=== PATIENT | female | born 1940 | race African-American/Black ===

== ENCOUNTER 2016-09-08 14:10 | Emergency (ER) | payer MEDICARE, BC ==
[~2016-09-08] VITALS: Ht 144.8 cm; Wt 79.5 kg
[~2016-09-08 14:10] MED LIST: ASPI81TA81 PO; BRIN1SUS2 EACH EYE; CALC667T PO; CINA30 PO; DAILTAB39 PO; ESTR42.5V VAGINAL; HYDR-3580 PO; HYDR-755 PO; LATA0.002 EACH EYE; NITR1SUB3 SL; PANT40TA3 PO; RENACAP2 PO; REST0.05 EACH EYE; SIMV10TA PO; VENTAER INH; ZOFR4TAB PO
[2016-09-08 14:12] VITALS: BP 182/75; PULSE 78; RESP 20; TEMP 98; O2SAT 93
--- NOTE | 2016-09-08 15:06 | PD ---
HPI Chief Complaint: Cold / Flu Symptoms Time Seen by Provider: 15:06 Travel History International Travel<30 days: No Contact w/Intl Traveler<30days: No Traveled to known affect area: No History of Present Illness HPI 76-year-old female with history of hypertension, CAD, pacemaker placement, on Coumadin, ESRD on dialysis Thursday, presents to the emergency department for evaluation of increasing chest congestion and shortness of breath. Patient states 3 days ago she began having a cough and some mild congestion. She's developed a cough with increasing shortness of breath. Cough is productive of a white sputum. She has felt chilled and febrile but is uncertain of an actual temperature. Denies nausea or vomiting. No significant pain. She has no other history to report at this time. PFSH Past Medical History Hx Anticoagulant Therapy: Yes (COUMADIN) Arthritis: Yes Anxiety: No Depression: Yes Heart Rhythm Problems: No Cancer: Yes (STOMACH) Cardiovascular Problems: Yes High Cholesterol: Yes Chemotherapy: Yes Chest Pain: Yes Congestive Heart Failure: No Cerebrovascular Accident: Yes Diabetes: No Dialysis: Yes (M/W/F ) Diminished Hearing: No Endocrine: Yes (? THYROID PROBLEM IN PAST) Gastrointestinal Disorders: Yes GERD: Yes Genitourinary: Yes Headaches: Yes Hiatal Hernia: No Hypertension: Yes Immune Disorder: No Implanted Vascular Access Dvce: Yes Kidney Stones: No Musculoskeletal: Yes Neurologic: Yes Psychiatric: Yes Reproductive: No Respiratory: Yes Migraines: No Radiation Therapy: No Renal Failure: Yes Seizures: No Sickle Cell Disease: No Sleep Apnea: Yes Thyroid Disease: No Ulcer: Yes Menopausal: Yes Past Surgical History Abdominal Surgery: Yes (MALIGANT STOMACH TUMOR REMOVAL 2012) AICD: No Arteriovenous Shunt: Yes (RIGHT) Body Medical Devices: VASCATH LEFT CHEST Cardiac Surgery: Yes (PACEMAKER 2014) Endocrine Surgery: No Gynecologic Surgery: Yes (PARTIAL HYSTERECTOMY) Hysterectomy: Yes (PARTIAL) Joint Replacement: Yes (RT TOTAL KNEE) Neurologic Surgery: No Oral Surgery: Yes (TEETH EXTRACTIONS) Pacemaker: Yes Other Surgery: Yes (RUE AV FISTULA ) Social History Alcohol Use: No Tobacco Use: No Substance Use: No Allergies-Medications (Allergen,Severity, Reaction): Coded Allergies: Compazine (Verified Allergy, Severe, TONGUE SWELLING, 09/08/16) Penicillin (Verified Allergy, Severe, Itching, 09/08/16) Reported Meds & Prescriptions Reported Meds & Active Scripts Active Reported Estrace Vaginal (Estradiol) 0.01% Cream 1 Appl VAGINAL EVERY OTHER NIGHT Pantoprazole (Pantoprazole Sodium) 40 Mg Tab 40 Mg PO DAILY Zofran (Ondansetron HCl) 4 Mg Tab 4 Mg PO Q6HR PRN Hydroxyzine HCl 10 Mg Tab 10 Mg PO BID Hydrocodone-Acetaminophen 7.5-325 mg Tab 1 Tab PO Q4H PRN Aspir-81 (Aspirin) 81 Mg Tabdr 81 Mg PO DAILY Ventolin Hfa 18 GM Inh (Albuterol Sulfate) 90 Mcg/Act Aer 2 Puff INH Q4H PRN Simvastatin 10 Mg Tab 10 Mg PO HS Simbrinza Opth Drops (Brinzolamide-Brimonidine Opth Drops) 1-0.2% Susp 1 Drop EACH EYE Q8HR Renal Vitamin (B-Complex W/ C & Folic Acid) 1 Cap 1 Cap PO DAILY If on dialysis, take after treatment. Nitroglycerin SL (Nitroglycerin) 0.4 Mg Subl 0.4 Mg SL DIRECTED PRN ONE TABLET UNDER THE TONGUE NEEDED FOR CHEST PAIN, MAY REPEAT EVERY FIVE MINUTES FOR A TOTAL OF 3 DOSES OR CALL 911 IF NO RELIEF Latanoprost Opth Drops (Latanoprost) 0.005% Drops 1 Drop EACH EYE HS Refrigerate until opened. Sensipar (Cinacalcet) 30 Mg Tab 30 Mg PO DAILY Calcium Acetate (Phosphate Binder) 667 Mg Tab 1,334 Mg PO TID Review of Systems Except as stated in HPI: all other systems reviewed are Neg Physical Exam Narrative GENERAL: Well-nourished female patient, sitting in her chair, in no acute distress SKIN: Warm and dry. HEAD: Atraumatic. Normocephalic. EYES: Pupils equal and round. No scleral icterus. No injection or drainage. ENT: No nasal bleeding or discharge. Mucous membranes pink and moist. NECK: Trachea midline. No JVD. CARDIOVASCULAR: Regular rate and rhythm. No murmur appreciated. RESPIRATORY: No accessory muscle use. Or so, diminished bases to auscultation. Breath sounds equal bilaterally. GASTROINTESTINAL: Abdomen soft, non-tender, nondistended. Hepatic and splenic margins not palpable. MUSCULOSKELETAL: No obvious deformities. No clubbing. No cyanosis. No edema. Right upper extremity AV fistula with positive thrill and bruit. NEUROLOGICAL: Awake and alert. No obvious cranial nerve deficits. Motor grossly within normal limits. Normal speech. PSYCHIATRIC: Appropriate mood and affect; insight and judgment normal. Data Data Last Documented VS Vital Signs Date Time Temp Pulse Resp B/P Pulse Ox O2 Delivery O2 Flow Rate FiO2 09/08/16 19:41 79 20 240/104 93 Room Air 09/08/16 14:12 98.0 Orders Complete Blood Count With Diff (09/08/16 15:04) Basic Metabolic Panel (Bmp) (09/08/16 15:04) B-Type Natriuretic Peptide (09/08/16 15:04) Act Partial Throm Time (Ptt) (09/08/16 15:04) Prothrombin Time / Inr (Pt) (09/08/16 15:04) Ckmb (Isoenzyme) Profile (09/08/16 15:04) Troponin I (09/08/16 15:04) Urinalysis - C+S If Indicated (09/08/16 15:04) Influenzae A/B Antigen (09/08/16 15:04) Electrocardiogram (09/08/16 15:04) Chest, Single Ap (09/08/16 15:04) Methylprednisolone So Succ Inj (Solumedr (09/08/16 19:00) Albuterol-Ipratropium Neb (Duoneb Neb) (09/08/16 19:00) Azithromycin (Zithromax) (09/08/16 19:00) CKMB (09/08/16 18:40) CKMB% (09/08/16 18:40) Labs Laboratory Tests Test 09/08/16 18:40 White Blood Count 7.1 TH/MM3 Red Blood Count 3.42 MIL/MM3 Hemoglobin 11.1 GM/DL Hematocrit 32.1 % Mean Corpuscular Volume 93.8 FL Mean Corpuscular Hemoglobin 32.5 PG Mean Corpuscular Hemoglobin 34.7 % Concent Red Cell Distribution Width 14.5 % Platelet Count 191 TH/MM3 Mean Platelet Volume 8.2 FL Neutrophils (%) (Auto) 61.4 % Lymphocytes (%) (Auto) 21.0 % Monocytes (%) (Auto) 10.0 % Eosinophils (%) (Auto) 6.7 % Basophils (%) (Auto) 0.9 % Neutrophils # (Auto) 4.4 TH/MM3 Lymphocytes # (Auto) 1.5 TH/MM3 Monocytes # (Auto) 0.7 TH/MM3 Eosinophils # (Auto) 0.5 TH/MM3 Basophils # (Auto) 0.1 TH/MM3 CBC Comment DIFF FINAL Differential Comment Prothrombin Time 12.0 SEC Prothromb Time International 1.1 RATIO Ratio Activated Partial 29.2 SEC Thromboplast Time Sodium Level 138 MEQ/L Potassium Level 5.0 MEQ/L Chloride Level 99 MEQ/L Carbon Dioxide Level 30.2 MEQ/L Anion Gap 9 MEQ/L Blood Urea Nitrogen 14 MG/DL Creatinine 4.96 MG/DL Estimat Glomerular Filtration 10 ML/MIN Rate Random Glucose 69 MG/DL Calcium Level 9.1 MG/DL Total Creatine Kinase 144 U/L Creatine Kinase MB 0.7 NG/ML Troponin I 0.02 NG/ML MDM Medical Decision Making Medical Screen Exam Complete: Yes Emergency Medical Condition: Yes Medical Record Reviewed: Yes Differential Diagnosis Pneumonia versus CHF versus influenza versus electrolyte abnormality Narrative Course 76 year-old female presents to the emergency department for evaluation of worsening chest tightness shortness of breath. Patient appears overall well but she does have coarse breath sounds throughout with an intermittent inspiratory and expiratory wheeze. Workup is initiated in triage. Once a medical bed becomes available, patient will be transferred 1610 nursing staff is unable to obtain labs due to access issues. Condition: Stable Bela Dong Sep 08, 2016 15:06
--- NOTE | 2016-09-08 15:20 | RADRPT ---
EXAM DATE/TIME: 09/08/2016 15:01 [facility] COMPARISON: CHEST PA & LAT, July 31, 2016, 11:46. INDICATIONS : Short of breath MEDICAL HISTORY : Hypertension. SURGICAL HISTORY : Pacemaker. ENCOUNTER: Initial ACUITY: 4 - 6 days PAIN SCORE: 0/10 LOCATION: Bilateral chest FINDINGS: A single view of the chest demonstrates the lungs to be symmetrically aerated without evidence of mas s, infiltrate or effusion. The cardiomediastinal contours are unremarkable. Osseous structures are intact. Bipolar pacemaker in place overlying the right hemithorax and vascular stents overlying the u pper right chest most likely subclavian vessels. Atherosclerotic calcifications in aortic knob. CONCLUSION: No acute disease. No significant change has occurred. Fabiano Daniels MD on September 08, 2016 at 15:17 Board Certified Radiologist. This report was verified electronically.
[2016-09-08 17:57] VITALS: BP_SYST 101; BP_SYST 214; BP_DIAS 105; BP_DIAS 58; PULSE 67; RESP 18; O2SAT 96
[2016-09-08 18:06] VITALS: BP 208/84; PULSE 68; RESP 18; O2SAT 96
[2016-09-08] MEDS ORDERED: AZITHROMYCIN 250 MG TAB PO ONE (19:00)
[2016-09-08] MEDS ORDERED: methylPREDNISolone SOD SUCC 125 MG/2 ML VIAL IVP ONE (19:00)
[2016-09-08 19:04] LABS: AUTOMATED NEUTROPHIL # 4.4 TH/MM3 (1.8-7.7); BASOPHIL # 0.1 TH/MM3 (0-0.2); BASOPHIL % 0.9 % (0.0-2.0); EOSINOPHIL # 0.5 TH/MM3 (0-0.4); EOSINOPHIL % 6.7 % (0.0-4.0); HEMATOCRIT 32.1 % (35.0-46.0); HEMO FLAGS DIFF FINAL; LYMPHOCYTE # 1.5 TH/MM3 (1.0-4.8); MEAN CELL VOLUME 93.8 FL (80.0-100.0); MEAN CORPUSCULAR HEMOGLOBIN 32.5 PG (27.0-34.0); MEAN CORPUSCULAR HGB CONC 34.7 % (32.0-36.0); NEUT % 61.4 % (16.0-70.0); PLATELET COUNT 191 TH/MM3 (150-450); RED BLOOD COUNT 3.42 MIL/MM3 (4.00-5.30); RED CELL DISTRIBUTION WIDTH 14.5 % (11.6-17.2); WHITE BLOOD COUNT 7.1 TH/MM3 (4.0-11.0)
--- NOTE | 2016-09-08 19:04 | PD ---
Physical Exam Narrative Patient was seen by my assistant golf coach and signed out to me. Data Data Last Documented VS Vital Signs Date Time Temp Pulse Resp B/P Pulse Ox O2 Delivery O2 Flow Rate FiO2 09/08/16 20:30 202/104 09/08/16 19:41 79 20 93 Room Air 09/08/16 14:12 98.0 Orders Complete Blood Count With Diff (09/08/16 15:04) Basic Metabolic Panel (Bmp) (09/08/16 15:04) B-Type Natriuretic Peptide (09/08/16 15:04) Act Partial Throm Time (Ptt) (09/08/16 15:04) Prothrombin Time / Inr (Pt) (09/08/16 15:04) Ckmb (Isoenzyme) Profile (09/08/16 15:04) Troponin I (09/08/16 15:04) Urinalysis - C+S If Indicated (09/08/16 15:04) Influenzae A/B Antigen (09/08/16 15:04) Electrocardiogram (09/08/16 15:04) Chest, Single Ap (09/08/16 15:04) Methylprednisolone So Succ Inj (Solumedr (09/08/16 19:00) Albuterol-Ipratropium Neb (Duoneb Neb) (09/08/16 19:00) Azithromycin (Zithromax) (09/08/16 19:00) CKMB (09/08/16 18:40) CKMB% (09/08/16 18:40) Labs Laboratory Tests Test 09/08/16 18:40 White Blood Count 7.1 TH/MM3 Red Blood Count 3.42 MIL/MM3 Hemoglobin 11.1 GM/DL Hematocrit 32.1 % Mean Corpuscular Volume 93.8 FL Mean Corpuscular Hemoglobin 32.5 PG Mean Corpuscular Hemoglobin 34.7 % Concent Red Cell Distribution Width 14.5 % Platelet Count 191 TH/MM3 Mean Platelet Volume 8.2 FL Neutrophils (%) (Auto) 61.4 % Lymphocytes (%) (Auto) 21.0 % Monocytes (%) (Auto) 10.0 % Eosinophils (%) (Auto) 6.7 % Basophils (%) (Auto) 0.9 % Neutrophils # (Auto) 4.4 TH/MM3 Lymphocytes # (Auto) 1.5 TH/MM3 Monocytes # (Auto) 0.7 TH/MM3 Eosinophils # (Auto) 0.5 TH/MM3 Basophils # (Auto) 0.1 TH/MM3 CBC Comment DIFF FINAL Differential Comment Prothrombin Time 12.0 SEC Prothromb Time International 1.1 RATIO Ratio Activated Partial 29.2 SEC Thromboplast Time Sodium Level 138 MEQ/L Potassium Level 5.0 MEQ/L Chloride Level 99 MEQ/L Carbon Dioxide Level 30.2 MEQ/L Anion Gap 9 MEQ/L Blood Urea Nitrogen 14 MG/DL Creatinine 4.96 MG/DL Estimat Glomerular Filtration 10 ML/MIN Rate Random Glucose 69 MG/DL Calcium Level 9.1 MG/DL Total Creatine Kinase 144 U/L Creatine Kinase MB 0.7 NG/ML Troponin I 0.02 NG/ML B-Type Natriuretic Peptide 275 PG/ML MDM Supervised Visit with BIANKA: Yes Interpretation(s) Last Impressions Chest X-Ray 09/08/16 1504 Signed Impressions: Service Date/Time: Thursday, September 08, 2016 15:01 - CONCLUSION: No acute disease. No significant change has occurred. Fabiano Daniels MD 22:16 PM. CBC within normal limit. BMP within normal limit. Creatinine 4.96. Glucose 69. BNP 275. Influenza AB antigen negative. Differential Diagnosis Differential diagnosis including URI, bronchitis, pneumonia, acute exacerbation COPD. Narrative Course 76 years old female with coughing congestion wheezing shortness of breath. History of COPD. History of end-stage renal disease on dialysis. Albuterol Atrovent unit dose treatment 3. Solu-Medrol 125 g IV. Zithromax 250 mg by mouth. Patient was given orange juice for low blood sugar. Diagnosis Primary Impression: COPD with acute exacerbation Additional Impression: Bronchitis Patient Instructions: General Instructions Additional Instruction: Take medications as directed. Follow-up with personal physician. Return if worse. Med/Other Pt SpecificInfo: Prescription(s) given Scripts Prednisone 20 Mg Tab20 Mg PO BID #10 TAB Ref 0 Take 60 MG daily x 4 days, then 40 MG x 4 days, then 20 MG daily x 4 days. Prov:Eliecer Christiansen MD 09/08/16 Azithromycin (Zithromax)250 Mg Orp451 Mg PO DAILY #5 TAB Ref 0 Prov:Eliecer Christiansen MD 09/08/16 Disposition: 01 DISCHARGE HOME Condition: Stable Eliecer Christiansen MD Sep 08, 2016 19:04
[2016-09-08] MEDS ORDERED: ESTR42.5V VAGINAL (19:15)
[2016-09-08 19:17] LABS: APTT (PATIENT) 29.2 SEC (24.3-30.1); INTERNATIONAL NORMALIZED RATIO 1.1 RATIO
[2016-09-08 19:32] LABS: ANION GAP 9 MEQ/L (5-15); BICARBONATE 30.2 MEQ/L (21.0-32.0); BLOOD UREA NITROGEN 14 MG/DL (7-18); CHLORIDE 99 MEQ/L (98-107); CREATINE KINASE 144 U/L (26-192); GLOMERULAR FILTRATION RATE 10 ML/MIN (>89); SODIUM (NA) 138 MEQ/L (136-145)
[2016-09-08 19:41] VITALS: BP 240/104; PULSE 79; RESP 20; O2SAT 93
[2016-09-08 19:45] LABS: CKMB 0.7 NG/ML (0.5-3.6)
[2016-09-08] MEDS: RESP: ALBUTEROL 2.5 MG/IPRATROPIUM 0.5 MG NEB (SCH) INH (20:23)
[2016-09-08 20:30] VITALS: BP 202/104
[2016-09-08] MEDS ORDERED: PRED20 PO (22:37)
[2016-09-08] MEDS ORDERED: ZITH250T PO (22:37)
--- NOTE | 2016-09-09 16:49 | EKG ---
Date Performed: 09/08/2016 Time Performed: 15:21:44 PTAGE: 76 years EKG: ELECTRONIC VENTRICULAR PACEMAKER When compared to previous tracing, the patient is now pace d. ABNORMAL RHYTHM ECG PREVIOUS TRACING : 07/31/2016 11.17 DOCTOR: Amanda Bowden Interpretating Date/Time 09/09/2016 16:46:48
[2016-10-03] MEDS ORDERED: HYDR-3580 PO (15:34)
[2016-10-03] MEDS ORDERED: CLIN1CAP5 PO (15:34)
[2016-10-03] MEDS ORDERED: ESTR42.5V VAGINAL (15:43)
[2016-11-10] MEDS ORDERED: SILE6TAB3 PO (11:27)
[2016-11-10] MEDS ORDERED: HYDR-3580 PO (11:33)
[2016-12-11] MEDS ORDERED: ESTR42.5V VAGINAL (14:09)
[2016-12-11] MEDS ORDERED: HYDR-3580 PO (14:09)
[2016-12-31] MEDS ORDERED: MOBI15TA PO (13:16)
[2017-01-07] MEDS ORDERED: HYDR-3580 PO (18:35)
== END 2016-09-08 23:18 | disposition home or self-care (01) ==
LOC: NEPA 14:10
DX: J44.1 Chronic obstructive pulmonary disease with (acute) exacerbation (principal); J40 Bronchitis, not specified as acute or chronic; N18.6 End stage renal disease; R94.31 Abnormal electrocardiogram [ECG] [EKG]; I10 Essential (primary) hypertension; E78.00 Pure hypercholesterolemia, unspecified; R05 Cough; Z99.2 Dependence on renal dialysis; Z79.01 Long term (current) use of anticoagulants
CPT/HCPCS: 71010; 80048; 82550; 82552; 83880; 84484; 85025; 85610; 85730; 87804; 93005; 94640; 94664; 96374; 99285; J2930

== ENCOUNTER 2016-09-30 02:10 | Emergency (ER) | payer MEDICARE, BC ==
[~2016-09-30] VITALS: Ht 162.6 cm; Wt 80.0 kg
[~2016-09-30 02:10] MED LIST changes: -DAILTAB39 PO; +PRED20 PO; -REST0.05 EACH EYE; +ZITH250T PO
[2016-09-30 02:15] VITALS: BP 164/71; PULSE 85; RESP 16; TEMP 97.4; O2SAT 94
--- NOTE | 2016-09-30 03:20 | RADRPT ---
EXAM DATE/TIME: 09/30/2016 03:07 [facility] COMPARISON: CT BRAIN W/O CONTRAST, July 23, 2015, 13:16. INDICATIONS : Cephalgia x 2 days RADIATION DOSE: 34.94 CTDIvol (mGy) MEDICAL HISTORY : Cerebrovascular disease. Cardiovascular disease Hypertension.Right arteriovenous shunt. Stomach canc er. SURGICAL HISTORY : Pacemaker. ENCOUNTER: Initial ACUITY: 2 days PAIN SCALE: 9/10 LOCATION: Bilateral cranial TECHNIQUE: Multiple contiguous axial images were obtained of the head. Using automated exposure control and adj ustment of the mA and/or kV according to patient size, radiation dose was kept as low as reasonably a chievable to obtain optimal diagnostic quality images. FINDINGS: Noncontrast axial head CT demonstrates the ventricles to be normal in size and configuration with a n ormal sulcal pattern. No acute intracranial hemorrhage, acute cortical infarction, mass or midline sh ift is seen. There is physiologic calcification of the basal ganglia there is old infarct involving t he left occipital lobe with ex vacuo dilatation of the left occipital horn. Old infarct is also prese nt in the left thalamus. Posterior fossa structures are unremarkable. Bone windows are unremarkable. There is benign mucosal disease involving the mastoid air cells bilate rally. CONCLUSION: 1. No evidence of acute intracranial pathology. No masses are identified. 2. Old left occipital lobe infarct Angel Villatoro MD on September 30, 2016 at 3:16 Board Certified Radiologist. This report was verified electronically.
[2016-09-30] MEDS ORDERED: MORPHINE SULFATE 8 MG/ML INJ IM ONE (03:30)
[2016-09-30] MEDS ORDERED: ONDANSETRON ODT 4 MG TAB PO ONE (03:30)
[2016-09-30 03:45] VITALS: RESP 20
--- NOTE | 2016-09-30 03:56 | PD ---
HPI Chief Complaint: Headache Time Seen by Provider: 03:52 Travel History International Travel<30 days: No Contact w/Intl Traveler<30days: No Traveled to known affect area: No History of Present Illness HPI 76-year-old black female presents to emergency Department with complaints of headache. She states the headache is been now present for the past 3 days. She has taken multiple medications without relief. She states that she has headaches in the past but this is appears worsen patient she had prior. She has frontal pain that would radiates into her years and down into her neck and upper chest. The patient reports at that her pain is a 8-9/10. Sharp in nature. She states that she's had some sinus congestion, runny nose and slight cough. She denies any fever or chills. No ear pain or sore throat. No shortness of breath or wheezing. No nausea vomiting. No abdominal pain or urinary symptoms. She did get dialysis earlier today. She did not mention this to her dialysis doctor. PFSH Past Medical History Hx Anticoagulant Therapy: Yes (COUMADIN) Arthritis: Yes Anxiety: No Depression: Yes Heart Rhythm Problems: No Cancer: Yes (STOMACH) Cardiovascular Problems: Yes High Cholesterol: Yes Chemotherapy: Yes Chest Pain: Yes Congestive Heart Failure: No Cerebrovascular Accident: Yes Diabetes: No Dialysis: Yes (M/W/F ) Diminished Hearing: No Endocrine: Yes (? THYROID PROBLEM IN PAST) Gastrointestinal Disorders: Yes GERD: Yes Genitourinary: Yes Headaches: Yes Hiatal Hernia: No Hypertension: Yes Immune Disorder: No Implanted Vascular Access Dvce: Yes Kidney Stones: No Medical other: Yes (HEMORRHOIDS) Musculoskeletal: Yes Neurologic: Yes Psychiatric: Yes Reproductive: No Respiratory: Yes Migraines: No Radiation Therapy: No Renal Failure: Yes Seizures: No Sickle Cell Disease: No Sleep Apnea: Yes Thyroid Disease: No Ulcer: Yes Tetanus Vaccination: < 5 Years Influenza Vaccination: Yes Menopausal: Yes Past Surgical History Abdominal Surgery: Yes (MALIGANT STOMACH TUMOR REMOVAL 2012) AICD: No Appendectomy: Yes Arteriovenous Shunt: Yes (RIGHT) Body Medical Devices: VASCATH LEFT CHEST Cardiac Surgery: Yes (PACEMAKER 2014) Endocrine Surgery: No Gynecologic Surgery: Yes (PARTIAL HYSTERECTOMY) Hysterectomy: Yes (PARTIAL) Joint Replacement: Yes (RT TOTAL KNEE) Neurologic Surgery: No Oral Surgery: Yes (TEETH EXTRACTIONS) Pacemaker: Yes Other Surgery: Yes (RUE AV FISTULA ) Social History Alcohol Use: No Tobacco Use: No Substance Use: No Allergies-Medications (Allergen,Severity, Reaction): Coded Allergies: Compazine (Verified Allergy, Severe, TONGUE SWELLING, 09/30/16) Penicillin (Verified Allergy, Severe, Itching, 09/30/16) Reported Meds & Prescriptions Reported Meds & Active Scripts Active Prednisone 20 Mg Tab 20 Mg PO BID Take 60 MG daily x 4 days, then 40 MG x 4 days, then 20 MG daily x 4 days. Zithromax (Azithromycin) 250 Mg Tab 250 Mg PO DAILY Reported Estrace Vaginal (Estradiol) 0.01% Cream 1 Appl VAGINAL EVERY OTHER NIGHT Pantoprazole (Pantoprazole Sodium) 40 Mg Tab 40 Mg PO DAILY Zofran (Ondansetron HCl) 4 Mg Tab 4 Mg PO Q6HR PRN Hydroxyzine HCl 10 Mg Tab 10 Mg PO BID Hydrocodone-Acetaminophen 7.5-325 mg Tab 1 Tab PO Q4H PRN Aspir-81 (Aspirin) 81 Mg Tabdr 81 Mg PO DAILY Ventolin Hfa 18 GM Inh (Albuterol Sulfate) 90 Mcg/Act Aer 2 Puff INH Q4H PRN Simvastatin 10 Mg Tab 10 Mg PO HS Simbrinza Opth Drops (Brinzolamide-Brimonidine Opth Drops) 1-0.2% Susp 1 Drop EACH EYE Q8HR Renal Vitamin (B-Complex W/ C & Folic Acid) 1 Cap 1 Cap PO DAILY If on dialysis, take after treatment. Nitroglycerin SL (Nitroglycerin) 0.4 Mg Subl 0.4 Mg SL DIRECTED PRN ONE TABLET UNDER THE TONGUE NEEDED FOR CHEST PAIN, MAY REPEAT EVERY FIVE MINUTES FOR A TOTAL OF 3 DOSES OR CALL 911 IF NO RELIEF Latanoprost Opth Drops (Latanoprost) 0.005% Drops 1 Drop EACH EYE HS Refrigerate until opened. Sensipar (Cinacalcet) 30 Mg Tab 30 Mg PO DAILY Calcium Acetate (Phosphate Binder) 667 Mg Tab 1,334 Mg PO TID Review of Systems Except as stated in HPI: all other systems reviewed are Neg General / Constitutional: No: Fever, Chills Eyes: No: Blurred Vision, Photophobia HENT: Positive: Headaches, No: Neck Pain Cardiovascular: Positive: Irregular Rhythm (history of arrhythmia), No: Chest Pain or Discomfort Respiratory: No: Cough, Shortness of Breath Gastrointestinal: No: Nausea, Vomiting Genitourinary: No: Pelvic Pain, Discharge Musculoskeletal: Positive: Arthralgias, Weakness (weakness in her lower legs), Pain Skin: No Rash, No Itching Physical Exam Narrative GENERAL: Well-developed, well-nourished in no apparent distress. Nontoxic appearing. HEAD: Normocephalic, atraumatic. EYES: Pupils equal round and reactive. Extraocular motions intact. No scleral icterus. No injection or drainage. ENT: Nose clear. Throat without erythema, tonsillar hypertrophy or exudate. Uvula midline. Airway patent. NECK: Trachea midline. Supple, nontender, moves head freely. No central bony tenderness or spasm. CARDIOVASCULAR: Irregular Regular rate and rhythm 3/6 left sternal border, positive gallops. RESPIRATORY: Clear to auscultation. Breath sounds equal bilaterally. No wheezes , rales, or rhonchi. GASTROINTESTINAL: Abdomen soft, non-tender, nondistended. No hepato-splenomegaly , or palpable masses. No guarding. EXTREMITIES: No clubbing, cyanosis, or edema. No joint tenderness. Warm without erythema. No calf tenderness. No edema. BACK: Nontender without deformity. No flank tenderness. NEUROLOGICAL: Awake, alert and oriented x 3 .Cranial nerves grossly intact. Motor and sensory grossly within normal limits. Normal speech. Data Data Last Documented VS Vital Signs Date Time Temp Pulse Resp B/P Pulse Ox O2 Delivery O2 Flow Rate FiO2 09/30/16 02:22 16 94 Room Air 09/30/16 02:15 97.4 85 164/[address] Brain W/O Iv Contrast(Rout) (09/30/16 02:54) Influenzae A/B Antigen (09/30/16 03:26) Morphine Inj (Morphine Inj) (09/30/16 03:30) Ondansetron Odt (Zofran Odt) (09/30/16 03:30) MDM Medical Decision Making Medical Screen Exam Complete: Yes Emergency Medical Condition: Yes Medical Record Reviewed: Yes Interpretation(s) Influenza: Negative Last [address] 09/30/16 0254 Signed Impressions: Service Date/Time: Friday, September 30, 2016 03:07 - CONCLUSION: 1. No evidence of acute intracranial pathology. No masses are identified. 2. Old left occipital lobe infarct Angel Villatoro MD Differential Diagnosis MDM: High Differential diagnoses: Subarachnoid hemorrhage, intracranial bleed, aneurysm, pseudotumor, migraine, cluster headache, atypical migraine, temporal arteritis, connective tissue disorder, hypertension, temporal arteritis, sinusitis, sinus headache, influenza Narrative Course CT scan of the brain shows no acute cranial findings. Sinuses show no acute sinus disease. Patient does not look toxic. She had dialysis earlier today. Patient given morphine 8 mg IM and 4 mg of Zofran sublingual. 12 08 the patient's reexamined. She is sleeping. She is awoken. She states that her headache is improving. She states that her headache is down to a level of 5. The patient is medically stable for discharge. This is cephalgia Diagnosis Primary Impression: Cephalgia Qualified Code: R51 - Acute nonintractable headache, unspecified headache type Patient Instructions: General Instructions, Narcotic given in the ED Additional Instructions: Rest. Notify your doctor in the morning that she came to the ER for headache treatment. Recheck with your doctor tomorrow or the next day. Return to the ER if symptoms return or worsen. Med/Other Pt SpecificInfo: No Change to Meds Disposition: 01 DISCHARGE HOME Condition: Stable Ephraim Chavarria Sep 30, 2016 03:56
[2016-10-03] MEDS ORDERED: CLIN1CAP5 PO (15:34)
[2016-10-03] MEDS ORDERED: HYDR-3580 PO (15:34)
[2016-10-03] MEDS ORDERED: ESTR42.5V VAGINAL (15:43)
[2016-11-10] MEDS ORDERED: SILE6TAB3 PO (11:27)
[2016-11-10] MEDS ORDERED: HYDR-3580 PO (11:33)
[2016-12-11] MEDS ORDERED: ESTR42.5V VAGINAL (14:09)
[2016-12-11] MEDS ORDERED: HYDR-3580 PO (14:09)
[2016-12-31] MEDS ORDERED: MOBI15TA PO (13:16)
[2017-01-07] MEDS ORDERED: HYDR-3580 PO (18:35)
== END 2016-09-30 05:14 | disposition home or self-care (01) ==
LOC: NEPA 02:10
DX: R51 Headache (principal)
CPT/HCPCS: 70450; 87804; 96372; 99284; J2270

== ENCOUNTER → 2017-03-19 | Outpatient (CLI) | payer MEDICARE, BC ==
[~2017-03-19] MED LIST changes: +DICL1GEL7 TOPICAL; -HYDR-755 PO; -PRED20 PO; +SILE6TAB3 PO; +WALKER WHEELS/F1 MIS; +WALKER/ADULT/FO1 MIS; -ZITH250T PO
[2017-03-19 11:06] LABS: HDL CHOLESTEROL 47.9 MG/DL (40.0-60.0)
== END ==
LOC: CLAB 10:06
PROVIDERS: ATTEND Family Medicine
DX: E78.5 Hyperlipidemia, unspecified (principal); N18.6 End stage renal disease
CPT/HCPCS: 36415; 80061

== ENCOUNTER → 2017-05-06 | Outpatient (CLI) | payer MEDICARE, BC ==
[~2017-05-06] MED LIST changes: +AMLO5TAB2 PO; -BRIN1SUS2 EACH EYE; +CANE/WOOD/LADIE1 MI1; +HYDR-3533 PO; -LATA0.002 EACH EYE; +METO25TA3 PO; -SILE6TAB3 PO; +WRIST SPLINT/CO1 MI1; +WRIST SPLINT/CO1 MIS
[2017-05-06 10:59] LABS: AUTOMATED NEUTROPHIL # 4.3 TH/MM3 (1.8-7.7); BASOPHIL # 0.1 TH/MM3 (0-0.2); BASOPHIL % 0.9 % (0.0-2.0); EOSINOPHIL # 0.6 TH/MM3 (0-0.4); EOSINOPHIL % 7.2 % (0.0-4.0); HEMATOCRIT 33.9 % (35.0-46.0); HEMO FLAGS DIFF FINAL; LYMPH % 24.4 % (9.0-44.0); LYMPHOCYTE # 1.9 TH/MM3 (1.0-4.8); MEAN CELL VOLUME 93.1 FL (80.0-100.0); MEAN CORPUSCULAR HEMOGLOBIN 32.2 PG (27.0-34.0); MEAN CORPUSCULAR HGB CONC 34.5 % (32.0-36.0); MONO % 12.1 % (0.0-8.0); NEUT % 55.4 % (16.0-70.0); PLATELET COUNT 165 TH/MM3 (150-450); RED BLOOD COUNT 3.64 MIL/MM3 (4.00-5.30); RED CELL DISTRIBUTION WIDTH 15.2 % (11.6-17.2); WHITE BLOOD COUNT 7.8 TH/MM3 (4.0-11.0)
[2017-05-06 11:22] LABS: ANION GAP 10 MEQ/L (5-15); AST (GOT) 13 U/L (15-37); BICARBONATE 26.4 MEQ/L (21.0-32.0); BLOOD UREA NITROGEN 16 MG/DL (7-18); CHLORIDE 103 MEQ/L (98-107); GLOMERULAR FILTRATION RATE 11 ML/MIN (>89); GLUCOSE,FASTING 97 MG/DL (74-99); SODIUM (NA) 139 MEQ/L (136-145)
[2017-05-06 11:23] LABS: ALT (GPT) 15 U/L (10-53)
[2017-05-06 11:25] LABS: ALKALINE PHOSPHATASE 149 U/L (45-117); HDL CHOLESTEROL 45.2 MG/DL (40.0-60.0); LDL CHOLESTEROL 123 MG/DL (0-99); TOTAL BILIRUBIN ADULT 0.4 MG/DL (0.2-1.0)
== END ==
LOC: CLAB 10:31
PROVIDERS: ATTEND Family Medicine
DX: E78.5 Hyperlipidemia, unspecified (principal); N18.6 End stage renal disease
CPT/HCPCS: 36415; 80053; 80061; 85025

== ENCOUNTER 2017-05-15 11:41 | Emergency (ER) | payer MEDICARE, BC ==
[~2017-05-15] VITALS: Ht 149.9 cm; Wt 79.0 kg
[~2017-05-15 11:41] MED LIST changes: -HYDR-3533 PO
[2017-05-15 11:44] VITALS: BP 134/63; PULSE 85; RESP 20; TEMP 98.2; O2SAT 98
--- NOTE | 2017-05-15 13:08 | PD ---
HPI Chief Complaint: Musculoskeletal Complaint Time Seen by Provider: 12:49 Travel History International Travel<30 days: No Contact w/Intl Traveler<30days: No Traveled to known affect area: No History of Present Illness HPI 77-year-old female, with history of renal failure and is on dialysis, presents to the emergency Department with complaint of right shoulder pain, abdominal pain, bilateral knee pain, neck pain after losing her balance while reaching for something and falling at approximately 12:30 last night. Did go to dialysis this morning. Ambulatory since after fall. Denies hitting head or loss or consciousness. Denies anticoagulant therapy. Fell onto her right shoulder. Denies falling onto her knees or abdomen. Reports paresthesias to bilateral hands, denies loss of sensation. Reports decreased range of motion to the right shoulder. Denies back pain. Denies encopresis, incontinence, saddle anesthesias. Denies chest pain, shortness of breath, vomiting, change in stool. Denies blood in stool. Reports anuria. Symptoms are moderate in severity. Has not taken any medications or tried any treatments to alleviate his symptoms. Allergies to penicillin and prochlorperazine. Dr. Bautista primary care provider. Dr. Steele is dialysis MG. History of kidney failure, dialysis, hypertension, stroke in 2012, and pacemaker. Has no medical complaints. No other modifying factors or associated signs and symptoms. PFSH Past Medical History Hx Anticoagulant Therapy: Yes (COUMADIN) Arthritis: Yes Anxiety: No Depression: Yes Heart Rhythm Problems: No Cancer: Yes (STOMACH) Cardiovascular Problems: Yes High Cholesterol: Yes Chemotherapy: Yes Chest Pain: Yes Congestive Heart Failure: No Cerebrovascular Accident: Yes Diabetes: No Dialysis: Yes (M/W/F ) Diminished Hearing: No Endocrine: Yes (? THYROID PROBLEM IN PAST) Gastrointestinal Disorders: Yes GERD: Yes Genitourinary: Yes Headaches: Yes Hiatal Hernia: No Hypertension: Yes Immune Disorder: No Implanted Vascular Access Dvce: Yes Kidney Stones: No Musculoskeletal: Yes Neurologic: Yes Psychiatric: Yes Reproductive: No Respiratory: Yes Migraines: No Radiation Therapy: No Renal Failure: Yes Seizures: No Sickle Cell Disease: No Sleep Apnea: Yes Thyroid Disease: No Ulcer: Yes Menopausal: Yes Past Surgical History Abdominal Surgery: Yes (MALIGANT STOMACH TUMOR REMOVAL 2012) AICD: No Appendectomy: Yes Arteriovenous Shunt: Yes (RIGHT) Body Medical Devices: VASCATH LEFT CHEST Cardiac Surgery: Yes (PACEMAKER 2014) Endocrine Surgery: No Gynecologic Surgery: Yes (PARTIAL HYSTERECTOMY) Hysterectomy: Yes Joint Replacement: Yes (RT TOTAL KNEE) Neurologic Surgery: No Oral Surgery: Yes (TEETH EXTRACTIONS) Pacemaker: Yes Other Surgery: Yes (RUE AV FISTULA ) Social History Alcohol Use: No Tobacco Use: No Substance Use: No Allergies-Medications (Allergen,Severity, Reaction): Coded Allergies: penicillin G (Unverified Allergy, Severe, Itching, 05/15/17) prochlorperazine (Unverified Allergy, Severe, TONGUE SWELLING, 05/15/17) Reported Meds & Prescriptions Reported Meds & Active Scripts Active Wrist Splint/Cock-Up/Right 1 Mis Mis Ea .ROUTE DIRECTED Wrist Splint/Cock-Up/Left 1 Mis Mis Ea .ROUTE DIRECTED Hydrocodone-Acetaminophen 7.5-325 mg Tab 1 Tab PO Q6H PRN Cane/Wood/Ladies Standard (Device) 1 Mis Mis Ea .ROUTE DIRECTED use for 99 years Cane/Wood/Ladies Standard (Device) 1 Mis Mis 1 Ea .ROUTE DIRECTED use for 99 years Walker/Adult/Folding (Device) 1 Mis Mis 1 Ea .ROUTE DIRECTED use as needed to assist for ambulation Walker with Front Wheels (Device) 1 Mis Mis 1 Ea .ROUTE DIRECTED Diclofenac Topical 1% Gel 1 Applic TOPICAL QID Estrace Vaginal (Estradiol) 0.01% Cream 1 Appl VAGINAL EVERY OTHER NIGHT Reported Metoprolol Tartrate 25 Mg Tab 25 Mg PO DAILY Amlodipine (Amlodipine Besylate) 5 Mg Tab 5 Mg PO DAILY Pantoprazole (Pantoprazole Sodium) 40 Mg Tab 40 Mg PO DAILY Zofran (Ondansetron HCl) 4 Mg Tab 4 Mg PO Q6HR PRN Aspir-81 (Aspirin) 81 Mg Tabdr 81 Mg PO DAILY Ventolin Hfa 18 GM Inh (Albuterol Sulfate) 90 Mcg/Act Aer 2 Puff INH Q4H PRN Simvastatin 10 Mg Tab 10 Mg PO HS Renal Vitamin (B-Complex W/ C & Folic Acid) 1 Cap 1 Cap PO DAILY If on dialysis, take after treatment. Nitroglycerin SL (Nitroglycerin) 0.4 Mg Subl 0.4 Mg SL DIRECTED PRN ONE TABLET UNDER THE TONGUE NEEDED FOR CHEST PAIN, MAY REPEAT EVERY FIVE MINUTES FOR A TOTAL OF 3 DOSES OR CALL 911 IF NO RELIEF Sensipar (Cinacalcet) 30 Mg Tab 30 Mg PO DAILY Calcium Acetate (Phosphate Binder) 667 Mg Tab 1,334 Mg PO TID Review of Systems Except as stated in HPI: all other systems reviewed are Neg Physical Exam Narrative GENERAL: Well-nourished, well-developed elderly, black female patient, in no acute distress SKIN: Warm and dry. HEAD: Atraumatic. Normocephalic. No facial or scalp abrasions or lacerations noted. No facial droop noted. Tongue midline. EYES: Pupils equal and round at 2 mm with brisk reaction. No scleral icterus. No injection or drainage. No raccoon eyes. ENT: Mucosa pink and moist. No erythema or exudates. No uvular edema. No uvular , palatal, or tonsillar deviation. Airway patent. Nares without nasal blood. No rhinorrhea. EARS: Bilateral pinnae and external canals appear within normal limits. Bilateral tympanic membranes without erythema, dullness, hemotympanum or perforation. No otorrhea. No joiner signs. NECK: Moving freely. Trachea midline. No lymphadenopathy. No midline point tenderness on palpation of the cervical spine. Active rotation of the neck greater than 45 left and right. Reproducible tenderness to bilateral musculature of the neck. No obvious deformities. CHEST: No retractions or use of accessory muscles. CARDIOVASCULAR: Regular rate and rhythm. No murmur appreciated. RESPIRATORY: No accessory muscle use. Clear to auscultation. Breath sounds equal bilaterally. GASTROINTESTINAL: Abdomen soft, generalized tenderness on palpation, nondistended. Hepatic and splenic margins not palpable. Bowel sounds are active 4 quadrants. MUSCULOSKELETAL: Right shoulder with less than 45 abduction; without erythema , edema, ecchymosis; shoulders equal; joint stable; decreased range of motion; no obvious deformity. No obvious deformities. No clubbing. No cyanosis. No edema. BACK: No midline Point tenderness on palpation of the lumbar or thoracic spine. No obvious deformities. Patient sitting up in bed at 90. NEUROLOGICAL: Awake and alert. Oriented 3. No obvious cranial nerve deficits. Motor grossly within normal limits. Normal speech. Moves all extremities. 5/5 strength to all extremities. Sensory intact. PSYCHIATRIC: Appropriate mood and affect; insight and judgment normal. Data Data Last Documented VS Vital Signs Date Time Temp Pulse Resp B/P (MAP) Pulse Ox O2 Delivery O2 Flow Rate FiO2 05/15/17 13:15 16 05/15/17 11:44 98.2 85 134/63 (86) 98 Room Air Orders Orders Complete Blood Count With Diff (05/15/17 13:05) Comprehensive Metabolic Panel (05/15/17 13:05) Lipase (05/15/17 13:05) Iv Access Insert/Monitor (05/15/17 13:05) Sodium Chloride 0.9% Flush (Ns Flush) (05/15/17 13:15) Shoulder, Complete (>2vws) (05/15/17 13:08) Ct Abd/Pel W/O Iv Contrast (05/15/17 14:09) Acetamin-Hydrocod 325-5 Mg (Klemme 5-325 (05/15/17 14:30) Labs Laboratory Tests Test 05/15/17 13:30 White Blood Count 7.5 TH/MM3 Red Blood Count 3.75 MIL/MM3 Hemoglobin 12.3 GM/DL Hematocrit 35.3 % Mean Corpuscular Volume 94.3 FL Mean Corpuscular Hemoglobin 32.9 PG Mean Corpuscular Hemoglobin Concent 34.9 % Red Cell Distribution Width 15.3 % Platelet Count 160 TH/MM3 Mean Platelet Volume 8.2 FL Neutrophils (%) (Auto) 58.8 % Lymphocytes (%) (Auto) 19.9 % Monocytes (%) (Auto) 15.4 % Eosinophils (%) (Auto) 5.4 % Basophils (%) (Auto) 0.5 % Neutrophils # (Auto) 4.4 TH/MM3 Lymphocytes # (Auto) 1.5 TH/MM3 Monocytes # (Auto) 1.2 TH/MM3 Eosinophils # (Auto) 0.4 TH/MM3 Basophils # (Auto) 0.0 TH/MM3 CBC Comment DIFF FINAL Differential Comment Blood Urea Nitrogen 16 MG/DL Creatinine 4.48 MG/DL Random Glucose 98 MG/DL Total Protein 7.9 GM/DL Albumin 3.6 GM/DL Calcium Level 8.0 MG/DL Alkaline Phosphatase 136 U/L Aspartate Amino Transf (AST/SGOT) 30 U/L Alanine Aminotransferase (ALT/SGPT) 16 U/L Total Bilirubin 0.6 MG/DL Sodium Level 136 MEQ/L Potassium Level 4.5 MEQ/L Chloride Level 100 MEQ/L Carbon Dioxide Level 27.5 MEQ/L Anion Gap 9 MEQ/L Estimat Glomerular Filtration Rate 12 ML/MIN Lipase 454 U/L [facility] Medical Decision Making Medical Screen Exam Complete: Yes Emergency Medical Condition: Yes Medical Record Reviewed: Yes Differential Diagnosis Fall, Shoulder contusion, shoulder sprain, shoulder fracture, abdominal pain, abdominal contusion Narrative Course 77-year-old female, with history of renal failure and is on dialysis, physical exam consistent with strain of cervical portion of both trapezius muscles, right shoulder injury, and abdominal pain after mechanical fall late last night. Denies hitting her head or loss of consciousness. Denies anticoagulant therapy. The patient admits to hitting their head, but denies loss of consciousness. Denies nausea, vomiting. On physical exam the patient is without raccoon eyes, joiner signs, rhinorrhea, or hemotympanum. I do not suspect open or depressed skull fracture, and the patient has no signs of basilar skull fracture. [place] CT Head Injury Rule suggests a head CT is not necessary for this patient and clears the patient for head injury without imaging. Reports neck pain. [place] C-Spine Rule suggests the C-Spine can be cleared clinically of fracture, and imaging is not required. There is no midline point tenderness on palpation of the cervical spine. The patient is able to actively rotate the neck 45 left and right. The patient is sitting up in bed at 90. The patient is ambulatory. Generalized abdominal tenderness on exam. CBC, CMP, lipase, CT abdomen/pelvis ordered. Right shoulder x-ray ordered. Lortab ordered. Patient is anuria so urinalysis was not ordered. 1434: Right shoulder x-ray with no acute fracture or dislocation. CBC unremarkable. BMP was elevated creatinine 4.48 and GFR 12; consistent with renal failure. Lipase 454. 1504: CT abdomen/pelvis concludes: Negative for acute traumatic injury; Marked degenerative changes in the lumbar spine. All lab findings and CT and radiology findings discussed with patient. Patient given fluid challenge. She' ll be discharged home if tolerated well. Lortab prescribed for home. Instructed patient to follow up with primary care provider. Patient verbalizes understanding and agreement with treatment plan. Patient is medically cleared and stable for discharge. Discussed reasons to return to the emergency department. Patient agrees with treatment plan. The patients vital signs are stable and the patient is stable for outpatient follow-up and treatment. Patient discharged home, stable and in no acute distress. Diagnosis Primary Impression: Fall Qualified Codes: W19.XXXA - Unspecified fall, initial encounter Additional Impressions: Strain of cervical portion of both trapezius muscles Abdominal pain Qualified Codes: R10.9 - Unspecified abdominal pain Right shoulder injury Qualified Codes: S49.91XA - Unspecified injury of right shoulder and upper arm , initial encounter Serum lipase elevation Referrals: Primary Care Physician Patient Instructions: Abdominal Pain (ED), Cervical Neck Strain Exercises (GEN) , Cervical Strain (ED), Fall Prevention (ED), General Instructions, Shoulder Sprain (ED) Additional Instructions: Tylenol or ibuprofen as needed and as directed to reduce pain and inflammation Rest, ice, and compress extremity to decrease pain and inflammation Heating pad and/ice to neck area as needed for pain Avoid aggravating activity; increase activity as tolerated Follow-up with primary care provider Return to the emergency department immediately with worsening symptoms Med/Other Pt SpecificInfo: Prescription(s) given Scripts Hydrocodone-Acetaminophen (Lortab) 5-325 Mg Tab 1 TAB PO Q6H Y for PAIN, #10 TAB 0 Refills Prov: Yolanda Will 05/15/17 Disposition: 01 DISCHARGE HOME Condition: Stable Yolanda Will May 15, 2017 13:08
[2017-05-15] MEDS ORDERED: SODIUM CHLORIDE 0.9% FLUSH 10 ML FLUSH IV FLUSH PRN (13:15)
[2017-05-15 13:43] LABS: AUTOMATED NEUTROPHIL # 4.4 TH/MM3 (1.8-7.7); BASOPHIL % 0.5 % (0.0-2.0); EOSINOPHIL # 0.4 TH/MM3 (0-0.4); EOSINOPHIL % 5.4 % (0.0-4.0); HEMATOCRIT 35.3 % (35.0-46.0); HEMO FLAGS DIFF FINAL; LYMPH % 19.9 % (9.0-44.0); LYMPHOCYTE # 1.5 TH/MM3 (1.0-4.8); MEAN CELL VOLUME 94.3 FL (80.0-100.0); MEAN CORPUSCULAR HEMOGLOBIN 32.9 PG (27.0-34.0); MEAN CORPUSCULAR HGB CONC 34.9 % (32.0-36.0); MONO % 15.4 % (0.0-8.0); NEUT % 58.8 % (16.0-70.0); PLATELET COUNT 160 TH/MM3 (150-450); RED BLOOD COUNT 3.75 MIL/MM3 (4.00-5.30); RED CELL DISTRIBUTION WIDTH 15.3 % (11.6-17.2); WHITE BLOOD COUNT 7.5 TH/MM3 (4.0-11.0)
[2017-05-15 14:00] LABS: ALT (GPT) 16 U/L (10-53)
[2017-05-15 14:02] LABS: ALKALINE PHOSPHATASE 136 U/L (45-117); ANION GAP 9 MEQ/L (5-15); AST (GOT) 30 U/L (15-37); BICARBONATE 27.5 MEQ/L (21.0-32.0); BLOOD UREA NITROGEN 16 MG/DL (7-18); CHLORIDE 100 MEQ/L (98-107); GLOMERULAR FILTRATION RATE 12 ML/MIN (>89); SODIUM (NA) 136 MEQ/L (136-145); TOTAL BILIRUBIN ADULT 0.6 MG/DL (0.2-1.0)
[2017-05-15 14:04] LABS: POTASSIUM 4.5 MEQ/L (3.5-5.1)
--- NOTE | 2017-05-15 14:19 | RADRPT ---
EXAM DATE/TIME: 05/15/2017 14:03 [facility] COMPARISON: No previous studies available for comparison. INDICATIONS : Right shoulder pain after patient fell. MEDICAL HISTORY : Cerebrovascular disease. Cardiovascular disease Hypertension.Right arteriovenous shunt. Stomach cance r. SURGICAL HISTORY : Pacemaker. ENCOUNTER: Initial ACUITY: 1 day PAIN SCORE: 8/10 LOCATION: Right Shoulder. FINDINGS: Osseous structures appear intact without evidence for acute bony fracture or focal bone destruction. Glenohumeral joint is anatomic. Acromioclavicular joint is maintained. There are right subclavian vei n and axillary vein stents in place. Partially imaged right sided pacemaker in place. Visualized port ions of the lungs are clear. Soft tissues are grossly unremarkable. CONCLUSION: 1. No acute fracture or dislocation. Roni Kirk MD on May 15, 2017 at 14:17 Board Certified Radiologist. This report was verified electronically.
[2017-05-15] MEDS ORDERED: ACETAMINOPHEN/HYDROcodone 325 MG/5 MG TAB PO ONE (14:30)
--- NOTE | 2017-05-15 15:02 | RADRPT ---
EXAM DATE/TIME: 05/15/2017 14:24 [facility] COMPARISON: No previous studies available for comparison. INDICATIONS : Trauma; fall. ORAL CONTRAST: No oral contrast ingested. RADIATION DOSE: 15.94 CTDIvol (mGy) MEDICAL HISTORY : Cardiovascular disease. Renal failure, chronic. Dialysis SURGICAL HISTORY : Appendectomy. Hysterectomy.AV shunt ENCOUNTER: Initial ACUITY: 1 day PAIN SCALE: 5/10 LOCATION: Bilateral abdomen. TECHNIQUE: Volumetric scanning of the abdomen and pelvis was performed. Using automated exposure control and ad justment of the mA and/or kV according to patient size, radiation dose was kept as low as reasonably achievable to obtain optimal diagnostic quality images. DICOM format image data is available electro nically for review and comparison. FINDINGS: Lung bases are clear. Mitral valve annulus calcifications are evident. Liver, spleen, pancreas and adrenals unremarkable. Bilateral renal cysts. There is a 1.2 cm in the right kidney, Bosniak 2. There is no retroperitoneal adenopathy. Degenerative changes present in the lumbar spine and both SI joints and right hip. Fracture is not appreciated. CONCLUSION: Negative for acute traumatic injury. Marked degenerative changes in the lumbar spine. Arnaud Salcido MD FACR on May 15, 2017 at 14:49 Board Certified Radiologist. This report was verified electronically.
[2017-05-15] MEDS ORDERED: HYDR-3533 PO (15:13)
== END 2017-05-15 15:38 | disposition home or self-care (01) ==
LOC: NEPD 11:41
DX: S16.1XXA Strain of muscle, fascia and tendon at neck level, initial encounter (principal); R10.9 Unspecified abdominal pain; S49.91XA Unspecified injury of right shoulder and upper arm, initial encounter; M25.561 Pain in right knee; M25.562 Pain in left knee; I12.9 Hypertensive chronic kidney disease with stage 1 through stage 4 chronic kidney disease, or unspecified chronic kidney disease; N18.9 Chronic kidney disease, unspecified; W19.XXXA Unspecified fall, initial encounter; Z86.73 Personal history of transient ischemic attack (TIA), and cerebral infarction without residual deficits
CPT/HCPCS: 73030; 74176; 80053; 83690; 85025

== ENCOUNTER 2017-05-25 11:01 | Emergency (ER) | payer MEDICARE, BC ==
[~2017-05-25] VITALS: Ht 149.9 cm; Wt 75.0 kg
[~2017-05-25 11:01] MED LIST changes: +HYDR-3533 PO
[2017-05-25 11:13] VITALS: BP 137/80; PULSE 84; RESP 15; TEMP 97.8; O2SAT 95
[2017-05-25] MEDS ORDERED: SODIUM CHLORIDE 0.9% FLUSH 10 ML FLUSH IVF PRN (12:30)
--- NOTE | 2017-05-25 12:59 | PD ---
HPI Chief Complaint: Fall Time Seen by Provider: 11:59 Travel History International Travel<30 days: No Contact w/Intl Traveler<30days: No Traveled to known affect area: No History of Present Illness HPI Patient is a 77-year-old female with history of CVA in 2011, hypertension, hyperlipidemia, end-stage renal disease on hemodialysis with right sided AV fistula presents to ER with complaints of left hip pain. Patient reports that 2 weeks ago, she suffered a mechanical fall, reports that she lost her balance and landed on her left hip. Reports that she has had pain to her left hip since then. Patient reports that she was seen in the emergency room after her first fall and had a negative x-ray of her hip. Patient reports that a week later, she fell again landing on her left hip. Patient feels that her left hip feels "jammed." Reports at baseline, she does walk with a walker and a cane and uses a wheelchair for dialysis. Reports that her left leg feels weak and numb. Patient denies any back pain at this time. She denies any saddle anesthesia, denies any incontinence of urine or bowel. Patient does not make urine at baseline as she has end-stage renal disease on hemodialysis. Reports no chest pain or shortness of breath. No fever/chills. No abdominal pain. Patient with no other complaints at this time. PFSH Past Medical History Hx Anticoagulant Therapy: Yes (COUMADIN) Arthritis: Yes Anxiety: No Depression: Yes Heart Rhythm Problems: No Cancer: Yes (STOMACH) Cardiovascular Problems: Yes High Cholesterol: Yes Chemotherapy: Yes Chest Pain: Yes Congestive Heart Failure: No Cerebrovascular Accident: Yes Diabetes: No Dialysis: Yes (M/W/F ) Diminished Hearing: No Endocrine: Yes (? THYROID PROBLEM IN PAST) Gastrointestinal Disorders: Yes GERD: Yes Genitourinary: Yes Headaches: Yes Hiatal Hernia: No Hypertension: Yes Immune Disorder: No Implanted Vascular Access Dvce: Yes Kidney Stones: No Medical other: Yes (HEMORRHOIDS) Musculoskeletal: Yes Neurologic: Yes Psychiatric: Yes Reproductive: No Respiratory: Yes Migraines: No Radiation Therapy: No Renal Failure: Yes Seizures: No Sickle Cell Disease: No Sleep Apnea: Yes Thyroid Disease: No Ulcer: Yes Menopausal: Yes Past Surgical History Abdominal Surgery: Yes (MALIGANT STOMACH TUMOR REMOVAL 2012) AICD: No Appendectomy: Yes Arteriovenous Shunt: Yes (RIGHT) Body Medical Devices: VASCATH LEFT CHEST Cardiac Surgery: Yes (PACEMAKER 2014) Endocrine Surgery: No Gynecologic Surgery: Yes (PARTIAL HYSTERECTOMY) Hysterectomy: Yes Joint Replacement: Yes (RT TOTAL KNEE) Neurologic Surgery: No Oral Surgery: Yes (TEETH EXTRACTIONS) Pacemaker: Yes Other Surgery: Yes (RUE AV FISTULA ) Social History Alcohol Use: No Tobacco Use: No Substance Use: No Allergies-Medications (Allergen,Severity, Reaction): Coded Allergies: penicillin G (Unverified Allergy, Severe, Itching, 05/15/17) prochlorperazine (Unverified Allergy, Severe, TONGUE SWELLING, 05/15/17) Reported Meds & Prescriptions Reported Meds & Active Scripts Active Lortab (Hydrocodone-Acetaminophen) 5-325 Mg Tab 1 Tab PO Q6H PRN Wrist Splint/Cock-Up/Right 1 Mis Mis Ea .ROUTE DIRECTED Wrist Splint/Cock-Up/Left 1 Mis Mis Ea .ROUTE DIRECTED Hydrocodone-Acetaminophen 7.5-325 mg Tab 1 Tab PO Q6H PRN Cane/Wood/Ladies Standard (Device) 1 Mis Mis Ea .ROUTE DIRECTED use for 99 years Cane/Wood/Ladies Standard (Device) 1 Mis Mis 1 Ea .ROUTE DIRECTED use for 99 years Walker/Adult/Folding (Device) 1 Mis Mis 1 Ea .ROUTE DIRECTED use as needed to assist for ambulation Walker with Front Wheels (Device) 1 Mis Mis 1 Ea .ROUTE DIRECTED Diclofenac Topical 1% Gel 1 Applic TOPICAL QID Estrace Vaginal (Estradiol) 0.01% Cream 1 Appl VAGINAL EVERY OTHER NIGHT Reported Metoprolol Tartrate 25 Mg Tab 25 Mg PO DAILY Amlodipine (Amlodipine Besylate) 5 Mg Tab 5 Mg PO DAILY Pantoprazole (Pantoprazole Sodium) 40 Mg Tab 40 Mg PO DAILY Zofran (Ondansetron HCl) 4 Mg Tab 4 Mg PO Q6HR PRN Aspir-81 (Aspirin) 81 Mg Tabdr 81 Mg PO DAILY Ventolin Hfa 18 GM Inh (Albuterol Sulfate) 90 Mcg/Act Aer 2 Puff INH Q4H PRN Simvastatin 10 Mg Tab 10 Mg PO HS Renal Vitamin (B-Complex W/ C & Folic Acid) 1 Cap 1 Cap PO DAILY If on dialysis, take after treatment. Nitroglycerin SL (Nitroglycerin) 0.4 Mg Subl 0.4 Mg SL DIRECTED PRN ONE TABLET UNDER THE TONGUE NEEDED FOR CHEST PAIN, MAY REPEAT EVERY FIVE MINUTES FOR A TOTAL OF 3 DOSES OR CALL 911 IF NO RELIEF Sensipar (Cinacalcet) 30 Mg Tab 30 Mg PO DAILY Calcium Acetate (Phosphate Binder) 667 Mg Tab 1,334 Mg PO TID Review of Systems General / Constitutional: No: Fever Eyes: No: Visual changes HENT: No: Headaches Cardiovascular: No: Chest Pain or Discomfort Respiratory: No: Shortness of Breath Gastrointestinal: No: Abdominal Pain Genitourinary: No: Dysuria Musculoskeletal: Positive: Limited ROM (left hip), Pain (left hip) Skin: No Rash Neurologic: Positive: Weakness Psychiatric: No: Depression Endocrine: No: Polydipsia Hematologic/Lymphatic: No: Easy Bruising Physical Exam Narrative GENERAL: NAD, nontoxic SKIN: Focused skin assessment warm/dry. HEAD: Atraumatic. Normocephalic. EYES: Pupils equal and round. No scleral icterus. No injection or drainage. ENT: No nasal bleeding or discharge. Mucous membranes pink and moist. NECK: Trachea midline. No JVD. CARDIOVASCULAR: Regular rate and rhythm. No murmur appreciated. RESPIRATORY: No accessory muscle use. Clear to auscultation. Breath sounds equal bilaterally. GASTROINTESTINAL: Abdomen soft, non-tender, nondistended. Hepatic and splenic margins not palpable. MUSCULOSKELETAL: No clubbing. No cyanosis. No edema. Patient with pain with ROM to left hip, no obvious fx, patient with right sided AV fistula with good thrill NEUROLOGICAL: Awake and alert. No obvious cranial nerve deficits. Motor grossly within normal limits. Normal speech. No obvious deficits PSYCHIATRIC: Appropriate mood and affect; insight and judgment normal. Data Data Last Documented VS Vital Signs Date Time Temp Pulse Resp B/P (MAP) Pulse Ox O2 Delivery O2 Flow Rate FiO2 05/25/17 11:13 97.8 84 15 137/80 (99) 95 Orders Orders Electrocardiogram (05/25/17 12:21) Prothrombin Time / Inr (Pt) (05/25/17 12:21) Act Partial Throm Time (Ptt) (05/25/17 12:21) Complete Blood Count With Diff (05/25/17 12:21) Comprehensive Metabolic Panel (05/25/17 12:21) Creatine Kinase (Cpk) (05/25/17 12:21) Troponin I (05/25/17 12:21) Ct Brain W/O Iv Contrast(Rout) (05/25/17 12:21) Iv Access Insert/Monitor (05/25/17 12:21) Sodium Chloride 0.9% Flush (Ns Flush) (05/25/17 12:30) Hip, Uni(Ap&Lat) W Ap Pelvis (05/25/17 ) Vascular Access Team Consult/P PRN (05/25/17 12:47) Vascular Poc Ultrasound (05/25/17 ) Chest, Single Ap (05/25/17 ) Ct Hip W/O Contrast (05/25/17 ) CKMB (05/25/17 13:30) CKMB% (05/25/17 13:30) Labs Laboratory Tests Test 05/25/17 13:30 White Blood Count 7.0 TH/MM3 Red Blood Count 3.49 MIL/MM3 Hemoglobin 11.3 GM/DL Hematocrit 32.7 % Mean Corpuscular Volume 93.6 FL Mean Corpuscular Hemoglobin 32.4 PG Mean Corpuscular Hemoglobin Concent 34.6 % Red Cell Distribution Width 14.4 % Platelet Count 206 TH/MM3 Mean Platelet Volume 8.7 FL Neutrophils (%) (Auto) 65.5 % Lymphocytes (%) (Auto) 16.7 % Monocytes (%) (Auto) 11.4 % Eosinophils (%) (Auto) 6.2 % Basophils (%) (Auto) 0.2 % Neutrophils # (Auto) 4.6 TH/MM3 Lymphocytes # (Auto) 1.2 TH/MM3 Monocytes # (Auto) 0.8 TH/MM3 Eosinophils # (Auto) 0.4 TH/MM3 Basophils # (Auto) 0.0 TH/MM3 CBC Comment DIFF FINAL Differential Comment Prothrombin Time 10.9 SEC Prothromb Time International Ratio 1.0 RATIO Activated Partial Thromboplast Time 28.1 SEC Blood Urea Nitrogen 29 MG/DL Creatinine 6.41 MG/DL Random Glucose 88 MG/DL Total Protein 7.9 GM/DL Albumin 3.5 GM/DL Calcium Level 7.8 MG/DL Alkaline Phosphatase 144 U/L Aspartate Amino Transf (AST/SGOT) 20 U/L Alanine Aminotransferase (ALT/SGPT) 20 U/L Total Bilirubin 0.5 MG/DL Sodium Level 138 MEQ/L Potassium Level 4.7 MEQ/L Chloride Level 101 MEQ/L Carbon Dioxide Level 30.3 MEQ/L Anion Gap 7 MEQ/L Estimat Glomerular Filtration Rate 8 ML/MIN Total Creatine Kinase 256 U/L Creatine Kinase MB 1.6 NG/ML Creatine Kinase MB % 0.6 % Troponin I 0.02 NG/ML MDM Medical Decision Making Medical Screen Exam Complete: Yes Emergency Medical Condition: Yes Medical Record Reviewed: Yes Interpretation(s) EKG at 1254: Paced at 79bpm Vital Signs Date Time Temp Pulse Resp B/P (MAP) Pulse Ox O2 Delivery O2 Flow Rate FiO2 05/25/17 11:13 97.8 84 15 137/80 (99) 95 Differential Diagnosis Differential includes hip fracture vs strain, electrolyte abnormality, cva/tia though unlikely Narrative Course 77-year-old female with history of end-stage renal disease on hemodialysis, presents to emergency room complaints of left hip pain. She reports that she has had 2 mechanical falls over the past 2 weeks, reports that she hurt her left hip. Reports pain with ROM to right hip. Xray of hip ordered. Labs ordered as patient reports generalized weakness. Patient does have end-stage renal disease on hemodialysis, she did receive dialysis today Vital Signs Date Time Temp Pulse Resp B/P (MAP) Pulse Ox O2 Delivery O2 Flow Rate FiO2 05/25/17 11:13 97.8 84 15 137/80 (99) 95 Laboratory Tests Test 05/25/17 13:30 White Blood Count 7.0 TH/MM3 (4.0-11.0) Red Blood Count 3.49 MIL/MM3 (4.00-5.30) Hemoglobin 11.3 GM/DL (11.6-15.3) Hematocrit 32.7 % (35.0-46.0) Mean Corpuscular Volume 93.6 FL (80.0-100.0) Mean Corpuscular Hemoglobin 32.4 PG (27.0-34.0) Mean Corpuscular Hemoglobin Concent 34.6 % (32.0-36.0) Red Cell Distribution Width 14.4 % (11.6-17.2) Platelet Count 206 TH/MM3 (150-450) Mean Platelet Volume 8.7 FL (7.0-11.0) Neutrophils (%) (Auto) 65.5 % (16.0-70.0) Lymphocytes (%) (Auto) 16.7 % (9.0-44.0) Monocytes (%) (Auto) 11.4 % (0.0-8.0) Eosinophils (%) (Auto) 6.2 % (0.0-4.0) Basophils (%) (Auto) 0.2 % (0.0-2.0) Neutrophils # (Auto) 4.6 TH/MM3 (1.8-7.7) Lymphocytes # (Auto) 1.2 TH/MM3 (1.0-4.8) Monocytes # (Auto) 0.8 TH/MM3 (0-0.9) Eosinophils # (Auto) 0.4 TH/MM3 (0-0.4) Basophils # (Auto) 0.0 TH/MM3 (0-0.2) CBC Comment DIFF FINAL Differential Comment Prothrombin Time 10.9 SEC (9.8-11.6) Prothromb Time International Ratio 1.0 RATIO Activated Partial Thromboplast Time 28.1 SEC (24.3-30.1) Blood Urea Nitrogen 29 MG/DL (7-18) Creatinine 6.41 MG/DL (0.50-1.00) Random Glucose 88 MG/DL (74-106) Total Protein 7.9 GM/DL (6.4-8.2) Albumin 3.5 GM/DL (3.4-5.0) Calcium Level 7.8 MG/DL (8.5-10.1) Alkaline Phosphatase 144 U/L (45-117) Aspartate Amino Transf (AST/SGOT) 20 U/L (15-37) Alanine Aminotransferase (ALT/SGPT) 20 U/L (10-53) Total Bilirubin 0.5 MG/DL (0.2-1.0) Sodium Level 138 MEQ/L (136-145) Potassium Level 4.7 MEQ/L (3.5-5.1) Chloride Level 101 MEQ/L (98-107) Carbon Dioxide Level 30.3 MEQ/L (21.0-32.0) Anion Gap 7 MEQ/L (5-15) Estimat Glomerular Filtration Rate 8 ML/MIN (>89) Total Creatine Kinase 256 U/L (26-192) Creatine Kinase MB 1.6 NG/ML (0.5-3.6) Creatine Kinase MB % 0.6 % (0.0-4.0) Troponin I 0.02 NG/ML (0.02-0.05) Last Impressions Head CT 05/25/17 1221 Signed Impressions: Service Date/Time: Thursday, May 25, 2017 13:10 - CONCLUSION: 1. Remote left occipital infarct. 2. No acute intracranial abnormalities and no change from previous study. Andrea Guerra MD Lower Extremity CT 05/25/17 0000 Signed Impressions: Service Date/Time: Thursday, May 25, 2017 15:05 - CONCLUSION: 1. No acute fracture or dislocation. 2. Degenerative changes of the right hip. Roni Kirk MD Hip and Pelvis X-Ray 05/25/17 0000 Signed Impressions: Service Date/Time: Thursday, May 25, 2017 12:49 - CONCLUSION: Negative for fracture or dislocation. Follow up in 7-10 days is suggested if symptoms persist. Arnaud Salcido MD FACR Chest X-Ray 05/25/17 0000 Signed Impressions: Service Date/Time: Thursday, May 25, 2017 12:55 - CONCLUSION: 1. No acute abnormality or significant interval change. Roni Kirk MD Reviewed all labs and studies with patient in detail, patient with no acute fractures, patient feeling much better at this time, patient requests be discharged home with her family members. Diagnosis Primary Impression: Hip pain, left Patient Instructions: General Instructions Additional Instructions: Please follow up with your primary care doctor Return to ER if symptoms worsen or progress Return to ER as needed Disposition: 01 DISCHARGE HOME Condition: Stable Heydi Rankin DO May 25, 2017 12:59
--- NOTE | 2017-05-25 13:10 | RADRPT ---
EXAM DATE/TIME: 05/25/2017 12:55 [facility] COMPARISON: CHEST SINGLE AP, September 08, 2016, 15:01. INDICATIONS : Shortness of breath. MEDICAL HISTORY : Cardiovascular disease. Renal failure, chronic. SURGICAL HISTORY : Appendectomy. Hysterectomy. Pacemaker. AV shunt ENCOUNTER: Initial ACUITY: 1 day PAIN SCORE: 0/10 LOCATION: Bilateral chest FINDINGS: Lungs are slightly hypoexpanded without new focal pleural or parenchymal opacities. Dual-lead right-s ided pacemaker in place with subclavian and likely axillary vein stents. Cardiomediastinal contours a re stable. Remainder of exam is unchanged. CONCLUSION: 1. No acute abnormality or significant interval change. Roni Kirk MD on May 25, 2017 at 13:07 Board Certified Radiologist. This report was verified electronically.
--- NOTE | 2017-05-25 13:21 | RADRPT ---
EXAM DATE/TIME: 05/25/2017 12:49 [facility] COMPARISON: No previous studies available for comparison. INDICATIONS : Let hip pain, fall. MEDICAL HISTORY : Cardiovascular disease. Renal failure, chronic. SURGICAL HISTORY : Appendectomy. Hysterectomy. AV shunt ENCOUNTER: Initial ACUITY: 2 weeks PAIN SCORE: 8/10 LOCATION: Left proximal hip FINDINGS: Examination of the left hip was performed with AP Pelvis. The primary and secondary trabecular patte rn of the femoral neck is intact. The hip joint is of normal width without significant sclerosis or bony hypertrophy. The acetabulum is grossly intact. CONCLUSION: Negative for fracture or dislocation. Follow up in 7-10 days is suggested if symptoms persist. Arnaud Salcido MD FACR on May 25, 2017 at 13:19 Board Certified Radiologist. This report was verified electronically.
--- NOTE | 2017-05-25 13:39 | RADRPT ---
EXAM DATE/TIME: 05/25/2017 13:10 [facility] COMPARISON: CT BRAIN W/O CONTRAST, September 30, 2016, 3:07. INDICATIONS : Left sided weakness and frequent falls. RADIATION DOSE: 30.34 CTDIvol (mGy) MEDICAL HISTORY : Cardiovascular disease. Hypertension. Stomach cancer. SURGICAL HISTORY : Hysterectomy. Appendectomy. ENCOUNTER: Initial ACUITY: 1 day PAIN SCALE: 0/10 LOCATION: cranial TECHNIQUE: Multiple contiguous axial images were obtained of the head. Using automated exposure control and adj ustment of the mA and/or kV according to patient size, radiation dose was kept as low as reasonably a chievable to obtain optimal diagnostic quality images. DICOM format image data is available electro nically for review and comparison. FINDINGS: CEREBRUM: The ventricles are normal for age. Remote left occipital infarct. No evidence of midline shift, mass lesion, hemorrhage or acute infarction. No extra-axial fluid collections are seen. POSTERIOR FOSSA: The cerebellum and brainstem are intact. The 4th ventricle is midline. The cerebellopontine angle i s unremarkable. EXTRACRANIAL: The visualized portion of the orbits is intact. SKULL: The calvaria is intact. No evidence of skull fracture. CONCLUSION: 1. Remote left occipital infarct. 2. No acute intracranial abnormalities and no change from previous study. Andrea Guerra MD on May 25, 2017 at 13:32 Board Certified Radiologist. This report was verified electronically.
[2017-05-25 14:22] LABS: AUTOMATED NEUTROPHIL # 4.6 TH/MM3 (1.8-7.7); BASOPHIL % 0.2 % (0.0-2.0); EOSINOPHIL # 0.4 TH/MM3 (0-0.4); EOSINOPHIL % 6.2 % (0.0-4.0); HEMATOCRIT 32.7 % (35.0-46.0); HEMO FLAGS DIFF FINAL; LYMPH % 16.7 % (9.0-44.0); LYMPHOCYTE # 1.2 TH/MM3 (1.0-4.8); MEAN CELL VOLUME 93.6 FL (80.0-100.0); MEAN CORPUSCULAR HEMOGLOBIN 32.4 PG (27.0-34.0); MEAN CORPUSCULAR HGB CONC 34.6 % (32.0-36.0); MONO % 11.4 % (0.0-8.0); NEUT % 65.5 % (16.0-70.0); PLATELET COUNT 206 TH/MM3 (150-450); RED BLOOD COUNT 3.49 MIL/MM3 (4.00-5.30); RED CELL DISTRIBUTION WIDTH 14.4 % (11.6-17.2)
[2017-05-25 14:31] LABS: APTT (PATIENT) 28.1 SEC (24.3-30.1); PROTHROMBIN TIME - PATIENT 10.9 SEC (9.8-11.6)
[2017-05-25 14:54] LABS: ALKALINE PHOSPHATASE 144 U/L (45-117); ALT (GPT) 20 U/L (10-53); ANION GAP 7 MEQ/L (5-15); AST (GOT) 20 U/L (15-37); BICARBONATE 30.3 MEQ/L (21.0-32.0); BLOOD UREA NITROGEN 29 MG/DL (7-18); CHLORIDE 101 MEQ/L (98-107); CREATINE KINASE 256 U/L (26-192); GLOMERULAR FILTRATION RATE 8 ML/MIN (>89); POTASSIUM 4.7 MEQ/L (3.5-5.1); SODIUM (NA) 138 MEQ/L (136-145); TOTAL BILIRUBIN ADULT 0.5 MG/DL (0.2-1.0)
[2017-05-25 15:07] LABS: CKMB 1.6 NG/ML (0.5-3.6)
--- NOTE | 2017-05-25 15:38 | RADRPT ---
EXAM DATE/TIME: 05/25/2017 15:05 [facility] COMPARISON: HIP LEFT (AP&LAT 2/3VWS) W AP PELVIS, May 25, 2017, 12:49. CT ABDOMEN & PELVIS W/O CONTRAST, Apr, 14:24. INDICATIONS : Left hip pain. Frequent falls. RADIATION DOSE: 22.75 CTDIvol (mGy) MEDICAL HISTORY : Cardiovascular disease. Hypertension. Stomach cancer SURGICAL HISTORY : Appendectomy. Hysterectomy. Pacemaker. ENCOUNTER: Initial ACUITY: 1 week PAIN SCALE: 6/10 LOCATION: Left pelvis TECHNIQUE: Volumetric scanning of the hip was performed. Using automated exposure control and adjustment of the mA and/or kV according to patient size, radiation dose was kept as low as reasonably achievable to o btain optimal diagnostic quality images. DICOM format image data is available electronically for rev iew and comparison. FINDINGS: BONES: No evidence of fracture. Prominent geodes in the right femoral head. Alignment is within normal limit s. JOINTS: Mild bilateral joint space narrowing. SOFT TISSUES: Muscles, tendons and neurovascular structures are grossly unremarkable. No evidence of mass, organize d fluid collection, or foreign body. Visualized portions of bowel are grossly unremarkable. CONCLUSION: 1. No acute fracture or dislocation. 2. Degenerative changes of the right hip. Roni Kirk MD on May 25, 2017 at 15:26 Board Certified Radiologist. This report was verified electronically.
--- NOTE | 2017-05-25 16:12 | EKG ---
Date Performed: 05/25/2017 Time Performed: 12:54:34 PTAGE: 77 years EKG: ELECTRONIC ATRIAL PACEMAKER ELECTRONIC VENTRICULAR PACEMAKER Compared to prior tracing no s ignificant change PREVIOUS TRACING : 09/08/2016 15.21 DOCTOR: Angel Cleveland Interpretating Date/Time 05/25/2017 16:11:25
== END 2017-05-25 17:17 | disposition home or self-care (01) ==
LOC: NEPC 11:01
DX: M25.552 Pain in left hip (principal); R53.1 Weakness; R06.02 Shortness of breath; I12.0 Hypertensive chronic kidney disease with stage 5 chronic kidney disease or end stage renal disease; N18.6 End stage renal disease; Z99.2 Dependence on renal dialysis
CPT/HCPCS: 70450; 71010; 73502; 73700; 80053; 82550; 82552; 84484; 85025; 85610; 85730; 93005

== ENCOUNTER 2017-05-27 07:06 | Inpatient (IN) | payer MEDICARE, BC ==
[~2017-05-27] VITALS: Ht 144.8 cm; Wt 81.2 kg
[2017-05-27] VITALS (8 sets, daily range): BP systolic 147–197; BP diastolic 67–106; PULSE 68–81; RESP 16–20; TEMP 97.5–98.7; O2SAT 94–100
--- NOTE | 2017-05-27 07:26 | PD ---
HPI Chief Complaint: General Weakness Time Seen by Provider: 07:16 Travel History International Travel<30 days: No Contact w/Intl Traveler<30days: No Traveled to known affect area: No History of Present Illness HPI 77-year-old female with history of end-stage renal disease currently on dialysis , hypertension, presents to the ER today because of general weakness for one week. She states that she feels she is having trouble taking care of herself at home, has trouble getting on and off of her toilet, this morning was so weak in the knees that she went down on her own and hit her head. She had no loss of consciousness or injuries. She also feels some chest discomfort which she currently measures at a 5 out of 10. She does not know any exacerbating or alleviating factors. She denies any current fevers, shortness of breath, vomiting, abdominal pains, or other issues. She is supposed to go get her dialysis this morning but decided to come here because of her worsening weakness. Modifying Factors: None Associated Signs & Symptoms: General weakness, chest discomfort, fall Risk Factors: Elderly PFSH Past Medical History Hx Anticoagulant Therapy: Yes (COUMADIN) Arthritis: Yes Anxiety: No Depression: Yes Heart Rhythm Problems: No Cancer: Yes (STOMACH) Cardiovascular Problems: Yes High Cholesterol: Yes Chemotherapy: Yes Chest Pain: Yes Congestive Heart Failure: No Cerebrovascular Accident: Yes Diabetes: No Dialysis: Yes (M/W/F ) Diminished Hearing: No Endocrine: Yes (? THYROID PROBLEM IN PAST) Gastrointestinal Disorders: Yes GERD: Yes Genitourinary: Yes Headaches: Yes Hiatal Hernia: No Hypertension: Yes Immune Disorder: No Implanted Vascular Access Dvce: Yes Kidney Stones: No Musculoskeletal: Yes Neurologic: Yes Psychiatric: Yes Reproductive: No Respiratory: Yes Migraines: No Radiation Therapy: No Renal Failure: Yes Seizures: No Sickle Cell Disease: No Sleep Apnea: Yes Thyroid Disease: No Ulcer: Yes Menopausal: Yes Past Surgical History Abdominal Surgery: Yes (MALIGANT STOMACH TUMOR REMOVAL 2012) AICD: No Appendectomy: Yes Arteriovenous Shunt: Yes (RIGHT) Body Medical Devices: VASCATH LEFT CHEST Cardiac Surgery: Yes (PACEMAKER 2014) Endocrine Surgery: No Gynecologic Surgery: Yes (PARTIAL HYSTERECTOMY) Hysterectomy: Yes Joint Replacement: Yes (RT TOTAL KNEE) Neurologic Surgery: No Oral Surgery: Yes (TEETH EXTRACTIONS) Pacemaker: Yes Other Surgery: Yes (RUE AV FISTULA ) Social History Alcohol Use: No Tobacco Use: No Substance Use: No Allergies-Medications (Allergen,Severity, Reaction): Coded Allergies: penicillin G (Unverified Allergy, Severe, Itching, 05/27/17) prochlorperazine (Unverified Allergy, Severe, TONGUE SWELLING, 05/27/17) Reported Meds & Prescriptions Reported Meds & Active Scripts Active Lortab (Hydrocodone-Acetaminophen) 5-325 Mg Tab 1 Tab PO Q6H PRN Wrist Splint/Cock-Up/Right 1 Mis Mis Ea .ROUTE DIRECTED Wrist Splint/Cock-Up/Left 1 Mis Mis Ea .ROUTE DIRECTED Hydrocodone-Acetaminophen 7.5-325 mg Tab 1 Tab PO Q6H PRN Cane/Wood/Ladies Standard (Device) 1 Mis Mis Ea .ROUTE DIRECTED use for 99 years Cane/Wood/Ladies Standard (Device) 1 Mis Mis 1 Ea .ROUTE DIRECTED use for 99 years Walker/Adult/Folding (Device) 1 Mis Mis 1 Ea .ROUTE DIRECTED use as needed to assist for ambulation Walker with Front Wheels (Device) 1 Mis Mis 1 Ea .ROUTE DIRECTED Diclofenac Topical 1% Gel 1 Applic TOPICAL QID Estrace Vaginal (Estradiol) 0.01% Cream 1 Appl VAGINAL EVERY OTHER NIGHT Reported Metoprolol Tartrate 25 Mg Tab 25 Mg PO DAILY Amlodipine (Amlodipine Besylate) 5 Mg Tab 5 Mg PO DAILY Pantoprazole (Pantoprazole Sodium) 40 Mg Tab 40 Mg PO DAILY Zofran (Ondansetron HCl) 4 Mg Tab 4 Mg PO Q6HR PRN Aspir-81 (Aspirin) 81 Mg Tabdr 81 Mg PO DAILY Ventolin Hfa 18 GM Inh (Albuterol Sulfate) 90 Mcg/Act Aer 2 Puff INH Q4H PRN Simvastatin 10 Mg Tab 10 Mg PO HS Renal Vitamin (B-Complex W/ C & Folic Acid) 1 Cap 1 Cap PO DAILY If on dialysis, take after treatment. Nitroglycerin SL (Nitroglycerin) 0.4 Mg Subl 0.4 Mg SL DIRECTED PRN ONE TABLET UNDER THE TONGUE NEEDED FOR CHEST PAIN, MAY REPEAT EVERY FIVE MINUTES FOR A TOTAL OF 3 DOSES OR CALL 911 IF NO RELIEF Sensipar (Cinacalcet) 30 Mg Tab 30 Mg PO DAILY Calcium Acetate (Phosphate Binder) 667 Mg Tab 1,334 Mg PO TID Review of Systems Except as stated in HPI: all other systems reviewed are Neg Physical Exam Narrative GENERAL: Well-developed elderly -Dutch female patient currently in mild distress. Awake and oriented 3. SKIN: Focused skin assessment warm/dry. HEAD: Atraumatic. Normocephalic. EYES: Pupils equal and round. No scleral icterus. No injection or drainage. ENT: No nasal bleeding or discharge. Mucous membranes pink and moist. NECK: Trachea midline. No JVD. CARDIOVASCULAR: Regular rate and rhythm. No murmur appreciated. RESPIRATORY: No accessory muscle use. Clear to auscultation. Breath sounds equal bilaterally. GASTROINTESTINAL: Abdomen soft, non-tender, nondistended. Hepatic and splenic margins not palpable. MUSCULOSKELETAL: No obvious deformities. No clubbing. No cyanosis. No edema. NEUROLOGICAL: Awake and alert. No obvious cranial nerve deficits. Motor grossly within normal limits. Normal speech. PSYCHIATRIC: Appropriate mood and affect; insight and judgment normal. Data Data Last Documented VS Vital Signs Date Time Temp Pulse Resp B/P (MAP) Pulse Ox O2 Delivery O2 Flow Rate FiO2 05/27/17 07:33 Room Air 05/27/17 07:15 97.8 73 20 150/83 (105) 99 Orders Orders Electrocardiogram (05/27/17 07:16) Complete Blood Count With Diff (05/27/17 07:16) Comprehensive Metabolic Panel (05/27/17 07:16) Magnesium (Mg) (05/27/17 07:16) B-Type Natriuretic Peptide (05/27/17 07:16) Ckmb (Isoenzyme) Profile (05/27/17 07:16) Troponin I (05/27/17 07:16) Act Partial Throm Time (Ptt) (05/27/17 07:16) Prothrombin Time / Inr (Pt) (05/27/17 07:16) Urinalysis - C+S If Indicated (05/27/17 07:16) Chest, Single Ap (05/27/17 07:16) Ct Brain W/O Iv Contrast(Rout) (05/27/17 07:16) Ecg Monitoring (05/27/17 07:16) Iv Access Insert/Monitor (05/27/17 07:16) Oximetry (05/27/17 07:16) Sodium Chloride 0.9% Flush (Ns Flush) (05/27/17 07:30) CKMB (05/27/17 08:00) CKMB% (05/27/17 08:00) Admit Order (Ed Use Only) (05/27/17 09:50) Labs Laboratory Tests Test 05/27/17 08:00 05/27/17 08:30 White Blood Count 8.6 TH/MM3 Red Blood Count 3.56 MIL/MM3 Hemoglobin 11.5 GM/DL Hematocrit 33.3 % Mean Corpuscular Volume 93.5 FL Mean Corpuscular Hemoglobin 32.3 PG Mean Corpuscular Hemoglobin Concent 34.6 % Red Cell Distribution Width 14.7 % Platelet Count 196 TH/MM3 Mean Platelet Volume 8.7 FL Neutrophils (%) (Auto) 67.6 % Lymphocytes (%) (Auto) 15.8 % Monocytes (%) (Auto) 11.3 % Eosinophils (%) (Auto) 4.8 % Basophils (%) (Auto) 0.5 % Neutrophils # (Auto) 5.8 TH/MM3 Lymphocytes # (Auto) 1.4 TH/MM3 Monocytes # (Auto) 1.0 TH/MM3 Eosinophils # (Auto) 0.4 TH/MM3 Basophils # (Auto) 0.0 TH/MM3 CBC Comment DIFF FINAL Differential Comment Blood Urea Nitrogen 47 MG/DL Creatinine 9.01 MG/DL Random Glucose 78 MG/DL Total Protein 7.7 GM/DL Albumin 3.5 GM/DL Calcium Level 7.7 MG/DL Magnesium Level 1.9 MG/DL Alkaline Phosphatase 147 U/L Aspartate Amino Transf (AST/SGOT) 12 U/L Alanine Aminotransferase (ALT/SGPT) 15 U/L Total Bilirubin 0.6 MG/DL Sodium Level 136 MEQ/L Potassium Level 4.8 MEQ/L Chloride Level 102 MEQ/L Carbon Dioxide Level 23.2 MEQ/L Anion Gap 11 MEQ/L Estimat Glomerular Filtration Rate 5 ML/MIN Total Creatine Kinase 267 U/L Creatine Kinase MB 1.7 NG/ML Creatine Kinase MB % 0.6 % Troponin I 0.03 NG/ML B-Type Natriuretic Peptide 246 PG/ML MDM Medical Decision Making Medical Screen Exam Complete: Yes Emergency Medical Condition: Yes Medical Record Reviewed: Yes Interpretation(s) EKG shows NSR, no ST elevation or depression, and no arrhythmias. No significant T-wave inversions. Prolonged QT intervals. Laboratory Tests Test 05/27/17 08:00 05/27/17 08:30 Red Blood Count 3.56 MIL/MM3 (4.00-5.30) Hemoglobin 11.5 GM/DL (11.6-15.3) Hematocrit 33.3 % (35.0-46.0) Monocytes (%) (Auto) 11.3 % (0.0-8.0) Eosinophils (%) (Auto) 4.8 % (0.0-4.0) Monocytes # (Auto) 1.0 TH/MM3 (0-0.9) Blood Urea Nitrogen 47 MG/DL (7-18) Creatinine 9.01 MG/DL (0.50-1.00) Calcium Level 7.7 MG/DL (8.5-10.1) Alkaline Phosphatase 147 U/L (45-117) Aspartate Amino Transf (AST/SGOT) 12 U/L (15-37) Estimat Glomerular Filtration Rate 5 ML/MIN (>89) Total Creatine Kinase 267 U/L (26-192) B-Type Natriuretic Peptide 246 PG/ML (0-100) Last [address] 05/27/17715 Signed Impressions: Service Date/Time: Saturday, May 27, 2017 07:38 - CONCLUSION: 1. 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 2. No acute intracranial abnormality or significant interval change. Roni Kirk MD Chest X-Ray 05/27/17715 Signed Impressions: Service Date/Time: Saturday, May 27, 2017 08:17 - CONCLUSION: 1. No acute abnormality or significant interval change. Roni Kirk MD Differential Diagnosis General weakness, chest discomfort: Dehydration versus metabolic issues versus sepsis versus pneumonia versus ACS versus CHF Narrative Course EKG shows prolonged QT intervals but otherwise is unremarkable. No significant dysrhythmias. Lab work shows significantly elevated BUN/creatinine creatinine, likely to be chronic secondary to end-stage renal disease, patient's post to get dialysis today. She is having enough trouble that she does not feel that she can take care of herself at home, is not able to transfer from bed or from the toilet, and she has a equally elderly at home who is not able to help her out. At this point, my plan would be to admit her for further evaluation. CAT scan did not show any signs of acute processes although does show sign of old stroke. Case is discussed with family practice residents for admission. Diagnosis Primary Impression: Generalized weakness Additional Impression: End stage renal failure on dialysis Admitting Information Admitting Physician Requests: Admit Ricarda Linton MD May 27, 2017 07:26
[2017-05-27] MEDS ORDERED: SODIUM CHLORIDE 0.9% FLUSH 10 ML FLUSH IVF PRN (07:30)
--- NOTE | 2017-05-27 07:54 | RADRPT ---
EXAM DATE/TIME: 05/27/2017 07:38 [facility] COMPARISON: CT BRAIN W/O CONTRAST, May 25, 2017, 13:10. INDICATIONS : Weakness with falls for several weeks RADIATION DOSE: 48.24 CTDIvol (mGy) MEDICAL HISTORY : Hypertension. Cardiovascular disease Renal disease, end stage. SURGICAL HISTORY : Appendectomy. Pacemaker.Hysterectomy. ENCOUNTER: Initial ACUITY: 1 day PAIN SCALE: 0/10 LOCATION: cranial TECHNIQUE: Multiple contiguous axial images were obtained of the head. Using automated exposure control and adj ustment of the mA and/or kV according to patient size, radiation dose was kept as low as reasonably a chievable to obtain optimal diagnostic quality images. DICOM format image data is available electro nically for review and comparison. FINDINGS: CEREBRUM: Redemonstration of encephalomalacic defects in the medial left occipital mid convexities. There small hypodensity in the left thalamus likely reflecting a small lacunar infarct. The ventricles are stacie l for degree of atrophy. No evidence of midline shift, mass lesion, hemorrhage or acute infarction. No extra-axial fluid collections are seen. POSTERIOR FOSSA: The cerebellum and brainstem are intact. The 4th ventricle is midline. The cerebellopontine angle i s unremarkable. EXTRACRANIAL: The visualized portion of the orbits is intact. SKULL: The calvaria is intact. No evidence of skull fracture. CONCLUSION: 1. 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 2. No acute intracranial abnormality or significant interval change. Roni Kirk MD on May 27, 2017 at 7:49 Board Certified Radiologist. This report was verified electronically.
--- NOTE | 2017-05-27 08:23 | RADRPT ---
EXAM DATE/TIME: 05/27/2017 08:17 [facility] COMPARISON: CHEST SINGLE AP, May 25, 2017, 12:55. INDICATIONS : Chest pain and palpitations. MEDICAL HISTORY : Hypertension. Cardiovascular disease Renal disease, end stage. SURGICAL HISTORY : Appendectomy. Pacemaker.Hysterectomy. ENCOUNTER: Initial ACUITY: 1 day PAIN SCORE: 3/10 LOCATION: Bilateral chest FINDINGS: Stable right-sided pacemaker with stable right subclavian and axillary stents and left basilic stents in place. Continued mild elevation the right hemidiaphragm without significant focal new pleural or parenchymal abnormalities. Cardiomediastinal contours are within normal limits. Remainder of exam is unchanged. CONCLUSION: 1. No acute abnormality or significant interval change. Roni Kirk MD on May 27, 2017 at 8:20 Board Certified Radiologist. This report was verified electronically.
[2017-05-27 08:30] LABS: AUTOMATED NEUTROPHIL # 5.8 TH/MM3 (1.8-7.7); BASOPHIL % 0.5 % (0.0-2.0); EOSINOPHIL # 0.4 TH/MM3 (0-0.4); EOSINOPHIL % 4.8 % (0.0-4.0); HEMATOCRIT 33.3 % (35.0-46.0); HEMO FLAGS DIFF FINAL; LYMPH % 15.8 % (9.0-44.0); LYMPHOCYTE # 1.4 TH/MM3 (1.0-4.8); MEAN CELL VOLUME 93.5 FL (80.0-100.0); MEAN CORPUSCULAR HEMOGLOBIN 32.3 PG (27.0-34.0); MEAN CORPUSCULAR HGB CONC 34.6 % (32.0-36.0); MONO % 11.3 % (0.0-8.0); NEUT % 67.6 % (16.0-70.0); PLATELET COUNT 196 TH/MM3 (150-450); RED BLOOD COUNT 3.56 MIL/MM3 (4.00-5.30); RED CELL DISTRIBUTION WIDTH 14.7 % (11.6-17.2); WHITE BLOOD COUNT 8.6 TH/MM3 (4.0-11.0)
[2017-05-27 08:45] LABS: ANION GAP 11 MEQ/L (5-15); AST (GOT) 12 U/L (15-37); BICARBONATE 23.2 MEQ/L (21.0-32.0); BLOOD UREA NITROGEN 47 MG/DL (7-18); CHLORIDE 102 MEQ/L (98-107); GLOMERULAR FILTRATION RATE 5 ML/MIN (>89); MAGNESIUM 1.9 MG/DL (1.5-2.5); POTASSIUM 4.8 MEQ/L (3.5-5.1); SODIUM (NA) 136 MEQ/L (136-145)
[2017-05-27 08:49] LABS: ALKALINE PHOSPHATASE 147 U/L (45-117); ALT (GPT) 15 U/L (10-53); CREATINE KINASE 267 U/L (26-192); TOTAL BILIRUBIN ADULT 0.6 MG/DL (0.2-1.0)
[2017-05-27 09:06] LABS: CKMB 1.7 NG/ML (0.5-3.6)
[2017-05-27] MEDS ORDERED: SODIUM CHLORIDE 0.9% FLUSH 10 ML FLUSH IV FLUSH PRN ×3 (10:00→11:30)
[2017-05-27] MEDS ORDERED: NALOXONE HCL 0.4 MG/ML AMP IV PUSH PRN (10:30)
[2017-05-27] MEDS ORDERED: BISACODYL 10 MG SUPP RECTAL PRN (10:30)
[2017-05-27] MEDS ORDERED: ONDANSETRON HCL 4 MG/2 ML VIAL IVP PRN (10:30)
[2017-05-27] MEDS ORDERED: TEMAZEPAM 15 MG CAP PO PRN (10:30)
[2017-05-27] MEDS ORDERED: ACETAMINOPHEN 325 MG TAB PO PRN ×2 (10:30→11:30)
[2017-05-27] MEDS ORDERED: NITROGLYCERIN 0.4 MG SL 25 TABS/BTL SL PRN ×2 (10:45→11:30)
[2017-05-27] MEDS ORDERED: ALBUTEROL SULFATE 90 MCG/ACT HFA 8 GM INHALER INH PRN (10:45)
--- NOTE | 2017-05-27 11:15 | HHI.HP ---
[facility] Service Family Medicine Primary Care Physician Unknown Admission Diagnosis general weakness/chest pain Diagnoses: International Travel<30 Days: No Contact w/Intl Traveler<30days: No Known Affected Area: No History of Present Illness This is a 77-year-old -[place] female with an extensive past medical history significant for end-stage renal disease, hypertension, pacemaker placement, coronary artery disease, chronic back pain, and stomach cancer in remission. She is presenting to the hospital due to generalized weakness. This is started for the last 2 weeks. The weakness originally started in both of her hands and felt like a electric tingling. She is now getting weakness in her legs and the left is worse than the right. She says that her left leg is no longer holding her weight. This has resulted in multiple falls because of this weakness. She admits to having a fall earlier today. She hit the back of her head during the fall. She denies losing any consciousness. She has a pacemaker in place and MRI cannot be done. She admits to feeling some chills occasionally but denies any fever. She denies any vomiting but does feel nauseated at times. She denies any loss of bowel or bladder function. She does state that she does not have any urination due to her end-stage renal disease. The numbness and tingling in her legs starts at about the knee level of the left leg and goes down to the feet. She denies any saddle anesthesia. (Sal Soria MD, R3) Review of Systems Constitutional: COMPLAINS OF: Fatigue, Chills, DENIES: Fever, Weight gain, Weight loss, Change in appetite Eyes: DENIES: Blurred vision, Double Vision Ears, nose, mouth, throat: COMPLAINS OF: Hearing loss, DENIES: Hoarseness, Running Nose, Sinus Pain Respiratory: COMPLAINS OF: Shortness of breath, DENIES: Cough, Wheezing, Sputum production Cardiovascular: DENIES: Chest pain, Syncope, Claudication Gastrointestinal: COMPLAINS OF: Nausea, DENIES: Abdominal pain, Constipation, Diarrhea, Vomiting Genitourinary: DENIES: Urinary frequency, Urinary incontinence Musculoskeletal: COMPLAINS OF: Joint pain, Muscle aches, Back pain, Neck pain, DENIES: Stiffness Hematologic/lymphatic: DENIES: Bruising Immunologic/allergic: DENIES: Eczema Neurologic: COMPLAINS OF: Abnormal gait, Localized weakness, Poor Balance, DENIES: Headache, Paresthesias, Seizures, Speech Problems Psychiatric: DENIES: Anxiety, Depression (Sal Sorai MD, R3) Past Family Social History Past Medical History sleep apnea; no longer on cpap at home per pt GIST tumor, stomach cancer (in remission) chronic back pain, cervical spinal ESRD secondary to hypertension on dialysis since ~2004 (dialysis M, W, Fri) HTN arthritis Constipation Depression ? sickle cell Past Surgical History R Knee replacement Partial hysterectomy (she doesn't know what is still left) one hemorrhoid removed x 15 years ago. R Hand cyst removed GIST tumor resection dialysis fistula placed Pacemaker placed Echo at the end of January 2010 with EF of 56%. Spirometry 07/22/11 * FVC 2.2 Predicted 2.1 * FEV 1.9 predicted 1.7 * FEV1/FVC 89% (predicted 82%) Hospitalized February 2012 for: 1) GIB, Hematochezia: INR 8.1 on admission S/P 4 units of PRBC, 3 units of FFP, Vit. K. PPI. 2) Severe anemia- H/H 6.5/17.8 3) Right upper extremity swelling: Repeat RUE ultrasound without pseudoaneurysm or hematoma. Fistulogram showed no inflow stenosis within the graft. 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 IR recommend Plavix to prevent in-stent stenosis 4) SubQ nodule on left medial leg: stable at this time. EGD/colonoscopy (03/24/12): jeanne santillan tear GE, gastritis, duodenitis, poor prep with melena, cecal AVMs s/p cauterization, hemorrhoids. Reported Medications Reported Meds & Active Scripts Active Lortab (Hydrocodone-Acetaminophen) 5-325 Mg Tab 1 Tab PO Q6H PRN Wrist Splint/Cock-Up/Right 1 Mis Mis Ea .ROUTE DIRECTED Wrist Splint/Cock-Up/Left 1 Mis Mis Ea .ROUTE DIRECTED Hydrocodone-Acetaminophen 7.5-325 mg Tab 1 Tab PO Q6H PRN Cane/Wood/Ladies Standard (Device) 1 Mis Mis Ea .ROUTE DIRECTED use for 99 years Cane/Wood/Ladies Standard (Device) 1 Mis Mis 1 Ea .ROUTE DIRECTED use for 99 years Walker/Adult/Folding (Device) 1 Mis Mis 1 Ea .ROUTE DIRECTED use as needed to assist for ambulation Walker with Front Wheels (Device) 1 Mis Mis 1 Ea .ROUTE DIRECTED Diclofenac Topical 1% Gel 1 Applic TOPICAL QID Estrace Vaginal (Estradiol) 0.01% Cream 1 Appl VAGINAL EVERY OTHER NIGHT Reported Metoprolol Tartrate 25 Mg Tab 25 Mg PO DAILY Amlodipine (Amlodipine Besylate) 5 Mg Tab 5 Mg PO DAILY Pantoprazole (Pantoprazole Sodium) 40 Mg Tab 40 Mg PO DAILY Zofran (Ondansetron HCl) 4 Mg Tab 4 Mg PO Q6HR PRN Aspir-81 (Aspirin) 81 Mg Tabdr 81 Mg PO DAILY Ventolin Hfa 18 GM Inh (Albuterol Sulfate) 90 Mcg/Act Aer 2 Puff INH Q4H PRN Simvastatin 10 Mg Tab 10 Mg PO HS Renal Vitamin (B-Complex W/ C & Folic Acid) 1 Cap 1 Cap PO DAILY If on dialysis, take after treatment. Nitroglycerin SL (Nitroglycerin) 0.4 Mg Subl 0.4 Mg SL DIRECTED PRN ONE TABLET UNDER THE TONGUE NEEDED FOR CHEST PAIN, MAY REPEAT EVERY FIVE MINUTES FOR A TOTAL OF 3 DOSES OR CALL 911 IF NO RELIEF Sensipar (Cinacalcet) 30 Mg Tab 30 Mg PO DAILY Calcium Acetate (Phosphate Binder) 667 Mg Tab 1,334 Mg PO TID (Sal Soria MD, R3) Allergies: Coded Allergies: penicillin G (Unverified Allergy, Severe, Itching, 05/27/17) prochlorperazine (Unverified Allergy, Severe, TONGUE SWELLING, 05/27/17) Family History DM - brother Heart problems - father Daughter , sickle cell Alcoholism - brother Kidney disease- brother, niece (both were on dialysis) Cancer - brother (unsure of the type) and sister had breast cancer (late 60's) Social History 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 She smoked 1ppd for " many years." Quit smoking as of October 2013. No etoh. Daughter in her 30s from sickle cell disease Raised 4 grand children (Sla Soria MD, R3) Physical Exam Vital Signs Vital Signs Date Time Temp Pulse Resp B/P (MAP) Pulse Ox O2 Delivery O2 Flow Rate FiO2 05/27/17 07:33 Room Air 05/27/17 07:15 97.8 73 20 150/83 (105) 99 Physical Exam GENERAL: Well-developed elderly -Liber[place] female patient currently in mild distress. Awake and oriented 3. SKIN: No rashes, ecchymoses or lesions. Cool and dry. AV port in place in right arm HEAD: Atraumatic. Normocephalic. No temporal or scalp tenderness. EYES: Pupils equal round and reactive. Extraocular motions intact. No scleral icterus. No injection or drainage. ENT: Nose without bleeding, purulent drainage or septal hematoma. Throat without erythema, tonsillar hypertrophy or exudate. Uvula midline. Airway patent. NECK: Trachea midline. No JVD or lymphadenopathy. Supple, nontender, no meningeal signs. CARDIOVASCULAR: Regular rate and rhythm with 3/6 systolic murmur RESPIRATORY: Clear to auscultation. Breath sounds equal bilaterally. No wheezes , rales, or rhonchi. GASTROINTESTINAL: Abdomen soft, non-tender, nondistended. No hepato-splenomegaly , or palpable masses. No guarding. MUSCULOSKELETAL: Extremities without clubbing, cyanosis, or edema. No joint tenderness, effusion, or edema noted. No calf tenderness. Negative Homans sign bilaterally. NEUROLOGICAL: Awake and alert. Cranial nerves II through XII grossly intact. Face with normal motor and sensory, arms bilaterally equal with sensation, decreased sensation in left hand and fingers compared to right. Decreased and complete loss of sensation on left leg from knee down. Normal reflexes in both knees bilaterally. 2/5 muscle strength in left lower extremity, 4 out of 5 strength in right lower extremity. Normal speech. No facial droop. Laboratory Laboratory Tests Test 05/27/17 08:00 05/27/17 08:30 White Blood Count 8.6 Red Blood Count 3.56 Hemoglobin 11.5 Hematocrit 33.3 Mean Corpuscular Volume 93.5 Mean Corpuscular Hemoglobin 32.3 Mean Corpuscular Hemoglobin Concent 34.6 Red Cell Distribution Width 14.7 Platelet Count 196 Mean Platelet Volume 8.7 Neutrophils (%) (Auto) 67.6 Lymphocytes (%) (Auto) 15.8 Monocytes (%) (Auto) 11.3 Eosinophils (%) (Auto) 4.8 Basophils (%) (Auto) 0.5 Neutrophils # (Auto) 5.8 Lymphocytes # (Auto) 1.4 Monocytes # (Auto) 1.0 Eosinophils # (Auto) 0.4 Basophils # (Auto) 0.0 CBC Comment DIFF FINAL Differential Comment Blood Urea Nitrogen 47 Creatinine 9.01 Random Glucose 78 Total Protein 7.7 Albumin 3.5 Calcium Level 7.7 Magnesium Level 1.9 Alkaline Phosphatase 147 Aspartate Amino Transf (AST/SGOT) 12 Alanine Aminotransferase (ALT/SGPT) 15 Total Bilirubin 0.6 Sodium Level 136 Potassium Level 4.8 Chloride Level 102 Carbon Dioxide Level 23.2 Anion Gap 11 Estimat Glomerular Filtration Rate 5 Total Creatine Kinase 267 Creatine Kinase MB 1.7 Creatine Kinase MB % 0.6 Troponin I 0.03 B-Type Natriuretic Peptide 246 Prothrombin Time 11.0 Prothromb Time International Ratio 1.0 Activated Partial Thromboplast Time 25.0 (Sal Soria MD, R3) Result Diagram: 05/27/17 0800 05/27/17 0800 Imaging Last Impressions Head CT 05/27/1716 Signed Impressions: Service Date/Time: Saturday, May 27, 2017 07:38 - CONCLUSION: 1. 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 2. No acute intracranial abnormality or significant interval change. Roni Kirk MD Chest X-Ray 05/27/17 0716 Signed Impressions: Service Date/Time: Saturday, May 27, 2017 08:17 - CONCLUSION: 1. No acute abnormality or significant interval change. Roni Kirk MD Knee X-Ray 05/27/17 0000 Signed Impressions: Service Date/Time: Saturday, May 27, 2017 11:03 - CONCLUSION: 1. Advanced tricompartmental osteoarthritis but most pronounced within the medial compartment. 2. Small joint effusion. Tyler Cantor Jr., MD Ankle X-Ray 05/27/17 0000 Signed Impressions: Service Date/Time: Saturday, May 27, 2017 11:09 - CONCLUSION: Generalized soft tissue swelling, negative for fracture. Arnaud Salcido MD FACR (Sal Soria MD, R3) Septic Shock Reassessment Heart: Regular rate and rhythm Lungs: Clear Skin: Warm, Dry Peripheral Pulses: Bounding Right Radial Bounding Left Radial Bounding Right Popliteal Bounding Left Popliteal Bounding Right Dorsalis Pedis Bounding Left Dorsalis Pedis Bounding Right Posterior Tibial Bounding Left Posterior Tibial Capillary Refill: Brisk, <2 seconds (Sal Soria MD, R3) Caprini VTE Risk Assessment Caprini VTE Risk Assessment: Mod/High Risk (score >= 2) Caprini Risk Assessment Model Point Value = 1 Point Value = 2 Point Value = 3 Point Value = 5 Age 41-60 Minor surgery BMI > 25 kg/m2 Swollen legs Varicose veins or History of unexplained or recurrent spontaneous Oral contraceptives or hormone replacement Sepsis (< 1 month) Serious lung disease, including pneumonia (< 1 month) Abnormal pulmonary function Acute myocardial infarction Congestive heart failure (< 1 month) History of inflammatory bowel disease Medical patient at bed rest Age 61-74 Arthroscopic surgery Major open surgery (> 45 min) Laparoscopic surgery (> 45 min) Malignancy Confined to bed (> 72 hours) Immobilizing plaster cast Central venous access Age >= 75 History of VTE Family history of VTE Factor V Leiden Prothrombin [id number] Lupus anticoagulant Anticardiolipin antibodies Elevated serum homocysteine Heparin-induced thrombocytopenia Other congenital or acquired thrombophilia Stroke (< 1 month) Elective arthroplasty Hip, pelvis, or leg fracture Acute spinal cord injury (< 1 month) Prophylaxis Regimen Total Risk Factor Score Risk Level Prophylaxis Regimen 0-1 Low Early ambulation 2 Moderate Order ONE of the following: *Sequential Compression Device (SCD) *Heparin 5000 units SQ BID 3-4 Higher Order ONE of the following medications: *Heparin 5000 units SQ TID *Enoxaparin/Lovenox 40 mg SQ daily (WT < 150 kg, CrCl > 30 mL/min) *Enoxaparin/Lovenox 30 mg SQ daily (WT < 150 kg, CrCl > 10-29 mL/min) *Enoxaparin/Lovenox 30 mg SQ BID (WT < 150 kg, CrCl > 30 mL/min) AND/OR *Sequential Compression Device (SCD) 5 or more Highest Order ONE of the following medications: *Heparin 5000 units SQ TID (Preferred with Epidurals) *Enoxaparin/Lovenox 40 mg SQ daily (WT < 150 kg, CrCl > 30 mL/min) *Enoxaparin/Lovenox 30 mg SQ daily (WT < 150 kg, CrCl > 10-29 mL/min) *Enoxaparin/Lovenox 30 mg SQ BID (WT < 150 kg, CrCl > 30 mL/min) AND *Sequential Compression Device (SCD) (Sal Soria MD, R3) Assessment and Plan Assessment and Plan This is a 77-year-old -[place] female with an extensive past medical history significant for end-stage renal disease, hypertension, pacemaker placement, coronary artery disease, chronic back pain, and stomach cancer in remission. Being admitted for generalized weakness and paresthesias and loss of sensation in hands and left leg Code Status Full code Discussed Condition With wdw: Dr. Stevens (Sal Soria MD, R3) Attending Attestation Patient seen and examined. Case reviewed and discussed with the resident team. Agree with plan of care as discussed with me and documented in the resident note. concerning that she has not just generalized weakness but also numbness. She has a history of back and neck problems so will look at her sine to be sure she has no new problems. Consider Neurologic problems like Guillain barre but she has hand problems more than feet. can continue to assess for other Neuro problems as well. (Theresa Stevens MD) Problem List: (1) Generalized weakness ICD Codes: R53.1 - Weakness Status: Acute Plan: Patient is being admitted for generalized weakness. She's had several falls because of this. She is complaining of paresthesia in her hands bilaterally and loss of sensation in left lower leg below the knee. She is having left leg weakness. We'll monitor patient for any worsening of the symptoms, if any worsening occurs will consider Guillain-De Jesus * Admit to observation * X-ray of knee and ankle left: pending * CT scan of the cervical, thoracic, lumbar spine: Pending (unable to obtain MRI due to pacemaker) * Tylenol 650 mg by mouth every 4 hours when necessary temperature * Nardin 7.5/325 every 6 hours when necessary pain * CBC, CMP, vitamin B12 ordered: Results pending * UA ordered: Results pending * Placed on telemetry (2) Left leg weakness ICD Codes: R29.898 - Other symptoms and signs involving the musculoskeletal system Status: Acute Plan: See plan above (3) End stage renal failure on dialysis ICD Codes: N18.6 - End stage renal failure on dialysis; Z99.2 - Dependence on renal dialysis Status: Chronic Plan: Patient is an end-stage renal disease with dialysis due to hypertension. She receives dialysis Thursday * Consulted nephrology for dialysis (4) HLD (hyperlipidemia) ICD Codes: E78.5 - HLD (hyperlipidemia) Status: Chronic Plan: Long-standing history of hyperlipidemia * Continue home medication of simvastatin (5) HTN (hypertension) ICD Codes: I10 - HTN (hypertension) Status: Chronic Plan: Long-standing history of hypertension * Continue home medication of metoprolol 25 mg by mouth daily * Continue home medication of amlodipine 5 mg by mouth daily * Clonidine 0.1 mg by mouth when necessary per protocol (6) Nutrition, metabolism, and development symptoms ICD Codes: R63.8 - Other symptoms and signs concerning food and fluid intake Plan: Fluids: By mouth intake Diet: Renal diet Out of bed with assistance Cardiac telemetry GI prophylaxis: Pantoprazole DD prophylaxis: SCDs/heparin Disposition: Pending improvement of medical condition CODE STATUS: Full code (Sal Soria MD, R3) Problem Qualifiers (1) HLD (hyperlipidemia): Qualified Codes: E78.2 - Mixed hyperlipidemia (2) HTN (hypertension): Qualified Codes: I10 - Essential (primary) hypertension Sal Soria MD, R3 May 27, 2017 11:15 Theresa Stevens MD May 28, 2017 11:00
[2017-05-27] MEDS ORDERED: SODIUM CHLOR 0.9% 1000 ML INJ 1,000 ML OTHER PRN ×2 (11:19)
[2017-05-27] MEDS ORDERED: SODIUM CHLOR 0.9% 1000 ML INJ 1,000 ML IV PRN (11:19)
--- NOTE | 2017-05-27 11:25 | RADRPT ---
EXAM DATE/TIME: 05/27/2017 11:03 [facility] COMPARISON: No previous studies available for comparison. INDICATIONS : Fell 2 weeks ago and yesterday. MEDICAL HISTORY : pt states paralized SURGICAL HISTORY : None. ENCOUNTER: Initial ACUITY: 2 weeks PAIN SCORE: 9/10 LOCATION: Left knee FINDINGS: 4 views of the left knee reveal advanced tricompartmental osteoarthritis. There are osteochondral def ect seen involving the medial tibial plateau and femoral condyle. Large osteophytes are seen extendin g from the medial compartment. Small joint effusion. No acute fracture or dislocation. Atheroscleroti c calcifications. CONCLUSION: 1. Advanced tricompartmental osteoarthritis but most pronounced within the medial compartment. 2. Small joint effusion. Tyler Catnor Jr., MD on May 27, 2017 at 11:22 Board Certified Radiologist. This report was verified electronically.
--- NOTE | 2017-05-27 11:26 | RADRPT ---
EXAM DATE/TIME: 05/27/2017 11:09 [facility] COMPARISON: No previous studies available for comparison. INDICATIONS : Fell 2 weeks ago and yesterday. MEDICAL HISTORY : pt states paralized SURGICAL HISTORY : None. ENCOUNTER: Initial ACUITY: 2 weeks PAIN SCORE: 9/10 LOCATION: Left ankle FINDINGS: [id number] degenerative changes, negative for fracture. Generalized edema. CONCLUSION: Generalized soft tissue swelling, negative for fracture. Arnaud Salcido MD FACR on May 27, 2017 at 11:24 Board Certified Radiologist. This report was verified electronically.
[2017-05-27] MEDS ORDERED: HEPARIN SODIUM - IV 10,000 UNITS/10 ML VIAL PRN (11:30)
[2017-05-27] MEDS ORDERED: GENTAMICIN SULFATE (DIALYSIS USE ONLY) 20 MG/2 ML VIAL OTHER PRN (11:30)
[2017-05-27] MEDS ORDERED: HEPARIN SODIUM - IV 10,000 UNITS/10 ML VIAL IV FLUSH PRN (11:30)
[2017-05-27] MEDS ORDERED: cloNIDine HCL 0.1 MG TAB PO PRN (11:30)
[2017-05-27] MEDS ORDERED: ONDANSETRON HCL 4 MG/2 ML VIAL IV PUSH PRN (11:30)
[2017-05-27] MEDS ORDERED: diphenhydrAMINE HCL 25 MG CAP PO PRN (11:30)
[2017-05-27] MEDS ORDERED: MANNITOL 12.5 GM/50 ML VIAL IV PRN (11:30)
--- NOTE | 2017-05-27 11:33 | PD.CONS ---
[facility] Service Nephrology Consult Requested By Reason for Consult ESRD on HD Primary Care Physician Unknown History of Present Illness This is out 77 y/o AAF dialysis patient. She came in for evaluation of left leg weakness that has progressed and has led to two falls this week. She has a known cervical injury with cord compression. Normally has right arm weakness. She denies hx of visual changes, headache, speech difficulty. 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 She has some motor function in her right leg but it is not equal to her right. Typical HD is MWF, she did not have dialysis today, thus we were consulted. PMH of HTN, anemia, metabolic bone disorder, and secondary hyperparathyroidism. She has AV access in her right arm. She has PPM implanted therefore is not a candidate for MRI. (Theresa Gustafson) Review of Systems Constitutional: DENIES: Fatigue, Fever, Weight gain, Weight loss Neurologic: COMPLAINS OF: Abnormal gait, Localized weakness, Paresthesias, Poor Balance, DENIES: Speech Problems, Tremor Psychiatric: DENIES: Anxiety, Mood changes (Theresa Gutsafson) Past Family Social History Allergies: Coded Allergies: penicillin G (Unverified Allergy, Severe, Itching, 05/27/17) prochlorperazine (Unverified Allergy, Severe, TONGUE SWELLING, 05/27/17) Past Medical History ESRD on HD MWF HTN GERD Anemia Metabolic Bone Disorder Secondary hyperparathyroidism Hx PPM placement Obesity CAD/hyperlipidemia Past Surgical History Right arm AV access PPM placement Reported Medications Lortab (Hydrocodone-Acetaminophen) 5-325 Mg Tab 1 Tab PO Q6H PRN Wrist Splint/Cock-Up/Right 1 Mis Mis Ea .ROUTE DIRECTED Wrist Splint/Cock-Up/Left 1 Mis Mis Ea .ROUTE DIRECTED Hydrocodone-Acetaminophen 7.5-325 mg Tab 1 Tab PO Q6H PRN Cane/Wood/Ladies Standard (Device) 1 Mis Mis Ea .ROUTE DIRECTED use for 99 years Cane/Wood/Ladies Standard (Device) 1 Mis Mis 1 Ea .ROUTE DIRECTED use for 99 years Walker/Adult/Folding (Device) 1 Mis Mis 1 Ea .ROUTE DIRECTED use as needed to assist for ambulation Walker with Front Wheels (Device) 1 Mis Mis 1 Ea .ROUTE DIRECTED Diclofenac Topical 1% Gel 1 Applic TOPICAL QID Estrace Vaginal (Estradiol) 0.01% Cream 1 Appl VAGINAL EVERY OTHER NIGHT Reported Metoprolol Tartrate 25 Mg Tab 25 Mg PO DAILY Amlodipine (Amlodipine Besylate) 5 Mg Tab 5 Mg PO DAILY Pantoprazole (Pantoprazole Sodium) 40 Mg Tab 40 Mg PO DAILY Zofran (Ondansetron HCl) 4 Mg Tab 4 Mg PO Q6HR PRN Aspir-81 (Aspirin) 81 Mg Tabdr 81 Mg PO DAILY Ventolin Hfa 18 GM Inh (Albuterol Sulfate) 90 Mcg/Act Aer 2 Puff INH Q4H PRN Simvastatin 10 Mg Tab 10 Mg PO HS Renal Vitamin (B-Complex W/ C & Folic Acid) 1 Cap 1 Cap PO DAILY If on dialysis, take after treatment. Nitroglycerin SL (Nitroglycerin) 0.4 Mg Subl 0.4 Mg SL DIRECTED PRN ONE TABLET UNDER THE TONGUE NEEDED FOR CHEST PAIN, MAY REPEAT EVERY FIVE MINUTES FOR A TOTAL OF 3 DOSES OR CALL 911 IF NO RELIEF Sensipar (Cinacalcet) 30 Mg Tab 30 Mg PO DAILY Calcium Acetate (Phosphate Binder) 667 Mg Tab 1,334 Mg PO TID Active Ordered Medications Current Medications Medications (Trade) Dose Ordered Sig/Melisa Route Start Time Stop Time Status Last Admin (NS Flush) 2 ml UNSCH PRN IVF 05/27/17 07:30 (NS Flush) 2 ml UNSCH PRN IV FLUSH 05/27/17 10:00 UNV (NS Flush) 2 ml BID IV FLUSH 05/27/17 21:00 UNV (NS Flush) 2 ml UNSCH PRN IV FLUSH 05/27/17 10:30 UNV (NS Flush) 2 ml BID IV FLUSH 05/27/17 21:00 UNV (Tylenol) 650 mg Q4H PRN PO 05/27/17 10:30 UNV (Zofran Inj) 4 mg Q6H PRN IVP 05/27/17 10:30 UNV (Restoril) 15 mg HS PRN PO 05/27/17 10:30 UNV (Heparin Inj) 5,000 units Q8H SQ 05/27/17 10:30 UNV (Narcan Inj) 0.4 mg UNSCH PRN IV PUSH 05/27/17 10:30 UNV (Cary-Colace) 1 tab BID PO 05/27/17 21:00 UNV (Senokot) 17.2 mg Q12H PRN PO 05/27/17 10:30 UNV (Dulcolax Supp) 10 mg DAILY PRN RECTAL 05/27/17 10:30 UNV (Lactulose Liq) 30 ml DAILY PRN PO 05/27/17 10:30 UNV (Proair Hfa Inh) 2 puff Q4H PRN INH 05/27/17 10:45 UNV (Norvasc) 5 mg DAILY PO 05/28/17 09:00 UNV (Ecotrin Ec) 81 mg DAILY PO 05/28/17 09:00 UNV (Nephrocaps) 1 cap DAILY PO 05/28/17 09:00 UNV (Phoslo) 1,334 mg TID PO 05/27/17 13:00 UNV (Sensipar) 30 mg DAILY PO 05/28/17 09:00 UNV ([place] 7.5-325 Mg) 1 tab Q6H PRN PO 05/27/17 10:45 UNV (Lopressor) 25 mg DAILY PO 05/28/17 09:00 UNV (Nitrostat Sl) 0.4 mg Q4HR PRN SL 05/27/17 10:45 UNV (Protonix) 40 mg DAILY PO 05/28/17 09:00 UNV Non-Formulary Medication 10 mg HS PO 05/27/17 21:00 UNV Family History No hx of renal disorders Social History , lives with . 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; 2/5 strength LLE, RLE 4/5 Lungs clear S1/S2, RRR no murmurs: PPM right upper chest Abd obese, soft, normal BS Ext: no edema, pulses strong; AV access right arm+ thrill/bruit Laboratory Laboratory Tests Test 05/27/17 08:00 05/27/17 08:30 White Blood Count 8.6 Red Blood Count 3.56 Hemoglobin 11.5 Hematocrit 33.3 Mean Corpuscular Volume 93.5 Mean Corpuscular Hemoglobin 32.3 Mean Corpuscular Hemoglobin Concent 34.6 Red Cell Distribution Width 14.7 Platelet Count 196 Mean Platelet Volume 8.7 Neutrophils (%) (Auto) 67.6 Lymphocytes (%) (Auto) 15.8 Monocytes (%) (Auto) 11.3 Eosinophils (%) (Auto) 4.8 Basophils (%) (Auto) 0.5 Neutrophils # (Auto) 5.8 Lymphocytes # (Auto) 1.4 Monocytes # (Auto) 1.0 Eosinophils # (Auto) 0.4 Basophils # (Auto) 0.0 CBC Comment DIFF FINAL Differential Comment Blood Urea Nitrogen 47 Creatinine 9.01 Random Glucose 78 Total Protein 7.7 Albumin 3.5 Calcium Level 7.7 Magnesium Level 1.9 Alkaline Phosphatase 147 Aspartate Amino Transf (AST/SGOT) 12 Alanine Aminotransferase (ALT/SGPT) 15 Total Bilirubin 0.6 Sodium Level 136 Potassium Level 4.8 Chloride Level 102 Carbon Dioxide Level 23.2 Anion Gap 11 Estimat Glomerular Filtration Rate 5 Total Creatine Kinase 267 Creatine Kinase MB 1.7 Creatine Kinase MB % 0.6 Troponin I 0.03 B-Type Natriuretic Peptide 246 Prothrombin Time 11.0 Prothromb Time International Ratio 1.0 Activated Partial Thromboplast Time 25.0 (Theresa Gustafson) Result Diagram: 05/27/17 0800 05/27/17 0800 Imaging Last Impressions Head CT 05/27/17715 Signed Impressions: Service Date/Time: Saturday, May 27, 2017 07:38 - CONCLUSION: 1. 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 2. No acute intracranial abnormality or significant interval change. Roni Kirk MD Chest X-Ray 05/27/1716 Signed Impressions: Service Date/Time: Saturday, May 27, 2017 08:17 - CONCLUSION: 1. No acute abnormality or significant interval change. Roni Kirk MD (Theresa Gustafson) Assessment and Plan Problem List: (1) ESRD (end stage renal disease) on dialysis ICD Codes: N18.6 - End stage renal disease; Z99.2 - Dependence on renal dialysis Status: Acute Plan: Resume MWF HD, orders entered, she is due today She has access in right arm that functions well Avoid IVF, gadolinium is contraindicated Obtain intermittent renal panel while admitted High protein diet (2) Left leg weakness ICD Codes: R29.898 - Other symptoms and signs involving the musculoskeletal system Plan: Progressive, Rule out cord compression per history Imaging shows old CVA Unable to have MRI (3) HTN (hypertension) ICD Codes: I10 - HTN (hypertension) Status: Chronic Plan: Home medications were resumed. (4) Metabolic bone disease ICD Codes: E88.9 - Metabolic disorder, unspecified; M90.80 - Osteopathy in diseases classified elsewhere, unspecified site Plan: On Calcium Acetate and Sensipar Intermittently evaluate phosphorus level (5) Anemia ICD Codes: D64.9 - Anemia, unspecified Status: Acute Plan: Hb stable, epogen not required (Theresa Gustafson) Problem List: (1) ESRD (end stage renal disease) on dialysis ICD Codes: N18.6 - End stage renal disease; Z99.2 - Dependence on renal dialysis Status: Acute Plan: Resume MWF HD, orders entered, she is due today She has access in right arm that functions well Avoid IVF, gadolinium is contraindicated Obtain intermittent renal panel while admitted High protein diet (2) Left leg weakness ICD Codes: R29.898 - Other symptoms and signs involving the musculoskeletal system Plan: Progressive, Rule out cord compression per history Imaging shows old CVA Unable to have MRI (3) HTN (hypertension) ICD Codes: I10 - HTN (hypertension) Status: Chronic Plan: Home medications were resumed. (4) Metabolic bone disease ICD Codes: E88.9 - Metabolic disorder, unspecified; M90.80 - Osteopathy in diseases classified elsewhere, unspecified site Plan: On Calcium Acetate and Sensipar Intermittently evaluate phosphorus level (5) Anemia ICD Codes: D64.9 - Anemia, unspecified Status: Acute Plan: Hb stable, epogen not required Assessment and Plan patient was seen and examined. Dialysis today. Agree with above assessment and plan. Consider neurosurgical evaluation, previously medical management was recommended, her weakness appears to have worsened. (Deshawn Baez MD) Problem Qualifiers (1) HTN (hypertension): Qualified Codes: I10 - Essential (primary) hypertension Theresa Gustafson May 27, 2017 11:33 Deshawn Baez MD May 27, 2017 17:49
--- NOTE | 2017-05-27 11:56 | RADRPT ---
EXAM DATE/TIME: 05/27/2017 11:17 [facility] COMPARISON: No previous studies available for comparison. INDICATIONS : Generalized weakness. RADIATION DOSE: 30.53 CTDIvol (mGy) MEDICAL HISTORY : Carcinoma, gastric. Cerebrovascular disease. Hypertension. SURGICAL HISTORY : Appendectomy. Hysterectomy. ENCOUNTER: Initial ACUITY: 1 day PAIN SCALE: 0/10 LOCATION: neck TECHNIQUE: Volumetric scanning of the cervical spine was performed. Multiplanar reconstructions in the sagittal, coronal and oblique axial planes were performed. Using automated exposure control and adjustment o f the mA and/or kV according to patient size, radiation dose was kept as low as reasonably achievable to obtain optimal diagnostic quality images. DICOM format image data is available electronically f or review and comparison. FINDINGS: VERTEBRAE: Normal vertebral body height. ALIGNMENT: No evidence of subluxation. C2-C3: The bony spinal canal is normal in size. No evidence of disc bulge or herniation. The neural forami na are bilaterally patent. C3-C4: There is a broad-based disc osteophyte complex that causes significant central canal stenosis. The an terior to posterior dimension of the central canal is 5 mm in the midline. Narrowing of the lateral r ecesses bilaterally. Bony uncovertebral hypertrophy generates mild right and moderate left neural for aminal narrowing. C4-C5: A broad-based disc osteophyte complex flattens the ventral portion of the cord and causes central can al stenosis. Central canal measures 7 mm in the midline. Narrowing of the lateral recesses bilaterall y. Bony uncovertebral hypertrophy generates moderate bilateral neural foraminal narrowing. C5-C6: A broad-based disc osteophyte complex flattens the ventral portion of the cord. Central canal measure s 10 mm in the midline. Narrowing of the lateral recesses bilaterally. Bony uncovertebral hypertrophy generates mild right neural foraminal narrowing. The left is patent. C6-C7: The bony spinal canal is normal in size. No evidence of disc bulge or herniation. The neural forami na are bilaterally patent. C7-T1: The bony spinal canal is normal in size. No evidence of disc bulge or herniation. The neural forami na are bilaterally patent. CONCLUSION: 1. Multilevel degenerative changes including areas of significant central canal stenosis particularly at C3-C4 and C4-C5. 2. No fracture or dislocation. Tyler Cantor Jr., MD on May 27, 2017 at 11:51 Board Certified Radiologist. This report was verified electronically.
--- NOTE | 2017-05-27 12:21 | RADRPT ---
EXAM DATE/TIME: 05/27/2017 11:19 [facility] COMPARISON: No previous studies available for comparison. INDICATIONS : Generalized weakness. RADIATION DOSE: 28.62 CTDIvol (mGy) ; Combined studies - Thoracic Spine/Lumbar Spine MEDICAL HISTORY : Carcinoma, gastric. Hypertension. Cerebrovascular disease. SURGICAL HISTORY : Appendectomy. Hysterectomy. ENCOUNTER: Initial ACUITY: 1 day PAIN SCALE: 0/10 LOCATION: back TECHNIQUE: Volumetric scanning of the lumbar spine was performed. Multiplanar reconstructions in the sagittal, coronal and oblique axial planes were performed. Using automated exposure control and adjustment of the mA and/or kV according to patient size, radiation dose was kept as low as reasonably achievable t o obtain optimal diagnostic quality images. DICOM format image data is available electronically for review and comparison. FINDINGS: Bones are homogeneous without obvious bony destruction. T11-T12: Moderate vacuum changes are evident without spinal stenosis. T12-L1: Vacuum changes are evident mild degenerative changes L1-2: Vacuum disc present without spinal stenosis. L2-3: Generalized bulge is present minimal spinal stenosis and minimal right-sided neural foraminal encroac hment. L3-4: There is generalized bulging L3-L4 moderate spinal stenosis and ligamentous hypertrophy. Mild degene rative changes are present facets. L4-5: Generalized bulging is present at L4-5 causing flattening of the intrathecal space where bilateral ne ural foramina encroachment. Moderate degenerative changes are present facets. L5-S1: Bilateral pars defect is present with moderate degenerative changes. There is mild spinal stenosis. Degenerative changes with erosion about both SI joints. CONCLUSION: Osteopenia with degenerative changes throughout the spine. There is no evidence for acute compressio n. I see nothing to suggest metastatic disease. Arnaud Salcido MD FACR on May 27, 2017 at 12:17 Board Certified Radiologist. This report was verified electronically.
--- NOTE | 2017-05-27 12:35 | RADRPT ---
EXAM DATE/TIME: 05/27/2017 11:19 [facility] COMPARISON: No previous studies available for comparison. INDICATIONS : Generalized weakness. RADIATION DOSE: 28.62 CTDIvol (mGy) ; Combined studies - Thoracic Spine/Lumbar Spine MEDICAL HISTORY : Carcinoma, gastric. Cerebrovascular disease. Hypertension. SURGICAL HISTORY : Appendectomy. Hysterectomy. ENCOUNTER: Initial ACUITY: 1 day PAIN SCALE: 0/10 LOCATION: back TECHNIQUE: Volumetric scanning of the thoracic spine was performed. Multiplanar reconstructions in the sagittal , coronal and oblique axial planes were performed. Using automated exposure control and adjustment o f the mA and/or kV according to patient size, radiation dose was kept as low as reasonably achievable to obtain optimal diagnostic quality images. DICOM format image data is available electronically f or review and comparison. FINDINGS: The soft tissues are normal. Bony structures are intact and normally aligned without fracture, compre ssion, subluxation, or destructive change. There are classic hemangiomas in the T4 and T10 vertebral bodies. Multilevel anterior marginal spurring is appreciated at mid and lower thoracic spine as well as multilevel degenerative disc disease here vacuum size anterior marginal spurring posterior uncover tebral hypertrophy without significant neural foraminal encroachment. CONCLUSION: Degenerative changes as described above. Hemangioma in T4 and T10 vertebral bodies. No acute bony abn ormality or destructive change. Fabiano Daniels MD on May 27, 2017 at 12:29 Board Certified Radiologist. This report was verified electronically.
[2017-05-27] MEDS: CALCIUM ACETATE 667 MG CAP PO SCH ×2 (13:00→18:27)
[2017-05-27] MEDS: HEPARIN SODIUM - SQ 10,000 UNITS/ML VIAL SQ SCH ×2 (14:00→21:21)
--- NOTE | 2017-05-27 14:50 | EKG ---
Date Performed: 05/27/2017 Time Performed: 08:02:44 PTAGE: 77 years EKG: ELECTRONIC ATRIAL PACEMAKER POSSIBLE RIGHT VENTRICULAR CONDUCTION DELAY LEFT ANTERIOR FASCI CULAR BLOCK PROLONGED QT INTERVAL ABNORMAL ECG PREVIOUS TRACING : 05/25/2017 12.54 Compared to the previous tracing, previously AV paced DOCTOR: Adrian Ruelas Interpretating Date/Time 05/27/2017 14:50:20
[2017-05-27] MEDS: ACETAMINOPHEN/HYDROcodone 325 MG/7.5 MG TAB PO PRN (19:18)
[2017-05-27] MEDS ORDERED: SODIUM CHLORIDE 0.9% FLUSH 10 ML FLUSH IV FLUSH SCH (21:00)
[2017-05-27] MEDS ORDERED: PRAVASTATIN SOD 20 MG TAB PO SCH (21:00)
[2017-05-27] MEDS: SODIUM CHLORIDE 0.9% FLUSH 10 ML FLUSH IV FLUSH SCH (21:21)
[2017-05-27] MEDS: DOCUSATE SODIUM 50 MG/SENNA 8.6 MG TAB PO SCH (21:21)
[2017-05-28] VITALS (12 sets, daily range): BP systolic 118–170; BP diastolic 58–72; PULSE 61–76; RESP 18–20; TEMP 97–98.2; O2SAT 96–100
[2017-05-28] MEDS: ACETAMINOPHEN/HYDROcodone 325 MG/7.5 MG TAB PO PRN ×3 (05:09→22:14)
[2017-05-28] MEDS: HEPARIN SODIUM - SQ 10,000 UNITS/ML VIAL SQ SCH ×3 (05:10→22:12)
[2017-05-28] MEDS: PANTOPRAZOLE SOD 40 MG DELAYED RELEASE TAB PO SCH (08:38)
[2017-05-28] MEDS: VITAMIN B CMPLX/VITC/FOLIC AC CAP PO SCH (08:38)
[2017-05-28] MEDS: SODIUM CHLORIDE 0.9% FLUSH 10 ML FLUSH IV FLUSH SCH ×2 (08:38→22:12)
[2017-05-28] MEDS: CINACALCET HYDROCHLORIDE 30 MG TAB PO SCH (08:39)
[2017-05-28] MEDS: amLODIPine BESYLATE 5 MG TAB PO SCH (08:39)
[2017-05-28] MEDS: DOCUSATE SODIUM 50 MG/SENNA 8.6 MG TAB PO SCH ×2 (08:39→22:12)
[2017-05-28] MEDS: METOPROLOL TARTRATE 25 MG TAB PO SCH (08:40)
[2017-05-28] MEDS: CALCIUM ACETATE 667 MG CAP PO SCH ×3 (08:40→18:59)
[2017-05-28] MEDS ORDERED: ASPIRIN EC 81 MG TABEC PO SCH (09:00)
--- NOTE | 2017-05-28 10:56 | HHI.HP ---
[facility] Service Family Medicine Primary Care Physician Unknown Admission Diagnosis general weakness/chest pain Diagnoses: (1) Generalized weakness Diagnosis: Principal (2) Left leg weakness Diagnosis: Principal (3) End stage renal failure on dialysis Diagnosis: Principal (4) HLD (hyperlipidemia) Diagnosis: Principal (5) HTN (hypertension) Diagnosis: Principal (6) Nutrition, metabolism, and development symptoms Diagnosis: Principal International Travel<30 Days: No Contact w/Intl Traveler<30days: No Known Affected Area: No History of Present Illness Ms Suarez is a 77-year-old -[place] female with an extensive past medical history significant for end-stage renal disease, hypertension, pacemaker placement, coronary artery disease, chronic back pain, and stomach cancer in remission. She is presenting to the hospital due to generalized weakness. This is started for the last 2 weeks. The weakness originally started in both of her hands and felt like a electric tingling. She is now getting weakness in her legs and the left is worse than the right. She says that her left leg is no longer holding her weight. This has resulted in multiple falls because of this weakness. She admits to having a fall earlier the day of admission. She hit the back of her head during the fall. She denies losing any consciousness. She has a pacemaker in place and MRI cannot be done. She admits to feeling some chills occasionally but denies any fever. She denies any vomiting but does feel nauseated at times. She denies any loss of bowel or bladder function. She does state that she does not have any urination due to her end-stage renal disease. The numbness and tingling in her legs starts at about the knee level of the left leg and goes down to the feet. She denies any saddle anesthesia. She reports 4 falls total since January. Her weakness and numbness have become severe over the past 2 weeks where she cannot hold objects in her hands very well and cannot even turn herself over in bed. She originally fell infrequently but her legs have become so weak and numb she is falling very often now. Her CT of her neck shows compression of her spinal cord. She has had neck and back problems for a long time but since her fall they have been so much worse. She has a history of pacemaker and was unable to get an MRI. Will ask Neurosurgery to see her. Can ask cardiology to assist with potential MRI if needed by surgery as there is a concern about not having the pacemaker functioning and resetting it after the MRI. If she needs spinal surgery, she may need cardiac eval with her multiple problems she is at some surgical risk. Review of Systems Cardiovascular: DENIES: Chest pain Gastrointestinal: DENIES: Abdominal pain Musculoskeletal: COMPLAINS OF: Back pain, Neck pain Neurologic: COMPLAINS OF: Localized weakness, Paresthesias Other Constitutional: COMPLAINS OF: Fatigue, Chills, DENIES: Fever, Weight gain, Weight loss, Change in appetite Eyes: DENIES: Blurred vision, Double Vision Ears, nose, mouth, throat: COMPLAINS OF: Hearing loss, DENIES: Hoarseness, Running Nose, Sinus Pain Respiratory: COMPLAINS OF: Shortness of breath, DENIES: Cough, Wheezing, Sputum production Cardiovascular: DENIES: Chest pain, Syncope, Claudication Gastrointestinal: COMPLAINS OF: Nausea, DENIES: Abdominal pain, Constipation, Diarrhea, Vomiting Genitourinary: DENIES: Urinary frequency, Urinary incontinence Musculoskeletal: COMPLAINS OF: Joint pain, Muscle aches, Back pain, Neck pain, DENIES: Stiffness Hematologic/lymphatic: DENIES: Bruising Immunologic/allergic: DENIES: Eczema Neurologic: COMPLAINS OF: Abnormal gait, Localized weakness, Poor Balance, DENIES: Headache, Paresthesias, Seizures, Speech Problems Psychiatric: DENIES: Anxiety, Depression Past Family Social History Past Medical History sleep apnea; no longer on cpap at home per pt GIST tumor, stomach cancer (in remission) chronic back pain, cervical spinal ESRD secondary to hypertension on dialysis since ~2004 (dialysis M, W, Thu) HTN arthritis Constipation Depression ? sickle cell Past Surgical History R Knee replacement Partial hysterectomy (she doesn't know what is still left) one hemorrhoid removed x 15 years ago. R Hand cyst removed GIST tumor resection dialysis fistula placed Pacemaker placed Echo at the end of January 2010 with EF of 56%. Spirometry 07/22/11 * FVC 2.2 Predicted 2.1 * FEV 1.9 predicted 1.7 * FEV1/FVC 89% (predicted 82%) Hospitalized February 2012 for: 1) GIB, Hematochezia: INR 8.1 on admission S/P 4 units of PRBC, 3 units of FFP, Vit. K. PPI. 2) Severe anemia- H/H 6.5/17.8 3) Right upper extremity swelling: Repeat RUE ultrasound without pseudoaneurysm or hematoma. Fistulogram showed no inflow stenosis within the graft. 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 IR recommend Plavix to prevent in-stent stenosis 4) SubQ nodule on left medial leg: stable at this time. EGD/colonoscopy (03/24/12): jeanne santillan tear GE, gastritis, duodenitis, poor prep with melena, cecal AVMs s/p cauterization, hemorrhoids. Allergies: Coded Allergies: penicillin G (Unverified Allergy, Severe, Itching, 05/27/17) prochlorperazine (Unverified Allergy, Severe, TONGUE SWELLING, 05/27/17) Active Ordered Medications Active Lortab (Hydrocodone-Acetaminophen) 5-325 Mg Tab 1 Tab PO Q6H PRN Wrist Splint/Cock-Up/Right 1 Mis Mis Ea .ROUTE DIRECTED Wrist Splint/Cock-Up/Left 1 Mis Mis Ea .ROUTE DIRECTED Hydrocodone-Acetaminophen 7.5-325 mg Tab 1 Tab PO Q6H PRN Cane/Wood/Ladies Standard (Device) 1 Mis Mis Ea .ROUTE DIRECTED use for 99 years Cane/Wood/Ladies Standard (Device) 1 Mis Mis 1 Ea .ROUTE DIRECTED use for 99 years Walker/Adult/Folding (Device) 1 Mis Mis 1 Ea .ROUTE DIRECTED use as needed to assist for ambulation Walker with Front Wheels (Device) 1 Mis Mis 1 Ea .ROUTE DIRECTED Diclofenac Topical 1% Gel 1 Applic TOPICAL QID Estrace Vaginal (Estradiol) 0.01% Cream 1 Appl VAGINAL EVERY OTHER NIGHT Reported Metoprolol Tartrate 25 Mg Tab 25 Mg PO DAILY Amlodipine (Amlodipine Besylate) 5 Mg Tab 5 Mg PO DAILY Pantoprazole (Pantoprazole Sodium) 40 Mg Tab 40 Mg PO DAILY Zofran (Ondansetron HCl) 4 Mg Tab 4 Mg PO Q6HR PRN Aspir-81 (Aspirin) 81 Mg Tabdr 81 Mg PO DAILY Ventolin Hfa 18 GM Inh (Albuterol Sulfate) 90 Mcg/Act Aer 2 Puff INH Q4H PRN Simvastatin 10 Mg Tab 10 Mg PO HS Renal Vitamin (B-Complex W/ C & Folic Acid) 1 Cap 1 Cap PO DAILY If on dialysis, take after treatment. 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 She smoked 1ppd for " many years." Quit smoking as of October 2013. No etoh. Daughter in her 30s from sickle cell disease Raised 4 grand children Physical Exam Vital Signs Vital Signs Date Time Temp Pulse Resp B/P (MAP) Pulse Ox O2 Delivery O2 Flow Rate FiO2 05/28/17 07:48 Nasal Cannula 2.00 05/28/17 07:47 97.5 68 20 170/72 (104) 96 05/28/17 06:09 12 05/28/17 04:34 96 Nasal Cannula 2.00 05/28/17 04:00 65 05/28/17 03:32 98.2 74 18 143/65 (91) 97 05/28/17 00:00 70 05/27/17 23:31 98.2 78 18 162/72 (102) 99 05/27/17 20:00 79 05/27/17 19:29 98.7 81 18 151/67 (95) 100 05/27/17 13:30 68 05/27/17 12:37 97.5 72 18 169/74 (105) 100 05/27/17 12:07 05/27/17 11:27 80 16 148/95 (112) 100 Nasal Cannula 2.00 Physical Exam GENERAL: Well-developed elderly -[place] female patient currently in mild distress. Awake and oriented 3. SKIN: No rashes, ecchymoses or lesions. Cool and dry. AV port in place in right arm. pacemaker under skin of chest on right HEAD: Atraumatic. Normocephalic. EYES: Pupils equal round and reactive. Extraocular motions intact. No scleral icterus. No injection or drainage. ENT: Nose without bleeding, purulent drainage or septal hematoma. Airway patent. NECK: Trachea midline. No JVD or lymphadenopathy. Supple, nontender, no meningeal signs. CARDIOVASCULAR: Regular rate and rhythm with 3/6 systolic murmur RESPIRATORY: Clear to auscultation. Breath sounds equal bilaterally. No wheezes , rales, or rhonchi. GASTROINTESTINAL: Abdomen soft, non-tender, nondistended. No hepato-splenomegaly , or palpable masses. No guarding. MUSCULOSKELETAL: Extremities without clubbing, cyanosis, or edema. No joint tenderness, effusion, or edema noted. No calf tenderness. Negative Homans sign bilaterally. NEUROLOGICAL: Awake and alert. Cranial nerves II through XII grossly intact. Face with normal motor and sensory, arms bilaterally equal with sensation upper arm, decreased sensation in left hand and fingers compared to right. Decreased and complete loss of sensation on left leg from knee down. Normal reflexes in both knees bilaterally. 2/5 muscle strength in left lower extremity, 4 out of 5 strength in right lower extremity. Normal speech. No facial droop. Result Diagram: 05/27/17 0800 05/27/17 0800 Imaging Last Impressions Head CT 05/27/17715 Signed Impressions: Service Date/Time: Saturday, May 27, 2017 07:38 - CONCLUSION: 1. 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 2. No acute intracranial abnormality or significant interval change. Roni Kirk MD Chest X-Ray 05/27/1716 Signed Impressions: Service Date/Time: Saturday, May 27, 2017 08:17 - CONCLUSION: 1. No acute abnormality or significant interval change. Roni Kirk MD Knee X-Ray 05/27/17 0000 Signed Impressions: Service Date/Time: Saturday, May 27, 2017 11:03 - CONCLUSION: 1. Advanced tricompartmental osteoarthritis but most pronounced within the medial compartment. 2. Small joint effusion. Tyler Cantor Jr., MD Ankle X-Ray 05/27/17 0000 Signed Impressions: Service Date/Time: Saturday, May 27, 2017 11:09 - CONCLUSION: Generalized soft tissue swelling, negative for fracture. Arnaud Salcido MD FACR Caprini VTE Risk Assessment Caprini VTE Risk Assessment: Mod/High Risk (score >= 2) Caprini Risk Assessment Model Point Value = 1 Point Value = 2 Point Value = 3 Point Value = 5 Age 41-60 Minor surgery BMI > 25 kg/m2 Swollen legs Varicose veins or History of unexplained or recurrent spontaneous Oral contraceptives or hormone replacement Sepsis (< 1 month) Serious lung disease, including pneumonia (< 1 month) Abnormal pulmonary function Acute myocardial infarction Congestive heart failure (< 1 month) History of inflammatory bowel disease Medical patient at bed rest Age 61-74 Arthroscopic surgery Major open surgery (> 45 min) Laparoscopic surgery (> 45 min) Malignancy Confined to bed (> 72 hours) Immobilizing plaster cast Central venous access Age >= 75 History of VTE Family history of VTE Factor V Leiden Prothrombin [id number] Lupus anticoagulant Anticardiolipin antibodies Elevated serum homocysteine Heparin-induced thrombocytopenia Other congenital or acquired thrombophilia Stroke (< 1 month) Elective arthroplasty Hip, pelvis, or leg fracture Acute spinal cord injury (< 1 month) Prophylaxis Regimen Total Risk Factor Score Risk Level Prophylaxis Regimen 0-1 Low Early ambulation 2 Moderate Order ONE of the following: *Sequential Compression Device (SCD) *Heparin 5000 units SQ BID 3-4 Higher Order ONE of the following medications: *Heparin 5000 units SQ TID *Enoxaparin/Lovenox 40 mg SQ daily (WT < 150 kg, CrCl > 30 mL/min) *Enoxaparin/Lovenox 30 mg SQ daily (WT < 150 kg, CrCl > 10-29 mL/min) *Enoxaparin/Lovenox 30 mg SQ BID (WT < 150 kg, CrCl > 30 mL/min) AND/OR *Sequential Compression Device (SCD) 5 or more Highest Order ONE of the following medications: *Heparin 5000 units SQ TID (Preferred with Epidurals) *Enoxaparin/Lovenox 40 mg SQ daily (WT < 150 kg, CrCl > 30 mL/min) *Enoxaparin/Lovenox 30 mg SQ daily (WT < 150 kg, CrCl > 10-29 mL/min) *Enoxaparin/Lovenox 30 mg SQ BID (WT < 150 kg, CrCl > 30 mL/min) AND *Sequential Compression Device (SCD) Assessment and Plan Assessment and Plan This is a 77-year-old -[place] female with an extensive past medical history significant for end-stage renal disease, hypertension, pacemaker placement, coronary artery disease, chronic back pain, and stomach cancer in remission. Being admitted for generalized weakness and paresthesias and relatively sudden loss of sensation in hands and left leg Problem List: (1) Generalized weakness ICD Codes: R53.1 - Weakness Status: Acute Plan: Patient is being admitted for generalized weakness. She's had several falls because of this and perhaps worsening this. She is complaining of paresthesia in her hands bilaterally and loss of sensation in left lower leg below the knee. She is having left leg weakness. Her CT of her neck is concerning for chronic and now acute compression of her spinal cord. Will ask Neurosurgery to see her as she is in bad shape with significant weakness in her hands and leg. Discussed with pt, and daughter that she may need surgery. Will ask Cardiology to see her as she may need MRI with her pacemaker plus she is not the best surgical risk * Admit to inpatient * X-ray of knee and ankle left: done * CT scan of the cervical, thoracic, lumbar spine: done(unable to obtain MRI due to pacemaker) * Tylenol 650 mg by mouth every 4 hours when necessary temperature * [place] 7.5/325 every 6 hours when necessary pain * CBC, CMP, vitamin B12 ordered: Results pending * UA ordered: Results pending * Placed on telemetry * gabapentin low dose as she is in renal failure and Pharmacy will help dose (2) Left leg weakness ICD Codes: R29.898 - Other symptoms and signs involving the musculoskeletal system Status: Acute Plan: See plan above (3) End stage renal failure on dialysis ICD Codes: N18.6 - End stage renal failure on dialysis; Z99.2 - Dependence on renal dialysis Status: Chronic Plan: Patient is an end-stage renal disease with dialysis due to hypertension. She receives dialysis Thursday * Consulted nephrology for dialysis * will do blood draws during dialysis as she is a very hard "stick" (4) HLD (hyperlipidemia) ICD Codes: E78.5 - HLD (hyperlipidemia) Status: Chronic Plan: Long-standing history of hyperlipidemia * Continue home medication of simvastatin (5) HTN (hypertension) ICD Codes: I10 - HTN (hypertension) Status: Chronic Plan: Long-standing history of hypertension * Continue home medication of metoprolol 25 mg by mouth daily * Continue home medication of amlodipine 5 mg by mouth daily * Clonidine 0.1 mg by mouth when necessary per protocol (6) Nutrition, metabolism, and development symptoms ICD Codes: R63.8 - Other symptoms and signs concerning food and fluid intake Plan: Fluids: By mouth intake Diet: Renal diet Out of bed with assistance Cardiac telemetry GI prophylaxis: Pantoprazole DD prophylaxis: SCDs/heparin Disposition: Pending evaluation by Neurosurgery and Cardiology CODE STATUS: Full code Problem Qualifiers (1) HLD (hyperlipidemia): Qualified Codes: E78.2 - Mixed hyperlipidemia (2) HTN (hypertension): Qualified Codes: I10 - Essential (primary) hypertension Theresa Stevens MD May 28, 2017 10:56
--- NOTE | 2017-05-28 11:23 | HHI.NPPN ---
Subjective General Problems: Anemia Renal Failure: Chronic, End Stage Renal Disease Interval History No changes in her condition. Dialyzed yesterday without incident. (Theresa Gustafson) Objective Data Data Vital Signs Date Time Temp Pulse Resp B/P (MAP) Pulse Ox O2 Delivery O2 Flow Rate FiO2 05/28/17 07:48 Nasal Cannula 2.00 05/28/17 07:47 97.5 68 20 170/72 (104) 96 05/28/17 06:09 12 05/28/17 04:34 96 Nasal Cannula 2.00 05/28/17 04:00 65 05/28/17 03:32 98.2 74 18 143/65 (91) 97 05/28/17 00:00 70 05/27/17 23:31 98.2 78 18 162/72 (102) 99 05/27/17 20:00 79 05/27/17 19:29 98.7 81 18 151/67 (95) 100 05/27/17 13:30 68 05/27/17 12:37 97.5 72 18 169/74 (105) 100 05/27/17 12:07 05/27/17 11:27 80 16 148/95 (112) 100 Nasal Cannula 2.00 (Theresa Gustafson) -: 05/27/17 0800 05/27/17 0800 Imaging Last [address] 05/27/17715 Signed Impressions: Service Date/Time: Saturday, May 27, 2017 07:38 - CONCLUSION: 1. 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 2. No acute intracranial abnormality or significant interval change. Roni Kirk MD Chest X-Ray 05/27/17715 Signed Impressions: Service Date/Time: Saturday, May 27, 2017 08:17 - CONCLUSION: 1. No acute abnormality or significant interval change. Roni Kirk MD Thoracic Spine CT 05/27/17 0000 Signed Impressions: Service Date/Time: Saturday, May 27, 2017 11:19 - CONCLUSION: Degenerative changes as described above. Hemangioma in T4 and T10 vertebral bodies. No acute bony abnormality or destructive change. Fabiano Daniels MD Lumbar Spine CT 05/27/17 0000 Signed Impressions: Service Date/Time: Saturday, May 27, 2017 11:19 - CONCLUSION: Osteopenia with degenerative changes throughout the spine. There is no evidence for acute compression. I see nothing to suggest metastatic disease. Arnaud Salcido MD FACR Knee X-Ray 05/27/17 0000 Signed Impressions: Service Date/Time: Saturday, May 27, 2017 11:03 - CONCLUSION: 1. Advanced tricompartmental osteoarthritis but most pronounced within the medial compartment. 2. Small joint effusion. Tyler Cantor Jr., MD Cervical Spine CT 05/27/17 0000 Signed Impressions: Service Date/Time: Saturday, May 27, 2017 11:17 - CONCLUSION: 1. Multilevel degenerative changes including areas of significant central canal stenosis particularly at C3-C4 and C4-C5. 2. No fracture or dislocation. Tyler Cantor Jr., MD Ankle X-Ray 05/27/17 0000 Signed Impressions: Service Date/Time: Saturday, May 27, 2017 11:09 - CONCLUSION: Generalized soft tissue swelling, negative for fracture. Arnaud Salcido MD FACR (Theresa Gustafson) Physical Exam General Appearance: Well Developed, Well Nourished, Comfortable (Theresa Gustafson B. EXPORT CLERK) Eyes Eye Exam: Pupils Equal (Theresa Gustafson BIsabel KEATINGP) Throat Throat Exam: Oral Mucosa [place] & Moist (Theresa Gustafson B. EXPORT CLERK) Pulmonary Resp Exam: Clear Bilaterally, Breath Sounds Equal, No Distress (Theresa Gustafson B. EXPORT CLERK) Cardiology CV Exam: Regular, Normal Sinus Rhythm, Good Perfusion (Theresa Gustafson BIsabel KEATINGP) Gastrointestinal/Abdomen GI Exam: Soft, Non-Tender, Bowel Sounds Present (Theresa Gustafson B. EXPORT CLERK) Musculoskeletal MS Exam: Joints Intact, Normal Gait, Normal Tone (Theresa Gustafson B. EXPORT CLERK) Integumentary Skin Exam: Clear, Warm, Dry, Intact (Theresa Gustafson B. EXPORT CLERK) Extremeties Extremities Exam: No Edema, Pedal Pulses Palpable Extremeties Remarks left leg and right arm weakness (Theresa Gustafson B. EXPORT CLERK) Neurologic Neuro Exam: Alert, Awake, Oriented, Speech Clear, Moving All Extremities (Theresa Gustafson B. EXPORT CLERK) Psychiatric Psych Exam: Appropriate Responses (Theresa Gustafson) Assessment/Plan Discussed Condition With: Patient, Spouse Assessment Summary: Anemia of CKD, Hypertension, End Stage Renal Disease Problem List: (1) ESRD (end stage renal disease) on dialysis ICD Codes: N18.6 - End stage renal disease; Z99.2 - Dependence on renal dialysis Status: Acute Plan: Conintue HD support on MWF Yesterday had 2500 ml UF She has access in right arm that functions well Avoid IVF, gadolinium is contraindicated Obtain intermittent renal panel while admitted High protein diet encouraged (2) Left leg weakness ICD Codes: R29.898 - Other symptoms and signs involving the musculoskeletal system Status: Acute Plan: Progressive, Rule out cord compression per history Imaging 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 (4) Metabolic bone disease ICD Codes: E88.9 - Metabolic disorder, unspecified; M90.80 - Osteopathy in diseases classified elsewhere, unspecified site Plan: On Calcium Acetate and Sensipar Intermittently evaluate phosphorus level (5) Anemia ICD Codes: D64.9 - Anemia, unspecified Status: Acute Plan: Hb stable, epogen not required (Theresa Gustafson) Plan patient was seen and examined. Agree with above assessment and plan. (Deshawn Baez MD) Problem Qualifiers (1) HTN (hypertension): Qualified Codes: I10 - Essential (primary) hypertension Theresa Gustafson May 28, 2017 11:23 Deshwan Baez MD May 28, 2017 16:41
[2017-05-28] MEDS ORDERED: GABAPENTIN 100 MG CAP PO SCH (13:00)
--- NOTE | 2017-05-28 14:39 | PD.CONS ---
(Kolby Green) [facility] Service Neurosurgery Consult Requested By Sal Soria MD Reason for Consult Cervical spine stenosis, bilateral hand weakness & numbness, left lower extremity weakness & numbness Primary Care Physician Unknown History of Present Illness This is a 77-year-old -Lao female who has an extensive medical history. She presented to the emergency department at [facility] on 05/27 following a fall due to worsening numbness and weakness to the left lower extremity as well as both hands and the right toes. When she fell she did strike her head but denies any loss of consciousness. She states that the weakness became evident approximately two weeks ago when she was not able to get up and stand or turn herself in bed. She also is not able to hold things with her hands. She does endorse that she had the weakness prior to that but it only affected her ability to do things at that time. She is uncertain of how long she has had the numbness and weakness. She does not report any precipitating event two weeks ago when the numbness and weakness changed. She does report a history of falls that started in January of this year and she is falling more frequently. Prior to that the patient states she was able to ambulate without any difficulty. The numbness is to the digits of the right hand , from the left wrist to the fingertips, from just above the left knee down and to the toes of the right foot. She denies any saddle anaesthesia. She does endorse a history of chronic neck pain and chronic low back pain. (Kolby Green) Review of Systems Constitutional: COMPLAINS OF: Fatigue, Chills, DENIES: Fever, Weight gain, Weight loss, Change in appetite Eyes: COMPLAINS OF: Blurred vision, Double Vision (intermittent to both, seeing "eye doctor") Ears, nose, mouth, throat: COMPLAINS OF: Hearing loss (denies but states can't understand people at times), DENIES: Hoarseness, Running Nose, Sinus Pain Respiratory: COMPLAINS OF: Shortness of breath, DENIES: Cough, Wheezing, Sputum production Cardiovascular: COMPLAINS OF: Chest pain, DENIES: Palpitation, Irregular heartbeat, Syncope, Claudication Gastrointestinal: COMPLAINS OF: Abdominal pain, Nausea, Vomiting, Constipation , DENIES: Diarrhea, Genitourinary: Aneuric Musculoskeletal: COMPLAINS OF: Joint pain, Muscle aches, Back pain, Neck pain, DENIES: Stiffness Hematologic/lymphatic: DENIES: Bruising, Easy bleeding, swollen glands Immunologic/allergic: COMPLAINS OF: Itching, DENIES: Eczema Endocrine: COMPLAINS OF: Increased thirst, Increased hunger (both at times) Neurologic: COMPLAINS OF: Abnormal gait, Localized weakness, Poor Balance, DENIES: Headache, Paresthesias, Seizures, Speech Problems Psychiatric: COMPLAINS OF: Depression, DENIES: Anxiety (K[place]by Green) Past Family Social History Allergies: Coded Allergies: penicillin G (Unverified Allergy, Severe, Itching, 05/27/17) prochlorperazine (Unverified Allergy, Severe, TONGUE SWELLING, 05/27/17) Past Medical History Sleep apnea GIST tumor, stomach cancer (in remission) Chronic back pain Chronic cervical spinal pain ESRD secondary to hypertension on dialysis since ~2004 (dialysis MWF) Hypertension Arthritis Constipation Depression Sickle cell (Uncertain, never tested but daughter from complications due to it.) Past Surgical History Right knee replacement Partial hysterectomy Hemorrhoidectomy Right hand cyst excision GIST tumor resection Dialysis fistula placement Pacemaker placement Reported Medications Metoprolol Tartrate 25 Mg Tab 25 Mg PO DAILY Amlodipine (Amlodipine Besylate) 5 Mg Tab 5 Mg PO DAILY Pantoprazole (Pantoprazole Sodium) 40 Mg Tab 40 Mg PO DAILY Zofran (Ondansetron HCl) 4 Mg Tab 4 Mg PO Q6HR PRN Aspir-81 (Aspirin) 81 Mg Tabdr 81 Mg PO DAILY Ventolin Hfa 18 GM Inh (Albuterol Sulfate) 90 Mcg/Act Aer 2 Puff INH Q4H PRN Simvastatin 10 Mg Tab 10 Mg PO HS Renal Vitamin (B-Complex W/ C & Folic Acid) 1 Cap 1 Cap PO DAILY If on dialysis, take after treatment. Nitroglycerin SL (Nitroglycerin) 0.4 Mg Subl 0.4 Mg SL DIRECTED PRN ONE TABLET UNDER THE TONGUE NEEDED FOR CHEST PAIN, MAY REPEAT EVERY FIVE MINUTES FOR A TOTAL OF 3 DOSES OR CALL 911 IF NO RELIEF Sensipar (Cinacalcet) 30 Mg Tab 30 Mg PO DAILY Calcium Acetate (Phosphate Binder) 667 Mg Tab 1,334 Mg PO TID Active Ordered Medications Current Medications Medications (Trade) Dose Ordered Sig/Melisa Route Start Time Stop Time Status Last Admin (NS Flush) 2 ml UNSCH PRN IV FLUSH 05/27/17 10:30 (NS Flush) 2 ml BID IV FLUSH 05/27/17 21:00 05/28/17 08:38 (Tylenol) 650 mg Q4H PRN PO 05/27/17 10:30 (Zofran Inj) 4 mg Q6H PRN IVP 05/27/17 10:30 (Restoril) 15 mg HS PRN PO 05/27/17 10:30 (Heparin Inj) 5,000 units Q8H SQ 05/27/17 14:00 05/28/17 05:10 (Narcan Inj) 0.4 mg UNSCH PRN IV PUSH 05/27/17 10:30 (Cary-Colace) 1 tab BID PO 05/27/17 21:00 05/28/17 08:39 (Senokot) 17.2 mg Q12H PRN PO 05/27/17 10:30 (Dulcolax Supp) 10 mg DAILY PRN RECTAL 05/27/17 10:30 (Lactulose Liq) 30 ml DAILY PRN PO 05/27/17 10:30 (Proair Hfa Inh) 2 puff Q4H PRN INH 05/27/17 10:45 (Norvasc) 5 mg DAILY PO 05/28/17 09:00 05/28/17 08:39 (Ecotrin Ec) 81 mg DAILY PO 05/28/17 09:00 05/28/17 08:38 (Nephrocaps) 1 cap DAILY PO 05/28/17 09:00 05/28/17 08:38 (Phoslo) 1,334 mg TID PO 05/27/17 13:00 05/28/17 13:39 (Sensipar) 30 mg DAILY PO 05/28/17 09:00 05/28/17 08:39 ([place] 7.5-325 Mg) 1 tab Q6H PRN PO 05/27/17 10:45 05/28/17 11:35 (Lopressor) 25 mg DAILY PO 05/28/17 09:00 05/28/17 08:40 (Nitrostat Sl) 0.4 mg Q5M PRN SL 05/27/17 10:45 (Protonix) 40 mg DAILY PO 05/28/17 09:00 05/28/17 08:38 (Pravachol) 20 mg HS PO 05/27/17 21:00 05/27/17 21:21 Sodium Chloride 1,000 ml @ 0 mls/hr Q0M PRN OTHER 05/27/17 11:19 (Heparin Inj) 8,000 units UNSCH PRN IV FLUSH 05/27/17 11:30 Sodium Chloride 1,000 ml @ 200 mls/hr Q5H PRN IV 05/27/17 11:19 Sodium Chloride 1,000 ml @ 0 mls/hr Q0M PRN OTHER 05/27/17 11:19 (Mannitol Inj) 12.5 gm UNSCH PRN IV 05/27/17 11:30 Albumin Human 100 ml @ 60 mls/hr UNSCH PRN IV 05/27/17 11:30 (NS Flush) 5 ml UNSCH PRN IV FLUSH 05/27/17 11:30 (Heparin Inj) UNSCH PRN .XX 05/27/17 11:30 (Gentamicin (Dialysis) Inj) 20 mg UNSCH PRN OTHER 05/27/17 11:30 (Zofran Inj) 4 mg UNSCH PRN IV PUSH 05/27/17 11:30 (Tylenol) 650 mg UNSCH PRN PO 05/27/17 11:30 (Benadryl) 25 mg UNSCH PRN PO 05/27/17 11:30 (Nitrostat Sl) 0.4 mg UNSCH PRN SL 05/27/17 11:30 (Catapres) 0.1 mg UNSCH PRN PO 05/27/17 11:30 (Gelfoam 12 Mm/7 Mm Top) 1 foam UNSCH PRN TOP 05/27/17 11:30 (Neurontin) 100 mg TID PRN PO 05/28/17 12:00 Family History Diabetes - Brother Heart problems - Father Sickle cell - Daughter () Alcoholism - Brother Kidney disease- Brother, niece (both were on dialysis) Cancer - Brother (unsure of the type), sister (breast) Stroke - Both brothers Social History 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 One daughter, . Raised daughter's 4 children. Former smoker, 1 PPD, quit 2 to 3 years ago. Denies any alcohol. Denies any illicit drugs. (Kolby Green) Physical Exam Vital Signs Vital Signs Date Time Temp Pulse Resp B/P (MAP) Pulse Ox O2 Delivery O2 Flow Rate FiO2 05/28/17 11:41 97.6 76 20 126/60 (82) 98 05/28/17 07:48 Nasal Cannula 2.00 05/28/17 07:47 97.5 68 20 170/72 (104) 96 05/28/17 07:00 69 05/28/17 06:09 12 05/28/17 04:34 96 Nasal Cannula 2.00 05/28/17 04:00 65 05/28/17 03:32 98.2 74 18 143/65 (91) 97 05/28/17 00:00 70 05/27/17 23:31 98.2 78 18 162/72 (102) 99 05/27/17 20:00 79 05/27/17 19:29 98.7 81 18 151/67 (95) 100 Physical Exam GENERAL: This is a well-developed, well-nourished female who appears slightly younger than her stated age. She is not in any apparent distress. PSYCHIATRIC: Her affect is normal. SKIN: Warm, dry & intact, AV fistula to right forearm, no evident rashes, ulcerations or other lesions except for scars to right chest wall due to pacemaker placement and left forearm due to old fistula. HEENT: Normocephalic, atraumatic. PERRLA 2 mm brisk, EOMI. TMs obscured by cerumen, no otorrhea or lesions noted to ear canal or external ear. Nares pink & moist, no rhinorrhea. MMM & pink, no evident lesions, tongue midline to protrusion. NECK: The proximal cervical spine is mildly TTP and increases distally. Trachea midline. No JVD or lymphadenopathy. Supple, nontender, no meningeal signs. CARDIOVASCULAR: S1S2 w/RRR w/grade III/ systolic murmur, radial & pedal pulses 2+ bilaterally, cap refill < 2 sec. Telemetry appears to be sinus rhythm w/o any ectopy. RESPIRATORY: CTAB w/o W/R/R, equal excursion, nonlaboured, on NC. GASTROINTESTINAL: Abdomen obese, soft, nontender, no palpable masses or organomegaly, positive bowel sounds to all quadrants. GENITOURINARY: Normal female genitalia. MUSCULOSKELETAL: LOPEZ to varying degrees, no evident deformity or clubbing. The extremities are NTTP. The thoracolumbar spine is NTTP although the right lumbar paraspinals are mildly TTP. NEUROLOGICAL: AAOx3. Speech clear & appropriate. Follows simple commands w/o difficulty. CN II-XII appear grossly intact except right CN VIII w/slight deficit (hears whispered voice but not hair being rubbed) Sensation decreased to light touch to the right hand digits, from the left wrist to the fingertips, right toes and from just above the left knee down to the toes, o/w intact to light touch. Motor strength: RUE: Deltoid 3+/5 (limited by pain), biceps 4+/5, triceps 4/5, wrist flexion & extension 4/5, hand intrinsics & extrinsics 1+/5. LUE: Deltoid 3/5 (limited by pain), biceps 4/5, triceps 3+/5, wrist flexion & extension 3 to 3+/5, hand intrinsics & extrinsics 1/5. RLE: Iliopsoas 4+/5, quadriceps 4/5, hamstrings 3+ to 4/5, tibialis anterior 3 to 3+/5, gastrocnemius 3+/5, extensor hallucis longus 3+ to 4/5. LLE: Iliopsoas 4/5, quadriceps 4/5, hamstrings 3+ to 4/5, tibialis anterior 3 /5, gastrocnemius 3+/5, extensor hallucis longus 3+ to 4/5. No Rock's response. No ankle clonus. Plantar response neutral on right and upward on left. (Kolby Green) Result Diagram: 05/27/17 0800 05/27/17 0800 Imaging Recent Impressions Head CT 05/27/17 1491 Signed Impressions: Service Date/Time: Saturday, May 27, 2017 07:38 - CONCLUSION: 1. 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 2. No acute intracranial abnormality or significant interval change. Roni Kirk MD Chest X-Ray 05/27/17 0716 Signed Impressions: Service Date/Time: Saturday, May 27, 2017 08:17 - CONCLUSION: 1. No acute abnormality or significant interval change. Roni Kirk MD Thoracic Spine CT 05/27/17 0000 Signed Impressions: Service Date/Time: Saturday, May 27, 2017 11:19 - CONCLUSION: Degenerative changes as described above. Hemangioma in T4 and T10 vertebral bodies. No acute bony abnormality or destructive change. Fabiano Daniels MD Lumbar Spine CT 05/27/17 0000 Signed Impressions: Service Date/Time: Saturday, May 27, 2017 11:19 - CONCLUSION: Osteopenia with degenerative changes throughout the spine. There is no evidence for acute compression. I see nothing to suggest metastatic disease. Arnaud Salcido MD FACR Knee X-Ray 05/27/17 0000 Signed Impressions: Service Date/Time: Saturday, May 27, 2017 11:03 - CONCLUSION: 1. Advanced tricompartmental osteoarthritis but most pronounced within the medial compartment. 2. Small joint effusion. Tyler Cantor Jr., MD Cervical Spine CT 05/27/17 0000 Signed Impressions: Service Date/Time: Saturday, May 27, 2017 11:17 - CONCLUSION: 1. Multilevel degenerative changes including areas of significant central canal stenosis particularly at C3-C4 and C4-C5. 2. No fracture or dislocation. Tyler Cantor Jr., MD Ankle X-Ray 05/27/17 0000 Signed Impressions: Service Date/Time: Saturday, May 27, 2017 11:09 - CONCLUSION: Generalized soft tissue swelling, negative for fracture. Arnaud Salcido MD FACR (K[place]by Green) Assessment and Plan Assessment and Plan Impression: Significant cervical canal stenosis C3-4 & C4-5 Numbness & weakness/loss of coordination to both hands Numbness & weakness to left lower extremity History of chronic neck pain History of chronic back pain Plan: Primary management per Family Medicine. Neuro checks. (Kolby Green) Attending Statement The exam, history, and the medical decision-making described in the above note were completed with the assistance of the mid-level provider. I reviewed and agree with the findings presented. I attest that I had a [id number] encounter with the patient on the same day, and personally performed and documented my assessment and findings in the medical record. The patient gives a approximate two-week history of initially upper extremity numbness followed by upper extremity and left lower extremity numbness and weakness and progressive gait difficulty and loss of upper extremity coordination. She states that she has fallen 4 times in the past 2 weeks. She started using a walker a couple weeks ago but for the past 2 or 3 days has not been able to ambulate well even with walker. No complaint of definite bladder incontinence. On examination she is alert oriented and conversant. Sensation is grossly intact to light touch in all extremities with complaint of mild paresthesias in the hands and feet. Strength is mostly 3-4/5 left and 2-3/5 right upper and lower extremity major flexion and extension groups except for 2/5 bilateral hand intrinsics. Franklin's response absent bilateral No ankle clonus Plantar response neutral on the left, slightly extensor on the right The patient's CT scan of the cervical spine reveals a large C3 4 and moderate C4 5 posterior osteophytic disc complex was significant canal compromise and cord impingement. The patient is unable to have an MRI due to the pacemaker. I discussed treatment options at length with her as well as prognosis. It is felt that she is at risk for progressive myelopathy with conservative treatment. I have recommended that she proceed with surgical intervention for C3 4 and C4 5 ACDF. The procedure, risks, possible complications of an fully discussed. She presents understand all of the above. She exhibits significant apprehension regarding proceeding with surgery. She states that she wants to speak with her family before making a decision regarding surgical intervention. She states that her strength seems a little better since she has been at bed rest today. I advised her that I would be pleased to speak with her family when they come to the hospital regarding the findings and treatment options. Continue physical therapy, mobilized out of bed as tolerated. Aspirin and statin medications held in anticipation of possible surgical intervention. (Doug Quinteros MD) Kolby Green May 28, 2017 14:39 Doug Quinteros MD May 28, 2017 21:10
[2017-05-28] MEDS: LACTULOSE SYRUP 20 GM/30 ML CUP PO PRN (22:11)
[2017-05-29 04:05] VITALS: BP 133/57; PULSE 65; RESP 20; TEMP 96.1; O2SAT 95
[2017-05-29] MEDS: ACETAMINOPHEN/HYDROcodone 325 MG/7.5 MG TAB PO PRN ×3 (05:37→21:36)
[2017-05-29] MEDS: HEPARIN SODIUM - SQ 10,000 UNITS/ML VIAL SQ SCH ×3 (05:37→21:36)
[2017-05-29 07:49] VITALS: BP 142/60; PULSE 68; RESP 20; TEMP 96.3; O2SAT 97
[2017-05-29] MEDS: METOPROLOL TARTRATE 25 MG TAB PO SCH (08:57)
[2017-05-29] MEDS: amLODIPine BESYLATE 5 MG TAB PO SCH (08:57)
[2017-05-29] MEDS: SODIUM CHLORIDE 0.9% FLUSH 10 ML FLUSH IV FLUSH SCH ×2 (08:57→21:36)
[2017-05-29] MEDS: VITAMIN B CMPLX/VITC/FOLIC AC CAP PO SCH (08:57)
[2017-05-29] MEDS: DOCUSATE SODIUM 50 MG/SENNA 8.6 MG TAB PO SCH ×2 (08:57→21:36)
[2017-05-29] MEDS: CINACALCET HYDROCHLORIDE 30 MG TAB PO SCH (09:00)
[2017-05-29] MEDS: PANTOPRAZOLE SOD 40 MG DELAYED RELEASE TAB PO SCH (09:00)
[2017-05-29] MEDS: CALCIUM ACETATE 667 MG CAP PO SCH ×3 (09:09→17:35)
--- NOTE | 2017-05-29 09:47 | HHI.NSPN ---
(Kolby Green) History Chief Complaint: Decreased sensation to hands and feet (Kolby Green) Interval History 05/28: This is a 77-year-old -Slovenian female who has an extensive medical history. She presented to the emergency department at [facility] on following a fall due to worsening numbness and weakness to the left lower extremity as well as both hands and the right toes. When she fell she did strike her head but denies any loss of consciousness. She states that the weakness became evident approximately two weeks ago when she was not able to get up and stand or turn herself in bed. She also is not able to hold things with her hands. She does endorse that she had the weakness prior to that but it only affected her ability to do things at that time. She is uncertain of how long she has had the numbness and weakness. She does not report any precipitating event two weeks ago when the numbness and weakness changed. She does report a history of falls that started in January of this year and she is falling more frequently. Prior to that the patient states she was able to ambulate without any difficulty. The numbness is to the digits of the right hand , from the left wrist to the fingertips, from just above the left knee down and to the toes of the right foot. She denies any saddle anaesthesia. She does endorse a history of chronic neck pain and chronic low back pain. 05/29: This morning the patient is seen in rounds with Dr. Quinteros. She is awake when seen and says she is doing fine. She states that the sensation is slightly better to the hands and feet. The undersigned acts as a scribe for the remainder of this note. (Kolby Green) Exam Results 05/27/17 05/27/17 05/28/17 05/28/17 05/29/17 05/29/17 06:00 18:00 06:00 18:00 06:00 18:00 Intake Total 240 ml 240 ml Output Total 2500 ml Balance -2500 ml 240 ml 240 ml Intake Oral 240 ml 240 ml Output Hemodialysis 2500 ml # Voids 0 0 # Bowel Movements 0 3 Vital Signs Date Time Temp Pulse Resp B/P (MAP) Pulse Ox O2 Delivery O2 Flow Rate FiO2 05/29/17 07:49 96.3 68 20 142/60 (87) 97 05/29/17 06:14 17 05/29/17 04:05 96.1 65 20 133/57 (82) 95 05/29/17 02:00 Room Air 05/28/17 23:00 97.0 68 20 139/65 (89) 100 05/28/17 20:48 99 Nasal Cannula 2.00 05/28/17 20:00 65 05/28/17 19:07 97.5 61 20 138/72 (94) 97 05/28/17 15:04 97.5 61 18 118/58 (78) 99 05/28/17 11:41 97.6 76 20 126/60 (82) 98 05/28/17 07:48 Nasal Cannula 2.00 05/28/17 07:47 97.5 68 20 170/72 (104) 96 05/28/17 07:00 69 05/28/17 04:34 96 Nasal Cannula 2.00 05/28/17 04:00 65 05/28/17 03:32 98.2 74 18 143/65 (91) 97 05/28/17 00:00 70 05/27/17 23:31 98.2 78 18 162/72 (102) 99 05/27/17 20:00 79 05/27/17 19:29 98.7 81 18 151/67 (95) 100 05/27/17 13:30 68 05/27/17 12:37 97.5 72 18 169/74 (105) 100 05/27/17 12:07 05/27/17 11:27 80 16 148/95 (112) 100 Nasal Cannula 2.00 05/27/17 08:00 76 20 147/67 (93) 94 Room Air 05/27/17 07:33 Room Air 05/27/17 07:15 97.8 73 20 150/83 (105) 99 (Kolby Green) Physical Examination The patient is awake, alert and oriented this morning. Her speech is clear and appropriate. She follows simple commands without difficulty. Sensation is decreased to the toes. Motor strength: RUE: Deltoid 3/5, biceps 3/5, triceps 3/5, hand intrinsics 2/5. LUE: Deltoid 3/5, biceps 3/5, triceps 4/5, hand intrinsics 2 to 3/5. RLE: Iliopsoas 3/5, quadriceps 3/5, hamstrings 3/5, tibialis anterior 2/5, gastrocnemius 2/5. LLE: Iliopsoas 4/5, quadriceps 3/5, hamstrings 3/5, tibialis anterior 4/5, gastrocnemius 4/5. (Kolby Green) Lab, Micro, Other Results Recent Impressions Head CT 05/27/17715 Signed Impressions: Service Date/Time: Saturday, May 27, 2017 07:38 - CONCLUSION: 1. 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 2. No acute intracranial abnormality or significant interval change. Roni Kirk MD Chest X-Ray 05/27/1716 Signed Impressions: Service Date/Time: Saturday, May 27, 2017 08:17 - CONCLUSION: 1. No acute abnormality or significant interval change. Roni Kirk MD Thoracic Spine CT 05/27/17 0000 Signed Impressions: Service Date/Time: Saturday, May 27, 2017 11:19 - CONCLUSION: Degenerative changes as described above. Hemangioma in T4 and T10 vertebral bodies. No acute bony abnormality or destructive change. Fabiano Daniels MD Lumbar Spine CT 05/27/17 0000 Signed Impressions: Service Date/Time: Saturday, May 27, 2017 11:19 - CONCLUSION: Osteopenia with degenerative changes throughout the spine. There is no evidence for acute compression. I see nothing to suggest metastatic disease. Arnaud Salcido MD FACR Knee X-Ray 05/27/17 0000 Signed Impressions: Service Date/Time: Saturday, May 27, 2017 11:03 - CONCLUSION: 1. Advanced tricompartmental osteoarthritis but most pronounced within the medial compartment. 2. Small joint effusion. Tyler Cantor Jr., MD Cervical Spine CT 05/27/17 0000 Signed Impressions: Service Date/Time: Saturday, May 27, 2017 11:17 - CONCLUSION: 1. Multilevel degenerative changes including areas of significant central canal stenosis particularly at C3-C4 and C4-C5. 2. No fracture or dislocation. Tyler Cantor Jr., MD Ankle X-Ray 05/27/17 0000 Signed Impressions: Service Date/Time: Saturday, May 27, 2017 11:09 - CONCLUSION: Generalized soft tissue swelling, negative for fracture. Arnaud Salcido MD FACR Laboratory Tests Test 05/27/17 08:00 05/27/17 08:30 White Blood Count 8.6 TH/MM3 Red Blood Count 3.56 MIL/MM3 Hemoglobin 11.5 GM/DL Hematocrit 33.3 % Mean Corpuscular Volume 93.5 FL Mean Corpuscular Hemoglobin 32.3 PG Mean Corpuscular Hemoglobin Concent 34.6 % Red Cell Distribution Width 14.7 % Platelet Count 196 TH/MM3 Mean Platelet Volume 8.7 FL Neutrophils (%) (Auto) 67.6 % Lymphocytes (%) (Auto) 15.8 % Monocytes (%) (Auto) 11.3 % Eosinophils (%) (Auto) 4.8 % Basophils (%) (Auto) 0.5 % Neutrophils # (Auto) 5.8 TH/MM3 Lymphocytes # (Auto) 1.4 TH/MM3 Monocytes # (Auto) 1.0 TH/MM3 Eosinophils # (Auto) 0.4 TH/MM3 Basophils # (Auto) 0.0 TH/MM3 CBC Comment DIFF FINAL Differential Comment Blood Urea Nitrogen 47 MG/DL Creatinine 9.01 MG/DL Random Glucose 78 MG/DL Total Protein 7.7 GM/DL Albumin 3.5 GM/DL Calcium Level 7.7 MG/DL Magnesium Level 1.9 MG/DL Alkaline Phosphatase 147 U/L Aspartate Amino Transf (AST/SGOT) 12 U/L Alanine Aminotransferase (ALT/SGPT) 15 U/L Total Bilirubin 0.6 MG/DL Sodium Level 136 MEQ/L Potassium Level 4.8 MEQ/L Chloride Level 102 MEQ/L Carbon Dioxide Level 23.2 MEQ/L Anion Gap 11 MEQ/L Estimat Glomerular Filtration Rate 5 ML/MIN Total Creatine Kinase 267 U/L Creatine Kinase MB 1.7 NG/ML Creatine Kinase MB % 0.6 % Troponin I 0.03 NG/ML B-Type Natriuretic Peptide 246 PG/ML Vitamin B12 Level 663 PG/ML Prothrombin Time 11.0 SEC Prothromb Time International Ratio 1.0 RATIO Activated Partial Thromboplast Time 25.0 SEC (Kolby Green) Medical Decision Making Impression and Plan Impression: Significant cervical canal stenosis C3-4 & C4-5 Numbness & weakness/loss of coordination to both hands Numbness & weakness to left lower extremity History of chronic neck pain History of chronic back pain (Kolby Green) Attending Statement I have personally seen and examined the patient on the date of this note. Pertinent documentation and study results have been reviewed by the undersigned. I have personally developed the treatment plan and performed medical decision making. Agree with findings, exam, and treatment plan as noted above. Examination performed by the undersigned as noted above. Discussed treatment options at length again with the patient. She indicates desire to proceed with surgical intervention for C3 4, C4 5 ACDF. Tentatively scheduled for surgery on 06/01/17. She asked that we discussed the surgery with her family when they came to the hospital today. I called to the floor several times to see if the family had arrived, with no indication that they came in today. (Doug Quinteros MD) Kolby Green May 29, 2017 09:47 Doug Quinteros MD May 29, 2017 18:28
[2017-05-29 10:25] LABS: BASOPHIL % 0.5 % (0.0-2.0); EOSINOPHIL # 0.5 TH/MM3 (0-0.4); EOSINOPHIL % 5.9 % (0.0-4.0); HEMO FLAGS DIFF FINAL; LYMPH % 19.6 % (9.0-44.0); LYMPHOCYTE # 1.5 TH/MM3 (1.0-4.8); MEAN CELL VOLUME 92.3 FL (80.0-100.0); MEAN CORPUSCULAR HEMOGLOBIN 31.8 PG (27.0-34.0); MEAN CORPUSCULAR HGB CONC 34.4 % (32.0-36.0); MONO % 10.2 % (0.0-8.0); NEUT % 63.8 % (16.0-70.0); PLATELET COUNT 178 TH/MM3 (150-450); RED BLOOD COUNT 3.25 MIL/MM3 (4.00-5.30); RED CELL DISTRIBUTION WIDTH 14.6 % (11.6-17.2); WHITE BLOOD COUNT 7.9 TH/MM3 (4.0-11.0)
--- NOTE | 2017-05-29 10:25 | HHI.FPPN ---
Subjective Remarks Patient seen and examined this morning. Temperature 96.3, pulse 68, respiratory 20, blood pressure 142/60, pulse ox 97 on room air. She is spoken with neurosurgery who is recommending that she do cervical spinal surgery. She understands she is at high risk for this surgery due to her cardiac history. She is planning to discuss the risk and benefits with her family before making a decision. She understands that this may not completely restore her numbness and weakness, but it could help prevent things from progressing. She understands that she continues to fall she could affect her spinal cord and become a paraplegic. Endorses: Numbness and weakness in hands bilaterally, left lower extremity numbness and weakness, right shoulder pain Denies: Fever, chills, nausea, vomiting, shortness of breath, chest pain, headache, abdominal pain, calf pain All other review of symptoms were negative (Sal Soria MD, R3) Objective Vitals Vital Signs Date Time Temp Pulse Resp B/P (MAP) Pulse Ox O2 Delivery O2 Flow Rate FiO2 05/29/17 07:49 96.3 68 20 142/60 (87) 97 05/29/17 06:14 17 05/29/17 04:05 96.1 65 20 133/57 (82) 95 05/29/17 02:00 Room Air 05/28/17 23:00 97.0 68 20 139/65 (89) 100 05/28/17 20:48 99 Nasal Cannula 2.00 05/28/17 20:00 65 05/28/17 19:07 97.5 61 20 138/72 (94) 97 05/28/17 15:04 97.5 61 18 118/58 (78) 99 05/28/17 11:41 97.6 76 20 126/60 (82) 98 I/O 05/28/17 05/28/17 05/28/17 05/29/17 05/29/17 05/29/17 07:00 15:00 23:00 07:00 15:00 23:00 Intake Total 240 ml 240 ml Balance 240 ml 240 ml Intake Oral 240 ml 240 ml # Voids 0 0 # Bowel Movements 0 3 (Sal Soria MD, R3) Result Diagram: 05/27/17 0800 05/27/17 0800 Imaging Last Impressions Head CT 10/11/17 0716 Signed Impressions: Service Date/Time: Saturday, May 27, 2017 07:38 - CONCLUSION: 1. 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 2. No acute intracranial abnormality or significant interval change. Roni Kirk MD Chest X-Ray 05/27/17715 Signed Impressions: Service Date/Time: Saturday, May 27, 2017 08:17 - CONCLUSION: 1. No acute abnormality or significant interval change. Roni Kirk MD Thoracic Spine CT 05/27/17 Signed Impressions: Service Date/Time: Saturday, May 27, 2017 11:19 - CONCLUSION: Degenerative changes as described above. Hemangioma in T4 and T10 vertebral bodies. No acute bony abnormality or destructive change. Fabiano Daniels MD Lumbar Spine CT 05/27/17 Signed Impressions: Service Date/Time: Saturday, May 27, 2017 11:19 - CONCLUSION: Osteopenia with degenerative changes throughout the spine. There is no evidence for acute compression. I see nothing to suggest metastatic disease. Arnaud Salcido MD FACR Knee X-Ray 05/27/17 Signed Impressions: Service Date/Time: Saturday, May 27, 2017 11:03 - CONCLUSION: 1. Advanced tricompartmental osteoarthritis but most pronounced within the medial compartment. 2. Small joint effusion. Tyler Cantor Jr., MD Cervical Spine CT 05/27/17 Signed Impressions: Service Date/Time: Saturday, May 27, 2017 11:17 - CONCLUSION: 1. Multilevel degenerative changes including areas of significant central canal stenosis particularly at C3-C4 and C4-C5. 2. No fracture or dislocation. Tyler Cantor Jr., MD Ankle X-Ray 05/27/17 Signed Impressions: Service Date/Time: Saturday, May 27, 2017 11:09 - CONCLUSION: Generalized soft tissue swelling, negative for fracture. Arnaud Salcido MD FACR Objective Remarks GENERAL: Well-nourished well-developed mildly obese female, lying in bed in no apparent distress SKIN: Warm and dry. HEAD: Normocephalic. EYES: No scleral icterus. No injection or drainage. NECK: Supple, trachea midline. No JVD or lymphadenopathy. CARDIOVASCULAR: Regular rate and rhythm with 306 systolic murmur RESPIRATORY: Breath sounds equal bilaterally. No accessory muscle use. GASTROINTESTINAL: Abdomen soft, non-tender, nondistended. MUSCULOSKELETAL: Extremities without clubbing, cyanosis, or edema. No joint tenderness, effusion, or edema noted. No calf tenderness. Negative Homans sign bilaterally. BACK: Nontender without obvious deformity. Medications and IVs Current Medications Medications (Trade) Dose Ordered Sig/Melisa Route Start Time Stop Time Status Last Admin (NS Flush) 2 ml UNSCH PRN IV FLUSH 05/27/17 10:30 (NS Flush) 2 ml BID IV FLUSH 05/27/17 21:00 05/29/17 08:57 (Tylenol) 650 mg Q4H PRN PO 05/27/17 10:30 (Zofran Inj) 4 mg Q6H PRN IVP 05/27/17 10:30 (Restoril) 15 mg HS PRN PO 05/27/17 10:30 (Heparin Inj) 5,000 units Q8H SQ 05/27/17 14:00 05/29/17 05:37 (Narcan Inj) 0.4 mg UNSCH PRN IV PUSH 05/27/17 10:30 (Cary-Colace) 1 tab BID PO 05/27/17 21:00 05/29/17 08:57 (Senokot) 17.2 mg Q12H PRN PO 05/27/17 10:30 (Dulcolax Supp) 10 mg DAILY PRN RECTAL 05/27/17 10:30 (Lactulose Liq) 30 ml DAILY PRN PO 05/27/17 10:30 05/28/17 22:11 (Proair Hfa Inh) 2 puff Q4H PRN INH 05/27/17 10:45 (Norvasc) 5 mg DAILY PO 05/28/17 09:00 05/29/17 08:57 (Nephrocaps) 1 cap DAILY PO 05/28/17 09:00 05/29/17 08:57 (Phoslo) 1,334 mg TID PO 05/27/17 13:00 05/29/17 09:09 (Sensipar) 30 mg DAILY PO 05/28/17 09:00 05/29/17 09:00 ([place] 7.5-325 Mg) 1 tab Q6H PRN PO 05/27/17 10:45 05/29/17 05:37 (Lopressor) 25 mg DAILY PO 05/28/17 09:00 05/29/17 08:57 (Nitrostat Sl) 0.4 mg Q5M PRN SL 05/27/17 10:45 (Protonix) 40 mg DAILY PO 05/28/17 09:00 05/29/17 09:00 Sodium Chloride 1,000 ml @ 0 mls/hr Q0M PRN OTHER 05/27/17 11:19 (Heparin Inj) 8,000 units UNSCH PRN IV FLUSH 05/27/17 11:30 Sodium Chloride 1,000 ml @ 200 mls/hr Q5H PRN IV 05/27/17 11:19 Sodium Chloride 1,000 ml @ 0 mls/hr Q0M PRN OTHER 05/27/17 11:19 (Mannitol Inj) 12.5 gm UNSCH PRN IV 05/27/17 11:30 Albumin Human 100 ml @ 60 mls/hr UNSCH PRN IV 05/27/17 11:30 (NS Flush) 5 ml UNSCH PRN IV FLUSH 05/27/17 11:30 (Heparin Inj) UNSCH PRN .XX 05/27/17 11:30 (Gentamicin (Dialysis) Inj) 20 mg UNSCH PRN OTHER 05/27/17 11:30 (Zofran Inj) 4 mg UNSCH PRN IV PUSH 05/27/17 11:30 (Tylenol) 650 mg UNSCH PRN PO 05/27/17 11:30 (Benadryl) 25 mg UNSCH PRN PO 05/27/17 11:30 (Nitrostat Sl) 0.4 mg UNSCH PRN SL 05/27/17 11:30 (Catapres) 0.1 mg UNSCH PRN PO 05/27/17 11:30 (Gelfoam 12 Mm/7 Mm Top) 1 foam UNSCH PRN TOP 05/27/17 11:30 (Neurontin) 100 mg TID PRN PO 05/28/17 12:00 (Sal Soria MD, R3) A/P Assessment and Plan This is a 77-year-old -[place] female with an extensive past medical history significant for end-stage renal disease, hypertension, pacemaker placement, coronary artery disease, chronic back pain, and stomach cancer in remission. Being admitted for generalized weakness and paresthesias and relatively sudden loss of sensation in hands and left leg, found to have severe cervical stenosis. Patient is awaiting decision and possible further workup by neurosurgery Discharge Planning Discharge to be determined pending further workup for current medical condition (Sal Soria MD, R3) Attending Attestation Patient seen and examined. Case reviewed and discussed with the resident team. Agree with plan of care as discussed with me and documented in the resident note. she is leaning towards having surgery as she does not want to be paraplegic. (Theresa Stevens MD) Problem List: (1) Generalized weakness ICD Codes: R53.1 - Weakness Status: Acute Plan: Patient with severe cervical stenosis. * Admit to inpatient * CT scan of the cervical, thoracic, lumbar spine: Showing severe cervical stenosis (unable to obtain MRI due to pacemaker) * Neurosurgery consulted, currently recommending surgery. Patient understands the risks and benefits and is still determining what she wishes to do * Tylenol 650 mg by mouth every 4 hours when necessary temperature * [place] 7.5/325 every 6 hours when necessary pain * CBC, BMP in a.m. * Placed on telemetry * gabapentin low dose as she is in renal failure and Pharmacy will help dose (2) Left leg weakness ICD Codes: R29.898 - Other symptoms and signs involving the musculoskeletal system Status: Acute Plan: See plan above (3) End stage renal failure on dialysis ICD Codes: N18.6 - End stage renal failure on dialysis; Z99.2 - Dependence on renal dialysis Status: Chronic Plan: Patient is an end-stage renal disease with dialysis due to hypertension. She receives dialysis Thursday * Consulted nephrology for dialysis * will do blood draws during dialysis as she is a very hard "stick (4) HLD (hyperlipidemia) ICD Codes: E78.5 - HLD (hyperlipidemia) Status: Chronic Plan: Long-standing history of hyperlipidemia * Continue home medication of simvastatin (5) HTN (hypertension) ICD Codes: I10 - HTN (hypertension) Status: Chronic Plan: Long-standing history of hypertension * Continue home medication of metoprolol 25 mg by mouth daily * Continue home medication of amlodipine 5 mg by mouth daily * Clonidine 0.1 mg by mouth when necessary per protocol (6) Nutrition, metabolism, and development symptoms ICD Codes: R63.8 - Other symptoms and signs concerning food and fluid intake Plan: Fluids: By mouth intake Diet: Renal diet Out of bed with assistance Cardiac telemetry GI prophylaxis: Pantoprazole DD prophylaxis: SCDs/heparin Disposition: Pending evaluation by Neurosurgery and Cardiology CODE STATUS: Full code (Sal Soria MD, R3) Problem Qualifiers (1) HLD (hyperlipidemia): Qualified Codes: E78.2 - Mixed hyperlipidemia (2) HTN (hypertension): Qualified Codes: I10 - Essential (primary) hypertension Sal Soria MD, R3 May 29, 2017 10:25 Theresa Stevens MD May 29, 2017 11:23
[2017-05-29 10:58] LABS: ALKALINE PHOSPHATASE 128 U/L (45-117); ALT (GPT) 14 U/L (10-53); ANION GAP 8 MEQ/L (5-15); AST (GOT) 14 U/L (15-37); BICARBONATE 29.8 MEQ/L (21.0-32.0); BLOOD UREA NITROGEN 34 MG/DL (7-18); CHLORIDE 98 MEQ/L (98-107); GLOMERULAR FILTRATION RATE 8 ML/MIN (>89); POTASSIUM 3.5 MEQ/L (3.5-5.1); SODIUM (NA) 136 MEQ/L (136-145); TOTAL BILIRUBIN ADULT 0.4 MG/DL (0.2-1.0)
[2017-05-29] MEDS: GELATIN 12 MM/7 MM FOAM TOP PRN (12:19)
--- NOTE | 2017-05-29 12:45 | HHI.NPPN ---
Subjective General Problems: Anemia Renal Failure: Chronic, End Stage Renal Disease Interval History Seen during dialysis. Neurosurgery recommends surgical intervention, she would like to think about it. Requesting pain medications. (Theresa Gustafson) Review of Systems Musculoskeletal MS: Pain/Stiffness MS Remarks neck pain (Theresa Gustafson) Objective Data Data 05/29/17 05/30/17 19:00 07:00 Intake Total 240 ml Output Total 2100 ml Balance -1860 ml Intake Oral 240 ml Output Hemodialysis 2100 ml # Voids 0 # Bowel Movements 3 Vital Signs Date Time Temp Pulse Resp B/P (MAP) Pulse Ox O2 Delivery O2 Flow Rate FiO2 05/29/17 07:49 96.3 68 20 142/60 (87) 97 05/29/17 06:14 17 05/29/17 04:05 96.1 65 20 133/57 (82) 95 05/29/17 02:00 Room Air 05/28/17 23:00 97.0 68 20 139/65 (89) 100 05/28/17 20:48 99 Nasal Cannula 2.00 05/28/17 20:00 65 05/28/17 19:07 97.5 61 20 138/72 (94) 97 05/28/17 15:04 97.5 61 18 118/58 (78) 99 (Theresa Gustafson) -: 05/29/17 0945 05/29/17 0945 Imaging Last [address] 05/27/17 0716 Signed Impressions: Service Date/Time: Saturday, May 27, 2017 07:38 - CONCLUSION: 1. 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 2. No acute intracranial abnormality or significant interval change. Roni Kirk MD Chest X-Ray 05/27/17 0716 Signed Impressions: Service Date/Time: Saturday, May 27, 2017 08:17 - CONCLUSION: 1. No acute abnormality or significant interval change. Roni Kirk MD Thoracic Spine CT 05/27/17 0000 Signed Impressions: Service Date/Time: Saturday, May 27, 2017 11:19 - CONCLUSION: Degenerative changes as described above. Hemangioma in T4 and T10 vertebral bodies. No acute bony abnormality or destructive change. Fabiano Daniels MD Lumbar Spine CT 05/27/17 0000 Signed Impressions: Service Date/Time: Saturday, May 27, 2017 11:19 - CONCLUSION: Osteopenia with degenerative changes throughout the spine. There is no evidence for acute compression. I see nothing to suggest metastatic disease. Arnaud Salcido MD FACR Knee X-Ray 05/27/17 0000 Signed Impressions: Service Date/Time: Saturday, May 27, 2017 11:03 - CONCLUSION: 1. Advanced tricompartmental osteoarthritis but most pronounced within the medial compartment. 2. Small joint effusion. Tyler Cantor Jr., MD Cervical Spine CT 05/27/17 0000 Signed Impressions: Service Date/Time: Saturday, May 27, 2017 11:17 - CONCLUSION: 1. Multilevel degenerative changes including areas of significant central canal stenosis particularly at C3-C4 and C4-C5. 2. No fracture or dislocation. Tyler Cantor Jr., MD Ankle X-Ray 05/27/17 0000 Signed Impressions: Service Date/Time: Saturday, May 27, 2017 11:09 - CONCLUSION: Generalized soft tissue swelling, negative for fracture. Arnaud Salcido MD FACR (Theresa Gustafson BIsabel CALHOUN) Physical Exam General Appearance: Well Developed, Well Nourished, No Acute Distress, Comfortable (Theresa Gustafson B. MANAGER NC) Eyes Eye Exam: Pupils Equal (Theresa Gustafson BIsabel MANAGER [place]) Throat Throat Exam: Oral Mucosa [place] & Moist (Theresa Gustafson B. MANAGER NC) Pulmonary Resp Exam: Clear Bilaterally, Breath Sounds Equal, No Distress (Theresa Gustafson B. MANAGER NC) Cardiology CV Exam: Regular, Normal Sinus Rhythm, Good Perfusion (Theresa Gustafson B. MANAGER [place]) Gastrointestinal/Abdomen GI Exam: Soft, Non-Tender, Bowel Sounds Present (Theresa Gustafson B. MANAGER [place]) Musculoskeletal MS Exam: Joints Intact, Normal Gait, Normal Tone (Theresa Gustafson B. MANAGER [place]) Integumentary Skin Exam: Clear, Warm, Dry, Intact Skin Remarks right arm AV access, patent (Theresa Gustafson B. MANAGER [place]) Extremeties Extremities Exam: No Edema, Pedal Pulses Palpable Extremeties Remarks left leg and right arm weakness (Theresa Gustafson BIsabel MANAGER [place]) Neurologic Neuro Exam: Alert, Awake, Oriented, Speech Clear, Moving All Extremities (Theresa Gustafson) Psychiatric Psych Exam: Appropriate Responses (Theresa Gustafson) Assessment/Plan Discussed Condition With: Patient, Spouse Assessment Summary: Anemia of CKD, Hypertension, End Stage Renal Disease Problem List: (1) ESRD (end stage renal disease) on dialysis ICD Codes: N18.6 - End stage renal disease; Z99.2 - Dependence on renal dialysis Status: Acute Plan: Seen during dialysis today on a 3K, 310 BFR, goal 2L Continue HD support on MWF She has access in right arm that functions well Avoid IVF, gadolinium is contraindicated Obtain intermittent renal panel while admitted High protein diet encouraged (2) Left leg weakness ICD Codes: R29.898 - Other symptoms and signs involving the musculoskeletal system Status: Acute Plan: Progressive, neurosurgery has evaluated recommends surgical intervention, however she is high risk. 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 Agree with above assessment and plan. Dialysis will be continued MWF. Neurosurgery on the case. (Deshawn Baez MD) Problem Qualifiers (1) HTN (hypertension): Qualified Codes: I10 - Essential (primary) hypertension Theresa Gustafson May 29, 2017 12:45 Deshawn Baez MD May 29, 2017 16:48
[2017-05-29 14:35] VITALS: BP 132/58; PULSE 60; RESP 20; TEMP 96.7; O2SAT 97
[2017-05-29 18:45] VITALS: PULSE 66
[2017-05-29 20:15] VITALS: PULSE 65
[2017-05-29 20:30] VITALS: BP 119/62; PULSE 68; RESP 18; TEMP 96.7; O2SAT 96
[2017-05-29] MEDS: CARVEDILOL 3.125 MG TAB PO SCH (21:36)
[2017-05-30 00:25] VITALS: BP 92/51; PULSE 66; RESP 18; TEMP 96.7; O2SAT 95
[2017-05-30 04:31] VITALS: BP 121/57; PULSE 70; RESP 18; TEMP 96.6; O2SAT 99
[2017-05-30] MEDS: HEPARIN SODIUM - SQ 10,000 UNITS/ML VIAL SQ SCH ×3 (04:46→20:20)
[2017-05-30] MEDS: ACETAMINOPHEN/HYDROcodone 325 MG/7.5 MG TAB PO PRN ×3 (04:47→18:14)
[2017-05-30 07:23] LABS: HEMATOCRIT 31.1 % (35.0-46.0); MEAN CELL VOLUME 92.8 FL (80.0-100.0); MEAN CORPUSCULAR HEMOGLOBIN 31.6 PG (27.0-34.0); MEAN CORPUSCULAR HGB CONC 34.1 % (32.0-36.0); PLATELET COUNT 177 TH/MM3 (150-450); RED BLOOD COUNT 3.35 MIL/MM3 (4.00-5.30); RED CELL DISTRIBUTION WIDTH 14.6 % (11.6-17.2); REVIEW FLAG FINAL; WHITE BLOOD COUNT 7.4 TH/MM3 (4.0-11.0)
[2017-05-30 07:47] LABS: BICARBONATE 31.4 MEQ/L (21.0-32.0); POTASSIUM 4.4 MEQ/L (3.5-5.1)
[2017-05-30 08:00] VITALS: BP 102/56; PULSE 63; RESP 18; TEMP 96.1; O2SAT 96
--- NOTE | 2017-05-30 08:00 | HHI.NSPN ---
History Chief Complaint: Neck pain radiating into the RUE with numbness in the hands. Interval History 05/28: This is a 77-year-old -[place] female who has an extensive medical history. She presented to the emergency department at [facility] on following a fall due to worsening numbness and weakness to the left lower extremity as well as both hands and the right toes. When she fell she did strike her head but denies any loss of consciousness. She states that the weakness became evident approximately two weeks ago when she was not able to get up and stand or turn herself in bed. She also is not able to hold things with her hands. She does endorse that she had the weakness prior to that but it only affected her ability to do things at that time. She is uncertain of how long she has had the numbness and weakness. She does not report any precipitating event two weeks ago when the numbness and weakness changed. She does report a history of falls that started in January of this year and she is falling more frequently. Prior to that the patient states she was able to ambulate without any difficulty. The numbness is to the digits of the right hand , from the left wrist to the fingertips, from just above the left knee down and to the toes of the right foot. She denies any saddle anaesthesia. She does endorse a history of chronic neck pain and chronic low back pain. 05/29: This morning the patient is seen in rounds with Dr. Quinteros. She is awake when seen and says she is doing fine. She states that the sensation is slightly better to the hands and feet. 05/30: Pt complains of neck pain. Pain radiates into the right anterior arm, forearm and then numbness in bilateral hands with incoordination. Denies pain radiating into the LUE but has numbness in the left hand and weakness bilateral UEs.. Review of Systems General: Negative for: fever, chills, insomnia Respiratory: Negative for: shortness of breath, cough, sputum Cardiovascular: Negative for: chest pain Gastrointestinal: Negative for: nausea, vomitting, diarrhea, constipation Exam Results Vital Signs Date Time Temp Pulse Resp B/P (MAP) Pulse Ox O2 Delivery O2 Flow Rate FiO2 05/30/17 05:26 17 05/30/17 04:31 96.6 70 121/57 (78) 99 05/30/17 03:26 Room Air 05/29/17 14:06 2.00 Intake and Output 05/30/17 05/30/17 05/31/17 08:00 16:00 00:00 Intake Total 240 ml Balance 240 ml Physical Examination Resp: CTA bilaterally Heart: NSR no murmurs Abd: Soft positive bs Skin: No cyanosis or erythema Neuro: Pt awake and alert. Follows commands well. Complains of numbness and incoordination her hands Motor strength: RUE: Deltoid 3/5, biceps 3/5, triceps 3/5, hand intrinsics 2/5. LUE: Deltoid 3/5, biceps 3/5, triceps 4/5, hand intrinsics 2 to 3/5. RLE: Iliopsoas 3/5, quadriceps 3/5, hamstrings 3/5, tibialis anterior 2/5, gastrocnemius 2/5. LLE: Iliopsoas 4/5, quadriceps 3/5, hamstrings 3/5, tibialis anterior 4/5, gastrocnemius 4/5. Lab, Micro, Other Results Last Impressions Head CT 05/27/17715 Signed Impressions: Service Date/Time: Saturday, May 27, 2017 07:38 - CONCLUSION: 1. 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 2. No acute intracranial abnormality or significant interval change. Roni Kirk MD Chest X-Ray 05/27/17715 Signed Impressions: Service Date/Time: Saturday, May 27, 2017 08:17 - CONCLUSION: 1. No acute abnormality or significant interval change. Roni Kirk MD Thoracic Spine CT 05/27/17 Signed Impressions: Service Date/Time: Saturday, May 27, 2017 11:19 - CONCLUSION: Degenerative changes as described above. Hemangioma in T4 and T10 vertebral bodies. No acute bony abnormality or destructive change. Fabiano Daniels MD Lumbar Spine CT 05/27/17 0000 Signed Impressions: Service Date/Time: Saturday, May 27, 2017 11:19 - CONCLUSION: Osteopenia with degenerative changes throughout the spine. There is no evidence for acute compression. I see nothing to suggest metastatic disease. Arnaud Salcido MD FACR Knee X-Ray 05/27/17 0000 Signed Impressions: Service Date/Time: Saturday, May 27, 2017 11:03 - CONCLUSION: 1. Advanced tricompartmental osteoarthritis but most pronounced within the medial compartment. 2. Small joint effusion. Tyler Cantor Jr., MD Cervical Spine CT 05/27/17 0000 Signed Impressions: Service Date/Time: Saturday, May 27, 2017 11:17 - CONCLUSION: 1. Multilevel degenerative changes including areas of significant central canal stenosis particularly at C3-C4 and C4-C5. 2. No fracture or dislocation. Tyler Cantor Jr., MD Ankle X-Ray 05/27/17 0000 Signed Impressions: Service Date/Time: Saturday, May 27, 2017 11:09 - CONCLUSION: Generalized soft tissue swelling, negative for fracture. Arnaud Salcido MD FACR Laboratory Tests Test 05/29/17 09:45 05/30/17 07:00 White Blood Count 7.9 TH/MM3 7.4 TH/MM3 Red Blood Count 3.25 MIL/MM3 3.35 MIL/MM3 Hemoglobin 10.3 GM/DL 10.6 GM/DL Hematocrit 30.0 % 31.1 % Mean Corpuscular Volume 92.3 FL 92.8 FL Mean Corpuscular Hemoglobin 31.8 PG 31.6 PG Mean Corpuscular Hemoglobin Concent 34.4 % 34.1 % Red Cell Distribution Width 14.6 % 14.6 % Platelet Count 178 TH/MM3 177 TH/MM3 Mean Platelet Volume 8.3 FL 8.4 FL Neutrophils (%) (Auto) 63.8 % Lymphocytes (%) (Auto) 19.6 % Monocytes (%) (Auto) 10.2 % Eosinophils (%) (Auto) 5.9 % Basophils (%) (Auto) 0.5 % Neutrophils # (Auto) 5.0 TH/MM3 Lymphocytes # (Auto) 1.5 TH/MM3 Monocytes # (Auto) 0.8 TH/MM3 Eosinophils # (Auto) 0.5 TH/MM3 Basophils # (Auto) 0.0 TH/MM3 CBC Comment DIFF FINAL Differential Comment Blood Urea Nitrogen 34 MG/DL 36 MG/DL Creatinine 6.47 MG/DL 6.69 MG/DL Random Glucose 98 MG/DL 85 MG/DL Total Protein 6.8 GM/DL Albumin 3.1 GM/DL Calcium Level 8.3 MG/DL 8.2 MG/DL Alkaline Phosphatase 128 U/L Aspartate Amino Transf (AST/SGOT) 14 U/L Alanine Aminotransferase (ALT/SGPT) 14 U/L Total Bilirubin 0.4 MG/DL Sodium Level 136 MEQ/L 134 MEQ/L Potassium Level 3.5 MEQ/L 4.4 MEQ/L Chloride Level 98 MEQ/L 97 MEQ/L Carbon Dioxide Level 29.8 MEQ/L 31.4 MEQ/L Anion Gap 8 MEQ/L 6 MEQ/L Estimat Glomerular Filtration Rate 8 ML/MIN 7 ML/MIN Medical Decision Making Impression and Plan A: 77 y/o FM Significant cervical canal stenosis C3-4 & C4-5 Numbness & weakness/loss of coordination to both hands Numbness & weakness to left lower extremity History of chronic neck pain History of chronic back pain P: Continue with current care Continue with rehab efforts. Dr. Quinteros tentatively planning on C3/C4 and C4/C5 ACF on Thursday. Andrea Bernabe May 30, 2017 8:00 am
[2017-05-30] MEDS: amLODIPine BESYLATE 5 MG TAB PO SCH (09:00)
[2017-05-30] MEDS: CARVEDILOL 3.125 MG TAB PO SCH ×2 (09:00→20:26)
--- NOTE | 2017-05-30 09:17 | HHI.FPPN ---
Subjective Remarks Patient seen and examined this morning. Afebrile vital signs stable. Patient is tentatively scheduled for fusion of part of her cervical spine Thursday. She is nervous but is in good spirits and hoping for the best outcome. She understands that this is necessary to help prevent her from becoming paralyzed if she were to fall again. She also understands that afterwards she will need physical therapy with the hope of regaining some of her function. Endorses: Bilateral numbness and weakness in the hands, left lower extremity weakness and numbness, right shoulder pain Denies: Fever, chills, nausea, vomiting, shortness of breath, chest pain, headache, abdominal pain, calf pain All other review of symptoms were negative (Sal Soria MD, R3) Objective Vitals Vital Signs Date Time Temp Pulse Resp B/P (MAP) Pulse Ox O2 Delivery O2 Flow Rate FiO2 05/30/17 05:26 17 05/30/17 04:31 96.6 70 18 121/57 (78) 99 05/30/17 03:26 Room Air 05/30/17 00:25 96.7 66 18 92/51 (65) 95 05/29/17 20:30 96.7 68 18 119/62 (81) 96 05/29/17 20:15 65 05/29/17 18:45 66 05/29/17 14:35 96.7 60 20 132/58 (82) 97 05/29/17 14:06 Nasal Cannula 2.00 I/O 05/29/17 05/29/17 05/29/17 05/30/17 05/30/17 05/30/17 06:59 14:59 22:59 06:59 14:59 22:59 Intake Total 440 ml 240 ml 240 ml Output Total 2100 ml Balance -1660 ml 240 ml 240 ml Intake Oral 440 ml 240 ml 240 ml Output Hemodialysis 2100 ml # Voids 0 1 0 # Bowel Movements 3 0 0 (Sal Soria MD, R3) Result Diagram: 05/30/17 0700 05/30/17 0700 Imaging Last Impressions Head CT 05/27/17 0716 Signed Impressions: Service Date/Time: Saturday, May 27, 2017 07:38 - CONCLUSION: 1. 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 2. No acute intracranial abnormality or significant interval change. Roni Kirk MD Chest X-Ray 05/27/17 0716 Signed Impressions: Service Date/Time: Saturday, May 27, 2017 08:17 - CONCLUSION: 1. No acute abnormality or significant interval change. Roni Kirk MD Thoracic Spine CT 05/27/17 0000 Signed Impressions: Service Date/Time: Saturday, May 27, 2017 11:19 - CONCLUSION: Degenerative changes as described above. Hemangioma in T4 and T10 vertebral bodies. No acute bony abnormality or destructive change. Fabiano Daniels MD Lumbar Spine CT 05/27/17 0000 Signed Impressions: Service Date/Time: Saturday, May 27, 2017 11:19 - CONCLUSION: Osteopenia with degenerative changes throughout the spine. There is no evidence for acute compression. I see nothing to suggest metastatic disease. Arnaud Salcido MD FACR Knee X-Ray 05/27/17 0000 Signed Impressions: Service Date/Time: Saturday, May 27, 2017 11:03 - CONCLUSION: 1. Advanced tricompartmental osteoarthritis but most pronounced within the medial compartment. 2. Small joint effusion. Tyler Cantor Jr., MD Cervical Spine CT 05/27/17 0000 Signed Impressions: Service Date/Time: Saturday, May 27, 2017 11:17 - CONCLUSION: 1. Multilevel degenerative changes including areas of significant central canal stenosis particularly at C3-C4 and C4-C5. 2. No fracture or dislocation. Tyler Cantor Jr., MD Ankle X-Ray 05/27/17 0000 Signed Impressions: Service Date/Time: Saturday, May 27, 2017 11:09 - CONCLUSION: Generalized soft tissue swelling, negative for fracture. Arnaud Salcido MD FACR Objective Remarks GENERAL: Well-nourished well-developed mildly obese female, lying in bed in no apparent distress SKIN: Warm and dry. HEAD: Normocephalic. EYES: No scleral icterus. No injection or drainage. NECK: Supple, trachea midline. No JVD or lymphadenopathy. CARDIOVASCULAR: Regular rate and rhythm with 306 systolic murmur RESPIRATORY: Breath sounds equal bilaterally. No accessory muscle use. GASTROINTESTINAL: Abdomen soft, non-tender, nondistended. MUSCULOSKELETAL: Extremities without clubbing, cyanosis, or edema. No joint tenderness, effusion, or edema noted. No calf tenderness. Negative Homans sign bilaterally. BACK: Nontender without obvious deformity. Medications and IVs Current Medications Medications (Trade) Dose Ordered Sig/Melisa Route Start Time Stop Time Status Last Admin (NS Flush) 2 ml UNSCH PRN IV FLUSH 05/27/17 10:30 (NS Flush) 2 ml BID IV FLUSH 05/27/17 21:00 05/29/17 21:36 (Tylenol) 650 mg Q4H PRN PO 05/27/17 10:30 (Zofran Inj) 4 mg Q6H PRN IVP 05/27/17 10:30 (Restoril) 15 mg HS PRN PO 05/27/17 10:30 (Heparin Inj) 5,000 units Q8H SQ 05/27/17 14:00 05/30/17 04:46 (Narcan Inj) 0.4 mg UNSCH PRN IV PUSH 05/27/17 10:30 (Cary-Colace) 1 tab BID PO 05/27/17 21:00 05/29/17 21:36 (Senokot) 17.2 mg Q12H PRN PO 05/27/17 10:30 (Dulcolax Supp) 10 mg DAILY PRN RECTAL 05/27/17 10:30 (Lactulose Liq) 30 ml DAILY PRN PO 05/27/17 10:30 05/28/17 22:11 (Proair Hfa Inh) 2 puff Q4H PRN INH 05/27/17 10:45 (Norvasc) 5 mg DAILY PO 05/28/17 09:00 05/29/17 08:57 (Nephrocaps) 1 cap DAILY PO 05/28/17 09:00 05/29/17 08:57 (Phoslo) 1,334 mg TID PO 05/27/17 13:00 05/29/17 17:35 (Sensipar) 30 mg DAILY PO 05/28/17 09:00 05/29/17 09:00 ([place] 7.5-325 Mg) 1 tab Q6H PRN PO 05/27/17 10:45 05/30/17 04:47 (Nitrostat Sl) 0.4 mg Q5M PRN SL 05/27/17 10:45 (Protonix) 40 mg DAILY PO 05/28/17 09:00 05/29/17 09:00 Sodium Chloride 1,000 ml @ 0 mls/hr Q0M PRN OTHER 05/27/17 11:19 (Heparin Inj) 8,000 units UNSCH PRN IV FLUSH 05/27/17 11:30 Sodium Chloride 1,000 ml @ 200 mls/hr Q5H PRN IV 05/27/17 11:19 Sodium Chloride 1,000 ml @ 0 mls/hr Q0M PRN OTHER 05/27/17 11:19 (Mannitol Inj) 12.5 gm UNSCH PRN IV 05/27/17 11:30 Albumin Human 100 ml @ 60 mls/hr UNSCH PRN IV 05/27/17 11:30 (NS Flush) 5 ml UNSCH PRN IV FLUSH 05/27/17 11:30 (Heparin Inj) UNSCH PRN .XX 05/27/17 11:30 (Gentamicin (Dialysis) Inj) 20 mg UNSCH PRN OTHER 05/27/17 11:30 (Zofran Inj) 4 mg UNSCH PRN IV PUSH 05/27/17 11:30 (Tylenol) 650 mg UNSCH PRN PO 05/27/17 11:30 (Benadryl) 25 mg UNSCH PRN PO 05/27/17 11:30 (Nitrostat Sl) 0.4 mg UNSCH PRN SL 05/27/17 11:30 (Catapres) 0.1 mg UNSCH PRN PO 05/27/17 11:30 (Gelfoam 12 Mm/7 Mm Top) 1 foam UNSCH PRN TOP 05/27/17 11:30 05/29/17 12:19 (Neurontin) 100 mg TID PRN PO 05/28/17 12:00 (Coreg) 3.125 mg Q12HR PO 05/29/17 21:00 05/29/17 21:36 (Sal Soria MD, R3) A/P Assessment and Plan This is a 77-year-old -[place] female with an extensive past medical history significant for end-stage renal disease, hypertension, pacemaker placement, coronary artery disease, chronic back pain, and stomach cancer in remission. Being admitted for generalized weakness and paresthesias and relatively sudden loss of sensation in hands and left leg, found to have severe cervical stenosis. Patient is awaiting decision and possible further workup by neurosurgery Discharge Planning Discharge to be determined pending further workup for current medical condition. Surgery for spinal cord fusion pending anticipate discharge to a nursing home facility (Sal Soria MD, R3) Attending Attestation Patient seen and examined. Case reviewed and discussed with the resident team. Agree with plan of care as discussed with me and documented in the resident note. She has decided to do surgery and will have this soon. (Theresa Stevens MD) Problem List: (1) Generalized weakness ICD Codes: R53.1 - Weakness Status: Acute Plan: Patient with severe cervical stenosis. * Admit to inpatient * CT scan of the cervical, thoracic, lumbar spine: Showing severe cervical stenosis (unable to obtain MRI due to pacemaker) * Neurosurgery consulted, currently recommending surgery. Patient understands the risks and benefits, tentatively scheduled for surgery Thursday06/01/70 * Tylenol 650 mg by mouth every 4 hours when necessary temperature * [place] 7.5/325 every 6 hours when necessary pain * CBC, BMP in a.m. * Placed on telemetry * gabapentin low dose as she is in renal failure and Pharmacy will help dose (2) Left leg weakness ICD Codes: R29.898 - Other symptoms and signs involving the musculoskeletal system Status: Acute Plan: See plan above (3) End stage renal failure on dialysis ICD Codes: N18.6 - End stage renal failure on dialysis; Z99.2 - Dependence on renal dialysis Status: Chronic Plan: Patient is an end-stage renal disease with dialysis due to hypertension. She receives dialysis Thursday * Consulted nephrology for dialysis * will do blood draws during dialysis as she is a very hard "stick (4) HLD (hyperlipidemia) ICD Codes: E78.5 - HLD (hyperlipidemia) Status: Chronic Plan: Long-standing history of hyperlipidemia * Continue home medication of simvastatin (5) HTN (hypertension) ICD Codes: I10 - HTN (hypertension) Status: Chronic Plan: Long-standing history of hypertension * Continue home medication of metoprolol 25 mg by mouth daily * Continue home medication of amlodipine 5 mg by mouth daily * Clonidine 0.1 mg by mouth when necessary per protocol (6) Nutrition, metabolism, and development symptoms ICD Codes: R63.8 - Other symptoms and signs concerning food and fluid intake Plan: Fluids: By mouth intake Diet: Renal diet Out of bed with assistance Cardiac telemetry GI prophylaxis: Pantoprazole DD prophylaxis: SCDs/heparin Disposition: Pending evaluation by Neurosurgery and Cardiology CODE STATUS: Full code (Sal Soria MD, R3) Problem Qualifiers (1) HLD (hyperlipidemia): Qualified Codes: E78.2 - Mixed hyperlipidemia (2) HTN (hypertension): Qualified Codes: I10 - Essential (primary) hypertension Sal Soria MD, R3 May 30, 2017 09:17 Theresa Stevens MD May 31, 2017 13:03
[2017-05-30] MEDS: CINACALCET HYDROCHLORIDE 30 MG TAB PO SCH (10:57)
[2017-05-30] MEDS: CALCIUM ACETATE 667 MG CAP PO SCH ×3 (10:57→18:13)
[2017-05-30] MEDS: PANTOPRAZOLE SOD 40 MG DELAYED RELEASE TAB PO SCH (10:58)
[2017-05-30] MEDS: VITAMIN B CMPLX/VITC/FOLIC AC CAP PO SCH (10:59)
[2017-05-30] MEDS: DOCUSATE SODIUM 50 MG/SENNA 8.6 MG TAB PO SCH ×2 (10:59→20:20)
[2017-05-30] MEDS: SODIUM CHLORIDE 0.9% FLUSH 10 ML FLUSH IV FLUSH SCH ×2 (11:02→20:21)
[2017-05-30 12:00] VITALS: BP 97/56; PULSE 71; RESP 16; TEMP 95.8; O2SAT 93
--- NOTE | 2017-05-30 14:00 | HHI.NPPN ---
Subjective General Problems: Anemia Renal Failure: Chronic, End Stage Renal Disease Additional Remarks No acute complaints Review of Systems Musculoskeletal MS: Pain/Stiffness MS Remarks neck pain Objective Data Data Vital Signs Date Time Temp Pulse Resp B/P (MAP) Pulse Ox O2 Delivery O2 Flow Rate FiO2 05/30/17 12:02 16 05/30/17 12:00 95.8 71 16 97/56 (70) 93 05/30/17 08:00 96.1 63 18 102/56 (71) 96 05/30/17 04:31 96.6 70 18 121/57 (78) 99 05/30/17 03:26 Room Air 05/30/17 00:25 96.7 66 18 92/51 (65) 95 05/29/17 20:30 96.7 68 18 119/62 (81) 96 05/29/17 20:15 65 05/29/17 18:45 66 05/29/17 14:35 96.7 60 20 132/58 (82) 97 05/29/17 14:06 Nasal Cannula 2.00 -: 05/30/17 0700 05/30/17 0700 Physical Exam General Appearance: Well Developed, Well Nourished, No Acute Distress, Comfortable Eyes Eye Exam: Pupils Equal Throat Throat Exam: Oral Mucosa [place] & Moist Pulmonary Resp Exam: Clear Bilaterally, Breath Sounds Equal, No Distress Cardiology CV Exam: Regular, Normal Sinus Rhythm, Good Perfusion Gastrointestinal/Abdomen GI Exam: Soft, Non-Tender, Bowel Sounds Present Musculoskeletal MS Exam: Joints Intact, Normal Gait, Normal Tone Integumentary Skin Exam: Clear, Warm, Dry, Intact Extremeties Extremities Exam: No Edema, Pedal Pulses Palpable Neurologic Neuro Exam: Alert, Awake, Oriented, Speech Clear, Moving All Extremities Psychiatric Psych Exam: Appropriate Responses Assessment/Plan Discussed Condition With: Patient, Spouse Assessment Summary: Anemia of CKD, Hypertension, End Stage Renal Disease Problem List: (1) ESRD (end stage renal disease) on dialysis ICD Codes: N18.6 - End stage renal disease; Z99.2 - Dependence on renal dialysis Status: Acute Plan: HD done Thursday, planned next HD Thursday. Continue HD support on MWF She has access in right arm that functions well Avoid IVF, gadolinium is contraindicated Obtain intermittent renal panel while admitted, can draw labs at dialysis. 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 Planned C-Spine fusion Thursday (3) HTN (hypertension) ICD Codes: I10 - HTN (hypertension) Status: Chronic Plan: BP stable has PRN clonidine available (4) Metabolic bone disease ICD Codes: E88.9 - Metabolic disorder, unspecified; M90.80 - Osteopathy in diseases classified elsewhere, unspecified site Plan: On Calcium Acetate and Sensipar Intermittently evaluate phosphorus level (5) Anemia ICD Codes: D64.9 - Anemia, unspecified Status: Acute Plan: Hb stable, epogen not required Problem Qualifiers (1) HTN (hypertension): Qualified Codes: I10 - Essential (primary) hypertension Stephane Steele MD May 30, 2017 14:00
[2017-05-30 16:00] VITALS: BP 100/49; PULSE 71; RESP 16; TEMP 95.5; O2SAT 100
[2017-05-30 20:50] VITALS: BP 90/51; PULSE 69; RESP 17; TEMP 96.4; O2SAT 100
[2017-05-31] VITALS (7 sets, daily range): BP systolic 129–160; BP diastolic 58–98; PULSE 64–82; RESP 12–18; TEMP 95.1–97.5; O2SAT 97–100
[2017-05-31] MEDS: ACETAMINOPHEN/HYDROcodone 325 MG/7.5 MG TAB PO PRN ×3 (03:36→18:26)
[2017-05-31] MEDS: HEPARIN SODIUM - SQ 10,000 UNITS/ML VIAL SQ SCH ×3 (06:03→23:19)
--- NOTE | 2017-05-31 08:32 | HHI.NSPN ---
History Chief Complaint: Neck pain radiating into the RUE with numbness in the hands. Interval History 05/28: This is a 77-year-old -[place] female who has an extensive medical history. She presented to the emergency department at [facility] on following a fall due to worsening numbness and weakness to the left lower extremity as well as both hands and the right toes. When she fell she did strike her head but denies any loss of consciousness. She states that the weakness became evident approximately two weeks ago when she was not able to get up and stand or turn herself in bed. She also is not able to hold things with her hands. She does endorse that she had the weakness prior to that but it only affected her ability to do things at that time. She is uncertain of how long she has had the numbness and weakness. She does not report any precipitating event two weeks ago when the numbness and weakness changed. She does report a history of falls that started in January of this year and she is falling more frequently. Prior to that the patient states she was able to ambulate without any difficulty. The numbness is to the digits of the right hand , from the left wrist to the fingertips, from just above the left knee down and to the toes of the right foot. She denies any saddle anaesthesia. She does endorse a history of chronic neck pain and chronic low back pain. 05/29: This morning the patient is seen in rounds with Dr. Quinteros. She is awake when seen and says she is doing fine. She states that the sensation is slightly better to the hands and feet. 05/30: Pt complains of neck pain. Pain radiates into the right anterior arm, forearm and then numbness in bilateral hands with incoordination. Denies pain radiating into the LUE but has numbness in the left hand and weakness bilateral UEs. 05/31: Pt states symptoms unchanged of neck pain radiating into the RUE with numbness in the hands bilaterally. She has weakness in the UEs and incoordination in her hands. Review of Systems General: Negative for: fever, chills, insomnia Respiratory: Negative for: cough, sputum Cardiovascular: Negative for: chest pain Gastrointestinal: Negative for: nausea, vomitting, diarrhea, constipation Exam Results Vital Signs Date Time Temp Pulse Resp B/P (MAP) Pulse Ox O2 Delivery O2 Flow Rate FiO2 05/31/17 04:13 96.4 69 17 152/66 (94) 98 05/30/17 19:32 Room Air 05/30/17 18:30 2.00 Intake and Output 05/31/17 05/31/17 06/01/17 08:00 16:00 00:00 Intake Total 480 ml Balance 480 ml Physical Examination Resp: CTA bilaterally Heart: NSR no murmurs Abd: Soft positive bs Skin: No cyanosis or erythema Neuro: Pt awake and alert. Follows commands well. Complains of numbness and incoordination her hands Motor strength: RUE: Deltoid 3/5, biceps 3/5, triceps 3/5, hand intrinsics 2/5. LUE: Deltoid 3/5, biceps 3/5, triceps 4/5, hand intrinsics 2 to 3/5. RLE: Iliopsoas 3/5, quadriceps 3/5, hamstrings 3/5, tibialis anterior 2/5, gastrocnemius 2/5. LLE: Iliopsoas 4/5, quadriceps 3/5, hamstrings 3/5, tibialis anterior 4/5, gastrocnemius 4/5. Lab, Micro, Other Results Last Impressions Head CT 05/27/17 0716 Signed Impressions: Service Date/Time: Saturday, May 27, 2017 07:38 - CONCLUSION: 1. 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 2. No acute intracranial abnormality or significant interval change. Roni Kirk MD Chest X-Ray 05/27/17 0716 Signed Impressions: Service Date/Time: Saturday, May 27, 2017 08:17 - CONCLUSION: 1. No acute abnormality or significant interval change. Roni Kirk MD Thoracic Spine CT 05/27/17 0000 Signed Impressions: Service Date/Time: Saturday, May 27, 2017 11:19 - CONCLUSION: Degenerative changes as described above. Hemangioma in T4 and T10 vertebral bodies. No acute bony abnormality or destructive change. Fabiano Daniels MD Lumbar Spine CT 05/27/17 0000 Signed Impressions: Service Date/Time: Saturday, May 27, 2017 11:19 - CONCLUSION: Osteopenia with degenerative changes throughout the spine. There is no evidence for acute compression. I see nothing to suggest metastatic disease. Arnaud Salcido MD FACR Knee X-Ray 05/27/17 0000 Signed Impressions: Service Date/Time: Saturday, May 27, 2017 11:03 - CONCLUSION: 1. Advanced tricompartmental osteoarthritis but most pronounced within the medial compartment. 2. Small joint effusion. Tyler Cantor Jr., MD Cervical Spine CT 05/27/17 0000 Signed Impressions: Service Date/Time: Saturday, May 27, 2017 11:17 - CONCLUSION: 1. Multilevel degenerative changes including areas of significant central canal stenosis particularly at C3-C4 and C4-C5. 2. No fracture or dislocation. Tyler Cantor Jr., MD Ankle X-Ray 05/27/17 0000 Signed Impressions: Service Date/Time: Saturday, May 27, 2017 11:09 - CONCLUSION: Generalized soft tissue swelling, negative for fracture. Arnaud Salcido MD FACR Medical Decision Making Impression and Plan A: 77 y/o FM Significant cervical canal stenosis C3-4 & C4-5 Numbness & weakness/loss of coordination to both hands Numbness & weakness to left lower extremity History of chronic neck pain History of chronic back pain P: Continue with current care Continue with rehab efforts. Dr. Quinteros tentatively planning on C3/C4 and C4/C5 ACF on tomorrow. Andrea Bernabe May 31, 2017 8:32 am
[2017-05-31] MEDS: amLODIPine BESYLATE 5 MG TAB PO SCH (08:52)
[2017-05-31] MEDS: CALCIUM ACETATE 667 MG CAP PO SCH ×3 (08:52→18:25)
[2017-05-31] MEDS: VITAMIN B CMPLX/VITC/FOLIC AC CAP PO SCH (08:52)
[2017-05-31] MEDS: DOCUSATE SODIUM 50 MG/SENNA 8.6 MG TAB PO SCH ×2 (08:52→23:21)
[2017-05-31] MEDS: PANTOPRAZOLE SOD 40 MG DELAYED RELEASE TAB PO SCH (08:52)
[2017-05-31] MEDS: CINACALCET HYDROCHLORIDE 30 MG TAB PO SCH (08:52)
[2017-05-31] MEDS: CARVEDILOL 3.125 MG TAB PO SCH ×2 (08:53→23:21)
[2017-05-31] MEDS: SODIUM CHLORIDE 0.9% FLUSH 10 ML FLUSH IV FLUSH SCH ×2 (08:53→23:19)
--- NOTE | 2017-05-31 09:51 | HHI.FPPN ---
Subjective Remarks Patient seen and examined this morning. Afebrile vital signs stable. She is excited for her surgery tomorrow 06/01/17 and is looking forward to having it done. She has no complaints this time other than the continued numbness weakness in her hands and legs, as well as right shoulder pain. She is concerned about her dialysis tomorrow and speak with her cat breeder she will do this. (Sal Soria MD, R3) Objective Vitals Vital Signs Date Time Temp Pulse Resp B/P (MAP) Pulse Ox O2 Delivery O2 Flow Rate FiO2 05/31/17 08:50 97.5 64 18 129/58 (81) 97 05/31/17 04:13 96.4 69 17 152/66 (94) 98 05/31/17 00:18 96.8 67 17 139/62 (87) 100 05/30/17 20:50 96.4 69 17 90/51 (64) 100 05/30/17 19:32 Room Air 05/30/17 18:30 Nasal Cannula 2.00 05/30/17 16:00 95.5 71 16 100/49 (66) 100 05/30/17 12:02 16 05/30/17 12:00 95.8 71 16 97/56 (70) 93 I/O 05/30/17 05/30/17 05/30/17 05/31/17 05/31/17 05/31/17 07:00 15:00 23:00 07:00 15:00 23:00 Intake Total 240 ml 480 ml 240 ml 480 ml Balance 240 ml 480 ml 240 ml 480 ml Intake Oral 240 ml 480 ml 240 ml 480 ml # Voids 0 1 0 0 # Bowel Movements 0 0 0 0 (Sal Soria MD, R3) Result Diagram: 05/30/17 0700 05/30/17 07 Imaging Last Impressions Head CT 05/27/17715 Signed Impressions: Service Date/Time: Saturday, May 27, 2017 07:38 - CONCLUSION: 1. 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 2. No acute intracranial abnormality or significant interval change. Roni Kirk MD Chest X-Ray 05/27/17715 Signed Impressions: Service Date/Time: Saturday, May 27, 2017 08:17 - CONCLUSION: 1. No acute abnormality or significant interval change. Roni Kirk MD Thoracic Spine CT 05/27/17 0000 Signed Impressions: Service Date/Time: Saturday, May 27, 2017 11:19 - CONCLUSION: Degenerative changes as described above. Hemangioma in T4 and T10 vertebral bodies. No acute bony abnormality or destructive change. Fabiano Daniels MD Lumbar Spine CT 05/27/17 0000 Signed Impressions: Service Date/Time: Saturday, May 27, 2017 11:19 - CONCLUSION: Osteopenia with degenerative changes throughout the spine. There is no evidence for acute compression. I see nothing to suggest metastatic disease. Arnaud Salcido MD FACR Knee X-Ray 05/27/17 0000 Signed Impressions: Service Date/Time: Saturday, May 27, 2017 11:03 - CONCLUSION: 1. Advanced tricompartmental osteoarthritis but most pronounced within the medial compartment. 2. Small joint effusion. Tyler Cantor Jr., MD Cervical Spine CT 05/27/17 0000 Signed Impressions: Service Date/Time: Saturday, May 27, 2017 11:17 - CONCLUSION: 1. Multilevel degenerative changes including areas of significant central canal stenosis particularly at C3-C4 and C4-C5. 2. No fracture or dislocation. Tyler Cantor Jr., MD Ankle X-Ray 05/27/17 0000 Signed Impressions: Service Date/Time: Saturday, May 27, 2017 11:09 - CONCLUSION: Generalized soft tissue swelling, negative for fracture. Arnaud Salcido MD FACR Objective Remarks GENERAL: Well-nourished well-developed mildly obese female, lying in bed in no apparent distress SKIN: Warm and dry. HEAD: Normocephalic. EYES: No scleral icterus. No injection or drainage. NECK: Supple, trachea midline. No JVD or lymphadenopathy. CARDIOVASCULAR: Regular rate and rhythm with 306 systolic murmur RESPIRATORY: Breath sounds equal bilaterally. No accessory muscle use. GASTROINTESTINAL: Abdomen soft, non-tender, nondistended. MUSCULOSKELETAL: Extremities without clubbing, cyanosis, or edema. No joint tenderness, effusion, or edema noted. No calf tenderness. Negative Homans sign bilaterally. BACK: Nontender without obvious deformity. Medications and IVs Current Medications Medications (Trade) Dose Ordered Sig/Melisa Route Start Time Stop Time Status Last Admin (NS Flush) 2 ml UNSCH PRN IV FLUSH 05/27/17 10:30 (NS Flush) 2 ml BID IV FLUSH 05/27/17 21:00 05/31/17 08:53 (Tylenol) 650 mg Q4H PRN PO 05/27/17 10:30 (Zofran Inj) 4 mg Q6H PRN IVP 05/27/17 10:30 (Restoril) 15 mg HS PRN PO 05/27/17 10:30 (Heparin Inj) 5,000 units Q8H SQ 05/27/17 14:00 05/31/17 06:03 (Narcan Inj) 0.4 mg UNSCH PRN IV PUSH 05/27/17 10:30 (Cary-Colace) 1 tab BID PO 05/27/17 21:00 05/31/17 08:52 (Senokot) 17.2 mg Q12H PRN PO 05/27/17 10:30 (Dulcolax Supp) 10 mg DAILY PRN RECTAL 05/27/17 10:30 (Lactulose Liq) 30 ml DAILY PRN PO 05/27/17 10:30 05/28/17 22:11 (Proair Hfa Inh) 2 puff Q4H PRN INH 05/27/17 10:45 (Norvasc) 5 mg DAILY PO 05/28/17 09:00 05/31/17 08:52 (Nephrocaps) 1 cap DAILY PO 05/28/17 09:00 05/31/17 08:52 (Phoslo) 1,334 mg TID PO 05/27/17 13:00 05/31/17 08:52 (Sensipar) 30 mg DAILY PO 05/28/17 09:00 05/31/17 08:52 ([place] 7.5-325 Mg) 1 tab Q6H PRN PO 05/27/17 10:45 05/31/17 03:36 (Nitrostat Sl) 0.4 mg Q5M PRN SL 05/27/17 10:45 (Protonix) 40 mg DAILY PO 05/28/17 09:00 05/31/17 08:52 Sodium Chloride 1,000 ml @ 0 mls/hr Q0M PRN OTHER 05/27/17 11:19 (Heparin Inj) 8,000 units UNSCH PRN IV FLUSH 05/27/17 11:30 Sodium Chloride 1,000 ml @ 200 mls/hr Q5H PRN IV 05/27/17 11:19 Sodium Chloride 1,000 ml @ 0 mls/hr Q0M PRN OTHER 05/27/17 11:19 (Mannitol Inj) 12.5 gm UNSCH PRN IV 05/27/17 11:30 Albumin Human 100 ml @ 60 mls/hr UNSCH PRN IV 05/27/17 11:30 (NS Flush) 5 ml UNSCH PRN IV FLUSH 05/27/17 11:30 (Heparin Inj) UNSCH PRN .XX 05/27/17 11:30 (Gentamicin (Dialysis) Inj) 20 mg UNSCH PRN OTHER 05/27/17 11:30 (Zofran Inj) 4 mg UNSCH PRN IV PUSH 05/27/17 11:30 (Tylenol) 650 mg UNSCH PRN PO 05/27/17 11:30 (Benadryl) 25 mg UNSCH PRN PO 05/27/17 11:30 (Nitrostat Sl) 0.4 mg UNSCH PRN SL 05/27/17 11:30 (Catapres) 0.1 mg UNSCH PRN PO 05/27/17 11:30 (Gelfoam 12 Mm/7 Mm Top) 1 foam UNSCH PRN TOP 05/27/17 11:30 05/29/17 12:19 (Neurontin) 100 mg TID PRN PO 05/28/17 12:00 (Coreg) 3.125 mg Q12HR PO 05/29/17 21:00 05/29/17 21:36 (Sal Soria MD, R3) A/P Assessment and Plan This is a 77-year-old -[place] female with an extensive past medical history significant for end-stage renal disease, hypertension, pacemaker placement, coronary artery disease, chronic back pain, and stomach cancer in remission. Being admitted for generalized weakness and paresthesias and relatively sudden loss of sensation in hands and left leg, found to have severe cervical stenosis. Patient is awaiting decision and possible further workup by neurosurgery Discharge Planning Discharge to be determined pending further workup for current medical condition. Surgery for spinal cord fusion pending, anticipate discharge to a custodial facility (Sal Soria MD, R3) Attending Attestation Patient seen and examined. Case reviewed and discussed with the resident team. Agree with plan of care as discussed with me and documented in the resident note. will see what cardiology says about surgery. she is on dialysis and a high risk for some potential problems with surgery (Theresa Stevens MD) Problem List: (1) Generalized weakness ICD Codes: R53.1 - Weakness Status: Acute Plan: Patient with severe cervical stenosis. * Admit to inpatient * CT scan of the cervical, thoracic, lumbar spine: Showing severe cervical stenosis (unable to obtain MRI due to pacemaker) * Neurosurgery consulted, currently recommending surgery. Patient understands the risks and benefits, tentatively scheduled for surgery Thursday06/01/70 * Tylenol 650 mg by mouth every 4 hours when necessary temperature * [place] 7.5/325 every 6 hours when necessary pain * CBC, BMP in a.m. * Placed on telemetry * gabapentin low dose as she is in renal failure and Pharmacy will help dose (2) Left leg weakness ICD Codes: R29.898 - Other symptoms and signs involving the musculoskeletal system Status: Acute Plan: See plan above (3) End stage renal failure on dialysis ICD Codes: N18.6 - End stage renal failure on dialysis; Z99.2 - Dependence on renal dialysis Status: Chronic Plan: Patient is an end-stage renal disease with dialysis due to hypertension. She receives dialysis Thursday * Consulted nephrology for dialysis * will do blood draws during dialysis as she is a very hard "stick (4) HLD (hyperlipidemia) ICD Codes: E78.5 - HLD (hyperlipidemia) Status: Chronic Plan: Long-standing history of hyperlipidemia * Continue home medication of simvastatin (5) HTN (hypertension) ICD Codes: I10 - HTN (hypertension) Status: Chronic Plan: Long-standing history of hypertension * Continue home medication of metoprolol 25 mg by mouth daily * Continue home medication of amlodipine 5 mg by mouth daily * Clonidine 0.1 mg by mouth when necessary per protocol (6) Nutrition, metabolism, and development symptoms ICD Codes: R63.8 - Other symptoms and signs concerning food and fluid intake Plan: Fluids: By mouth intake Diet: Renal diet Out of bed with assistance Cardiac telemetry GI prophylaxis: Pantoprazole DD prophylaxis: SCDs/heparin Disposition: Pending evaluation by Neurosurgery and Cardiology CODE STATUS: Full code (Sal Soria MD, R3) Problem Qualifiers (1) HLD (hyperlipidemia): Qualified Codes: E78.2 - Mixed hyperlipidemia (2) HTN (hypertension): Qualified Codes: I10 - Essential (primary) hypertension Sal Soria MD, R3 May 31, 2017 09:51 Theresa Stevens MD May 31, 2017 13:08
--- NOTE | 2017-05-31 11:21 | HHI.NPPN ---
Subjective General Problems: Anemia Renal Failure: Chronic, End Stage Renal Disease Additional Remarks No acute complaints Review of Systems Musculoskeletal MS: Pain/Stiffness MS Remarks neck pain Objective Data Data Vital Signs Date Time Temp Pulse Resp B/P (MAP) Pulse Ox O2 Delivery O2 Flow Rate FiO2 05/31/17 08:50 97.5 64 18 129/58 (81) 97 05/31/17 08:00 65 05/31/17 04:13 96.4 69 17 152/66 (94) 98 05/31/17 00:18 96.8 67 17 139/62 (87) 100 05/30/17 20:50 96.4 69 17 90/51 (64) 100 05/30/17 19:32 Room Air 05/30/17 18:30 Nasal Cannula 2.00 05/30/17 16:00 95.5 71 16 100/49 (66) 100 05/30/17 12:02 16 05/30/17 12:00 95.8 71 16 97/56 (70) 93 -: 05/30/17 0700 05/30/17 0700 Physical Exam General Appearance: Well Developed, Well Nourished, No Acute Distress, Comfortable Eyes Eye Exam: Pupils Equal Throat Throat Exam: Oral Mucosa [place] & Moist Pulmonary Resp Exam: Clear Bilaterally, Breath Sounds Equal, No Distress Cardiology CV Exam: Regular, Normal Sinus Rhythm, Good Perfusion Gastrointestinal/Abdomen GI Exam: Soft, Non-Tender, Bowel Sounds Present Musculoskeletal MS Exam: Joints Intact, Normal Gait, Normal Tone Integumentary Skin Exam: Clear, Warm, Dry, Intact Extremeties Extremities Exam: No Edema, Pedal Pulses Palpable Neurologic Neuro Exam: Alert, Awake, Oriented, Speech Clear, Moving All Extremities Psychiatric Psych Exam: Appropriate Responses Assessment/Plan Discussed Condition With: Patient, Spouse Assessment Summary: Anemia of CKD, Hypertension, End Stage Renal Disease Problem List: (1) ESRD (end stage renal disease) on dialysis ICD Codes: N18.6 - End stage renal disease; Z99.2 - Dependence on renal dialysis Status: Acute Plan: HD done Thursday, planned next HD tomorrow - will work around planned C- Spine surgery. Continue HD support on MWF She has access in right arm that functions well Avoid IVF, gadolinium is contraindicated Obtain intermittent renal panel while admitted, can draw labs at dialysis. 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 Planned C-Spine fusion Thursday (3) HTN (hypertension) ICD Codes: I10 - HTN (hypertension) Status: Chronic Plan: BP stable has PRN clonidine available (4) Metabolic bone disease ICD Codes: E88.9 - Metabolic disorder, unspecified; M90.80 - Osteopathy in diseases classified elsewhere, unspecified site Plan: On Calcium Acetate and Sensipar Intermittently evaluate phosphorus level (5) Anemia ICD Codes: D64.9 - Anemia, unspecified Status: Acute Plan: Hb stable, epogen not required Problem Qualifiers (1) HTN (hypertension): Qualified Codes: I10 - Essential (primary) hypertension Stephane Steele MD May 31, 2017 11:21
--- NOTE | 2017-05-31 12:32 | MB ---
cc: EPIFANIO CHUN M.D., [place] DATE OF CONSULTATION: 05/31/2017 REASON FOR CONSULTATION: Clearance for cervical disk surgery. HISTORY OF PRESENT ILLNESS: The patient is a 77-year-old black woman I am asked to see for preoperative clearing for clearance of cervical disk surgery with Dr. Quinteros. She has severe canal stenosis and is having progressive weakness with falls. The patient does have a history of end-stage renal disease. She has been less active. She has no true cardiac symptomatology. She does have a Biotronik pacemaker placed in 2014 for type 2 second-degree AV block. She also has a history of significant mitral stenosis with echocardiogram 07/31 showed normal LV function, severe calcification of the mitral annulus and leaflets with moderately severe mitral stenosis, mild MR / TR and severe pulmonary hypertension at that time. PAST MEDICAL HISTORY 1. Hypertension, hyperlipidemia, possible DVT in the past after a stroke. 2. Stroke without residual. 3. GIST tumor of the stomach in remission. 4. Sleep apnea. 5. End-stage renal disease. 6. DJD. 7. Constipation. 8. Possible sickle cell. 9. Hysterectomy. 10. Right hand cyst. 11. Right knee replacement. 12. Prior anemia. ALLERGIES Penicillin Prochlorperazine SOCIAL HISTORY: The patient is and her is present. She stopped smoking 2 years ago and does not drink. FAMILY HISTORY Noncontributory. REVIEW OF SYSTEMS: Remarkable for some visual trouble, balance, weakness and numbness. She has joint pain and constipation. IMAGING STUDIES: EKG showed atrial pacemaker with right ventricular conduction delay and left anterior fascicular block. Chest x-ray: Shows no active disease with a pacemaker. LABORATORY WORK: She is anemic with hematocrit 31.1. PT/PTT normal. Potassium 4.4, creatinine most recently 6.69. MEDICATIONS List reviewed. PHYSICAL EXAMINATION: On exam she is an overweight woman in no apparent distress. Afebrile. Vital signs stable. There are no xanthelasma and oral pharyngeal mucosa normal. Chest: Clear. JVD normal. PMI not well appreciated. S1-S2. There is a 2/6 blowing systolic ejection murmur at the apex with a 2/6 diastolic rumble. Abdomen: Benign. Extremities: Show no cyanosis, clubbing or edema. Pulses carotids without bruits. Radials at most, trace. Femorals deep and 1+ without bruits. Pedal is trace. She is not ambulated. PROBLEMS: 1. Severe cervical disk disease with progressive neurologic defect. 2. Probable severe mitral stenosis. 3. Pacemaker. 4. Hypertension and possible hyperlipidemia. RECOMMENDATIONS: 1. I would hold neurosurgery at this point in time. Certainly we at least need echocardiogram to see her valvular function at this point in time. I suspect we will clear her at a moderately high-risk because of the neurologic deficits, but certainly she is not very active at this point despite having no symptoms. 2. Low cholesterol/salt diet. 3. DVT prophylaxis with risk factor modifications per primary service. 4. Pacemaker follow up through our office. Dr. Miller will return tomorrow. MD AURORA Roque/CARLOS /10:58 AM /12:13 PM
[2017-06-01] VITALS (7 sets, daily range): BP systolic 118–144; BP diastolic 53–75; PULSE 67–79; RESP 18–20; TEMP 96–98.2; O2SAT 95–100
[2017-06-01] MEDS: ACETAMINOPHEN/HYDROcodone 325 MG/7.5 MG TAB PO PRN ×3 (05:36→21:08)
[2017-06-01] MEDS: HEPARIN SODIUM - SQ 10,000 UNITS/ML VIAL SQ SCH ×4 (05:39→21:15)
[2017-06-01 06:30] LABS: HEMATOCRIT 29.8 % (35.0-46.0); MEAN CELL VOLUME 91.9 FL (80.0-100.0); MEAN CORPUSCULAR HEMOGLOBIN 32.1 PG (27.0-34.0); PLATELET COUNT 154 TH/MM3 (150-450); RED BLOOD COUNT 3.25 MIL/MM3 (4.00-5.30); RED CELL DISTRIBUTION WIDTH 14.6 % (11.6-17.2); REVIEW FLAG FINAL; WHITE BLOOD COUNT 7.1 TH/MM3 (4.0-11.0)
[2017-06-01 07:10] LABS: POTASSIUM 4.8 MEQ/L (3.5-5.1)
--- NOTE | 2017-06-01 08:29 | PD.CARD.PN ---
Subjective Subjective Remarks Denies CP, dyspnea, PND, dizziness. Objective Medications Item Value Date Time Carvedilol 3.125 mg 05/29/17 2100 (Coreg) Q12HR/PO 05/31/17 2321 Amlodipine 5 mg 05/28/17 0900 Besylate DAILY/PO 05/31/17 0852 (Norvasc) Current Medications Medications (Trade) Dose Ordered Sig/Melisa Route Start Time Stop Time Status Last Admin (NS Flush) 2 ml UNSCH PRN IV FLUSH 05/27/17 10:30 (NS Flush) 2 ml BID IV FLUSH 05/27/17 21:00 05/31/17 23:19 (Tylenol) 650 mg Q4H PRN PO 05/27/17 10:30 (Zofran Inj) 4 mg Q6H PRN IVP 05/27/17 10:30 (Restoril) 15 mg HS PRN PO 05/27/17 10:30 (Heparin Inj) 5,000 units Q8H SQ 05/27/17 14:00 05/31/17 23:19 (Narcan Inj) 0.4 mg UNSCH PRN IV PUSH 05/27/17 10:30 (Cary-Colace) 1 tab BID PO 05/27/17 21:00 05/31/17 23:21 (Senokot) 17.2 mg Q12H PRN PO 05/27/17 10:30 (Dulcolax Supp) 10 mg DAILY PRN RECTAL 05/27/17 10:30 (Lactulose Liq) 30 ml DAILY PRN PO 05/27/17 10:30 05/28/17 22:11 (Proair Hfa Inh) 2 puff Q4H PRN INH 05/27/17 10:45 (Norvasc) 5 mg DAILY PO 05/28/17 09:00 05/31/17 08:52 (Nephrocaps) 1 cap DAILY PO 05/28/17 09:00 05/31/17 08:52 (Phoslo) 1,334 mg TID PO 05/27/17 13:00 05/31/17 18:25 (Sensipar) 30 mg DAILY PO 05/28/17 09:00 05/31/17 08:52 ([place] 7.5-325 Mg) 1 tab Q6H PRN PO 05/27/17 10:45 06/01/17 05:36 (Nitrostat Sl) 0.4 mg Q5M PRN SL 05/27/17 10:45 (Protonix) 40 mg DAILY PO 05/28/17 09:00 05/31/17 08:52 Sodium Chloride 1,000 ml @ 0 mls/hr Q0M PRN OTHER 05/27/17 11:19 (Heparin Inj) 8,000 units UNSCH PRN IV FLUSH 05/27/17 11:30 Sodium Chloride 1,000 ml @ 200 mls/hr Q5H PRN IV 05/27/17 11:19 Sodium Chloride 1,000 ml @ 0 mls/hr Q0M PRN OTHER 05/27/17 11:19 (Mannitol Inj) 12.5 gm UNSCH PRN IV 05/27/17 11:30 Albumin Human 100 ml @ 60 mls/hr UNSCH PRN IV 05/27/17 11:30 (NS Flush) 5 ml UNSCH PRN IV FLUSH 05/27/17 11:30 (Heparin Inj) UNSCH PRN .XX 05/27/17 11:30 (Gentamicin (Dialysis) Inj) 20 mg UNSCH PRN OTHER 05/27/17 11:30 (Zofran Inj) 4 mg UNSCH PRN IV PUSH 05/27/17 11:30 (Tylenol) 650 mg UNSCH PRN PO 05/27/17 11:30 (Benadryl) 25 mg UNSCH PRN PO 05/27/17 11:30 (Nitrostat Sl) 0.4 mg UNSCH PRN SL 05/27/17 11:30 (Catapres) 0.1 mg UNSCH PRN PO 05/27/17 11:30 (Gelfoam 12 Mm/7 Mm Top) 1 foam UNSCH PRN TOP 05/27/17 11:30 05/29/17 12:19 (Neurontin) 100 mg TID PRN PO 05/28/17 12:00 (Coreg) 3.125 mg Q12HR PO 05/29/17 21:00 05/31/17 23:21 Vital Signs / I&O Vital Signs Date Time Temp Pulse Resp B/P (MAP) Pulse Ox O2 Delivery O2 Flow Rate FiO2 06/01/17 04:19 96.4 76 18 133/53 (79) 99 06/01/17 00:16 98.2 72 18 142/65 (90) 98 05/31/17 20:16 97.5 76 18 133/98 (110) 100 05/31/17 19:00 Room Air 05/31/17 17:00 96.8 65 12 144/74 (97) 99 05/31/17 13:50 95.1 82 16 160/75 (103) 97 05/31/17 08:50 97.5 64 18 129/58 (81) 97 I/O 05/31/17 05/31/17 05/31/17 06/01/17 06/01/17 06/01/17 07:00 15:00 23:00 07:00 15:00 23:00 Intake Total 480 ml 240 ml 0 ml Balance 480 ml 240 ml 0 ml Intake Oral 480 ml 240 ml 0 ml # Voids 0 0 0 # Bowel Movements 0 1 0 Physical Exam GENERAL: Well developed, well nourished. No acute distress. HEENT: Jugular venous pressure is normal. CHEST: Lungs clear to auscultation bilaterally. Unlabored respiratory effort. CARDIAC: Regular rate and rhythm without S3, S4. II/ HSM lower left sternal border and apex ABDOMEN: Soft, nontender, no hepatosplenomegaly. Bowel sounds present. EXTREMITIES: No clubbing, cyanosis, or edema. Laboratory Laboratory Tests Test 06/01/17 05:43 White Blood Count 7.1 TH/MM3 Red Blood Count 3.25 MIL/MM3 Hemoglobin 10.4 GM/DL Hematocrit 29.8 % Mean Corpuscular Volume 91.9 FL Mean Corpuscular Hemoglobin 32.1 PG Mean Corpuscular Hemoglobin Concent 35.0 % Red Cell Distribution Width 14.6 % Platelet Count 154 TH/MM3 Mean Platelet Volume 8.8 FL Blood Urea Nitrogen 63 MG/DL Creatinine 9.58 MG/DL Random Glucose 76 MG/DL Calcium Level 8.0 MG/DL Sodium Level 130 MEQ/L Potassium Level 4.8 MEQ/L Chloride Level 94 MEQ/L Carbon Dioxide Level 27.0 MEQ/L Anion Gap 9 MEQ/L Estimat Glomerular Filtration Rate 5 ML/MIN Assessment and Plan Problem List: (1) Preoperative cardiovascular examination ICD Codes: Z01.810 - Encounter for preprocedural cardiovascular examination Status: Acute Plan: Cardiac status stable. Dr. Kennedy's consult noted, agree with his recommendations. Await echo. (2) Hypertension ICD Codes: I10 - Hypertension Status: Acute Plan: Fluctuating BP's. Continue to monitor. (3) History of cardiac pacemaker ICD Codes: Z95.0 - Presence of cardiac pacemaker Status: Chronic Code Status full code Discussed Condition With patient Problem Qualifiers (1) Hypertension: Qualified Codes: I10 - Essential (primary) hypertension Dann Miller MD Jun 01, 2017 08:29
[2017-06-01] MEDS: amLODIPine BESYLATE 5 MG TAB PO SCH (09:00)
[2017-06-01] MEDS: CARVEDILOL 3.125 MG TAB PO SCH ×2 (09:00→21:08)
[2017-06-01] MEDS: VITAMIN B CMPLX/VITC/FOLIC AC CAP PO SCH (09:59)
[2017-06-01] MEDS: PANTOPRAZOLE SOD 40 MG DELAYED RELEASE TAB PO SCH (10:00)
[2017-06-01] MEDS: CALCIUM ACETATE 667 MG CAP PO SCH ×3 (10:00→21:09)
[2017-06-01] MEDS: DOCUSATE SODIUM 50 MG/SENNA 8.6 MG TAB PO SCH ×2 (10:00→21:08)
[2017-06-01] MEDS: CINACALCET HYDROCHLORIDE 30 MG TAB PO SCH (10:00)
[2017-06-01] MEDS: SODIUM CHLORIDE 0.9% FLUSH 10 ML FLUSH IV FLUSH SCH ×2 (10:01→21:09)
--- NOTE | 2017-06-01 10:48 | HHI.FPPN ---
Subjective Remarks No acute events. Resting in bed. No improved function of her extremities compared to admission. Continuing to have paresthesias in her hands. No chest pain or shortness of breath. No abdominal pain. No calf tenderness. She has a good appetite. Scheduled for dialysis today. (Casey Bermudez MD R3) Objective Vitals Vital Signs Date Time Temp Pulse Resp B/P (MAP) Pulse Ox O2 Delivery O2 Flow Rate FiO2 06/01/17 04:19 96.4 76 18 133/53 (79) 99 06/01/17 00:16 98.2 72 18 142/65 (90) 98 05/31/17 20:16 97.5 76 18 133/98 (110) 100 05/31/17 19:00 Room Air 05/31/17 17:00 96.8 65 12 144/74 (97) 99 05/31/17 13:50 95.1 82 16 160/75 (103) 97 I/O 05/31/17 05/31/17 05/31/17 06/01/17 06/01/17 06/01/17 07:00 15:00 23:00 07:00 15:00 23:00 Intake Total 480 ml 240 ml 0 ml Balance 480 ml 240 ml 0 ml Intake Oral 480 ml 240 ml 0 ml # Voids 0 0 0 # Bowel Movements 0 1 0 (Casey Bermudez MD R3) Result Diagram: 06/01/17 0543 06/01/17 0543 Objective Remarks GENERAL: Sitting up in bed, no distress SKIN: No rashes or lesions HEAD: Normocephalic. EYES: No scleral icterus. No injection or drainage. NECK: Supple, trachea midline. No JVD or lymphadenopathy. CARDIOVASCULAR: Regular rate and rhythm with 3/6 murmur heard best over mitral valve RESPIRATORY: Breath sounds equal bilaterally. No accessory muscle use. GASTROINTESTINAL: Abdomen soft, non-tender, nondistended. MUSCULOSKELETAL: Extremities without edema. No calf tenderness. (Casey Bermudez MD R3) A/P Assessment and Plan 77-year-old -[place] female with end-stage renal disease on dialysis, hypertension, pacemaker dependent, coronary artery disease, chronic back pain, and stomach cancer in remission. Admitted for generalized weakness and paresthesias and relatively sudden loss of sensation in hands and left leg, found to have severe cervical stenosis. Discharge Planning Possible surgery for spinal cord fusion pending, anticipate [facility] facility. (Casey Bermudez MD R3) Attending Attestation Patient seen and examined. Case reviewed and discussed with the resident team. Agree with plan of care as discussed with me and documented in the resident note. she has heart problems at baseline and they are not "fixable" without surgery with her valves, etc. she will almost certainly be paralyzed if she does not have surgery on her neck so she will go ahead with surgery tomorrow (Theresa Stevens MD) Problem List: (1) Cervical spinal stenosis ICD Codes: M48.02 - Spinal stenosis, cervical region Status: Acute Plan: Multi-level degenerative changes including areas of significant canal stenosis at C3-C5. She has significant upper and lower extremity weakness and numbness/paresthesias. * Neurosurgery consulted, currently recommending surgery. Patient understands the risks and benefits, tentatively scheduled for 06/02/17. * Pending cardiology clearance for surgery. patient with pacemaker. Last ECHO was 2014, showed mld LVH, normal EF, mild aortic valve stenosis, severe mitral stenosis, severely elevated pulmonary artery pressure. Will repeat ECHO now. * [place] 7.5/325 every 6 hours when necessary pain * NSAIDs contraindicated given renal disease * Gabapentin for paresthesias, low dose as she is in renal failure * Physical therapy after surgical procedure, will require rehab. (2) End stage renal failure on dialysis ICD Codes: N18.6 - End stage renal failure on dialysis; Z99.2 - Dependence on renal dialysis Status: Chronic Plan: Patient has end-stage renal disease secondary to hypertension, on dialysis MWF. 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 (3) HLD (hyperlipidemia) ICD Codes: E78.5 - HLD (hyperlipidemia) Status: Chronic Plan: Long-standing history of hyperlipidemia * Continue home simvastatin (4) HTN (hypertension) ICD Codes: I10 - HTN (hypertension) Status: Chronic Plan: Long-standing history of hypertension * Continue home medication of metoprolol 25 mg by mouth daily * Continue home medication of amlodipine 5 mg by mouth daily * Clonidine 0.1 mg by mouth when necessary per protocol (5) Nutrition, metabolism, and development symptoms ICD Codes: R63.8 - Other symptoms and signs concerning food and fluid intake Plan: Fluids: By mouth intake Diet: Renal diet, NPO after midnight in case of surgery Out of bed with assistance DD prophylaxis: Heparin 5000 units tid CODE STATUS: Full code (Casey Bermudez MD R3) Problem Qualifiers (1) HLD (hyperlipidemia): Qualified Codes: E78.2 - Mixed hyperlipidemia (2) HTN (hypertension): Qualified Codes: I10 - Essential (primary) hypertension Casey Bermudez MD R3 Jun 01, 2017 10:48 Theresa Stevens MD Jun 01, 2017 11:41
--- NOTE | 2017-06-01 11:42 | HHI.NPPN ---
Subjective General Problems: Anemia Renal Failure: Chronic, End Stage Renal Disease Interval History Sitting up in bed eating breakfast. Due today for dialysis. (Theresa Gustafson) Review of Systems Musculoskeletal MS: Pain/Stiffness MS Remarks neck pain (Theresa Gustafson) Objective Data Data Vital Signs Date Time Temp Pulse Resp B/P (MAP) Pulse Ox O2 Delivery O2 Flow Rate FiO2 06/01/17 08:00 97.4 67 18 144/69 (94) 100 06/01/17 04:19 96.4 76 18 133/53 (79) 99 06/01/17 00:16 98.2 72 18 142/65 (90) 98 05/31/17 20:16 97.5 76 18 133/98 (110) 100 05/31/17 19:00 Room Air 05/31/17 17:00 96.8 65 12 144/74 (97) 99 05/31/17 13:50 95.1 82 16 160/75 (103) 97 (Theresa Gustafson) -: 06/01/17 0543 06/01/17 0543 Physical Exam General Appearance: Well Developed, Well Nourished, No Acute Distress, Comfortable (Theresa Gustafson) Eyes Eye Exam: Pupils Equal (Theresa Gustafson) Throat Throat Exam: Oral Mucosa [place] & Moist (Theresa Gustafson) Pulmonary Resp Exam: Clear Bilaterally, Breath Sounds Equal, No Distress (Theresa Gustafson) Cardiology CV Exam: Regular, Normal Sinus Rhythm, Good Perfusion (Theresa Gustafson) Gastrointestinal/Abdomen GI Exam: Soft, Non-Tender, Bowel Sounds Present (Theresa Gustafson) Musculoskeletal MS Exam: Joints Intact, Normal Gait, Normal Tone (Theresa Gustafson) Integumentary Skin Exam: Clear, Warm, Dry, Intact Skin Remarks right arm AV access, patent (Theresa Gustafson) Extremeties Extremities Exam: No Edema, Pedal Pulses Palpable Extremeties Remarks left leg and right arm weakness (Theresa Gustafson) Neurologic Neuro Exam: Alert, Awake, Oriented, Speech Clear, Moving All Extremities (Theresa Gustafson) Psychiatric Psych Exam: Appropriate Responses (Theresa Gustafson) Assessment/Plan Discussed Condition With: Patient, Spouse Assessment Summary: Anemia of CKD, Hypertension, End Stage Renal Disease Problem List: (1) ESRD (end stage renal disease) on dialysis ICD Codes: N18.6 - End stage renal disease; Z99.2 - Dependence on renal dialysis Status: Acute Plan: Continue HD support on MWF . She is due today She has access in right arm that functions well Avoid IVF, gadolinium is contraindicated Obtain intermittent renal panel while admitted 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 Planned C-Spine fusion possibly tomorrow (3) HTN (hypertension) ICD Codes: I10 - HTN (hypertension) Status: Chronic Plan: BP stable has PRN clonidine available (4) Metabolic bone disease ICD Codes: E88.9 - Metabolic disorder, unspecified; M90.80 - Osteopathy in diseases classified elsewhere, unspecified site Plan: On Calcium Acetate and Sensipar Phosphorus level is acceptable. (5) Anemia ICD Codes: D64.9 - Anemia, unspecified Status: Acute Plan: Hb stable, epogen not required (Theresa Gustafson) Plan patient was seen and examined. Agree with above assessment and plan. We will continue dialysis MWF. (Deshawn Baez MD) Problem Qualifiers (1) HTN (hypertension): Qualified Codes: I10 - Essential (primary) hypertension Theresa Gustafson Jun 01, 2017 11:42 Deshawn Baez MD Jun 01, 2017 19:30
--- NOTE | 2017-06-01 13:16 | HHI.NSPN ---
History Chief Complaint: Neck pain radiating into the RUE with numbness in the hands. Exam Results Vital Signs Date Time Temp Pulse Resp B/P (MAP) Pulse Ox O2 Delivery O2 Flow Rate FiO2 06/01/17 08:00 97.4 67 18 144/69 (94) 100 05/31/17 19:00 Room Air 05/30/17 18:30 2.00 Intake and Output 06/01/17 06/01/17 06/02/17 08:00 16:00 00:00 Intake Total 0 ml Balance 0 ml Physical Examination Resp: CTA bilaterally Heart: NSR Abd: Soft positive bs Skin: No cyanosis or erythema Neuro: Pt awake and alert. Follows commands well. Complains of numbness and incoordination her hands Motor strength: RUE: Deltoid 3/5, biceps 3/5, triceps 3+/5, hand intrinsics 2-3/5. LUE: Deltoid 3/5, biceps 4/5, triceps 4/5, hand intrinsics 2 to 3/5. RLE: Iliopsoas 3/5, quadriceps 3/5, hamstrings 3/5, tibialis anterior 2/5, gastrocnemius 3/5. LLE: Iliopsoas 4/5, quadriceps 3/5, hamstrings 3/5, tibialis anterior 4/5, gastrocnemius 4/5. Lab, Micro, Other Results Laboratory Tests Test 06/01/17 05:43 White Blood Count 7.1 TH/MM3 Red Blood Count 3.25 MIL/MM3 Hemoglobin 10.4 GM/DL Hematocrit 29.8 % Mean Corpuscular Volume 91.9 FL Mean Corpuscular Hemoglobin 32.1 PG Mean Corpuscular Hemoglobin Concent 35.0 % Red Cell Distribution Width 14.6 % Platelet Count 154 TH/MM3 Mean Platelet Volume 8.8 FL Blood Urea Nitrogen 63 MG/DL Creatinine 9.58 MG/DL Random Glucose 76 MG/DL Calcium Level 8.0 MG/DL Sodium Level 130 MEQ/L Potassium Level 4.8 MEQ/L Chloride Level 94 MEQ/L Carbon Dioxide Level 27.0 MEQ/L Anion Gap 9 MEQ/L Estimat Glomerular Filtration Rate 5 ML/MIN Phosphorus Level 4.2 MG/DL Medical Decision Making Impression and Plan Impression: 1. Severe cervical stenosis, C3 4, C4 5 levels. 2. Cervical myelopathy. Her examination is a little better today than it was when I last examined her on 05/29/17. Plan: Patient was tentatively scheduled for surgery today. However surgery canceled for cardiology evaluation. 05/31/17 cardiology notes reviewed. Await echocardiogram. Patient has been placed back on schedule for surgery 06/02/17. Doug Quinteros MD Jun 01, 2017 13:16
--- NOTE | 2017-06-01 14:00 | ECHRPT ---
Indication: CHRONIC PULMONARY HEART DISEASE CONCLUSIONS Normal left ventricular size. Mild concentric left ventricular hypertrophy. The left ventricular systolic function is hyperdynamic with an estimated ejection fraction in the [facility] of 65- 70%. The left atrial size is [id number] dilated. There is a pacemaker wire present in the right atrial cavity. Mitral valve mean gradient is 12 mmHg. Severe mitral annular calcification. Moderate to Severe mitral valve stenosis. Aortic valve sclerosis is present. Mild aortic valve regurgitation. Mild aortic valve stenosis. There is mild to moderate tricuspid valve regurgitation. There is estimated moderate pulmonary hypertension present (range 50-60 mmHg). BP: / HR: Rhythm: Sinus MEASUREMENTS (Male / Female) Normal Values Technical Quality:Fair 2D ECHO LV Diastolic Diameter PLAX 3.8 cm 4.2 - 5.9 / 3.9 - 5.3 cm LV Systolic Diameter PLAX 2.5 cm IVS Diastolic Thickness 1.2 cm 0.6 - 1.0 / 0.6 - 0.9 cm LVPW Diastolic Thickness 1.2 cm 0.6 - 1.0 / 0.6 - 0.9 cm LV Relative Wall Thickness 0.6 LVOT Diameter 1.6 cm Aortic Root Diameter 2.8 cm LA Systolic Diameter LX 4.1 cm 3.0 - 4.0 / 2.7 - 3.8 cm MV Area Planimetry 1.1 cm M-MODE AV Cusp Separation MM 2.0 cm DOPPLER AV Peak Velocity 249.0 cm/s AV Peak Gradient 24.8 mmHg AV Mean Gradient 14.0 mmHg AV Velocity Time Integral 56.1 cm LVOT Peak Velocity 122.0 cm/s LVOT Peak Gradient 6.0 mmHg LVOT Velocity Time Integral 28.2 cm AV Area Cont Eq vti 1.0 cm AV Area Cont Eq pk 1.0 cm MV Peak Velocity 254.3 cm/s MV Peak Gradient 25.9 mmHg MV Mean Velocity 168.0 cm/s MV Mean Gradient 12.0 mmHg MV Area PHT 1.7 cm Mitral E Point Velocity 217.0 cm/s Mitral A Point Velocity 230.0 cm/s Mitral E to A Ratio 0.9 LV E' Lateral Velocity 4.0 cm/s Mitral E to LV E' Lateral Ratio 54.9 LV E' Septal Velocity 3.1 cm/s Mitral E to LV E' Septal Ratio 69.6 TR Peak Velocity 329.0 cm/s TR Peak Gradient 43.3 mmHg Right Atrial Pressure 10.0 mmHg Pulmonary Artery Systolic Pressu 53.3 mmHg Right Ventricular Systolic Press 53.3 mmHg PV Peak Velocity 84.2 cm/s PV Peak Gradient 2.8 mmHg FINDINGS LEFT VENTRICLE Normal left ventricular size. Mild concentric left ventricular hypertrophy. The left ventricular systolic function is hyperdynamic with an estimated ejection fraction in the ra nge of 65- 70%. LEFT ATRIUM The left atrial size is [id number] dilated. RIGHT ATRIUM There is a pacemaker wire present in the right atrial cavity. MITRAL VALVE Mitral valve mean gradient is 12 mmHg. Severe mitral annular calcification. Moderate mitral valve stenosis. AORTIC VALVE Aortic valve sclerosis is present. Mild aortic valve regurgitation. No aortic valve stenosis. Aortic valve area is 1 cm. TRICUSPID VALVE There is mild to moderate tricuspid valve regurgitation. There is estimated moderate pulmonary hypertension present (range 50-60 mmHg). Pacemaker wire is present within the right ventricular cavity. Siddhartha Rendon MD (Electronically Signed) Final Date:01 June 2017 13:59
--- NOTE | 2017-06-01 15:56 | OTSOAPIP ---
TIME SESSION COMPLETED: 1550 RECEIVED OCCUPATIONAL THERAPY ORDERS. ATTEMPTED TO SEE PATIENT, HOWEVER PATIENT OFF FLOOR FOR DIALYSIS. WILL REATTEMPT TOMORROW. INTERDISCIPLINARY COMMUNICATION: REVIEWED ELECTRONIC MEDICAL RECORD Therapist: Ynes Andrew OTR/Joey Signature on file
[2017-06-01] MEDS: SENNOSIDES 8.6 MG TAB PO PRN (21:08)
[2017-06-01] MEDS ORDERED: CHLORHEXIDINE GLUCONATE 2 % 1 PACK (2 CLOTHS) TOPICAL PRN (23:45)
[2017-06-01] MEDS ORDERED: SODIUM CHLORID 0.9% 500 ML IV PRN (23:45)
[2017-06-01] MEDS ORDERED: POVIDONE IODINE 5% (ANTISEPSIS KIT) 4 APPLICATIONS EACH NARE PRN (23:45)
[2017-06-01] MEDS ORDERED: LACTATED RINGER'S 1000 ML IV PRN (23:45)
[2017-06-01] MEDS ORDERED: INSULIN HUMAN REGULAR 1,000 UNITS/10 ML VIAL SQ PRN (23:45)
[2017-06-02] VITALS (10 sets, daily range): BP systolic 109–142; BP diastolic 50–80; PULSE 60–72; RESP 10–18; TEMP 94.5–97.2; O2SAT 95–100
[2017-06-02] MEDS: CARVEDILOL 3.125 MG TAB PO SCH ×2 (08:20→21:00)
[2017-06-02] MEDS: ACETAMINOPHEN/HYDROcodone 325 MG/7.5 MG TAB PO PRN (08:21)
[2017-06-02] MEDS: SODIUM CHLORIDE 0.9% FLUSH 10 ML FLUSH IV FLUSH SCH ×2 (08:25→21:00)
[2017-06-02] MEDS ORDERED: GELFOAM SIZE 100 ONE (08:28)
[2017-06-02] MEDS ORDERED: GENTAMICIN SULFATE 80 MG/2 ML VIAL ONE (08:28)
[2017-06-02] MEDS ORDERED: THROMBIN (TOPICAL) 5,000 UNIT VIAL ONE (08:28)
[2017-06-02] MEDS ORDERED: LIDOCAINE 2%/EPINEPHrine PF 1:200,000 20ML SDV ONE (08:28)
[2017-06-02] MEDS ORDERED: ACETAMINOPHEN 1000 MG/100 ML 100 ML IV ONE (08:56)
[2017-06-02] MEDS: DOCUSATE SODIUM 50 MG/SENNA 8.6 MG TAB PO SCH ×2 (09:00→21:00)
[2017-06-02] MEDS: PANTOPRAZOLE SOD 40 MG DELAYED RELEASE TAB PO SCH (09:00)
[2017-06-02] MEDS: CALCIUM ACETATE 667 MG CAP PO SCH ×3 (09:00→18:00)
[2017-06-02] MEDS: CINACALCET HYDROCHLORIDE 30 MG TAB PO SCH (09:00)
[2017-06-02] MEDS: amLODIPine BESYLATE 5 MG TAB PO SCH (09:00)
[2017-06-02] MEDS: VITAMIN B CMPLX/VITC/FOLIC AC CAP PO SCH (09:00)
[2017-06-02] MEDS ORDERED: PROPOFOL 500 MG/50 ML INJ 100 ML ONE (09:03)
[2017-06-02] MEDS ORDERED: KETAMINE HCL 500 MG/5 ML VIAL ONE (09:31)
[2017-06-02] MEDS ORDERED: oxyCODONE/ACETAMINOPHEN 5 MG/325 MG TAB PO PRN (10:15)
[2017-06-02] MEDS ORDERED: NALOXONE HCL 0.4 MG/ML AMP IV PUSH PRN (10:15)
--- NOTE | 2017-06-02 10:42 | HHI.FPPN ---
Subjective Remarks Resting in bed, no acute complaints. No events overnight. She is eager to get her surgery done this morning. Has pain in her left lower leg that happened after her fall. Also with right shoulder pain anteriorly. No chest pain or shortness of breath. No abdominal pain, nausea, vomiting. (Casey Bermudez MD R3) Objective Vitals Vital Signs Date Time Temp Pulse Resp B/P (MAP) Pulse Ox O2 Delivery O2 Flow Rate FiO2 06/02/17 08:00 96.7 70 18 142/80 (100) 97 06/02/17 03:55 96.9 71 18 136/63 (87) 95 06/01/17 23:45 97.0 75 20 118/56 (76) 95 06/01/17 21:05 79 06/01/17 20:15 96.8 74 20 129/75 (93) 97 06/01/17 13:15 18 06/01/17 12:00 96.0 67 18 144/71 (95) 99 I/O 06/01/17 06/01/17 06/01/17 06/02/17 06/02/17 06/02/17 07:00 15:00 23:00 07:00 15:00 23:00 Intake Total 0 ml 460 ml 240 ml Output Total 3000 ml Balance 0 ml -2540 ml 240 ml Intake Oral 0 ml 460 ml 240 ml Output Hemodialysis 3000 ml # Voids 0 0 0 # Bowel Movements 0 0 0 (Casey Bermudez MD R3) Result Diagram: 06/01/17 0543 06/01/17 0543 Objective Remarks GENERAL: Sitting up in bed, no distress, eager for surgery SKIN: No rashes or lesions HEAD: Normocephalic. EYES: No scleral icterus. No injection or drainage. NECK: Supple, trachea midline. No JVD or lymphadenopathy. CARDIOVASCULAR: Regular rate and rhythm with 3/6 murmur heard best over mitral valve RESPIRATORY: Breath sounds equal bilaterally. No accessory muscle use. GASTROINTESTINAL: Abdomen soft, non-tender, nondistended. MUSCULOSKELETAL: Extremities without edema. No calf tenderness. NEURO: Able to move upper extremities against gravity but is not able to meet resistance. Lower extremities can move against gravity but not against resistance. Continues to have numbness in both hands. (Casey Bermudez MD R3) A/P Assessment and Plan 77-year-old -[place] female with end-stage renal disease on dialysis, hypertension, pacemaker dependent, coronary artery disease, chronic back pain, and stomach cancer in remission. Admitted for generalized weakness and paresthesias and relatively sudden loss of sensation in hands and left leg, found to have severe cervical stenosis. Discharge Planning Will receive surgery for spinal cord fusion on 06/02/17, anticipate discharge to a [facility] facility or inpatient rehab. (Casey Bermudez MD R3) Attending Attestation Patient not seen and examined as she was in surgery this am. Case reviewed and discussed with the resident team. Agree with plan of care as discussed with me and documented in the resident note. (Theresa Stevens MD) Problem List: (1) Cervical spinal stenosis ICD Codes: M48.02 - Spinal stenosis, cervical region Status: Acute Plan: Multi-level degenerative changes including areas of significant canal stenosis at C3-C5. She has significant upper and lower extremity weakness and numbness/paresthesias. * Neurosurgery consulted, currently recommending surgery. Patient understands the risks and benefits, scheduled for 06/02/17. * [place] 7.5/325 every 6 hours when necessary pain * NSAIDs contraindicated given renal disease * Gabapentin for paresthesias, low dose as she is in renal failure * Physical therapy after surgical procedure, will require rehab. (2) End stage renal failure on dialysis ICD Codes: N18.6 - End stage renal failure on dialysis; Z99.2 - Dependence on renal dialysis Status: Chronic Plan: Patient has end-stage renal disease secondary to hypertension, on dialysis MWF. 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 (3) HLD (hyperlipidemia) ICD Codes: E78.5 - HLD (hyperlipidemia) Status: Chronic Plan: Long-standing history of hyperlipidemia * Continue home simvastatin (4) HTN (hypertension) ICD Codes: I10 - HTN (hypertension) Status: Chronic Plan: Long-standing history of hypertension * Continue home medication of metoprolol 25 mg by mouth daily * Continue home medication of amlodipine 5 mg by mouth daily * Clonidine 0.1 mg by mouth when necessary per protocol (5) Nutrition, metabolism, and development symptoms ICD Codes: R63.8 - Other symptoms and signs concerning food and fluid intake Plan: Fluids: By mouth intake after surgery Diet: Renal diet, NPO until after surgery Out of bed with assistance DD prophylaxis: Heparin 5000 units tid, resume after surgery CODE STATUS: Full code (Casey Bermudez MD R3) Problem Qualifiers (1) HLD (hyperlipidemia): Qualified Codes: E78.2 - Mixed hyperlipidemia (2) HTN (hypertension): Qualified Codes: I10 - Essential (primary) hypertension Casey Bermudez MD R3 Jun 02, 2017 10:42 Thersea Stevens MD Jun 02, 2017 11:15
[2017-06-02] MEDS ORDERED: CLINDAMYCIN PHOS 600 MG/4 ML VIAL ONE (11:21)
[2017-06-02] MEDS ORDERED: SODIUM CHLORIDE 0.9% INJ 100 ML ONE ×2 (11:22)
[2017-06-02] MEDS ORDERED: SODIUM CHLORIDE 0.9% 20 ML VIAL IV ONE (12:00)
[2017-06-02] MEDS ORDERED: ESMOLOL HCL 100 MG/10 ML VIAL IV ONE (12:00)
[2017-06-02] MEDS ORDERED: LIDOCAINE HCL 1% PF 5 ML AMPULE OTHER ONE (12:00)
[2017-06-02] MEDS ORDERED: PROPOFOL 200 MG/20 ML AMP IV ONE (12:00)
[2017-06-02] MEDS ORDERED: NEOSTIGMINE 3 MG/3 ML SYR IV ONE (12:00)
[2017-06-02] MEDS ORDERED: PHENYLEPHRINE HCL 10 MG/ML VIAL IV ONE (12:00)
[2017-06-02] MEDS ORDERED: PHENYLEPH/NS 1000 MCG/10 ML SYR IV ONE (12:00)
[2017-06-02] MEDS ORDERED: NORMOSOL R INJ 1,000 ML IV ONE (12:00)
[2017-06-02] MEDS ORDERED: GLYCOPYRROLATE 1 MG/5 ML SYRINGE IV PUSH ONE (12:00)
[2017-06-02] MEDS ORDERED: ROCURONIUM INJ 50 MG/5 ML SYRINGE IV PUSH ONE (12:00)
[2017-06-02] MEDS ORDERED: ePHEDrine/NS 25 MG/5 ML SYR IV ONE (12:00)
[2017-06-02] MEDS ORDERED: MIDAZOLAM HCL 2 MG/2 ML VIAL IV ONE ×2 (12:00→16:00)
[2017-06-02] MEDS ORDERED: PROPOFOL 200 MG/20 ML AMP ONE (13:19)
--- NOTE | 2017-06-02 13:37 | OTSOAPIP ---
TIME SESSION COMPLETED: 1335 PATIENT IS OFF FLOOR FOR SURGERY. WILL FOLLOW UP WITH PATIENT TOMORROW. INTERDISCIPLINARY COMMUNICATION: REVIEWED ELECTRONIC MEDICAL RECORD Therapist: Ynes Andrew OTR/L Signature on file
[2017-06-02] MEDS ORDERED: PHENYLEPHRINE HCL 10 MG/ML VIAL ONE ×2 (13:42→15:01)
[2017-06-02] MEDS: HEPARIN SODIUM - SQ 10,000 UNITS/ML VIAL SQ SCH ×2 (14:00→21:36)
[2017-06-02] MEDS: GELATIN 12 MM/7 MM FOAM TOP PRN (14:11)
[2017-06-02] MEDS ORDERED: DO NOT ADM ANY ANTICOAGULANT DRUGS PRN (14:34)
[2017-06-02] MEDS ORDERED: MIDAZOLAM HCL 2 MG/2 ML VIAL ONE (15:38)
[2017-06-02 15:49] LABS: BLOOD GAS BASE EXCESS 2.4 mmol/L (-2-2); BLOOD GAS CARBOXYHEMOGLOBIN 1.2 % (0-4); BLOOD GAS HCO3 25 mmol/L (22-26); BLOOD GAS METHEMOGLOBIN 1.1 % (0-2); BLOOD GAS O2 HGB SATURATION 98 % (90-100); BLOOD GAS OXYGEN CONTENT 14.9 Vol % (12.0-20.0); BLOOD GAS PCO2 27 mmHg (38-42); BLOOD GAS PO2 227 mmHg (61-120); BLOOD GAS TOTAL HGB 10.5 G/DL (12.0-16.0); TEMP CORR TO 98.6
[2017-06-02 15:50] LABS: CRITICAL VALUE YES; OXYGEN DEVICE VENTILATOR
[2017-06-02 15:51] LABS: VENT SETTINGS IMV/SIMV
[2017-06-02 15:58] LABS: DRAW SITE ART LINE; FIO2 40 %
[2017-06-02 15:59] LABS: STAT YES
[2017-06-02 16:28] LABS: BICARBONATE 26.2 MEQ/L (21.0-32.0); POTASSIUM 4.5 MEQ/L (3.5-5.1)
[2017-06-02] MEDS: MORPHINE SULFATE 4 MG/ML INJ IV PUSH PRN (16:28)
--- NOTE | 2017-06-02 16:37 | RADRPT ---
EXAM DATE/TIME: 06/02/2017 10:56 [place] COMPARISON: No previous studies available for comparison. INDICATIONS : Fusion C3,C4 and C4,C5 with screw and plate placement. MEDICAL HISTORY : Carcinoma, gastric. Cerebrovascular disease. Hypertension. SURGICAL HISTORY : Appendectomy. Hysterectomy. ENCOUNTER: Subsequent ACUITY: 3 days PAIN SCORE: Non-responsive. LOCATION: Cervical spine. FINDINGS: 2 magnified C-arm spot views are lateral projections of the cervical spine. There is an anterior fusi on plate with intervening bone graft device. Anchoring screws are C3 and C5. CONCLUSION: Limited images as detailed above. Tyler Cantor Jr., MD on June 02, 2017 at 16:34 Board Certified Radiologist. This report was verified electronically.
--- NOTE | 2017-06-02 16:59 | PD.CONS ---
HPI Service Critical Care Medicine Consult Requested By Dr. Quinteros - Neurosurgery Reason for Consult Respiratory insufficiency s/p cervical spine surgery Primary Care Physician Unknown History of Present Illness 77 y/o woman with disabling symptoms from C3-4, C 4-5 level cord compression discovered after a recent fall. Underwent open cervical repair and reconstruction today. Discussed in detail with Dr. Roca. We will leave intubated overnight for airway protection and assess for extubation in a.m. following CXR and vent parameters, cuff leak, strength. Care complicated by ESRD. Review of Systems ROS Unobtainable, intubated. No family. Past Family Social History Allergies: Coded Allergies: penicillin G (Unverified Allergy, Severe, Itching, 05/27/17) prochlorperazine (Unverified Allergy, Severe, TONGUE SWELLING, 05/27/17) Past Medical History Past Family Social History Allergies: Coded Allergies: penicillin G (Unverified Allergy, Severe, Itching, 05/27/17) prochlorperazine (Unverified Allergy, Severe, TONGUE SWELLING, 05/27/17) Past Medical History Sleep apnea GIST tumor, stomach cancer (in remission) Chronic back pain Chronic cervical spinal pain ESRD secondary to hypertension on dialysis since ~2004 (dialysis MWF) Hypertension Arthritis Constipation Depression Sickle cell (Uncertain, never tested but daughter from complications due to it.) Past Surgical History Right knee replacement Partial hysterectomy Hemorrhoidectomy Right hand cyst excision GIST tumor resection Dialysis fistula placement Pacemaker placement Reported Medications Metoprolol Tartrate 25 Mg Tab 25 Mg PO DAILY Amlodipine (Amlodipine Besylate) 5 Mg Tab 5 Mg PO DAILY Pantoprazole (Pantoprazole Sodium) 40 Mg Tab 40 Mg PO DAILY Zofran (Ondansetron HCl) 4 Mg Tab 4 Mg PO Q6HR PRN Aspir-81 (Aspirin) 81 Mg Tabdr 81 Mg PO DAILY Ventolin Hfa 18 GM Inh (Albuterol Sulfate) 90 Mcg/Act Aer 2 Puff INH Q4H PRN Simvastatin 10 Mg Tab 10 Mg PO HS Renal Vitamin (B-Complex W/ C & Folic Acid) 1 Cap 1 Cap PO DAILY If on dialysis, take after treatment. Nitroglycerin SL (Nitroglycerin) 0.4 Mg Subl 0.4 Mg SL DIRECTED PRN ONE TABLET UNDER THE TONGUE NEEDED FOR CHEST PAIN, MAY REPEAT EVERY FIVE MINUTES FOR A TOTAL OF 3 DOSES OR CALL 911 IF NO RELIEF Sensipar (Cinacalcet) 30 Mg Tab 30 Mg PO DAILY Calcium Acetate (Phosphate Binder) 667 Mg Tab 1,334 Mg PO TID Active Ordered Medications Physical Exam Vital Signs Vital Signs Date Time Temp Pulse Resp B/P (MAP) Pulse Ox O2 Delivery O2 Flow Rate FiO2 06/02/17 15:40 100 40 06/02/17 15:05 79 78/41 06/02/17 14:35 100 40 06/02/17 08:20 Room Air 06/02/17 08:00 96.7 70 18 142/80 (100) 97 06/02/17 03:55 96.9 71 18 136/63 (87) 95 06/01/17 23:45 97.0 75 20 118/56 (76) 95 06/01/17 21:05 79 06/01/17 20:15 96.8 74 20 129/75 (93) 97 Physical Exam Gen: Intubated, sedated. Head: Normal. Neck: Hard cervical collar, orally intubated. Lungs: Clear, no adventitious sounds. Heart: NL S1S2, no JVD. Abdomen: Benign, soft. Extremities: Warm, well perfused. Neuro: Sedated following surgery, on vent. Breathes spontaneously. Laboratory Laboratory Tests Test 06/02/17 13:50 06/02/17 15:21 06/02/17 15:50 Hemoglobin 10.0 Hematocrit 28.0 Blood Gas Puncture Site ART LINE Blood Gas Patient Temperature 98.6 Blood Gas HCO3 25 Blood Gas Base Excess 2.4 Blood Gas Oxygen Saturation 98 Arterial Blood pH 7.57 Arterial Blood Partial Pressure CO2 27 Arterial Blood Partial Pressure O2 227 Arterial Blood Oxygen Content 14.9 Arterial Blood Carboxyhemoglobin 1.2 Arterial Blood Methemoglobin 1.1 Blood Gas Hemoglobin 10.5 Oxygen Delivery Device VENTILATOR Blood Gas Ventilator Setting IMV/SIMV Blood Gas Inspired Oxygen 40 Blood Urea Nitrogen 38 Creatinine 7.03 Random Glucose 101 Calcium Level 8.1 Phosphorus Level 2.7 Sodium Level 134 Potassium Level 4.5 Chloride Level 98 Carbon Dioxide Level 26.2 Anion Gap 10 Estimat Glomerular Filtration Rate 7 Result Diagram: 06/02/17 1350 06/02/17 1550 Assessment and Plan Problem List: (1) Cervical myelopathy with cervical radiculopathy ICD Code: M47.12 - Other spondylosis with myelopathy, cervical region Status: Acute (2) END STAGE RENAL DISEASE Status: Chronic (3) Morbid obesity Status: Chronic (4) History of cardiac pacemaker ICD Code: Z95.0 - Presence of cardiac pacemaker Status: Chronic (5) History of tobacco abuse ICD Code: Z87.891 - History of tobacco use Status: Acute (6) HTN (hypertension) ICD Code: I10 - HTN (hypertension) Status: Chronic Assessment and Plan Plan: 1. PRVC ventilator mode. 2. PEEP 5. 3. Place NG tube to LIS. 4. CXR for tube and line position. 5. Follow K, pH closely. 6. Pepcid. 7. SCDs. 8. ABG. Overall impression: Patient is critically ill following open repair cervical spine compression. Kept intubated for airway protection and concerns for swelling in cervical region. Critical Care 43 mins Problem Qualifiers (1) HTN (hypertension): Qualified Codes: I10 - Essential (primary) hypertension Ermias Iqbal MD Jun 02, 2017 16:59
[2017-06-02] MEDS ORDERED: TERBUTALINE INJ 1 MG/ML AMP SQ PRN (17:00)
[2017-06-02] MEDS ORDERED: PROPOFOL 1000 MG/100 ML INJ 100 ML IV PRN (17:30)
--- NOTE | 2017-06-02 17:35 | RADRPT ---
EXAM DATE/TIME: 06/02/2017 18:02 [facility] COMPARISON: CHEST SINGLE AP, May 27, 2017, 8:17. INDICATIONS : ET tube placement. MEDICAL HISTORY : Carcinoma, gastric. Cerebrovascular disease. Hypertension. SURGICAL HISTORY : Appendectomy. Hysterectomy. Fusion, cervical. ENCOUNTER: Subsequent ACUITY: 2 days PAIN SCORE: Non-responsive. LOCATION: Chest. FINDINGS: A single portable frontal view of the chest shows top normal heart size. Pacing device overlies the r ight chest. Right subclavian stent observed. Lungs are clear. No effusions. Endotracheal tube tip 4 c m from the eusebio. Nasogastric tube tip in the fundus of the stomach. CONCLUSION: No acute infiltrate or effusion. Endotracheal tube in good position. Tyler Cantor Jr., MD on June 02, 2017 at 17:33 Board Certified Radiologist. This report was verified electronically.
[2017-06-02] MEDS ORDERED: PHENYLEPHRINE INJ 80 MG in DEXTROSE 5% IN WATE 500 ML INJ 492 ML IV PRN ×4 (18:00→21:00)
[2017-06-02] MEDS: CHLORHEXIDINE 0.12% (ORAL KIT) 15 ML CUP MT SCH (20:00)
[2017-06-02] MEDS: GABAPENTIN 100 MG CAP PO PRN (21:46)
[2017-06-02 22:50] LABS: APTT (PATIENT) 29.6 SEC (24.3-30.1)
[2017-06-03] VITALS (18 sets, daily range): BP systolic 103–166; BP diastolic 49–66; PULSE 60–84; RESP 10–21; TEMP 97.8–99.9; O2SAT 100
[2017-06-03] MEDS: PROPOFOL 1000 MG/100 ML INJ 100 ML IV PRN (02:17)
[2017-06-03 05:24] LABS: AUTOMATED NEUTROPHIL # 11.5 TH/MM3 (1.8-7.7); BASOPHIL % 0.3 % (0.0-2.0); EOSINOPHIL # 0.1 TH/MM3 (0-0.4); EOSINOPHIL % 0.5 % (0.0-4.0); HEMATOCRIT 26.8 % (35.0-46.0); HEMO FLAGS DIFF FINAL; LYMPH % 8.5 % (9.0-44.0); LYMPHOCYTE # 1.2 TH/MM3 (1.0-4.8); MEAN CELL VOLUME 91.4 FL (80.0-100.0); MEAN CORPUSCULAR HEMOGLOBIN 32.7 PG (27.0-34.0); MEAN CORPUSCULAR HGB CONC 35.8 % (32.0-36.0); MONO % 11.8 % (0.0-8.0); NEUT % 78.9 % (16.0-70.0); PLATELET COUNT 153 TH/MM3 (150-450); RED BLOOD COUNT 2.93 MIL/MM3 (4.00-5.30); RED CELL DISTRIBUTION WIDTH 14.6 % (11.6-17.2); WHITE BLOOD COUNT 14.6 TH/MM3 (4.0-11.0)
[2017-06-03] MEDS: HEPARIN SODIUM - SQ 10,000 UNITS/ML VIAL SQ SCH ×3 (06:00→22:00)
[2017-06-03 06:01] LABS: BICARBONATE 26.4 MEQ/L (21.0-32.0); POTASSIUM 5.4 MEQ/L (3.5-5.1)
--- NOTE | 2017-06-03 08:27 | PD.OP ---
Operative Report Date of Surgery: Jun 02, 2017 Preoperative Diagnosis: (1) Cervical spinal stenosis (2) Cervical myelopathy with cervical radiculopathy Severe cervical stenosis C3-4-5 Cervical myelopathy Postoperative Diagnosis: (1) Cervical spinal stenosis (2) Cervical myelopathy with cervical radiculopathy Severe cervical stenosis C3-4-5 Cervical myelopathy Procedure: C3-4 and C4-5 anterior cervical discectomy, interbody fusion, allograft bone C3-5 anterior cervical instrumentation Anesthesia: General Surgeon: Doug Quinteros Launchman(s): Ally Quiroga Operation and Findings: Indications: 77-year-old female with 2-3 months of progressive upper and lower extremity weakness numbness loss of coordination and difficulty with ambulation , accelerated over the past 1-2 weeks. Status post several recent falls with worsening of symptoms. Preoperative CT scan reveals severe C3 4 greater than C4 5 posterior osteophyte disc complex and canal stenosis. MRI not performed due to pacemaker placement. Preoperative cardiology clearance obtained. Procedure in detail: The patient was brought into the operating room and positioned in supine position on the 3080 table with the head and neck in neutral position. Flores catheter was placed. Lines were established by Anesthesia. Gen. endotracheal anesthesia was induced without difficulty, taking care not to significantly flex or extend the patient's neck during intubation and positioning. Leads for intraoperative neuro monitoring were placed and a baseline study obtained. All extremities were appropriately padded. The neck and upper chest were shaved with clippers and sterilely prepped and draped. Appropriate timeout procedure was performed with all personnel present and in agreement 1% Xylocaine with epinephrine was used for local infiltration over the incision site which was made transversely at the C4 level and carried sharply down through the platysma muscle. The exposure was continued medial to the sternocleidomastoid muscle and carotid artery, and lateral to the trachea and esophagus. The prevertebral fascia was elevated away from the anterior longitudinal ligament with a Kitner sponge. The longus coli muscle on each side was elevated with the Campbell elevator. The self-retaining retractor was placed with the blades beneath the longus coli muscle on each side. The appropriate levels were confirmed with intraoperative C-arm and preoperative imaging studies. The microscope was brought into place and used for the remainder of the procedure including the closure. The 14 mm distraction pins were used as needed for gentle distraction during the procedure. The procedure was performed sequentially at the C3 4 and C4 5 levels. At each level the anterior osteophyte was resected with the Leksell rongeur. The disc and annulus was incised with a 15 blade knife and discectomy performed with pituitary biopsy forceps and straight and angled curettes. The TPS drill with the 5 mm barrel bur was used to decorticate the endplates and removed the majority of the osteophyte along the anterior spinal canal as well as the right and left uncovertebral joint. The thin ligament dissector was used to free up the posterior annulus and ligament from the vertebral body margin. The TPS drill with the 4 mm anastacia bur was used to remove the posterior border of the adjacent vertebral bodies at each level. The remainder of the resection of the posterior annulus and ligament as well as the posterior osteophyte and bilateral uncovertebral joint was performed with the 2 and 3 mm thin footplate Kerrison rongeurs. A component of herniated nucleus pulposus was encountered posterior to the annulus and was lifted away from the thecal sac with the thickened ligament dissector and removed. Significant posterior osteophyte was encountered and extensively removed. The posterior vertebral bodies were undercut with the Kerrison rongeur and the TPS drill with the 4 mm anastacia bur as needed to fully decompress the anterior spinal canal. The appropriate size V G2 bone graft was then placed at each level with a good fit of the graft. The blunt nerve hook was used to probe beneath the bone graft to ensure that there was no impingement on the thecal sac or exiting nerve roots. The appropriate size Precision anterior cervical plate was then chosen and the bone screws were placed with the 14 mm fixed screws at the caudal most level and the 14 mm variable screws at the cephalad level of the decompression. The screws were firmly secured and the locking cams engaged. The entire construct was checked with intraoperative C-arm and felt to be satisfactory. The 10 Jordanian drain was brought out through a small incision in the left lower neck and secured to the skin with nylon suture and attached to sterile suction. The closure was performed with 3-0 Vicryl running for the platysma and interrupted for the subcutaneous closure, with 4-0 Vicryl running for the subcuticular closure. A dressing of sterile Mastisol, Steri-Strips, and Primapore dressing was placed. The patient was placed into a cervical collar, and taken to recovery room in stable condition. All counts were correct at the end of the case. Estimated blood loss was 400 cc No specimen was sent to pathology. Intraoperative neuro monitoring remained stable during the procedure. Doug Quinteros MD Jun 03, 2017 08:27
--- NOTE | 2017-06-03 08:41 | HHI.NSPN ---
(Kolby Green) History Chief Complaint: Unable to obtain due to patient's clinical condition. (PeterKolby) Interval History 05/28: This is a 77-year-old -Citizen Of [place] female who has an extensive medical history. She presented to the emergency department at [facility] on following a fall due to worsening numbness and weakness to the left lower extremity as well as both hands and the right toes. When she fell she did strike her head but denies any loss of consciousness. She states that the weakness became evident approximately two weeks ago when she was not able to get up and stand or turn herself in bed. She also is not able to hold things with her hands. She does endorse that she had the weakness prior to that but it only affected her ability to do things at that time. She is uncertain of how long she has had the numbness and weakness. She does not report any precipitating event two weeks ago when the numbness and weakness changed. She does report a history of falls that started in January of this year and she is falling more frequently. Prior to that the patient states she was able to ambulate without any difficulty. The numbness is to the digits of the right hand , from the left wrist to the fingertips, from just above the left knee down and to the toes of the right foot. She denies any saddle anaesthesia. She does endorse a history of chronic neck pain and chronic low back pain. 05/29: This morning the patient is seen in rounds with Dr. Quinteros. She is awake when seen and says she is doing fine. She states that the sensation is slightly better to the hands and feet. 05/30: Pt complains of neck pain. Pain radiates into the right anterior arm, forearm and then numbness in bilateral hands with incoordination. Denies pain radiating into the LUE but has numbness in the left hand and weakness bilateral UEs. 05/31: Pt states symptoms unchanged of neck pain radiating into the RUE with numbness in the hands bilaterally. She has weakness in the UEs and incoordination in her hands. 06/02: The patient went for a C3-4 and C4-5 ACDF. Post-operatively she remained intubated and was transferred to [facility] for further monitoring and management. 06/03: The patient has her eyes open this morning. She remains intubated and Nursing reports that her blood pressure has been labile during the night. She is scheduled to have dialysis today and the [facility] is hoping to extubate her at some point. She is on propofol for sedation. Nursing did report that the patient followed commands prior to the propofol being increased. (Kolby Green) System Review Comments Unable to obtain due to patient's clinical condition. (Kolby Green) Exam Results 06/01/17 06/01/17 06/02/17 06/02/17 06/03/17 06/03/17 06:00 18:00 06:00 18:00 06:00 18:00 Intake Total 240 ml 0 ml 460 ml 1140 ml 120 ml Output Total 3000 ml 450 ml 270 ml Balance 240 ml 0 ml -2540 ml 690 ml -150 ml Intake Oral 240 ml 0 ml 460 ml 240 ml Other 900 ml 120 ml Output Urine Total 0 ml Gastric Drainage Total 250 ml Drainage Total 50 ml 20 ml Hemodialysis 3000 ml Estimated Blood Loss 400 ml # Voids 0 0 0 0 # Bowel Movements 1 0 0 0 0 Vital Signs Date Time Temp Pulse Resp B/P (MAP) Pulse Ox O2 Delivery O2 Flow Rate FiO2 06/03/17 07:29 100 40 06/03/17 06:00 75 06/03/17 04:00 98.7 79 10 103/49 (67) 100 06/03/17 04:00 79 06/03/17 03:56 100 40 06/03/17 02:00 60 06/03/17 00:00 97.8 60 10 117/55 (75) 100 06/03/17 00:00 60 06/02/17 23:36 100 40 06/02/17 22:34 10 06/02/17 22:00 60 06/02/17 20:47 100 40 06/02/17 20:00 60 06/02/17 20:00 94.5 60 10 109/50 (69) 100 06/02/17 19:00 100 Mechanical Ventilator 40 06/02/17 18:00 69 06/02/17 18:00 97.2 72 17 142/65 (90) 100 06/02/17 16:45 100 40 06/02/17 16:33 14 06/02/17 16:30 70 14 121/60 (80) 100 Mechanical Ventilator 40 112/51 (71) 06/02/17 16:15 97.5 68 14 113/58 (76) 100 Mechanical Ventilator 40 110/49 (69) 06/02/17 16:00 66 14 110/59 (76) 100 Mechanical Ventilator 40 104/48 (66) 06/02/17 15:45 64 14 101/55 (70) 100 Mechanical Ventilator 40 108/52 (70) 06/02/17 15:40 40 06/02/17 15:40 100 40 06/02/17 15:30 69 14 90/57 (68) 100 Mechanical Ventilator 40 95/45 (62) 06/02/17 15:15 70 14 103/59 (74) 100 Mechanical Ventilator 40 84/55 (65) 06/02/17 15:05 79 78/41 06/02/17 15:00 79 14 92/53 (66) 100 Mechanical Ventilator 40 78/41 (53) 06/02/17 14:45 78 14 100/56 (71) 100 Mechanical Ventilator 40 90/42 (58) 06/02/17 14:35 100 40 06/02/17 14:35 40 06/02/17 14:34 97.5 80 14 105/88 (94) 100 Mechanical Ventilator 40 91/40 (57) 06/02/17 08:20 Room Air 06/02/17 08:00 96.7 70 18 142/80 (100) 97 06/02/17 03:55 96.9 71 18 136/63 (87) 95 06/01/17 23:45 97.0 75 20 118/56 (76) 95 06/01/17 21:05 79 06/01/17 20:15 96.8 74 20 129/75 (93) 97 06/01/17 13:15 18 06/01/17 12:00 96.0 67 18 144/71 (95) 99 06/01/17 10:00 Room Air 06/01/17 08:00 97.4 67 18 144/69 (94) 100 06/01/17 04:19 96.4 76 18 133/53 (79) 99 06/01/17 00:16 98.2 72 18 142/65 (90) 98 05/31/17 20:16 97.5 76 18 133/98 (110) 100 05/31/17 19:00 Room Air 05/31/17 17:00 96.8 65 12 144/74 (97) 99 05/31/17 13:50 95.1 82 16 160/75 (103) 97 05/31/17 08:50 97.5 64 18 129/58 (81) 97 (Kolby Green) Physical Examination GENERAL: The patient is awake with her eyes open. She is intubated and on the vent. She has propofol infusing at 15 mcg/kg/min for sedation. She is not in any apparent distress. SKIN: Warm, dry & intact, no evident rashes, ulcerations or other lesions. HEENT: Normocephalic, atraumatic. PERRLA 3 mm brisk, EOMI. Orally intubated. OGT. NECK: [place] J cervical collar is in place, dressing intact to anterior neck surgical site, no JVD, trachea midline. CARDIOVASCULAR: S1S2 w/RRR w/grade III/ systolic murmur, radial & pedal pulses 2+ bilaterally, cap refill < 2 sec. Monitor shows atrial spikes w/P wave noted. She has a phenylephrine drip infusing at 20 mcg/min for blood pressure support. RESPIRATORY: CTAB w/o W/R/R, equal excursion, nonlaboured, intubated and mechanically ventilated. GASTROINTESTINAL: Abdomen obese, soft, nontender, positive bowel sounds. MUSCULOSKELETAL: No evident deformity or clubbing. NEUROLOGICAL: Awake, sedated w/propofol, GCS 10T (E4 V1T M5). Eyes open spontaneously, PERRLA 3 mm brisk. Intubated. Does not follow any commands, noted to move LUE spontaneously. Facial grimace to local noxious stimulation with strong withdrawal response to both feet. (Kolby Green) Lab, Micro, Other Results Recent Impressions Chest X-Ray 06/02/17 0000 Signed Impressions: Service Date/Time: Friday, June 02, 2017 18:02 - CONCLUSION: No acute infiltrate or effusion. Endotracheal tube in good position. Tyler Cantor Jr., MD Cervical Spine X-Ray 06/02/17 0000 Signed Impressions: Service Date/Time: Friday, June 02, 2017 10:56 - CONCLUSION: Limited images as detailed above. Tyler Cantor Jr., MD Laboratory Tests Test 06/01/17 05:43 06/02/17 13:50 06/02/17 15:21 06/02/17 15:50 White Blood Count 7.1 TH/MM3 Red Blood Count 3.25 MIL/MM3 Hemoglobin 10.4 GM/DL 10.0 GM/DL Hematocrit 29.8 % 28.0 % Mean Corpuscular Volume 91.9 FL Mean Corpuscular Hemoglobin 32.1 PG Mean Corpuscular Hemoglobin Concent 35.0 % Red Cell Distribution Width 14.6 % Platelet Count 154 TH/MM3 Mean Platelet Volume 8.8 FL Blood Urea Nitrogen 63 MG/DL 38 MG/DL Creatinine 9.58 MG/DL 7.03 MG/DL Random Glucose 76 MG/DL 101 MG/DL Calcium Level 8.0 MG/DL 8.1 MG/DL Sodium Level 130 MEQ/L 134 MEQ/L Potassium Level 4.8 MEQ/L 4.5 MEQ/L Chloride Level 94 MEQ/L 98 MEQ/L Carbon Dioxide Level 27.0 MEQ/L 26.2 MEQ/L Anion Gap 9 MEQ/L 10 MEQ/L Estimat Glomerular Filtration Rate 5 ML/MIN 7 ML/MIN Phosphorus Level 4.2 MG/DL 2.7 MG/DL Blood Gas Puncture Site ART LINE Blood Gas Patient Temperature 98.6 Blood Gas HCO3 25 mmol/L Blood Gas Base Excess 2.4 mmol/L Blood Gas Oxygen Saturation 98 % Arterial Blood pH 7.57 Arterial Blood Partial Pressure CO2 27 mmHg Arterial Blood Partial Pressure O2 227 mmHg Arterial Blood Oxygen Content 14.9 Vol % Arterial Blood Carboxyhemoglobin 1.2 % Arterial Blood Methemoglobin 1.1 % Blood Gas Hemoglobin 10.5 G/DL Oxygen Delivery Device VENTILATOR Blood Gas Ventilator Setting IMV/SIMV Blood Gas Inspired Oxygen 40 % Test 06/02/17 21:25 06/03/17 05:00 Prothrombin Time 11.0 SEC Prothromb Time International Ratio 1.0 RATIO Activated Partial Thromboplast Time 29.6 SEC White Blood Count 14.6 TH/MM3 Red Blood Count 2.93 MIL/MM3 Hemoglobin 9.6 GM/DL Hematocrit 26.8 % Mean Corpuscular Volume 91.4 FL Mean Corpuscular Hemoglobin 32.7 PG Mean Corpuscular Hemoglobin Concent 35.8 % Red Cell Distribution Width 14.6 % Platelet Count 153 TH/MM3 Mean Platelet Volume 8.8 FL Neutrophils (%) (Auto) 78.9 % Lymphocytes (%) (Auto) 8.5 % Monocytes (%) (Auto) 11.8 % Eosinophils (%) (Auto) 0.5 % Basophils (%) (Auto) 0.3 % Neutrophils # (Auto) 11.5 TH/MM3 Lymphocytes # (Auto) 1.2 TH/MM3 Monocytes # (Auto) 1.7 TH/MM3 Eosinophils # (Auto) 0.1 TH/MM3 Basophils # (Auto) 0.0 TH/MM3 CBC Comment DIFF FINAL Differential Comment Blood Urea Nitrogen 47 MG/DL Creatinine 7.86 MG/DL Random Glucose 103 MG/DL Calcium Level 8.1 MG/DL Sodium Level 134 MEQ/L Potassium Level 5.4 MEQ/L Chloride Level 97 MEQ/L Carbon Dioxide Level 26.4 MEQ/L Anion Gap 11 MEQ/L Estimat Glomerular Filtration Rate 6 ML/MIN (Kolby Green) Medical Decision Making Impression and Plan Impression: Significant cervical canal stenosis C3-4 & C4-5 Numbness & weakness/loss of coordination to both hands Numbness & weakness to left lower extremity History of chronic neck pain History of chronic back pain Post-operative diagnoses: (1) Cervical spinal stenosis (2) Cervical myelopathy with cervical radiculopathy Severe cervical stenosis C3-4-5 Cervical myelopathy The patient is awake but remains intubated. Moving LUE spontaneously. Nursing reports that patient did follow commands before propofol was increased. Labile blood pressure. Leukocytosis most likely reactive to surgery. Hyperkalemia Mild hyponatremia. POD #1 () s/p: C3-4 and C4-5 anterior cervical discectomy, interbody fusion, allograft bone C3-5 anterior cervical instrumentation Plan: Critical care management per [facility]. Dialysis per Nephrology. Frequent neuro checks & vital signs. Wean sedation as tolerated. (Kolby Green) Attending Statement I have personally seen and examined the patient on the date of this note. Pertinent documentation and study results have been reviewed by the undersigned. I have personally developed the treatment plan and performed medical decision making. Agree with findings, exam, and treatment plan as noted above. My examination, the patient remains on propofol. Moderate eye-opening. Moves toes bilateral to command. Reaches up with her left arm. Mild flexion right upper extremity pain Respirations with mild coarse upper airway sounds. Abdomen soft nontender Remains intubated, propofol sedation. Evan-Synephrine drip as needed for hypotension. Labs reviewed Plan dialysis today prior to possible ventilator wean and extubation. Patient's family in the room during the examination. Questions answered. (Doug Quinteros MD) Kolby Green Jun 03, 2017 08:41 Doug Quinteros MD Jun 03, 2017 09:08
--- NOTE | 2017-06-03 08:53 | HHI.CCPN ---
Subjective Remarks/Hospital Course 77 y/o woman with disabling symptoms from C3-4, C 4-5 level cord compression discovered after a recent fall. Underwent open cervical repair and reconstruction today. Discussed in detail with Dr. Roca. We will leave intubated overnight for airway protection and assess for extubation in a.m. following CXR and vent parameters, cuff leak, strength. Care complicated by ESRD. 06/03: Labile BP continues. Unable to wean vent due to residual sedation. Will get dialysis completed early today, then work to extubate. Objective Vital Signs Date Time Temp Pulse Resp B/P (MAP) Pulse Ox O2 Delivery O2 Flow Rate FiO2 06/03/17 07:29 100 40 06/03/17 06:00 75 06/03/17 04:00 98.7 10 103/49 (67) 06/02/17 19:00 Mechanical Ventilator 05/30/17 18:30 2.00 Intake and Output 06/03/17 06/03/17 06/04/17 08:00 16:00 00:00 Intake Total 120 ml Output Total 270 ml Balance -150 ml Result Diagram: 06/03/17 0500 06/03/17 0500 Other Results Laboratory Tests Test 06/02/17 15:21 Blood Gas Puncture Site ART LINE Blood Gas Patient Temperature 98.6 Blood Gas HCO3 25 mmol/L (22-26) Blood Gas Base Excess 2.4 mmol/L (-2-2) Blood Gas Oxygen Saturation 98 % (90-100) Arterial Blood pH 7.57 (7.380-7.420) Arterial Blood Partial Pressure CO2 27 mmHg (38-42) Arterial Blood Partial Pressure O2 227 mmHg (61-120) Arterial Blood Oxygen Content 14.9 Vol % (12.0-20.0) Arterial Blood Carboxyhemoglobin 1.2 % (0-4) Arterial Blood Methemoglobin 1.1 % (0-2) Blood Gas Hemoglobin 10.5 G/DL (12.0-16.0) Oxygen Delivery Device VENTILATOR Blood Gas Ventilator Setting IMV/SIMV Blood Gas Inspired Oxygen 40 % Objective Remarks Gen: Intubated, lightly sedated. Head: Normal. Neck: Hard cervical collar, orally intubated. Lungs: Clear, no adventitious sounds. Shallow excursions when SBT. Heart: NL S1S2, no JVD. Abdomen: Benign, soft. BS active. Extremities: Warm, well perfused. Neuro: Lightly sedated following surgery, on vent. Breathes spontaneously. Moves 4 limbs. A/P Problem List: (1) Cervical myelopathy with cervical radiculopathy ICD Code: M47.12 - Other spondylosis with myelopathy, cervical region Status: Acute (2) END STAGE RENAL DISEASE Status: Chronic (3) Morbid obesity Status: Chronic (4) History of cardiac pacemaker ICD Code: Z95.0 - Presence of cardiac pacemaker Status: Chronic (5) History of tobacco abuse ICD Code: Z87.891 - History of tobacco use Status: Acute (6) HTN (hypertension) ICD Code: I10 - HTN (hypertension) Status: Chronic Assessment and Plan Plan: 1. PRVC ventilator mode. Start SBTs. 2. PEEP 5. 3. NG tube to LIS, for meds. 4. CXR for tube and line position -> acceptable. 5. Follow K, pH closely. 6. Pepcid. 7. SCDs. 8. ABG. Overall impression: Patient is critically ill following open repair cervical spine compression. Kept intubated for airway protection and concerns for swelling in cervical region. Hemodynamics unstable. Critical Care 38 mins Problem Qualifiers (1) HTN (hypertension): Qualified Codes: I10 - Essential (primary) hypertension Ermias Iqbal MD Jun 03, 2017 08:53
[2017-06-03] MEDS: VITAMIN B CMPLX/VITC/FOLIC AC CAP PO SCH (09:00)
[2017-06-03] MEDS: amLODIPine BESYLATE 5 MG TAB PO SCH (09:00)
[2017-06-03] MEDS: CARVEDILOL 3.125 MG TAB PO SCH ×2 (09:00→21:00)
[2017-06-03] MEDS ORDERED: TERBUTALINE INJ 1 MG/ML AMP SQ PRN (09:00)
[2017-06-03] MEDS: PANTOPRAZOLE SOD 40 MG DELAYED RELEASE TAB PO SCH (09:00)
[2017-06-03] MEDS: DOCUSATE SODIUM 50 MG/SENNA 8.6 MG TAB PO SCH ×2 (09:00→21:00)
[2017-06-03] MEDS: CINACALCET HYDROCHLORIDE 30 MG TAB PO SCH (09:00)
[2017-06-03] MEDS: CALCIUM ACETATE 667 MG CAP PO SCH ×3 (09:00→17:49)
--- NOTE | 2017-06-03 09:17 | OTSOAPIP ---
TIME SESSION COMPLETED: 914 PATIENT HAS HAD A CHANGE IN STATUS AND WILL REQUIRE RESTART ORDERS, SPOKE WITH NURSE IN ISC, WILL RESUME OT ONCE ORDER HAS BEEN RECEIVED. INTERDISCIPLINARY COMMUNICATION: REVIEWED ELECTRONIC MEDICAL RECORD Therapist: LISANDRA VALDEZ/Joey Signature on file
[2017-06-03] MEDS: CHLORHEXIDINE 0.12% (ORAL KIT) 15 ML CUP MT SCH ×2 (10:55→20:00)
[2017-06-03] MEDS: SODIUM CHLORIDE 0.9% FLUSH 10 ML FLUSH IV FLUSH SCH ×2 (10:55→21:00)
[2017-06-03] MEDS: PHENYLEPHRINE INJ 80 MG in DEXTROSE 5% IN WATE 500 ML INJ 492 ML IV PRN ×2 (11:00)
--- NOTE | 2017-06-03 11:34 | HHI.NPPN ---
Subjective General Problems: Anemia Renal Failure: Chronic, End Stage Renal Disease Interval History She had surgery yesterday. She has had labile blood pressure, started on low dose neosynepherine. (Theresa Gustafson) Review of Systems General General Remarks unable to evaluate (Theresa Gustafson) Musculoskeletal MS Remarks neck pain prior to surgery (Theresa Gustafson) Objective Data Data Vital Signs Date Time Temp Pulse Resp B/P (MAP) Pulse Ox O2 Delivery O2 Flow Rate FiO2 06/03/17 11:00 76 113/48 06/03/17 07:29 100 40 06/03/17 07:00 100 Mechanical Ventilator 40 06/03/17 06:00 75 06/03/17 04:00 98.7 79 10 103/49 (67) 100 06/03/17 04:00 79 06/03/17 03:56 100 40 06/03/17 02:00 60 06/03/17 00:00 97.8 60 10 117/55 (75) 100 06/03/17 00:00 60 06/02/17 23:36 100 40 06/02/17 22:34 10 06/02/17 22:00 60 06/02/17 20:47 100 40 06/02/17 20:00 60 06/02/17 20:00 94.5 60 10 109/50 (69) 100 06/02/17 19:00 100 Mechanical Ventilator 40 06/02/17 18:00 69 06/02/17 18:00 97.2 72 17 142/65 (90) 100 06/02/17 16:45 100 40 06/02/17 16:33 14 06/02/17 16:30 70 14 121/60 (80) 100 Mechanical Ventilator 40 112/51 (71) 06/02/17 16:15 97.5 68 14 113/58 (76) 100 Mechanical Ventilator 40 110/49 (69) 06/02/17 16:00 66 14 110/59 (76) 100 Mechanical Ventilator 40 104/48 (66) 06/02/17 15:45 64 14 101/55 (70) 100 Mechanical Ventilator 40 108/52 (70) 06/02/17 15:40 40 06/02/17 15:40 100 40 06/02/17 15:30 69 14 90/57 (68) 100 Mechanical Ventilator 40 95/45 (62) 06/02/17 15:15 70 14 103/59 (74) 100 Mechanical Ventilator 40 84/55 (65) 06/02/17 15:05 79 78/41 06/02/17 15:00 79 14 92/53 (66) 100 Mechanical Ventilator 40 78/41 (53) 06/02/17 14:45 78 14 100/56 (71) 100 Mechanical Ventilator 40 90/42 (58) 06/02/17 14:35 100 40 06/02/17 14:35 40 06/02/17 14:34 97.5 80 14 105/88 (94) 100 Mechanical Ventilator 40 91/40 (57) (Theresa Gustafson) -: 06/03/17 0500 06/03/17 0500 Imaging Last Impressions Chest X-Ray 06/02/17 0000 Signed Impressions: Service Date/Time: Friday, June 02, 2017 18:02 - CONCLUSION: No acute infiltrate or effusion. Endotracheal tube in good position. Tyler Cantor Jr., MD Cervical Spine X-Ray 06/02/17 0000 Signed Impressions: Service Date/Time: Friday, June 02, 2017 10:56 - CONCLUSION: Limited images as detailed above. Tyler Cantor Jr., MD Head CT 05/27/17 0716 Signed Impressions: Service Date/Time: Saturday, May 27, 2017 07:38 - CONCLUSION: 1. 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 2. No acute intracranial abnormality or significant interval change. Roni Kirk MD Thoracic Spine CT 05/27/17 0000 Signed Impressions: Service Date/Time: Saturday, May 27, 2017 11:19 - CONCLUSION: Degenerative changes as described above. Hemangioma in T4 and T10 vertebral bodies. No acute bony abnormality or destructive change. Fabiano Daniels MD Lumbar Spine CT 05/27/17 0000 Signed Impressions: Service Date/Time: Saturday, May 27, 2017 11:19 - CONCLUSION: Osteopenia with degenerative changes throughout the spine. There is no evidence for acute compression. I see nothing to suggest metastatic disease. Arnaud Salcido MD FACR Knee X-Ray 05/27/17 0000 Signed Impressions: Service Date/Time: Saturday, May 27, 2017 11:03 - CONCLUSION: 1. Advanced tricompartmental osteoarthritis but most pronounced within the medial compartment. 2. Small joint effusion. Tyler Cantor Jr., MD Cervical Spine CT 05/27/17 0000 Signed Impressions: Service Date/Time: Saturday, May 27, 2017 11:17 - CONCLUSION: 1. Multilevel degenerative changes including areas of significant central canal stenosis particularly at C3-C4 and C4-C5. 2. No fracture or dislocation. Tyler Cantor Jr., MD Ankle X-Ray 05/27/17 0000 Signed Impressions: Service Date/Time: Saturday, May 27, 2017 11:09 - CONCLUSION: Generalized soft tissue swelling, negative for fracture. Arnaud Salcido MD FACR Drip Comment propofol, neosynepherine (Theresa Gustafson B. [employer]) Physical Exam General Appearance: Well Developed, Well Nourished, No Acute Distress, Comfortable (Theresa Gustafson B. [employer]) Eyes Eye Exam: Pupils Equal (Theresa Gustafson B. [employer]) Throat Throat Exam: Oral Mucosa Prosperity & Moist (Theresa Gustafson B. [employer]) Pulmonary Resp Exam: Clear Bilaterally, Breath Sounds Equal, No Distress (Theresa Gustafson B. [employer]) Cardiology CV Exam: Regular, Normal Sinus Rhythm, Good Perfusion (Theresa Gustafson B. [employer]) Gastrointestinal/Abdomen GI Exam: Soft, Non-Tender, Bowel Sounds Present (Theresa Gustafson B. [employer]) Musculoskeletal MS Exam: Joints Intact, Normal Gait, Normal Tone (Theresa Gustafson B. [employer]) Integumentary Skin Exam: Clear, Warm, Dry, Intact Skin Remarks right arm AV access, + thrill, bruit (Theresa Gustafson B. [employer]) Extremeties Extremities Exam: No Edema, Pedal Pulses Palpable Extremeties Remarks left leg and right arm weakness (Theresa Gustafson B. [employer]) Neurologic Neuro Exam: Alert, Awake, Oriented, Speech Clear, Moving All Extremities (Theresa Gustafson B. [employer]CASE [employer]) Psychiatric Psych Exam: Appropriate Responses (Theresa Gustafson BIsabel KEATINGP) Assessment/Plan Discussed Condition With: Patient, Spouse Assessment Summary: Anemia of CKD, Hypertension, End Stage Renal Disease Problem List: (1) ESRD (end stage renal disease) on dialysis ICD Codes: N18.6 - End stage renal disease; Z99.2 - Dependence on renal dialysis Status: Acute Plan: Continue HD support on MWF . 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 (5) Anemia ICD Codes: D64.9 - Anemia, unspecified Status: Acute Plan: Give a dose of epogen today with dialysis Had EBL of 400 with surgery follow Hb (Theresa Gustafson) Problem List: (1) ESRD (end stage renal disease) on dialysis ICD Codes: N18.6 - End stage renal disease; Z99.2 - Dependence on renal dialysis Status: Acute Plan: Continue HD support on MWF . 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 (5) Anemia ICD Codes: D64.9 - Anemia, unspecified Status: Acute Plan: Give a dose of epogen today with dialysis Had EBL of 400 with surgery follow Hb Plan patient was seen and examined. Agree with above assessment and plan. (Deshawn Baez MD) Problem Qualifiers (1) HTN (hypertension): Qualified Codes: I10 - Essential (primary) hypertension Theresa Gustafson [facility] Jun 03, 2017 11:34 Deshawn Baez MD Jun 03, 2017 21:58
--- NOTE | 2017-06-03 12:11 | HHI.FPPN ---
Subjective Remarks Status post day 1 after anterior cervical discectomy with interbody fusion. She is currently in the ICU, intubated and mechanically ventilated to protect her airway and assist with breathing. Vent settings are currently PRVC A/C with rate of 10, PEEP of 5, FiO2 of 40. She is on a neosyneprhine low dose for low blood pressure and Diprivan for vent synchrony. She has on a warmer and a neck brace. Plan is to get hemodialysis today and attempt to wean off the vent. Her blood pressures have been somewhat labile. (Casey Bermudez MD R3) Objective Vitals Vital Signs Date Time Temp Pulse Resp B/P (MAP) Pulse Ox O2 Delivery O2 Flow Rate FiO2 06/03/17 11:17 100 40 06/03/17 11:00 76 113/48 06/03/17 10:00 79 06/03/17 08:00 99.2 79 12 107/53 (71) 100 06/03/17 08:00 78 06/03/17 07:29 100 40 06/03/17 07:00 100 Mechanical Ventilator 40 06/03/17 06:00 75 06/03/17 04:00 98.7 79 10 103/49 (67) 100 06/03/17 04:00 79 06/03/17 03:56 100 40 06/03/17 02:00 60 06/03/17 00:00 97.8 60 10 117/55 (75) 100 06/03/17 00:00 60 06/02/17 23:36 100 40 06/02/17 22:34 10 06/02/17 22:00 60 06/02/17 20:47 100 40 06/02/17 20:00 60 06/02/17 20:00 94.5 60 10 109/50 (69) 100 06/02/17 19:00 100 Mechanical Ventilator 40 06/02/17 18:00 69 06/02/17 18:00 97.2 72 17 142/65 (90) 100 06/02/17 16:45 100 40 06/02/17 16:33 14 06/02/17 16:30 70 14 121/60 (80) 100 Mechanical Ventilator 40 112/51 (71) 06/02/17 16:15 97.5 68 14 113/58 (76) 100 Mechanical Ventilator 40 110/49 (69) 06/02/17 16:00 66 14 110/59 (76) 100 Mechanical Ventilator 40 104/48 (66) 06/02/17 15:45 64 14 101/55 (70) 100 Mechanical Ventilator 40 108/52 (70) 06/02/17 15:40 40 06/02/17 15:40 100 40 06/02/17 15:30 69 14 90/57 (68) 100 Mechanical Ventilator 40 95/45 (62) 06/02/17 15:15 70 14 103/59 (74) 100 Mechanical Ventilator 40 84/55 (65) 06/02/17 15:05 79 78/41 06/02/17 15:00 79 14 92/53 (66) 100 Mechanical Ventilator 40 78/41 (53) 06/02/17 14:45 78 14 100/56 (71) 100 Mechanical Ventilator 40 90/42 (58) 06/02/17 14:35 100 40 06/02/17 14:35 40 06/02/17 14:34 97.5 80 14 105/88 (94) 100 Mechanical Ventilator 40 91/40 (57) I/O 06/02/17 06/02/17 06/02/17 06/03/17 06/03/17 06/03/17 07:00 15:00 23:00 07:00 15:00 23:00 Intake Total 240 ml 900 ml 120 ml Output Total 400 ml 50 ml 270 ml Balance 240 ml 500 ml -50 ml -150 ml Intake Oral 240 ml Other 900 ml 120 ml Output Urine Total 0 ml Gastric Drainage Total 250 ml Drainage Total 50 ml 20 ml Estimated Blood Loss 400 ml # Voids 0 # Bowel Movements 0 0 (Casey Bermudez MD R3) Result Diagram: 06/03/17 0500 06/03/17 0500 Objective Remarks GENERAL: In bed, mechanically ventilated SKIN: No rashes or lesions HEAD: Normocephalic. EYES: No scleral icterus. No injection or drainage. NECK: Has on neck collar CARDIOVASCULAR: Regular rate and rhythm with 3/6 murmur heard best over mitral valve RESPIRATORY: Mechanically ventilated, PRVC A/C with rate 10, PEEP 5, FiO2 40. GASTROINTESTINAL: Abdomen soft, non-tender, nondistended. Bowel sounds present. MUSCULOSKELETAL: Extremities without edema. No calf tenderness. NEURO: somewhat sedated but eyes opened, tracking, on Diprivan currently Procedures anterior cervical discectomy with interbody fusion on 06/02/17. (Casey Bermudez MD R3) A/P Assessment and Plan 77-year-old -[place] female with end-stage renal disease on dialysis, hypertension, pacemaker dependent, coronary artery disease, chronic back pain, and stomach cancer in remission. Admitted for generalized weakness and paresthesias and relatively sudden loss of sensation in hands and left leg, found to have severe cervical stenosis. Underwent anterior cervical discectomy with interbody fusion on 06/02/17. Currently in ICU, intubated airway protection post-surgery. Discharge Planning Received anterior cervical discectomy with interbody fusion on 06/02/17, anticipate discharge to a correction facility or inpatient rehab. (Casey Bermudez MD R3) Attending Attestation Patient seen and examined. Case reviewed and discussed with the resident team. Agree with plan of care as discussed with me and documented in the resident note. spoke to her and her son in law who were in her room and answered their questions (Theresa Stevens MD) Problem List: (1) Cervical spinal stenosis ICD Codes: M48.02 - Spinal stenosis, cervical region Status: Acute Plan: Multi-level degenerative changes including areas of significant canal stenosis at C3-C5. She has significant upper and lower extremity weakness and numbness/paresthesias. Anterior cervical discectomy with interbody fusion performed on 06/02/17. * Neurosurgery on board. * [place] 10/325 every 4 hours when necessary pain, morphine 4 mg for breakthrough pain * NSAIDs contraindicated given renal disease * Gabapentin for paresthesias, low dose as she is in renal failure * Physical therapy and occupational therapy after surgical procedure, will require rehab. (2) End stage renal failure on dialysis ICD Codes: N18.6 - End stage renal failure on dialysis; Z99.2 - Dependence on renal dialysis Status: Chronic Plan: Patient has end-stage renal disease secondary to hypertension, on dialysis MWF. 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 Neosynephrine currently while in ICU. * Continue home medication of metoprolol 25 mg by mouth daily, hold for low pressures * Continue home medication of amlodipine 5 mg by mouth daily, hold for low pressures * Clonidine 0.1 mg by mouth when necessary per protocol (5) Nutrition, metabolism, and development symptoms ICD Codes: R63.8 - Other symptoms and signs concerning food and fluid intake Plan: Fluids: PO fluids after extubation Diet: Renal diet Out of bed with assistance DD prophylaxis: Heparin 5000 units tid, held for surgery, bilateral SCD's CODE STATUS: Full code (Casey Bermudez MD R3) Problem Qualifiers (1) HLD (hyperlipidemia): Qualified Codes: E78.2 - Mixed hyperlipidemia (2) HTN (hypertension): Qualified Codes: I10 - Essential (primary) hypertension Casey Bermudez MD R3 Jun 03, 2017 12:11 Theresa Stevens MD Jun 03, 2017 13:13
[2017-06-03] MEDS: EPOETIN ALFA 10,000 UNITS/ML VIAL IV PUSH PRN (16:21)
[2017-06-03] MEDS: ACETAMINOPHEN/HYDROcodone 325 MG/10 MG TAB PO PRN (19:36)
[2017-06-04] VITALS (15 sets, daily range): BP systolic 110–138; BP diastolic 43–52; PULSE 72–91; RESP 10–20; TEMP 97.5–98.8; O2SAT 100
[2017-06-04] MEDS: ACETAMINOPHEN/HYDROcodone 325 MG/10 MG TAB PO PRN (03:52)
[2017-06-04] MEDS: GABAPENTIN 100 MG CAP PO PRN (03:52)
[2017-06-04 03:53] LABS: HEMATOCRIT 25.6 % (35.0-46.0); MEAN CELL VOLUME 91.7 FL (80.0-100.0); MEAN CORPUSCULAR HEMOGLOBIN 32.1 PG (27.0-34.0); PLATELET COUNT 134 TH/MM3 (150-450); RED BLOOD COUNT 2.79 MIL/MM3 (4.00-5.30); RED CELL DISTRIBUTION WIDTH 14.7 % (11.6-17.2); WHITE BLOOD COUNT 22.4 TH/MM3 (4.0-11.0)
[2017-06-04 04:07] LABS: HEMO FLAGS AUTO DIFF
[2017-06-04 04:22] LABS: BICARBONATE 31.2 MEQ/L (21.0-32.0); POTASSIUM 4.5 MEQ/L (3.5-5.1)
[2017-06-04 04:47] LABS: BANDS 3 % (0-6); METAMYELOCYTES 1 % (0-1); NEUTROPHIL # MANUAL DIFF 20.4 TH/MM3 (1.8-7.7); POLYS (SEG NEUTROPHILS) 87 % (16-70); WBC DIFF SAMPLE 100
[2017-06-04 04:49] LABS: SCAN/DIFF FINAL DIFF MANUAL
[2017-06-04 04:50] LABS: PLATELET MORPHOLOGY NORMAL (NORMAL); TOXIC VACUOLATION PRESENT (NONE SEEN)
[2017-06-04 04:51] LABS: TARGET CELLS 1+ (NORMAL)
[2017-06-04 05:00] LABS: PLATELET ESTIMATE SMEAR LOW (NORMAL)
[2017-06-04] MEDS: HEPARIN SODIUM - SQ 10,000 UNITS/ML VIAL SQ SCH ×3 (05:34→15:43)
[2017-06-04] MEDS: PANTOPRAZOLE SOD 40 MG DELAYED RELEASE TAB PO SCH (09:00)
[2017-06-04] MEDS: CARVEDILOL 3.125 MG TAB PO SCH ×2 (09:00→21:27)
[2017-06-04] MEDS: amLODIPine BESYLATE 5 MG TAB PO SCH (09:00)
--- NOTE | 2017-06-04 09:00 | HHI.NSPN ---
(Kolby Green) History Chief Complaint: ET tube bothering her. (Kolby Green) Interval History 05/28: This is a 77-year-old -[place] female who has an extensive medical history. She presented to the emergency department at [facility] on following a fall due to worsening numbness and weakness to the left lower extremity as well as both hands and the right toes. When she fell she did strike her head but denies any loss of consciousness. She states that the weakness became evident approximately two weeks ago when she was not able to get up and stand or turn herself in bed. She also is not able to hold things with her hands. She does endorse that she had the weakness prior to that but it only affected her ability to do things at that time. She is uncertain of how long she has had the numbness and weakness. She does not report any precipitating event two weeks ago when the numbness and weakness changed. She does report a history of falls that started in January of this year and she is falling more frequently. Prior to that the patient states she was able to ambulate without any difficulty. The numbness is to the digits of the right hand , from the left wrist to the fingertips, from just above the left knee down and to the toes of the right foot. She denies any saddle anaesthesia. She does endorse a history of chronic neck pain and chronic low back pain. 05/29: This morning the patient is seen in rounds with Dr. Quinteros. She is awake when seen and says she is doing fine. She states that the sensation is slightly better to the hands and feet. 05/30: Pt complains of neck pain. Pain radiates into the right anterior arm, forearm and then numbness in bilateral hands with incoordination. Denies pain radiating into the LUE but has numbness in the left hand and weakness bilateral UEs. 05/31: Pt states symptoms unchanged of neck pain radiating into the RUE with numbness in the hands bilaterally. She has weakness in the UEs and incoordination in her hands. 06/02: The patient went for a C3-4 and C4-5 ACDF. Post-operatively she remained intubated and was transferred to [facility] for further monitoring and management. 06/03: The patient has her eyes open this morning. She remains intubated and Nursing reports that her blood pressure has been labile during the night. She is scheduled to have dialysis today and the Legislative Assistant is hoping to extubate her at some point. She is on propofol for sedation. Nursing did report that the patient followed commands prior to the propofol being increased. 06/04: When seen this morning the patient is awake and Physical Therapy is at the bedside working with the patient. She points to her mid chest and when asked a series of questions nods yes that the endotracheal tube is bothering her. She is on CPAP when seen. (Kolby Green) System Review Comments Unable to obtain due to patient's clinical condition. (Kolby Green) Exam Results 06/02/17 06/02/17 06/03/17 06/03/17 06/04/17 06/04/17 06:00 18:00 06:00 18:00 06:00 18:00 Intake Total 460 ml 1140 ml 120 ml Output Total 3000 ml 450 ml 270 ml 2500 ml 60 ml Balance -2540 ml 690 ml -150 ml -2500 ml -60 ml Intake Oral 460 ml 240 ml Other 900 ml 120 ml Output Urine Total 0 ml 0 ml Gastric Drainage Total 250 ml 50 ml Drainage Total 50 ml 20 ml 10 ml Hemodialysis 3000 ml 2500 ml Estimated Blood Loss 400 ml # Voids 0 0 # Bowel Movements 0 0 0 0 Vital Signs Date Time Temp Pulse Resp B/P (MAP) Pulse Ox O2 Delivery O2 Flow Rate FiO2 06/04/17 08:19 100 40 06/04/17 07:00 100 Mechanical Ventilator 40 06/04/17 06:00 72 06/04/17 04:52 13 06/04/17 04:08 100 40 06/04/17 04:00 97.5 76 13 110/52 (71) 100 06/04/17 04:00 77 06/04/17 02:00 79 06/04/17 00:00 83 06/04/17 00:00 98.0 79 16 126/45 (72) 100 06/03/17 23:30 100 40 06/03/17 22:00 81 06/03/17 20:00 84 06/03/17 20:00 97.8 84 21 166/66 (99) 100 06/03/17 19:00 100 Mechanical Ventilator 40 06/03/17 18:07 40 06/03/17 18:06 81 06/03/17 17:35 40 06/03/17 16:00 97.8 77 12 125/52 (76) 100 06/03/17 16:00 76 06/03/17 15:38 100 40 06/03/17 14:00 79 06/03/17 12:03 99.9 74 12 122/50 (74) 100 06/03/17 12:02 74 06/03/17 11:17 100 40 06/03/17 11:00 76 113/48 06/03/17 10:00 79 06/03/17 08:00 99.2 79 12 107/53 (71) 100 06/03/17 08:00 78 06/03/17 07:29 100 40 06/03/17 07:00 100 Mechanical Ventilator 40 06/03/17 06:00 75 06/03/17 04:00 98.7 79 10 103/49 (67) 100 06/03/17 04:00 79 06/03/17 03:56 100 40 06/03/17 02:00 60 06/03/17 00:00 97.8 60 10 117/55 (75) 100 06/03/17 00:00 60 06/02/17 23:36 100 40 06/02/17 22:34 10 06/02/17 22:00 60 06/02/17 20:47 100 40 06/02/17 20:00 60 06/02/17 20:00 94.5 60 10 109/50 (69) 100 06/02/17 19:00 100 Mechanical Ventilator 40 06/02/17 18:00 69 06/02/17 18:00 97.2 72 17 142/65 (90) 100 06/02/17 16:45 100 40 06/02/17 16:33 14 06/02/17 16:30 70 14 121/60 (80) 100 Mechanical Ventilator 40 112/51 (71) 06/02/17 16:15 97.5 68 14 113/58 (76) 100 Mechanical Ventilator 40 110/49 (69) 06/02/17 16:00 66 14 110/59 (76) 100 Mechanical Ventilator 40 104/48 (66) 06/02/17 15:45 64 14 101/55 (70) 100 Mechanical Ventilator 40 108/52 (70) 06/02/17 15:40 40 06/02/17 15:40 100 40 06/02/17 15:30 69 14 90/57 (68) 100 Mechanical Ventilator 40 95/45 (62) 06/02/17 15:15 70 14 103/59 (74) 100 Mechanical Ventilator 40 84/55 (65) 06/02/17 15:05 79 78/41 06/02/17 15:00 79 14 92/53 (66) 100 Mechanical Ventilator 40 78/41 (53) 06/02/17 14:45 78 14 100/56 (71) 100 Mechanical Ventilator 40 90/42 (58) 06/02/17 14:35 100 40 06/02/17 14:35 40 06/02/17 14:34 97.5 80 14 105/88 (94) 100 Mechanical Ventilator 40 91/40 (57) 06/02/17 08:20 Room Air 06/02/17 08:00 96.7 70 18 142/80 (100) 97 06/02/17 03:55 96.9 71 18 136/63 (87) 95 06/01/17 23:45 97.0 75 20 118/56 (76) 95 06/01/17 21:05 79 06/01/17 20:15 96.8 74 20 129/75 (93) 97 06/01/17 13:15 18 06/01/17 12:00 96.0 67 18 144/71 (95) 99 06/01/17 10:00 Room Air (Kolby Green) Physical Examination GENERAL: The patient is awake with her eyes open. She is intubated and on CPAP. She has propofol infusing at 1 mcg/kg/min for sedation. She is not in any apparent distress. SKIN: Warm, dry & intact, intact dressing to left anterior neck surgical incision, no evident rashes, ulcerations or other lesions. HEENT: Normocephalic, atraumatic. PERRLA 3 mm brisk, EOMI. Orally intubated. OGT. NECK: [place] J cervical collar is in place, dressing intact to left anterior neck surgical site, no JVD, trachea midline. CARDIOVASCULAR: S1S2 w/RRR w/grade III/ systolic murmur, radial & pedal pulses 2+ bilaterally, cap refill < 2 sec. Monitor shows atrial spikes w/P wave noted. She has a phenylephrine drip infusing at 8 mcg/min for blood pressure support. RESPIRATORY: CTAB w/o W/R/R, equal excursion, nonlaboured, intubated and on CPAP. GASTROINTESTINAL: Abdomen obese, soft, nontender, positive bowel sounds. MUSCULOSKELETAL: No evident deformity or clubbing. NEUROLOGICAL: Awake, sedated w/propofol, GCS 11T (E4 V1T M6). Eyes open spontaneously, PERRLA 3 mm brisk. Intubated. Follows simple commands w/o difficulty. Weak livestock exhibitor with both hands, moves feet to command. Does show 2 fingers and thumbs up to command. (Kolby Green) Lab, Micro, Other Results Recent Impressions Chest X-Ray 06/02/17 0000 Signed Impressions: Service Date/Time: Friday, June 02, 2017 18:02 - CONCLUSION: No acute infiltrate or effusion. Endotracheal tube in good position. Tyler Cantor Jr., MD Cervical Spine X-Ray 06/02/17 0000 Signed Impressions: Service Date/Time: Friday, June 02, 2017 10:56 - CONCLUSION: Limited images as detailed above. Tyler Cantor Jr., MD Laboratory Tests Test 06/02/17 13:50 06/02/17 15:21 06/02/17 15:50 06/02/17 21:25 Hemoglobin 10.0 GM/DL Hematocrit 28.0 % Blood Gas Puncture Site ART LINE Blood Gas Patient Temperature 98.6 Blood Gas HCO3 25 mmol/L Blood Gas Base Excess 2.4 mmol/L Blood Gas Oxygen Saturation 98 % Arterial Blood pH 7.57 Arterial Blood Partial Pressure CO2 27 mmHg Arterial Blood Partial Pressure O2 227 mmHg Arterial Blood Oxygen Content 14.9 Vol % Arterial Blood Carboxyhemoglobin 1.2 % Arterial Blood Methemoglobin 1.1 % Blood Gas Hemoglobin 10.5 G/DL Oxygen Delivery Device VENTILATOR Blood Gas Ventilator Setting IMV/SIMV Blood Gas Inspired Oxygen 40 % Blood Urea Nitrogen 38 MG/DL Creatinine 7.03 MG/DL Random Glucose 101 MG/DL Calcium Level 8.1 MG/DL Phosphorus Level 2.7 MG/DL Sodium Level 134 MEQ/L Potassium Level 4.5 MEQ/L Chloride Level 98 MEQ/L Carbon Dioxide Level 26.2 MEQ/L Anion Gap 10 MEQ/L Estimat Glomerular Filtration Rate 7 ML/MIN Prothrombin Time 11.0 SEC Prothromb Time International Ratio 1.0 RATIO Activated Partial Thromboplast Time 29.6 SEC Test 06/03/17 05:00 06/04/17 03:45 White Blood Count 14.6 TH/MM3 22.4 TH/MM3 Red Blood Count 2.93 MIL/MM3 2.79 MIL/MM3 Hemoglobin 9.6 GM/DL 8.9 GM/DL Hematocrit 26.8 % 25.6 % Mean Corpuscular Volume 91.4 FL 91.7 FL Mean Corpuscular Hemoglobin 32.7 PG 32.1 PG Mean Corpuscular Hemoglobin Concent 35.8 % 35.0 % Red Cell Distribution Width 14.6 % 14.7 % Platelet Count 153 TH/MM3 134 TH/MM3 Mean Platelet Volume 8.8 FL 8.9 FL Neutrophils (%) (Auto) 78.9 % Lymphocytes (%) (Auto) 8.5 % Monocytes (%) (Auto) 11.8 % Eosinophils (%) (Auto) 0.5 % Basophils (%) (Auto) 0.3 % Neutrophils # (Auto) 11.5 TH/MM3 Lymphocytes # (Auto) 1.2 TH/MM3 Monocytes # (Auto) 1.7 TH/MM3 Eosinophils # (Auto) 0.1 TH/MM3 Basophils # (Auto) 0.0 TH/MM3 CBC Comment DIFF FINAL AUTO DIFF Differential Comment FINAL DIFF MANUAL Blood Urea Nitrogen 47 MG/DL 29 MG/DL Creatinine 7.86 MG/DL 5.84 MG/DL Random Glucose 103 MG/DL 128 MG/DL Calcium Level 8.1 MG/DL 8.6 MG/DL Sodium Level 134 MEQ/L 136 MEQ/L Potassium Level 5.4 MEQ/L 4.5 MEQ/L Chloride Level 97 MEQ/L 95 MEQ/L Carbon Dioxide Level 26.4 MEQ/L 31.2 MEQ/L Anion Gap 11 MEQ/L 10 MEQ/L Estimat Glomerular Filtration Rate 6 ML/MIN 8 ML/MIN Differential Total Cells Counted 100 Neutrophils % (Manual) 87 % Band Neutrophils % 3 % Lymphocytes % 1 % Monocytes % 8 % Neutrophils # (Manual) 20.4 TH/MM3 Metamyelocytes 1 % Toxic Vacuolation PRESENT Platelet Estimate LOW Platelet Morphology Comment NORMAL Target Cells 1+ Albumin 2.8 GM/DL Phosphorus Level 4.8 MG/DL (Kolby Green) Medical Decision Making Impression and Plan Impression: Significant cervical canal stenosis C3-4 & C4-5 Numbness & weakness/loss of coordination to both hands Numbness & weakness to left lower extremity History of chronic neck pain History of chronic back pain Post-operative diagnoses: (1) Cervical spinal stenosis (2) Cervical myelopathy with cervical radiculopathy Severe cervical stenosis C3-4-5 Cervical myelopathy The patient is awake & alert, following commands. She remains intubated but is on CPAP. Improved blood pressure control. Worsening leukocytosis. Hyperkalemia resolved. Mild hyponatremia resolved. POD #2 () s/p: C3-4 and C4-5 anterior cervical discectomy, interbody fusion, allograft bone C3-5 anterior cervical instrumentation Plan: Critical care management per Legislative Assistant. Dialysis per Nephrology. Frequent neuro checks & vital signs. Wean sedation as tolerated. Extubate at tolerated. Consider CXR & UA due to increasing leukocytosis. Plan to d/c COREY drain tomorrow. (Kolby Green) Attending Statement I have personally seen and examined the patient on the date of this note. Pertinent documentation and study results have been reviewed by the undersigned. I have personally developed the treatment plan and performed medical decision making. Agree with findings, exam, and treatment plan as noted above. Awake and alert this morning Moves all extremities with moderate strength Hoffmans absent bilateral No ankle clonus Neurologic exam stable postoperative. Discontinue neck drain Continue therapy Extubated per anesthesia (Doug Quinteros MD) Kolby Green Jun 04, 2017 08:59 Doug Quinteros MD Jun 04, 2017 17:48
[2017-06-04] MEDS: DOCUSATE SODIUM 50 MG/SENNA 8.6 MG TAB PO SCH ×2 (09:44→21:27)
[2017-06-04] MEDS: CINACALCET HYDROCHLORIDE 30 MG TAB PO SCH (09:44)
[2017-06-04] MEDS: VITAMIN B CMPLX/VITC/FOLIC AC CAP PO SCH (09:44)
[2017-06-04] MEDS: CALCIUM ACETATE 667 MG CAP PO SCH ×3 (09:44→18:01)
[2017-06-04] MEDS ORDERED: MORPHINE SULFATE 2 MG/ML INJ IV PUSH PRN (09:45)
[2017-06-04] MEDS: CHLORHEXIDINE 0.12% (ORAL KIT) 15 ML CUP MT SCH ×2 (09:47→21:30)
[2017-06-04] MEDS: SODIUM CHLORIDE 0.9% FLUSH 10 ML FLUSH IV FLUSH SCH ×2 (09:48→21:00)
--- NOTE | 2017-06-04 10:02 | HHI.CCPN ---
Subjective Remarks/Hospital Course 77 y/o woman with disabling symptoms from C3-4, C 4-5 level cord compression discovered after a recent fall. Underwent open cervical repair and reconstruction today. Discussed in detail with Dr. Roca. We will leave intubated overnight for airway protection and assess for extubation in a.m. following CXR and vent parameters, cuff leak, strength. Care complicated by ESRD. 06/03: Labile BP continues. Unable to wean vent due to residual sedation. Will get dialysis completed early today, then work to extubate. 06/04: Extubated this morning and breathing comfortably. Protects airway well. Will get swallow eval before pulling out NG tube. Elevated white count and infiltrate behind heart - will give one dose abx pending cultures. Objective Vital Signs Date Time Temp Pulse Resp B/P (MAP) Pulse Ox O2 Delivery O2 Flow Rate FiO2 06/04/17 09:23 100 Nasal Cannula 5.00 06/04/17 08:19 40 06/04/17 06:00 72 06/04/17 04:52 13 06/04/17 04:00 97.5 110/52 (71) Intake and Output 06/04/17 06/04/17 06/04/17 07:59 15:59 23:59 Output Total 0 ml Balance 0 ml Result Diagram: 06/04/17 0345 06/04/17 0345 Objective Remarks Gen: Intubated, lightly sedated. Head: Normal. Neck: Hard cervical collar. Lungs: Clear, no adventitious sounds. Strong cough, no stridor. Heart: NL S1S2, no JVD. Abdomen: Benign, soft. BS active. Extremities: Warm, well perfused. Neuro: Conversant. Moves 4 limbs. A/P Problem List: (1) Cervical myelopathy with cervical radiculopathy ICD Code: M47.12 - Other spondylosis with myelopathy, cervical region Status: Acute (2) END STAGE RENAL DISEASE Status: Chronic (3) Morbid obesity Status: Chronic (4) History of cardiac pacemaker ICD Code: Z95.0 - Presence of cardiac pacemaker Status: Chronic (5) History of tobacco abuse ICD Code: Z87.891 - History of tobacco use Status: Acute (6) HTN (hypertension) ICD Code: I10 - HTN (hypertension) Status: Chronic Assessment and Plan Plan: 1. PRVC ventilator mode. Start SBTs. Extubate. 2. Nebs prn. 3. NG tube to LIS, for meds. D/C if she passes swallow eval 6. Pepcid. 7. SCDs. Overall impression: Acceptable respiratory function after extubation. Airway clear. Problem Qualifiers (1) HTN (hypertension): Qualified Codes: I10 - Essential (primary) hypertension Ermias Iqbal MD Jun 04, 2017 10:02
--- NOTE | 2017-06-04 10:05 | RADRPT ---
EXAM DATE/TIME: 06/04/2017 10:38 [place] COMPARISON: CHEST SINGLE AP, June 02, 2017, 18:02. INDICATIONS : Leukocytosis. MEDICAL HISTORY : Carcinoma, gastric. Cerebrovascular disease. Hypertension. SURGICAL HISTORY : Appendectomy. Hysterectomy. ENCOUNTER: Initial ACUITY: 2 days PAIN SCORE: Non-responsive. LOCATION: Bilateral chest FINDINGS: The endotracheal tube has been removed. There is no pneumothorax. There is an NG tube in the stomach. There is a mild right perihilar infiltrate and some atelectasis in the left lung base. Otherwise the lung gomez remain clear. No definite pleural effusions. The heart size is stable. There is a pacema ker overlying the right chest. CONCLUSION: 1. Status post removal of the endotracheal tube. No pneumothorax. 2. Mild right perihilar infiltrate and left lower lung atelectasis. Cory Christian MD on June 04, 2017 at 10:03 Board Certified Radiologist. This report was verified electronically.
--- NOTE | 2017-06-04 10:56 | HHI.FPPN ---
Subjective Remarks Post-op day number 2 after anterior cervical discectomy with interbody fusion. She developed significant leukocytosis overnight. Hemoglobin dropped to 8.9 from 9.6. She received epoetin toi with dialysis yesterday. She is on a low dose of Diprivan. She is opening her eyes spontaneously and tracking. She answers questions with head nods. She has pain at the site of the surgical incision and is aggravated by the orotracheal tube. There is minimal output from the COREY drain. She has minimal oral secretions. She has a neck collar on. The plan this morning is to extubate. She is currently on CPAP with pressure support. NG tube in place. Blood pressures are improved from yesterday. She has no fevers. (Casey Bermudez MD R3) Objective Vitals Vital Signs Date Time Temp Pulse Resp B/P (MAP) Pulse Ox O2 Delivery O2 Flow Rate FiO2 06/04/17 09:23 100 Nasal Cannula 5.00 06/04/17 09:23 100 Nasal Cannula 5 06/04/17 08:19 100 40 06/04/17 07:00 100 Mechanical Ventilator 40 06/04/17 06:00 72 06/04/17 04:52 13 06/04/17 04:08 100 40 06/04/17 04:00 97.5 76 13 110/52 (71) 100 06/04/17 04:00 77 06/04/17 02:00 79 06/04/17 00:00 83 06/04/17 00:00 98.0 79 16 126/45 (72) 100 06/03/17 23:30 100 40 06/03/17 22:00 81 06/03/17 20:00 84 06/03/17 20:00 97.8 84 21 166/66 (99) 100 06/03/17 19:00 100 Mechanical Ventilator 40 06/03/17 18:07 40 06/03/17 18:06 81 06/03/17 17:35 40 06/03/17 16:00 97.8 77 12 125/52 (76) 100 06/03/17 16:00 76 06/03/17 15:38 100 40 06/03/17 14:00 79 06/03/17 12:03 99.9 74 12 122/50 (74) 100 06/03/17 12:02 74 06/03/17 11:17 100 40 10/18/17 11:00 76 113/48 I/O 06/03/17 06/03/17 06/03/17 06/04/17 06/04/17 06/04/17 07:00 15:00 23:00 07:00 15:00 23:00 Intake Total 120 ml Output Total 270 ml 2560 ml 0 ml Balance -150 ml -2560 ml 0 ml Other 120 ml Output Urine Total 0 ml 0 ml Gastric Drainage Total 250 ml 50 ml Drainage Total 20 ml 10 ml Hemodialysis 2500 ml # Bowel Movements 0 0 (Casey Bermudez MD R3) Result Diagram: 06/04/175 06/04/17 034 Imaging Last 72 hours Impressions Chest X-Ray 06/04/17 0000 Signed Impressions: Service Date/Time: May 10:38 - CONCLUSION: 1. Status post removal of the endotracheal tube. No pneumothorax. 2. Mild right perihilar infiltrate and left lower lung atelectasis. Cory Christian MD Chest X-Ray 06/02/17 0000 Signed Impressions: Service Date/Time: Friday, June 02, 2017 18:02 - CONCLUSION: No acute infiltrate or effusion. Endotracheal tube in good position. Tyler Cantor Jr., MD Cervical Spine X-Ray 06/02/17 0000 Signed Impressions: Service Date/Time: Friday, June 02, 2017 10:56 - CONCLUSION: Limited images as detailed above. Tyler Cantor Jr., MD Objective Remarks GENERAL: In bed, mechanically ventilated, uncomfortable from orotracheal tube, awake and alert, answering questions with head nods SKIN: No rashes or lesions, neck surgical site difficult to see fully but the visible part does not appear infected HEAD: Normocephalic. EYES: No scleral icterus. No injection or drainage. NECK: Has on neck collar, COREY drainage is minimal CARDIOVASCULAR: Regular rate and rhythm with 3/6 murmur heard best over mitral valve RESPIRATORY: Mechanically ventilated, CPAP/PSV with PSV of 12, PEEP 5, FiO2 40. GASTROINTESTINAL: Abdomen soft, non-tender, nondistended. Bowel sounds present. Has NG tube. MUSCULOSKELETAL: Extremities without edema. No calf tenderness. NEURO: Awake and alert, on Diprivan low dose currently Procedures anterior cervical discectomy with interbody fusion on 06/02/17. (Casey Bermudez MD R3) A/P Assessment and Plan 77-year-old -Citizen Of [place] female with end-stage renal disease on dialysis, hypertension, pacemaker dependent, coronary artery disease, chronic back pain, and stomach cancer in remission. Admitted for generalized weakness and paresthesias and relatively sudden loss of sensation in hands and left leg, found to have severe cervical stenosis. Underwent anterior cervical discectomy with interbody fusion on 06/02/17. Currently in ICU, intubated airway protection post-surgery, plan for extubation this morning on 06/04/17. Discharge Planning Received anterior cervical discectomy with interbody fusion on 06/02/17, anticipate discharge to a fpc facility or inpatient rehab. (Casey Bermudez MD R3) Attending Attestation Patient seen and examined. Case reviewed and discussed with the resident team. Agree with plan of care as discussed with me and documented in the resident note. she was extubated right before I saw her and was breathing well on her own (Theresa Stevens MD) Problem List: (1) Cervical spinal stenosis ICD Codes: M48.02 - Spinal stenosis, cervical region Status: Acute Plan: Multi-level degenerative changes including areas of significant canal stenosis at C3-C5. She has significant upper and lower extremity weakness and numbness/paresthesias. Anterior cervical discectomy with interbody fusion performed on 06/02/17. * Neurosurgery on board. * [place] 10/325 every 4 hours when necessary pain, morphine 4 mg for breakthrough pain * NSAIDs contraindicated given renal disease * Gabapentin 100 mg tid for paresthesias, low dose as she is in renal failure * Physical therapy and occupational therapy, will require rehab. * Swallow evaluation, discontinue NG tube if she passes. (2) Pneumonia ICD Codes: J18.9 - Pneumonia, unspecified organism Status: Acute Plan: Developed significant leukocytosis, no fevers, has been on mechanical ventilation. There is right perihilar infiltrate on x-ray along with left lower lung atelectasis. Possibly developing a ventilator associated pneumonia. - Will likely give vancomycin/Zosyn for empirical treatment. - Will consult pharmacy for vancomycin dosing given severe kidney disease. - Follow blood cultures. (3) End stage renal failure on dialysis ICD Codes: N18.6 - End stage renal failure on dialysis; Z99.2 - Dependence on renal dialysis Status: Chronic Plan: Patient has end-stage renal disease secondary to hypertension, on dialysis MWF. She is anuric. 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 Neosynephrine currently while in ICU. * Continue carvedilol 3.125 mg q12hrs, hold for low pressures * Continue home medication of amlodipine 5 mg by mouth daily, hold for low pressures * Clonidine 0.1 mg by mouth when necessary per protocol (6) Nutrition, metabolism, and development symptoms ICD Codes: R63.8 - Other symptoms and signs concerning food and fluid intake Plan: Fluids: PO fluids after extubation and swallow eval Diet: Renal diet Out of bed with assistance, work with physical therapy DD prophylaxis: Heparin 5000 units tid, held for surgery, bilateral SCD's CODE STATUS: Full code (Casey Bermudez MD R3) Problem Qualifiers (1) Pneumonia: (2) HLD (hyperlipidemia): Qualified Codes: E78.2 - Mixed hyperlipidemia (3) HTN (hypertension): Qualified Codes: I10 - Essential (primary) hypertension Casey Bermudez MD R3 Jun 04, 2017 10:56 Theresa Stevens MD Jun 05, 2017 12:11
[2017-06-04] MEDS ORDERED: VANCOMYCIN INJ 1,000 MG in SODIUM CHLOR 0.9% 250 ML INJ 250 ML IV ONE (13:00)
[2017-06-04] MEDS ORDERED: cefTRIAXone INJ 1,000 MG in SODIUM CHLORIDE 0.9% INJ 100 ML IV ONE (14:00)
--- NOTE | 2017-06-04 14:11 | HHI.NPPN ---
Subjective General Problems: Anemia Renal Failure: Chronic, End Stage Renal Disease Interval History She was extubated. Family at bedside. She is awake, nods yes/no to questions. Dialyzed yesterday, some bleeding from AV access per RN. (Theresa Gustafson) Review of Systems General Constitutional: Fatigue (Theresa Gustafson) Musculoskeletal MS: Pain/Stiffness MS Remarks neck pain post operatively (Theresa Gustafson) Objective Data Data Vital Signs Date Time Temp Pulse Resp B/P (MAP) Pulse Ox O2 Delivery O2 Flow Rate FiO2 06/04/17 10:00 82 06/04/17 09:23 100 Nasal Cannula 5.00 06/04/17 09:23 100 Nasal Cannula 5 06/04/17 08:19 100 40 06/04/17 08:00 98.3 75 10 138/48 (78) 100 06/04/17 08:00 75 06/04/17 07:00 100 Mechanical Ventilator 40 06/04/17 06:00 72 06/04/17 04:52 13 06/04/17 04:08 100 40 06/04/17 04:00 97.5 76 13 110/52 (71) 100 06/04/17 04:00 77 06/04/17 02:00 79 06/04/17 00:00 83 06/04/17 00:00 98.0 79 16 126/45 (72) 100 06/03/17 23:30 100 40 06/03/17 22:00 81 06/03/17 20:00 84 06/03/17 20:00 97.8 84 21 166/66 (99) 100 06/03/17 19:00 100 Mechanical Ventilator 40 06/03/17 18:07 40 06/03/17 18:06 81 06/03/17 17:35 40 06/03/17 16:00 97.8 77 12 125/52 (76) 100 06/03/17 16:00 76 06/03/17 15:38 100 40 (Theresa Gustafson) -: 06/04/17 0345 06/04/17 0345 Microbiology 06/04/17 Aerobic Blood Culture, Received Pending 06/04/17 Anaerobic Blood Culture, Received Pending 06/04/17 Aerobic Blood Culture, Received Pending 06/04/17 Anaerobic Blood Culture, Received Pending Tubes & Lines Comment COREY drain anterior neck Drip Comment neosynepherine (Theresa Gustafson) Physical Exam General Appearance: Well Developed, Well Nourished, No Acute Distress, Comfortable (Theresa Gustafson) Eyes Eye Exam: Pupils Equal (Theresa Gustafson) Throat Throat Exam: Oral Mucosa [place] & Moist (Theresa Gustafson) Neck Neck Exam: Trachea Midline Neck Remarks [place] J collar in place (Theresa Gustafson) Pulmonary Resp Exam: Clear Bilaterally, Breath Sounds Equal, No Distress (Theresa Gustafson) Cardiology CV Exam: Regular, Normal Sinus Rhythm, Good Perfusion (Theresa Gustafson) Gastrointestinal/Abdomen GI Exam: Soft, Non-Tender, Bowel Sounds Present (Theresa Gustafson) Musculoskeletal MS Exam: Joints Intact, Normal Gait, Normal Tone (Theresa Gustafson) Integumentary Skin Exam: Clear, Warm, Dry, Intact Skin Remarks right arm AV access, + thrill, bruit (Theresa Gustafson) Extremeties Extremities Exam: No Edema, Pedal Pulses Palpable Extremeties Remarks left leg and right arm weakness (Theresa Gustafson) Neurologic Neuro Exam: Alert, Awake, Oriented, Speech Clear, Moving All Extremities (Theresa Gustafson) Psychiatric Psych Exam: Appropriate Responses (Theresa Gustafson) Assessment/Plan Discussed Condition With: Patient, Spouse Assessment Summary: Anemia of CKD, Hypertension, End Stage Renal Disease Problem List: (1) ESRD (end stage renal disease) on dialysis ICD Codes: N18.6 - End stage renal disease; Z99.2 - Dependence on renal dialysis Status: Acute Plan: Continue HD support on MWF . She had 2500 ml UF yesterday Currently on blood pressure support , ween as tolerated She has access in right arm that functions well ; however some bleeding after dialysis. 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 (5) Anemia ICD Codes: D64.9 - Anemia, unspecified Status: Acute Plan: Epogen with HD Had EBL of 400 with surgery follow Hb (Theresa Gustafson) Plan patient was seen and examined. Agree with above assessment and plan. (Deshawn Baez MD) Problem Qualifiers (1) HTN (hypertension): Qualified Codes: I10 - Essential (primary) hypertension Theresa Gustafson Jun 04, 2017 14:11 Deshawn Baez MD Jun 04, 2017 20:45
[2017-06-04] MEDS ORDERED: Vancomycin Consult Pharmacy 1 EA OTHER SCH (14:45)
[2017-06-04] MEDS: MORPHINE SULFATE 4 MG/ML INJ IV PUSH PRN ×2 (14:49→18:00)
[2017-06-05] VITALS (16 sets, daily range): BP systolic 104–151; BP diastolic 40–65; PULSE 75–87; RESP 12–20; TEMP 97.6–98.8; O2SAT 93–100
[2017-06-05] MEDS: MORPHINE SULFATE 4 MG/ML INJ IV PUSH PRN ×2 (00:17→10:14)
[2017-06-05] MEDS: HEPARIN SODIUM - SQ 10,000 UNITS/ML VIAL SQ SCH ×4 (00:18→22:00)
[2017-06-05 04:26] LABS: HEMATOCRIT 21.9 % (35.0-46.0); MEAN CELL VOLUME 91.8 FL (80.0-100.0); MEAN CORPUSCULAR HEMOGLOBIN 31.9 PG (27.0-34.0); MEAN CORPUSCULAR HGB CONC 34.7 % (32.0-36.0); PLATELET COUNT 131 TH/MM3 (150-450); RED BLOOD COUNT 2.38 MIL/MM3 (4.00-5.30); REVIEW FLAG FINAL; WHITE BLOOD COUNT 17.5 TH/MM3 (4.0-11.0)
[2017-06-05 04:46] LABS: BICARBONATE 31.5 MEQ/L (21.0-32.0); POTASSIUM 4.5 MEQ/L (3.5-5.1)
[2017-06-05] MEDS: CHLORHEXIDINE 0.12% (ORAL KIT) 15 ML CUP MT SCH ×2 (08:00→20:00)
[2017-06-05] MEDS: PANTOPRAZOLE SOD 40 MG DELAYED RELEASE TAB PO SCH (09:00)
[2017-06-05] MEDS: amLODIPine BESYLATE 5 MG TAB PO SCH (09:00)
[2017-06-05] MEDS: CARVEDILOL 3.125 MG TAB PO SCH ×2 (09:00→20:34)
--- NOTE | 2017-06-05 09:01 | HHI.NSPN ---
(Kolby GreenIsabel KEATINGP) History Chief Complaint: Cough and sore throat. (Kolby GreenIsabel LJ) Interval History 05/28: This is a 77-year-old -[place] female who has an extensive medical history. She presented to the emergency department at [facility] on following a fall due to worsening numbness and weakness to the left lower extremity as well as both hands and the right toes. When she fell she did strike her head but denies any loss of consciousness. She states that the weakness became evident approximately two weeks ago when she was not able to get up and stand or turn herself in bed. She also is not able to hold things with her hands. She does endorse that she had the weakness prior to that but it only affected her ability to do things at that time. She is uncertain of how long she has had the numbness and weakness. She does not report any precipitating event two weeks ago when the numbness and weakness changed. She does report a history of falls that started in January of this year and she is falling more frequently. Prior to that the patient states she was able to ambulate without any difficulty. The numbness is to the digits of the right hand , from the left wrist to the fingertips, from just above the left knee down and to the toes of the right foot. She denies any saddle anaesthesia. She does endorse a history of chronic neck pain and chronic low back pain. 05/29: This morning the patient is seen in rounds with Dr. Quinteros. She is awake when seen and says she is doing fine. She states that the sensation is slightly better to the hands and feet. 05/30: Pt complains of neck pain. Pain radiates into the right anterior arm, forearm and then numbness in bilateral hands with incoordination. Denies pain radiating into the LUE but has numbness in the left hand and weakness bilateral UEs. 05/31: Pt states symptoms unchanged of neck pain radiating into the RUE with numbness in the hands bilaterally. She has weakness in the UEs and incoordination in her hands. 06/02: The patient went for a C3-4 and C4-5 ACDF. Post-operatively she remained intubated and was transferred to [facility] for further monitoring and management. 06/03: The patient has her eyes open this morning. She remains intubated and Nursing reports that her blood pressure has been labile during the night. She is scheduled to have dialysis today and the Health Data Administrator is hoping to extubate her at some point. She is on propofol for sedation. Nursing did report that the patient followed commands prior to the propofol being increased. 06/04: When seen this morning the patient is awake and Physical Therapy is at the bedside working with the patient. She points to her mid chest and when asked a series of questions nods yes that the endotracheal tube is bothering her. She is on CPAP when seen. 06/05: The patient is awake this morning. She was extubated yesterday. She does have a sore throat and cough secondary to the endotracheal tube. She denies any pain to the back of the neck or the surgical site. (Kolby Green) System Review Comments Patient complains of a sore throat, denies any neck pain. (Kolby Green) Exam Results 06/03/17 06/03/17 06/04/17 06/04/17 06/05/17 06/05/17 06:00 18:00 06:00 18:00 06:00 18:00 Intake Total 120 ml 100 ml 139 ml Output Total 270 ml 2500 ml 60 ml 115 ml Balance -150 ml -2500 ml -60 ml 100 ml 24 ml IV Total 100 ml 79 ml Other 120 ml 60 ml Output Urine Total 0 ml 0 ml 0 ml Gastric Drainage Total 250 ml 50 ml 100 ml Drainage Total 20 ml 10 ml 15 ml Hemodialysis 2500 ml # Bowel Movements 0 0 0 Vital Signs Date Time Temp Pulse Resp B/P (MAP) Pulse Ox O2 Delivery O2 Flow Rate FiO2 06/05/17 08:25 98.8 83 15 131/47 (75) 100 06/05/17 08:25 78 06/05/17 07:00 100 Nasal Cannula 2.00 06/05/17 06:00 82 06/05/17 04:00 78 06/05/17 04:00 98.3 78 14 104/44 (64) 100 06/05/17 02:00 80 06/05/17 01:00 100 Nasal Cannula 2.00 06/05/17 00:00 98.3 86 20 128/40 (69) 100 06/04/17 21:21 100 Nasal Cannula 2.00 06/04/17 20:00 98.3 87 20 120/52 (74) 100 06/04/17 18:20 15 06/04/17 18:00 82 06/04/17 16:00 91 06/04/17 16:00 98.8 89 17 112/43 (66) 100 06/04/17 14:00 85 06/04/17 12:00 98.3 75 10 138/48 (78) 100 06/04/17 10:00 82 06/04/17 09:23 100 Nasal Cannula 5.00 06/04/17 09:23 100 Nasal Cannula 5 06/04/17 08:19 100 40 06/04/17 08:00 98.3 75 10 138/48 (78) 100 06/04/17 08:00 75 06/04/17 07:00 100 Mechanical Ventilator 40 06/04/17 06:00 72 06/04/17 04:52 13 06/04/17 04:08 100 40 06/04/17 04:00 97.5 76 13 110/52 (71) 100 06/04/17 04:00 77 06/04/17 02:00 79 06/04/17 00:00 83 06/04/17 00:00 98.0 79 16 126/45 (72) 100 06/03/17 23:30 100 40 06/03/17 22:00 81 06/03/17 20:00 84 06/03/17 20:00 97.8 84 21 166/66 (99) 100 06/03/17 19:00 100 Mechanical Ventilator 40 06/03/17 18:07 40 06/03/17 18:06 81 06/03/17 17:35 40 06/03/17 16:00 97.8 77 12 125/52 (76) 100 06/03/17 16:00 76 06/03/17 15:38 100 40 06/03/17 14:00 79 06/03/17 12:03 99.9 74 12 122/50 (74) 100 06/03/17 12:02 74 06/03/17 11:17 100 40 06/03/17 11:00 76 113/48 06/03/17 10:00 79 06/03/17 08:00 99.2 79 12 107/53 (71) 100 06/03/17 08:00 78 06/03/17 07:29 100 40 06/03/17 07:00 100 Mechanical Ventilator 40 06/03/17 06:00 75 06/03/17 04:00 98.7 79 10 103/49 (67) 100 06/03/17 04:00 79 06/03/17 03:56 100 40 06/03/17 02:00 60 06/03/17 00:00 97.8 60 10 117/55 (75) 100 06/03/17 00:00 60 06/02/17 23:36 100 40 06/02/17 22:34 10 06/02/17 22:00 60 06/02/17 20:47 100 40 06/02/17 20:00 60 06/02/17 20:00 94.5 60 10 109/50 (69) 100 06/02/17 19:00 100 Mechanical Ventilator 40 06/02/17 18:00 69 06/02/17 18:00 97.2 72 17 142/65 (90) 100 06/02/17 16:45 100 40 06/02/17 16:30 70 14 121/60 (80) 100 Mechanical Ventilator 40 112/51 (71) 06/02/17 16:15 97.5 68 14 113/58 (76) 100 Mechanical Ventilator 40 110/49 (69) 06/02/17 16:00 66 14 110/59 (76) 100 Mechanical Ventilator 40 104/48 (66) 06/02/17 15:45 64 14 101/55 (70) 100 Mechanical Ventilator 40 108/52 (70) 06/02/17 15:40 40 06/02/17 15:40 100 40 06/02/17 15:30 69 14 90/57 (68) 100 Mechanical Ventilator 40 95/45 (62) 06/02/17 15:15 70 14 103/59 (74) 100 Mechanical Ventilator 40 84/55 (65) 06/02/17 15:05 79 78/41 06/02/17 15:00 79 14 92/53 (66) 100 Mechanical Ventilator 40 78/41 (53) 06/02/17 14:45 78 14 100/56 (71) 100 Mechanical Ventilator 40 90/42 (58) 06/02/17 14:35 100 40 06/02/17 14:35 40 06/02/17 14:34 97.5 80 14 105/88 (94) 100 Mechanical Ventilator 40 91/40 (57) (Kolby Green) Physical Examination GENERAL: The patient is awake but drowsy. She is extubated. Her affect is flat. She is not in any apparent distress. SKIN: Warm, dry & intact, intact dressing to left anterior neck surgical incision, no evident rashes, ulcerations or other lesions. HEENT: Normocephalic, atraumatic. PERRLA 3 mm brisk, EOMI. NECK: Cherry J cervical collar is in place, midline cervical spine NTTP, dressing intact to left anterior neck surgical site NTTP, no JVD, trachea midline. CARDIOVASCULAR: S1S2 w/RRR w/grade III/ systolic murmur, radial & pedal pulses 2+ bilaterally, cap refill < 2 sec. Monitor shows atrial spikes w/P wave noted. She has a phenylephrine drip infusing at 20 mcg/min for blood pressure support. RESPIRATORY: CTAB w/o W/R/R, equal excursion, nonlaboured, on NC. GASTROINTESTINAL: Abdomen obese, soft, nontender, positive bowel sounds. MUSCULOSKELETAL: No evident deformity or clubbing. NEUROLOGICAL: Awake but drowsy, readily interacts, GCS 15 (E4 V5 M6). Eyes open spontaneously, PERRLA 3 mm brisk. Speech gravely but appropriate, limited to a few words due to sore throat. Follows simple commands w/o difficulty. Weak night auditor with both hands, moves feet to command. Decreased sensation to left lower extremity. (Kolby Green) Lab, Micro, Other Results Recent Impressions Chest X-Ray 06/04/17 0000 Signed Impressions: Service Date/Time: May 10:38 - CONCLUSION: 1. Status post removal of the endotracheal tube. No pneumothorax. 2. Mild right perihilar infiltrate and left lower lung atelectasis. Cory Christian MD Laboratory Tests Test 06/02/17 13:50 06/02/17 15:21 06/02/17 15:50 06/02/17 21:25 Hemoglobin 10.0 GM/DL Hematocrit 28.0 % Blood Gas Puncture Site ART LINE Blood Gas Patient Temperature 98.6 Blood Gas HCO3 25 mmol/L Blood Gas Base Excess 2.4 mmol/L Blood Gas Oxygen Saturation 98 % Arterial Blood pH 7.57 Arterial Blood Partial Pressure CO2 27 mmHg Arterial Blood Partial Pressure O2 227 mmHg Arterial Blood Oxygen Content 14.9 Vol % Arterial Blood Carboxyhemoglobin 1.2 % Arterial Blood Methemoglobin 1.1 % Blood Gas Hemoglobin 10.5 G/DL Oxygen Delivery Device VENTILATOR Blood Gas Ventilator Setting IMV/SIMV Blood Gas Inspired Oxygen 40 % Blood Urea Nitrogen 38 MG/DL Creatinine 7.03 MG/DL Random Glucose 101 MG/DL Calcium Level 8.1 MG/DL Phosphorus Level 2.7 MG/DL Sodium Level 134 MEQ/L Potassium Level 4.5 MEQ/L Chloride Level 98 MEQ/L Carbon Dioxide Level 26.2 MEQ/L Anion Gap 10 MEQ/L Estimat Glomerular Filtration Rate 7 ML/MIN Prothrombin Time 11.0 SEC Prothromb Time International Ratio 1.0 RATIO Activated Partial Thromboplast Time 29.6 SEC Test 06/03/17 05:00 06/04/17 03:45 06/05/17 03:45 White Blood Count 14.6 TH/MM3 22.4 TH/MM3 17.5 TH/MM3 Red Blood Count 2.93 MIL/MM3 2.79 MIL/MM3 2.38 MIL/MM3 Hemoglobin 9.6 GM/DL 8.9 GM/DL 7.6 GM/DL Hematocrit 26.8 % 25.6 % 21.9 % Mean Corpuscular Volume 91.4 FL 91.7 FL 91.8 FL Mean Corpuscular Hemoglobin 32.7 PG 32.1 PG 31.9 PG Mean Corpuscular Hemoglobin Concent 35.8 % 35.0 % 34.7 % Red Cell Distribution Width 14.6 % 14.7 % 14.0 % Platelet Count 153 TH/MM3 134 TH/MM3 131 TH/MM3 Mean Platelet Volume 8.8 FL 8.9 FL 9.0 FL Neutrophils (%) (Auto) 78.9 % Lymphocytes (%) (Auto) 8.5 % Monocytes (%) (Auto) 11.8 % Eosinophils (%) (Auto) 0.5 % Basophils (%) (Auto) 0.3 % Neutrophils # (Auto) 11.5 TH/MM3 Lymphocytes # (Auto) 1.2 TH/MM3 Monocytes # (Auto) 1.7 TH/MM3 Eosinophils # (Auto) 0.1 TH/MM3 Basophils # (Auto) 0.0 TH/MM3 CBC Comment DIFF FINAL AUTO DIFF Differential Comment FINAL DIFF MANUAL Blood Urea Nitrogen 47 MG/DL 29 MG/DL 45 MG/DL Creatinine 7.86 MG/DL 5.84 MG/DL 7.59 MG/DL Random Glucose 103 MG/DL 128 MG/DL 84 MG/DL Calcium Level 8.1 MG/DL 8.6 MG/DL 8.2 MG/DL Sodium Level 134 MEQ/L 136 MEQ/L 135 MEQ/L Potassium Level 5.4 MEQ/L 4.5 MEQ/L 4.5 MEQ/L Chloride Level 97 MEQ/L 95 MEQ/L 93 MEQ/L Carbon Dioxide Level 26.4 MEQ/L 31.2 MEQ/L 31.5 MEQ/L Anion Gap 11 MEQ/L 10 MEQ/L 11 MEQ/L Estimat Glomerular Filtration Rate 6 ML/MIN 8 ML/MIN 6 ML/MIN Differential Total Cells Counted 100 Neutrophils % (Manual) 87 % Band Neutrophils % 3 % Lymphocytes % 1 % Monocytes % 8 % Neutrophils # (Manual) 20.4 TH/MM3 Metamyelocytes 1 % Toxic Vacuolation PRESENT Platelet Estimate LOW Platelet Morphology Comment NORMAL Target Cells 1+ Albumin 2.8 GM/DL 2.7 GM/DL Phosphorus Level 4.8 MG/DL 5.4 MG/DL Random Vancomycin Level 12.7 COMMENT (Kolby Green) Medical Decision Making Impression and Plan Impression: Significant cervical canal stenosis C3-4 & C4-5 Numbness & weakness/loss of coordination to both hands Numbness & weakness to left lower extremity History of chronic neck pain History of chronic back pain Post-operative diagnoses: (1) Cervical spinal stenosis (2) Cervical myelopathy with cervical radiculopathy Severe cervical stenosis C3-4-5 Cervical myelopathy The patient is awake but drowsy, following commands. Improved blood pressure control but remains on vasopressor. Some improvement in leukocytosis. Mild right perihilar infiltrate on CXR. Very mild hyponatremia. POD #3 () s/p: C3-4 and C4-5 anterior cervical discectomy, interbody fusion, allograft bone C3-5 anterior cervical instrumentation Plan: Critical care management per Health Data Administrator. Dialysis per Nephrology. Frequent neuro checks & vital signs. D/C COREY drain today. (Kolby Green) Attending Statement I have personally seen and examined the patient on the date of this note. Pertinent documentation and study results have been reviewed by the undersigned. I have personally developed the treatment plan and performed medical decision making. Agree with findings, exam, and treatment plan as noted above. Incision site is healing well Drain discontinued today Remains with mostly 3/5 strength in the upper extremities with 2-3/5 strength in the lower extremities. Discussed with the patient and her family today. Probable mild pneumonia. Antibiotics per medicine service Continue to mobilize out of bed with therapy She will need inpatient rehabilitation/senior care (Doug Quinteros MD) Kolby Green Jun 05, 2017 09:01 Doug Quinteros MD Jun 05, 2017 09:57
[2017-06-05] MEDS ORDERED: SODIUM CHLOR 0.9% 250 ML INJ 250 ML IV ONE (09:30)
[2017-06-05] MEDS ORDERED: FUROSEMIDE 20 MG/2 ML VIAL IV PUSH ONE (09:30)
[2017-06-05] MEDS: guaiFENesin E.R. 600 MG TAB PO SCH ×2 (09:45→20:34)
[2017-06-05] MEDS: CINACALCET HYDROCHLORIDE 30 MG TAB PO SCH (10:14)
[2017-06-05] MEDS: DOCUSATE SODIUM 50 MG/SENNA 8.6 MG TAB PO SCH ×2 (10:14→20:34)
[2017-06-05] MEDS: VITAMIN B CMPLX/VITC/FOLIC AC CAP PO SCH (10:15)
[2017-06-05] MEDS: CALCIUM ACETATE 667 MG CAP PO SCH ×3 (10:15→16:37)
[2017-06-05] MEDS: SODIUM CHLORIDE 0.9% FLUSH 10 ML FLUSH IV FLUSH SCH ×2 (10:16→20:33)
--- NOTE | 2017-06-05 10:36 | HHI.NPPN ---
Subjective General Problems: Anemia Renal Failure: Chronic, End Stage Renal Disease Interval History She is awake, having throat pain but able to speak. On low dose Neosynerpherine. Due today for dialysis. Worsening anemia. (Theresa Gustafson) Review of Systems General Constitutional: Fatigue (Theresa Gustafson) Ears, Nose, & Throat Ears, Nose & Throat: Sore Throat (Theresa Gustafson) Musculoskeletal MS: Pain/Stiffness MS Remarks neck pain post operatively (Theresa Gustafson) Objective Data Data Vital Signs Date Time Temp Pulse Resp B/P (MAP) Pulse Ox O2 Delivery O2 Flow Rate FiO2 06/05/17 10:29 12 06/05/17 09:26 100 Nasal Cannula 2.00 06/05/17 08:25 98.8 83 15 131/47 (75) 100 06/05/17 08:25 78 06/05/17 07:00 100 Nasal Cannula 2.00 06/05/17 06:00 82 06/05/17 04:00 78 06/05/17 04:00 98.3 78 14 104/44 (64) 100 06/05/17 02:00 80 06/05/17 01:00 100 Nasal Cannula 2.00 06/05/17 00:00 98.3 86 20 128/40 (69) 100 06/04/17 21:21 100 Nasal Cannula 2.00 06/04/17 20:00 98.3 87 20 120/52 (74) 100 06/04/17 18:00 82 06/04/17 16:00 91 06/04/17 16:00 98.8 89 17 112/43 (66) 100 06/04/17 14:00 85 06/04/17 12:00 98.3 75 10 138/48 (78) 100 (Theresa Gustafson) -: 06/05/17 0345 06/05/17 0345 Microbiology 06/04/17 Aerobic Blood Culture, Received Pending 06/04/17 Anaerobic Blood Culture, Received Pending 06/04/17 Aerobic Blood Culture, Received Pending 06/04/17 Anaerobic Blood Culture, Received Pending Imaging Last 72 hours Impressions Chest X-Ray 06/04/17 0000 Signed Impressions: Service Date/Time: May 10:38 - CONCLUSION: 1. Status post removal of the endotracheal tube. No pneumothorax. 2. Mild right perihilar infiltrate and left lower lung atelectasis. Cory Christian MD Tubes & Lines Comment COREY drain anterior neck Drip Comment neosynepherine (Theresa Gustafson. SYSTEMS INTEGRATOR) Physical Exam General Appearance: Well Developed, Well Nourished, No Acute Distress, Comfortable (Theresa Gustafson B. SYSTEMS INTEGRATOR) Eyes Eye Exam: Pupils Equal (Theresa Gustafson B. SYSTEMS INTEGRATOR) Throat Throat Exam: Oral Mucosa [place] & Moist (Theresa Gustafson B. SYSTEMS INTEGRATOR) Neck Neck Exam: Trachea Midline Neck Remarks [place] J collar in place (Theresa Gustasfon B. SYSTEMS INTEGRATOR) Pulmonary Resp Exam: Clear Bilaterally, Breath Sounds Equal, No Distress (Theresa Gustafson B. SYSTEMS INTEGRATOR) Cardiology CV Exam: Regular, Normal Sinus Rhythm, Good Perfusion (Theresa Gustafson B. SYSTEMS INTEGRATOR) Gastrointestinal/Abdomen GI Exam: Soft, Non-Tender, Bowel Sounds Present (Theresa Gustafson B. SYSTEMS INTEGRATOR) Musculoskeletal MS Exam: Joints Intact, Normal Gait, Normal Tone (Theresa Gustafson B. SYSTEMS INTEGRATOR) Integumentary Skin Exam: Clear, Warm, Dry, Intact Skin Remarks right arm AV access, + thrill, bruit (Theresa Gustafson B. SYSTEMS INTEGRATOR) Extremeties Extremities Exam: No Edema, Pedal Pulses Palpable Extremeties Remarks left leg and right arm weakness (Theresa Gustafson B. SYSTEMS INTEGRATOR) Neurologic Neuro Exam: Alert, Awake, Oriented, Speech Clear, Moving All Extremities (Theresa Gustafson B. SYSTEMS INTEGRATOR) Psychiatric Psych Exam: Appropriate Responses (Theresa Gustafson B. SYSTEMS INTEGRATOR) Assessment/Plan Discussed Condition With: Patient, Spouse Assessment Summary: Anemia of CKD, Hypertension, End Stage Renal Disease Problem List: (1) ESRD (end stage renal disease) on dialysis ICD Codes: N18.6 - End stage renal disease; Z99.2 - Dependence on renal dialysis Status: Acute Plan: Continue HD support on MWF . She is due today Currently on blood pressure support , ween as tolerated She has access in right arm that functions well ; however some bleeding after dialysis Wed. Heparin was held, monitor for recurrence Avoid IVF, gadolinium is contraindicated She is anuric at baseline, stop Lasix Obtain intermittent renal panel She failed swallow. To have tube feeding started. Continue Calcium acetate when feeding is started (2) Left leg weakness ICD Codes: R29.898 - Other symptoms and signs involving the musculoskeletal system Status: Acute Plan: Progressive, neurosurgery is following s/p C-Spine fusion 06/02 monitor neurological and neurovascular status postoperatively possibly to have COREY drain removed today (3) HTN (hypertension) ICD Codes: I10 - HTN (hypertension) Status: Chronic Plan: labile BP today currently on phenylephrine, ween as tolerated follow blood pressure (4) Metabolic bone disease ICD Codes: E88.9 - Metabolic disorder, unspecified; M90.80 - Osteopathy in diseases classified elsewhere, unspecified site Plan: resume Calcium Acetate when oral intake is resumed continue Sensipar Phosphorus level is mildly elevated (5) Anemia ICD Codes: D64.9 - Anemia, unspecified Status: Acute Plan: Epogen with HD Due for transfusion today with dialysis follow Hb (Theresa Gustafson) Problem List: (1) ESRD (end stage renal disease) on dialysis ICD Codes: N18.6 - End stage renal disease; Z99.2 - Dependence on renal dialysis Status: Acute Plan: Continue HD support on MWF . She is due today Currently on blood pressure support , ween as tolerated She has access in right arm that functions well ; however some bleeding after dialysis Wed. Heparin was held, monitor for recurrence Avoid IVF, gadolinium is contraindicated She is anuric at baseline, stop Lasix Obtain intermittent renal panel She failed swallow. To have tube feeding started. Continue Calcium acetate when feeding is started (2) Left leg weakness ICD Codes: R29.898 - Other symptoms and signs involving the musculoskeletal system Status: Acute Plan: Progressive, neurosurgery is following s/p C-Spine fusion 06/02 monitor neurological and neurovascular status postoperatively possibly to have COREY drain removed today (3) HTN (hypertension) ICD Codes: I10 - HTN (hypertension) Status: Chronic Plan: labile BP today currently on phenylephrine, ween as tolerated follow blood pressure (4) Metabolic bone disease ICD Codes: E88.9 - Metabolic disorder, unspecified; M90.80 - Osteopathy in diseases classified elsewhere, unspecified site Plan: resume Calcium Acetate when oral intake is resumed continue Sensipar Phosphorus level is mildly elevated (5) Anemia ICD Codes: D64.9 - Anemia, unspecified Status: Acute Plan: Epogen with HD Due for transfusion today with dialysis follow Hb Plan patient was seen and examined. Agree with above assessment and plan. (Deshawn Baez MD) Problem Qualifiers (1) HTN (hypertension): Qualified Codes: I10 - Essential (primary) hypertension Theresa Gustafson SYSTEMS INTEGRATOR Jun 05, 2017 10:36 Deshawn Baez MD Jun 05, 2017 14:38
--- NOTE | 2017-06-05 11:52 | HHI.FPPN ---
Subjective Remarks POD # 3. No acute events overnight. Patient is now extubated. She has no respiratory distress. She has significant amounts of oral secretions that are being suctioned regularly. She continues to wear the neck brace. She has the NG tube with plan for swallow evaluation today, hopefully will pull NG tube today. Her hemoglobin is 7.6, and given her heart murmur and other comorbidities, will transfuse one unit with dialysis today. She has pain located around her neck. No drainage from her incision site. The COREY drainage is minimal. Her blood pressures are on the low side and she is requiring continued norsynephrine for blood pressure support. She remains afebrile and white count is trending back down. Nurse reports minimal coughing. (Casey Bermudez MD R3) Objective Vitals Vital Signs Date Time Temp Pulse Resp B/P (MAP) Pulse Ox O2 Delivery O2 Flow Rate FiO2 06/05/17 10:29 12 06/05/17 09:26 100 Nasal Cannula 2.00 06/05/17 08:25 98.8 83 15 131/47 (75) 100 06/05/17 08:25 78 06/05/17 07:00 100 Nasal Cannula 2.00 06/05/17 06:00 82 06/05/17 04:00 78 06/05/17 04:00 98.3 78 14 104/44 (64) 100 06/05/17 02:00 80 06/05/17 01:00 100 Nasal Cannula 2.00 06/05/17 00:00 98.3 86 20 128/40 (69) 100 06/04/17 21:21 100 Nasal Cannula 2.00 06/04/17 20:00 98.3 87 20 120/52 (74) 100 06/04/17 18:00 82 06/04/17 16:00 91 06/04/17 16:00 98.8 89 17 112/43 (66) 100 06/04/17 14:00 85 06/04/17 12:00 98.3 75 10 138/48 (78) 100 I/O 06/04/17 06/04/17 06/04/17 06/05/17 06/05/17 06/05/17 07:00 15:00 23:00 07:00 15:00 23:00 Intake Total 160 ml 79 ml Output Total 0 ml 115 ml 0 ml Balance 0 ml 45 ml 79 ml IV Total 100 ml 79 ml Other 60 ml Output Urine Total 0 ml 0 ml Gastric Drainage Total 100 ml Drainage Total 15 ml # Bowel Movements 0 0 (Casey Bermudez MD R3) Result Diagram: 06/05/17 0345 06/05/17 0345 Imaging Last 72 hours Impressions Chest X-Ray 06/04/17 0000 Signed Impressions: Service Date/Time: May 10:38 - CONCLUSION: 1. Status post removal of the endotracheal tube. No pneumothorax. 2. Mild right perihilar infiltrate and left lower lung atelectasis. Cory Christian MD Objective Remarks GENERAL: In bed, now extubated, wearing neck brace, has obvious pain around her neck, awake and talking to us, lots of oral secretions SKIN: No rashes or lesions, neck surgical site difficult to see fully but the visible part does not appear infected and no drainage HEAD: Normocephalic. EYES: No scleral icterus. No injection or drainage. NECK: Has on neck collar, COREY drainage is minimal CARDIOVASCULAR: Regular rate and rhythm with 3/6 murmur heard best over mitral valve, requiring norsynephrine RESPIRATORY: No respiratory distress, minimal coughing, lots of oral secretions. GASTROINTESTINAL: Abdomen soft, non-tender, nondistended. Bowel sounds present. Has NG tube. MUSCULOSKELETAL: Extremities without edema. No calf tenderness. NEURO: Awake and alert Procedures anterior cervical discectomy with interbody fusion on 06/02/17. (Casey Bermudez MD R3) A/P Assessment and Plan 77-year-old -[place] female with end-stage renal disease on dialysis, hypertension, pacemaker dependent, coronary artery disease, chronic back pain, and stomach cancer in remission. Admitted for generalized weakness and paresthesias and relatively sudden loss of sensation in hands and left leg, found to have severe cervical stenosis. Underwent anterior cervical discectomy with interbody fusion on 06/02/17. Currently in ICU due to requirement for pressors, extubated on 06/04/17. Discharge Planning Received anterior cervical discectomy with interbody fusion on 06/02/17, anticipate discharge to a long term facility or inpatient rehab. (Casey Bermudez MD R3) Attending Attestation Patient seen and examined. Case reviewed and discussed with the resident team. Agree with plan of care as discussed with me and documented in the resident note. agree with holding abx for now. she has had no fevers. sputum culture ordered. once she has her NG pulled she should be able to drink and eat (Theresa Stevens MD) Problem List: (1) Anemia due to blood loss ICD Codes: D50.0 - Iron deficiency anemia secondary to blood loss (chronic) Status: Acute Plan: Acute anemia likely due to blood loss from surgery, also with anemia of chronic disease. Baseline hemoglobin in the 10's, now down to 7.6. - Transfuse 1 unit with dialysis given significant heart murmur and other comorbidities. - Check post-transfusion H&H - Check Hemoccult to rule out GI bleed - Holding heparin currently (2) Cervical spinal stenosis ICD Codes: M48.02 - Spinal stenosis, cervical region Status: Acute Plan: Multi-level degenerative changes including areas of significant canal stenosis at C3-C5. She has significant upper and lower extremity weakness and numbness/paresthesias. Anterior cervical discectomy with interbody fusion performed on 06/02/17. * Neurosurgery on board. * [place] 10/325 every 4 hours when necessary pain, morphine 4 mg for breakthrough pain * NSAIDs contraindicated given renal disease * Gabapentin 100 mg tid for paresthesias, low dose as she is in renal failure * Physical therapy and occupational therapy, will require rehab. * Swallow evaluation, discontinue NG tube if she passes. (3) Pneumonia ICD Codes: J18.9 - Pneumonia, unspecified organism Status: Acute Plan: Developed significant leukocytosis, no fevers, has been on mechanical ventilation. There is right perihilar infiltrate on x-ray along with left lower lung atelectasis. Possibly developing a pneumonia.l - Received one time treatment with vancomycin and ceftriaxone on 06/04/17 empirically, will withhold further treatment unless cultures positive or she becomes febrile or worsens clinically. - Follow blood and sputum cultures. (4) End stage renal failure on dialysis ICD Codes: N18.6 - End stage renal failure on dialysis; Z99.2 - Dependence on renal dialysis Status: Chronic Plan: Patient has end-stage renal disease secondary to hypertension, on dialysis MWF. She is anuric. 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 Neosynephrine currently while in ICU. * Continue carvedilol 3.125 mg q12hrs, hold for low pressures * Continue home medication of amlodipine 5 mg by mouth daily, hold for low pressures * Clonidine 0.1 mg by mouth when necessary per protocol * Requiring norsynephrine currently for low blood pressures (7) Nutrition, metabolism, and development symptoms ICD Codes: R63.8 - Other symptoms and signs concerning food and fluid intake Plan: Fluids: PO fluids after extubation and swallow eval Diet: Renal diet Out of bed with assistance, work with physical therapy DD prophylaxis: Heparin 5000 units tid, held for surgery and significant bleeding with dialysis and acute blood loss anemia, bilateral SCD's in place CODE STATUS: Full code (Casey Bermudez MD R3) Problem Qualifiers (1) Pneumonia: (2) HLD (hyperlipidemia): Qualified Codes: E78.2 - Mixed hyperlipidemia (3) HTN (hypertension): Qualified Codes: I10 - Essential (primary) hypertension Casey Bermudez MD R3 Jun 05, 2017 11:52 Theresa Stevens MD Jun 05, 2017 12:15
[2017-06-05] MEDS ORDERED: VANCOMYCIN 1,000 MG/NS 250 ML IV ONE ×2 (13:00)
[2017-06-05] MEDS: MIDODRINE 5 MG TAB NG SCH ×2 (13:00→16:36)
[2017-06-05] MEDS: PHENYLEPHRINE INJ 80 MG in DEXTROSE 5% IN WATE 500 ML INJ 492 ML IV PRN ×2 (13:53)
[2017-06-05] MEDS: ALBUMIN 25% INJ 100 ML IV PRN (14:05)
[2017-06-05] MEDS: EPOETIN ALFA 10,000 UNITS/ML VIAL IV PUSH PRN (14:05)
[2017-06-05] MEDS: GELATIN 12 MM/7 MM FOAM TOP PRN (14:05)
[2017-06-05] MEDS ORDERED: cefTRIAXone INJ 1,000 MG in SODIUM CHLORIDE 0.9% INJ 100 ML IV SCH (15:00)
[2017-06-05 19:08] LABS: HEMATOCRIT 26.5 % (35.0-46.0); REVIEW FLAG FINAL
[2017-06-05] MEDS: ACETAMINOPHEN/HYDROcodone 325 MG/10 MG TAB PO PRN (22:13)
[2017-06-06] VITALS (14 sets, daily range): BP systolic 90–141; BP diastolic 36–63; PULSE 67–78; RESP 8–20; TEMP 98.1–99.1; O2SAT 100
[2017-06-06] MEDS: PHENYLEPHRINE INJ 80 MG in DEXTROSE 5% IN WATE 500 ML INJ 492 ML IV PRN ×2 (00:50)
[2017-06-06] MEDS: HEPARIN SODIUM - SQ 10,000 UNITS/ML VIAL SQ SCH ×3 (05:22→22:24)
[2017-06-06 06:12] LABS: HEMATOCRIT 25.6 % (35.0-46.0); MEAN CELL VOLUME 91.6 FL (80.0-100.0); MEAN CORPUSCULAR HGB CONC 34.9 % (32.0-36.0); PLATELET COUNT 155 TH/MM3 (150-450); RED CELL DISTRIBUTION WIDTH 14.6 % (11.6-17.2); REVIEW FLAG FINAL; WHITE BLOOD COUNT 12.7 TH/MM3 (4.0-11.0)
[2017-06-06 07:01] LABS: POTASSIUM 4.5 MEQ/L (3.5-5.1)
[2017-06-06] MEDS: CINACALCET HYDROCHLORIDE 30 MG TAB PO SCH (07:56)
[2017-06-06] MEDS: SODIUM CHLORIDE 0.9% FLUSH 10 ML FLUSH IV FLUSH SCH ×2 (07:56→20:10)
[2017-06-06] MEDS: VITAMIN B CMPLX/VITC/FOLIC AC CAP PO SCH (07:56)
[2017-06-06] MEDS: CHLORHEXIDINE 0.12% (ORAL KIT) 15 ML CUP MT SCH ×2 (07:56→20:00)
[2017-06-06] MEDS: amLODIPine BESYLATE 5 MG TAB PO SCH (07:57)
[2017-06-06] MEDS: DOCUSATE SODIUM 50 MG/SENNA 8.6 MG TAB PO SCH ×2 (07:57→20:09)
[2017-06-06] MEDS: PANTOPRAZOLE SOD 40 MG DELAYED RELEASE TAB PO SCH (07:57)
[2017-06-06] MEDS: CALCIUM ACETATE 667 MG CAP PO SCH ×3 (07:57→16:32)
[2017-06-06] MEDS: guaiFENesin E.R. 600 MG TAB PO SCH ×2 (07:58→20:10)
[2017-06-06] MEDS: CARVEDILOL 3.125 MG TAB PO SCH ×3 (07:58→20:27)
[2017-06-06] MEDS: MIDODRINE 5 MG TAB NG SCH ×3 (07:59→16:32)
[2017-06-06] MEDS: LACTULOSE SYRUP 20 GM/30 ML CUP PO PRN (08:00)
--- NOTE | 2017-06-06 08:52 | HHI.FPPN ---
Subjective Remarks No acute events overnight. Continuing to have some labile blood pressures. Currently on 10 of Norsynephrine. Remains extubated. Continuing to have oral secretions, requiring suctioning. She failed her swallow study, now with tube feedings with Nepro at 35 mls/hr. Tolerating tube feedings. Neck brace remains in place. COREY drain pulled. Hemoglobin stable after 1 unit of blood transfusion with dialysis yesterday. He episode of intradialytic hypotension that quickly resolved. Continuing to have pain around the neck but improving. (Casey Bermudez MD R3) Objective Vitals Vital Signs Date Time Temp Pulse Resp B/P (MAP) Pulse Ox O2 Delivery O2 Flow Rate FiO2 06/06/17 08:00 78 06/06/17 08:00 99.0 75 13 122/46 (71) 100 06/06/17 07:37 100 Nasal Cannula 2.00 06/06/17 07:00 100 Nasal Cannula 2.00 21 06/06/17 06:00 74 06/06/17 05:25 142/58 06/06/17 04:00 98.5 68 8 92/45 (61) 100 104/40 (61) 06/06/17 04:00 68 06/06/17 02:00 72 06/06/17 01:50 130/58 06/06/17 00:50 74 84/36 06/06/17 00:00 76 06/06/17 00:00 98.3 76 13 91/63 (72) 90/36 (54) 06/05/17 22:00 87 06/05/17 20:40 100 Nasal Cannula 2.00 06/05/17 20:00 86 06/05/17 20:00 98.4 86 14 125/59 (81) 100 126/42 (70) 06/05/17 19:00 100 Nasal Cannula 2.00 06/05/17 18:00 82 06/05/17 16:00 97.6 82 12 117/65 100 06/05/17 16:00 97.6 75 15 117/64 (81) 100 06/05/17 16:00 79 06/05/17 15:01 93 21 06/05/17 14:36 97.7 76 12 140/47 100 06/05/17 13:53 74 89/37 06/05/17 12:22 98.6 75 16 151/65 (93) 100 06/05/17 12:00 75 06/05/17 10:29 12 06/05/17 10:00 77 06/05/17 09:26 100 Nasal Cannula 2.00 I/O 06/05/17 06/05/17 06/05/17 06/06/17 06/06/17 06/06/17 07:00 15:00 23:00 07:00 15:00 23:00 Intake Total 79 ml 850 ml 447 ml 538 ml Output Total 0 ml 2315 ml 0 ml Balance 79 ml 850 ml -1868 ml 538 ml IV Total 79 ml 850 ml 106 ml Tube Feeding 47 ml 312 ml Packed Cells 400 ml Other 120 ml Output Urine Total 0 ml 0 ml Drainage Total 15 ml Hemodialysis 2300 ml # Bowel Movements 0 0 (Casey Bermudez MD R3) Result Diagram: 06/06/17 0553 06/06/17 0553 Objective Remarks GENERAL: Lying in bed, extubated, neck brace in place, COREY drain out, on Norsynephrine at 10, getting tube feedings, NG tube in place SKIN: No rashes or lesions, neck surgical site difficult to see fully but the visible part does not appear infected and no drainage HEAD: Normocephalic. EYES: No scleral icterus. No injection or drainage. NECK: Has on neck collar CARDIOVASCULAR: Regular rate and rhythm with 3/6 murmur heard best over mitral valve, requiring norsynephrine at 10 RESPIRATORY: No respiratory distress, minimal coughing, oral secretions decreasing. GASTROINTESTINAL: Abdomen soft, non-tender, nondistended. Bowel sounds present. Has NG tube with tube feedings. MUSCULOSKELETAL: Extremities without edema. No calf tenderness. Has on SCD's. NEURO: Awake and alert Procedures anterior cervical discectomy with interbody fusion on 06/02/17. (Casey Bermudez MD R3) A/P Assessment and Plan 77-year-old -[place] female with end-stage renal disease on dialysis, hypertension, pacemaker dependent, coronary artery disease, chronic back pain, and stomach cancer in remission. Admitted for generalized weakness and paresthesias and relatively sudden loss of sensation in hands and left leg, found to have severe cervical stenosis. Underwent anterior cervical discectomy with interbody fusion on 06/02/17. Currently in ICU due to requirement for pressors, extubated on 06/04/17. COREY drain out, requiring tube feedings, failed swallow study. Discharge Planning Received anterior cervical discectomy with interbody fusion on 06/02/17, anticipate discharge to a [facility] facility or inpatient rehab. (Casey Bermudez MD R3) Attending Attestation Patient seen and examined. Case reviewed and discussed with the resident team. Agree with plan of care as discussed with me and documented in the resident note. she probably needs very slow dialysis until her BPs are back to normal. Evidently, BPs can be low for weeks after extensive spinal surgery like hers. She was placed on midodrine which is working well so far. she may end up at some point with her regular high BP. she is improving slowly but steadily. appreciate help of Dr Anguiano! (Theresa Stevens MD) Problem List: (1) Anemia due to blood loss ICD Codes: D50.0 - Iron deficiency anemia secondary to blood loss (chronic) Status: Acute Plan: Acute anemia likely due to blood loss from surgery, also with anemia of chronic disease. Baseline hemoglobin in the 10's, down to 7.6, responded appropriately to 1 unit PRBC with dialysis yesterday and now stable. - Monitor H&H - Check Hemoccult to rule out GI bleed - Holding heparin currently - Epoetin toi with dialysis (2) Cervical spinal stenosis ICD Codes: M48.02 - Spinal stenosis, cervical region Status: Acute Plan: Multi-level degenerative changes including areas of significant canal stenosis at C3-C5. She has significant upper and lower extremity weakness and numbness/paresthesias. Anterior cervical discectomy with interbody fusion performed on 06/02/17. * Neurosurgery on board. * [place] 10/325 every 4 hours when necessary pain, morphine 4 mg for breakthrough pain * NSAIDs contraindicated given renal disease * Gabapentin 100 mg tid for paresthesias, low dose as she is in renal failure * Physical therapy and occupational therapy, will require rehab. * Failed swallow evaluation, requiring tube feeds (3) Pneumonia ICD Codes: J18.9 - Pneumonia, unspecified organism Status: Acute Plan: Developed significant leukocytosis, no fevers, has been on mechanical ventilation. There is right perihilar infiltrate on x-ray along with left lower lung atelectasis. Possibly developing a pneumonia. - Received one time treatment with vancomycin and ceftriaxone on 06/04/17 empirically, will withhold further treatment unless cultures positive or she becomes febrile or worsens clinically. - Follow blood and sputum cultures. (4) End stage renal failure on dialysis ICD Codes: N18.6 - End stage renal failure on dialysis; Z99.2 - Dependence on renal dialysis Status: Chronic Plan: Patient has end-stage renal disease secondary to hypertension, on dialysis MWF. She is anuric. 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 Neosynephrine currently while in ICU. * Continue carvedilol 3.125 mg q12hrs, hold for low pressures * Continue home medication of amlodipine 5 mg by mouth daily, hold for low pressures * Clonidine 0.1 mg by mouth when necessary per protocol * Requiring norsynephrine currently for low blood pressures, hold antihypertensives until stable (7) Nutrition, metabolism, and development symptoms ICD Codes: R63.8 - Other symptoms and signs concerning food and fluid intake Plan: Fluids: Getting tube feedings Diet: Renal diet Out of bed with assistance, work with physical therapy DD prophylaxis: Heparin 5000 units tid, held for surgery and significant bleeding with dialysis and acute blood loss anemia, bilateral SCD's in place CODE STATUS: Full code (Casey Bermudez MD R3) Problem Qualifiers (1) Pneumonia: (2) HLD (hyperlipidemia): Qualified Codes: E78.2 - Mixed hyperlipidemia (3) HTN (hypertension): Qualified Codes: I10 - Essential (primary) hypertension Casey Bermudez MD R3 Jun 06, 2017 08:52 Theresa Stevens MD Jun 06, 2017 13:30
[2017-06-06] MEDS: ACETAMINOPHEN/HYDROcodone 325 MG/10 MG TAB PO PRN (11:32)
--- NOTE | 2017-06-06 11:50 | HHI.NPPN ---
Subjective General Problems: Anemia Renal Failure: Chronic, End Stage Renal Disease Additional Remarks Patient is alert, has mild neck pain, with NGT feeding and neck collar. Review of Systems General Constitutional: Fatigue Ears, Nose, & Throat Ears, Nose & Throat: Sore Throat Musculoskeletal MS: Pain/Stiffness MS Remarks neck pain post operatively Objective Data Data Vital Signs Date Time Temp Pulse Resp B/P (MAP) Pulse Ox O2 Delivery O2 Flow Rate FiO2 06/06/17 10:00 70 06/06/17 08:30 75 134/56 06/06/17 08:00 78 06/06/17 08:00 99.0 75 13 122/46 (71) 100 06/06/17 07:37 100 Nasal Cannula 2.00 06/06/17 07:00 100 Nasal Cannula 2.00 21 06/06/17 06:00 74 06/06/17 05:25 142/58 06/06/17 04:00 98.5 68 8 92/45 (61) 100 104/40 (61) 06/06/17 04:00 68 06/06/17 02:00 72 06/06/17 01:50 130/58 06/06/17 00:50 74 84/36 06/06/17 00:00 76 06/06/17 00:00 98.3 76 13 91/63 (72) 90/36 (54) 06/05/17 22:00 87 06/05/17 20:40 100 Nasal Cannula 2.00 06/05/17 20:00 86 06/05/17 20:00 98.4 86 14 125/59 (81) 100 126/42 (70) 06/05/17 19:00 100 Nasal Cannula 2.00 06/05/17 18:00 82 06/05/17 16:00 97.6 82 12 117/65 100 06/05/17 16:00 97.6 75 15 117/64 (81) 100 06/05/17 16:00 79 06/05/17 15:01 93 21 06/05/17 14:36 97.7 76 12 140/47 100 06/05/17 13:53 74 89/37 06/05/17 12:22 98.6 75 16 151/65 (93) 100 06/05/17 12:00 75 -: 06/06/17 0553 06/06/17 0553 Tubes & Lines Comment COREY drain anterior neck Drip Comment neosynepherine Physical Exam General Appearance: Well Nourished, No Acute Distress, Comfortable Eyes Eye Exam: Pupils Equal Throat Throat Exam: Oral Mucosa [place] & Moist Neck Neck Exam: Trachea Midline Pulmonary Resp Exam: Clear Bilaterally, Breath Sounds Equal, No Distress Cardiology CV Exam: Regular, Normal Sinus Rhythm, Good Perfusion Gastrointestinal/Abdomen GI Exam: Soft, Non-Tender, Bowel Sounds Present Musculoskeletal MS Exam: Joints Intact, Normal Gait, Normal Tone Integumentary Skin Exam: Clear, Warm, Dry, Intact Extremeties Extremities Exam: Trace Edema Neurologic Neuro Exam: Alert, Awake, Oriented Assessment/Plan Discussed Condition With: Patient, Spouse Assessment Summary: Anemia of CKD, Hypertension, End Stage Renal Disease Problem List: (1) ESRD (end stage renal disease) on dialysis ICD Codes: N18.6 - End stage renal disease; Z99.2 - Dependence on renal dialysis Status: Acute Plan: Continue HD support on MWF . Currently on blood pressure support , ween as tolerated She has access in right arm that functions well ; however some bleeding after dialysis Wed. Heparin was held, monitor for recurrence Avoid IVF, gadolinium is contraindicated She is anuric at baseline, stop Lasix Obtain intermittent renal panel She failed swallow. To have tube feeding started. Continue Calcium acetate when feeding is started. HD was done Thursday. (2) Left leg weakness ICD Codes: R29.898 - Other symptoms and signs involving the musculoskeletal system Status: Acute Plan: Progressive, neurosurgery is following s/p C-Spine fusion 06/02 monitor neurological and neurovascular status postoperatively possibly to have COREY drain removed today (3) HTN (hypertension) ICD Codes: I10 - HTN (hypertension) Status: Chronic Plan: labile BP today currently on phenylephrine, ween as tolerated follow blood pressure (4) Metabolic bone disease ICD Codes: E88.9 - Metabolic disorder, unspecified; M90.80 - Osteopathy in diseases classified elsewhere, unspecified site Plan: resume Calcium Acetate when oral intake is resumed continue Sensipar Phosphorus level is mildly elevated (5) Anemia ICD Codes: D64.9 - Anemia, unspecified Status: Acute Plan: Epogen with HD Due for transfusion today with dialysis follow Hb Problem Qualifiers (1) HTN (hypertension): Qualified Codes: I10 - Essential (primary) hypertension Irineo Florian MD Jun 06, 2017 11:50
--- NOTE | 2017-06-06 18:26 | HHI.NSPN ---
History Chief Complaint: Cough and sore throat. Interval History Remains on Evan-Synephrine as needed for labile blood pressure. Exam Results Vital Signs Date Time Temp Pulse Resp B/P (MAP) Pulse Ox O2 Delivery O2 Flow Rate FiO2 06/06/17 18:00 70 06/06/17 16:00 98.8 12 119/48 (71) 100 06/06/17 07:37 Nasal Cannula 2.00 06/06/17 07:00 21 Intake and Output 06/06/17 06/06/17 06/07/17 08:00 16:00 00:00 Intake Total 538 ml 596.7 ml Output Total 0 ml Balance 538 ml 596.7 ml Physical Examination GENERAL: Awake, no apparent distress SKIN: Warm, dry & intact, intact dressing to left anterior neck surgical incision, no evident rashes, ulcerations or other lesions. HEENT: Normocephalic, atraumatic. PERRLA 3 mm brisk, EOMI. NECK: [place] J cervical collar is in place, midline cervical spine NTTP, dressing intact to left anterior neck surgical site NTTP, no JVD, trachea midline. CARDIOVASCULAR: S1S2 w/RRR w/grade III/ systolic murmur, radial & pedal pulses 2+ bilaterally, cap refill < 2 sec. Monitor shows atrial spikes w/P wave noted. RESPIRATORY: Clear to auscultation. Breath sounds somewhat shallow. Moderate increased secretions. GASTROINTESTINAL: Abdomen obese, soft, nontender, positive bowel sounds. MUSCULOSKELETAL: No evident deformity or clubbing. NEUROLOGICAL: Awake and relatively alert Moderate hoarseness of voice Follows simple commands w/o difficulty. Motor function mostly 3/5 upper extremities, 2/5 left and 1-to/5 right lower extremities Decreased sensation to left lower extremity. Lab, Micro, Other Results Laboratory Tests Test 06/05/17 18:45 06/06/17 05:53 Hemoglobin 8.9 GM/DL 8.9 GM/DL Hematocrit 26.5 % 25.6 % White Blood Count 12.7 TH/MM3 Red Blood Count 2.80 MIL/MM3 Mean Corpuscular Volume 91.6 FL Mean Corpuscular Hemoglobin 32.0 PG Mean Corpuscular Hemoglobin Concent 34.9 % Red Cell Distribution Width 14.6 % Platelet Count 155 TH/MM3 Mean Platelet Volume 8.8 FL Blood Urea Nitrogen 36 MG/DL Creatinine 5.60 MG/DL Random Glucose 97 MG/DL Calcium Level 8.4 MG/DL Sodium Level 137 MEQ/L Potassium Level 4.5 MEQ/L Chloride Level 97 MEQ/L Carbon Dioxide Level 33.0 MEQ/L Anion Gap 7 MEQ/L Estimat Glomerular Filtration Rate 9 ML/MIN Medical Decision Making Impression and Plan Impression: 1. Severe cervical stenosis, C3 4, C4 5 levels. 2. Cervical myelopathy. Her examination today reveals possible decreased strength primarily right lower extremity compared to prior evaluations. Plan: 1. Cervical myelopathy. Status post C3 4, C4 5 ACDF. Question of decreased strength right lower extremity on examination today. 2. History of hypertension. Labile blood pressure. Continuing Evan-Synephrine drip as needed in the intensive surgical care unit. 3. Pneumonia. Continue respiratory treatments as needed. Off antibiotics 4. End-stage renal failure. Continuing dialysis. Nephrology following 5. Postoperative dysphagia. Now on tube feedings. 6. Increased lower extremity spasms on examination today. Begin baclofen. Doug Quinteros MD Jun 06, 2017 18:26
[2017-06-06] MEDS: BACLOFEN 10 MG TAB NG SCH (22:24)
[2017-06-07] VITALS (15 sets, daily range): BP systolic 111–156; BP diastolic 50–69; PULSE 64–75; RESP 9–23; TEMP 98.1–99.6; O2SAT 95–100
[2017-06-07 04:12] LABS: HEMATOCRIT 27.1 % (35.0-46.0); MEAN CELL VOLUME 92.2 FL (80.0-100.0); MEAN CORPUSCULAR HEMOGLOBIN 31.8 PG (27.0-34.0); MEAN CORPUSCULAR HGB CONC 34.5 % (32.0-36.0); PLATELET COUNT 187 TH/MM3 (150-450); RED BLOOD COUNT 2.93 MIL/MM3 (4.00-5.30); RED CELL DISTRIBUTION WIDTH 14.4 % (11.6-17.2); REVIEW FLAG FINAL; WHITE BLOOD COUNT 13.3 TH/MM3 (4.0-11.0)
[2017-06-07 04:41] LABS: BICARBONATE 30.5 MEQ/L (21.0-32.0); POTASSIUM 4.5 MEQ/L (3.5-5.1)
[2017-06-07] MEDS: HEPARIN SODIUM - SQ 10,000 UNITS/ML VIAL SQ SCH ×3 (05:45→22:00)
[2017-06-07] MEDS: BACLOFEN 10 MG TAB NG SCH ×3 (05:45→22:00)
[2017-06-07] MEDS: SODIUM CHLORIDE 0.9% FLUSH 10 ML FLUSH IV FLUSH SCH ×2 (07:47→20:35)
[2017-06-07] MEDS: CHLORHEXIDINE 0.12% (ORAL KIT) 15 ML CUP MT SCH ×2 (07:47→20:35)
[2017-06-07] MEDS: LACTULOSE SYRUP 20 GM/30 ML CUP PO PRN (07:48)
[2017-06-07] MEDS: CINACALCET HYDROCHLORIDE 30 MG TAB PO SCH (07:48)
[2017-06-07] MEDS: SENNOSIDES 8.6 MG TAB PO PRN (07:48)
[2017-06-07] MEDS: DOCUSATE SODIUM 50 MG/SENNA 8.6 MG TAB PO SCH ×2 (07:49→21:00)
[2017-06-07] MEDS: VITAMIN B CMPLX/VITC/FOLIC AC CAP PO SCH (07:49)
[2017-06-07] MEDS: amLODIPine BESYLATE 5 MG TAB PO SCH (07:49)
[2017-06-07] MEDS: CALCIUM ACETATE 667 MG CAP PO SCH ×3 (07:49→17:04)
[2017-06-07] MEDS: PANTOPRAZOLE SOD 40 MG DELAYED RELEASE TAB PO SCH (07:49)
[2017-06-07] MEDS: guaiFENesin E.R. 600 MG TAB PO SCH ×2 (07:50→21:00)
[2017-06-07] MEDS: CARVEDILOL 3.125 MG TAB PO SCH ×2 (07:50→21:00)
[2017-06-07] MEDS: MIDODRINE 5 MG TAB NG SCH ×3 (09:00→17:08)
[2017-06-07] MEDS: ACETAMINOPHEN/HYDROcodone 325 MG/10 MG TAB PO PRN (09:15)
--- NOTE | 2017-06-07 11:15 | HHI.FPPN ---
Subjective Remarks Lying in bed, no distress. Reports less pain today. She is now off pressors. Blood pressures improving with midodrine. Less secretions by mouth, does still require suctioning with Yankauer tube. No shortness of breath or chest pain. No abdominal pain. No calf tenderness. Continues with tube feeds. (Casey Bermudez MD R3) Objective Vitals Vital Signs Date Time Temp Pulse Resp B/P (MAP) Pulse Ox O2 Delivery O2 Flow Rate FiO2 06/07/17 10:00 75 06/07/17 09:47 12 06/07/17 08:00 99.6 73 15 135/60 (85) 100 128/50 (76) 06/07/17 08:00 75 06/07/17 07:36 96 Nasal Cannula 2.00 06/07/17 07:00 99 Nasal Cannula 2.00 06/07/17 06:00 75 06/07/17 04:00 98.2 75 14 116/57 (76) 100 142/58 (86) 06/07/17 04:00 75 06/07/17 02:00 75 06/07/17 00:00 98.1 71 14 111/55 (73) 100 150/57 (88) 06/07/17 00:00 71 06/06/17 22:00 67 06/06/17 20:00 71 06/06/17 20:00 98.1 71 20 133/60 (84) 100 141/52 (81) 06/06/17 19:37 100 Nasal Cannula 2.00 06/06/17 19:00 100 Nasal Cannula 2.00 06/06/17 18:00 70 06/06/17 16:00 98.8 71 12 119/48 (71) 100 06/06/17 16:00 71 06/06/17 14:00 75 06/06/17 12:00 71 06/06/17 12:00 99.1 71 14 132/53 (79) 100 I/O 06/06/17 06/06/17 06/06/17 06/07/17 06/07/17 06/07/17 07:00 15:00 23:00 07:00 15:00 23:00 Intake Total 538 ml 596.7 ml 482 ml Output Total 0 ml Balance 538 ml 596.7 ml 482 ml IV Total 106 ml 11.7 ml 0 ml Tube Feeding 312 ml 325 ml 332 ml Other 120 ml 260 ml 150 ml Output Urine Total 0 ml # Voids 0 0 # Bowel Movements 0 0 0 (Casey Bermudez MD R3) Result Diagram: 06/07/1740006/07/17400 Objective Remarks GENERAL: Lying in bed, extubated, neck brace in place, COREY drain out, off pressors, getting tube feedings, NG tube in place SKIN: No rashes or lesions, visible part of incision on neck clear dry and intact HEAD: Normocephalic. EYES: No scleral icterus. No injection or drainage. NECK: Has on neck collar CARDIOVASCULAR: Regular rate and rhythm with 3/6 murmur heard best over mitral valve, off pressors RESPIRATORY: No respiratory distress, minimal coughing, oral secretions decreasing. GASTROINTESTINAL: Abdomen soft, non-tender, nondistended. Bowel sounds present. Has NG tube with tube feedings. MUSCULOSKELETAL: Extremities without edema. No calf tenderness. Has on SCD's. NEURO: Awake and alert Procedures anterior cervical discectomy with interbody fusion on 06/02/17. (Casey Bermudez MD R3) A/P Assessment and Plan 77-year-old -[place] female with end-stage renal disease on dialysis, hypertension, pacemaker dependent, coronary artery disease, chronic back pain, and stomach cancer in remission. Admitted for generalized weakness and paresthesias and relatively sudden loss of sensation in hands and left leg, found to have severe cervical stenosis. Underwent anterior cervical discectomy with interbody fusion on 06/02/17. Currently in ICU, extubated on 06/04/17. CROEY drain out, requiring tube feedings, failed swallow study. Hoping to get out of ICU soon. Discharge Planning Received anterior cervical discectomy with interbody fusion on 06/02/17, anticipate discharge to a [facility] facility or inpatient rehab. (Casey Bermudez MD R3) Attending Attestation Patient seen and examined. Case reviewed and discussed with the resident team. Agree with plan of care as discussed with me and documented in the resident note. she is improving slowly but surely. (Theresa Stevens MD) Problem List: (1) Cervical spinal stenosis ICD Codes: M48.02 - Spinal stenosis, cervical region Status: Acute Plan: Multi-level degenerative changes including areas of significant canal stenosis at C3-C5. She has significant upper and lower extremity weakness and numbness/paresthesias. Anterior cervical discectomy with interbody fusion performed on 06/02/17. * Neurosurgery on board. * [place] 10/325 every 4 hours when necessary pain, morphine 4 mg for breakthrough pain * NSAIDs contraindicated given renal disease * Gabapentin 100 mg tid for paresthesias, low dose as she is in renal failure * Physical therapy and occupational therapy, will require rehab. * Failed swallow evaluation, requiring tube feeds * Labile blood pressures, likely due to manipulation of sympathetic outflow tract * Baclofen started by neurosurgery for lower extremity spasms (2) End stage renal failure on dialysis ICD Codes: N18.6 - End stage renal failure on dialysis; Z99.2 - Dependence on renal dialysis Status: Chronic Plan: Patient has end-stage renal disease secondary to hypertension, on dialysis MWF. She is anuric. 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 Neosynephrine currently while in ICU. * Continue carvedilol 3.125 mg q12hrs, hold for low pressures * Continue home medication of amlodipine 5 mg by mouth daily, hold for low pressures * Clonidine 0.1 mg by mouth when necessary per protocol * Requiring norsynephrine currently for low blood pressures, hold antihypertensives until stable (5) Nutrition, metabolism, and development symptoms ICD Codes: R63.8 - Other symptoms and signs concerning food and fluid intake Plan: Fluids: Getting tube feedings, repeat swallow evaluation likely tomorrow Diet: Renal diet Defer to neurosurgery regarding activity, work with PT/OT DD prophylaxis: Heparin 5000 units tid, bilateral SCD's CODE STATUS: Full code (Casey Bermudez MD R3) Problem Qualifiers (1) HLD (hyperlipidemia): Qualified Codes: E78.2 - Mixed hyperlipidemia (2) HTN (hypertension): Qualified Codes: I10 - Essential (primary) hypertension Casey Bermudez MD R3 Jun 07, 2017 11:15 Theresa Stevens MD Jun 07, 2017 14:22
--- NOTE | 2017-06-07 12:42 | HHI.NPPN ---
Subjective General Problems: Anemia Renal Failure: Chronic, End Stage Renal Disease Additional Remarks Patient is alert, has mild neck pain, feeling better today, no SOB. Review of Systems General Constitutional: Fatigue Ears, Nose, & Throat Ears, Nose & Throat: Sore Throat Musculoskeletal MS: Pain/Stiffness MS Remarks neck pain post operatively Objective Data Data Vital Signs Date Time Temp Pulse Resp B/P (MAP) Pulse Ox O2 Delivery O2 Flow Rate FiO2 06/07/17 12:00 98.3 75 23 156/69 (98) 99 139/58 (85) 06/07/17 12:00 75 06/07/17 10:00 75 06/07/17 09:47 12 06/07/17 08:00 99.6 73 15 135/60 (85) 100 128/50 (76) 06/07/17 08:00 75 06/07/17 07:36 96 Nasal Cannula 2.00 06/07/17 07:00 99 Nasal Cannula 2.00 06/07/17 06:00 75 06/07/17 04:00 98.2 75 14 116/57 (76) 100 142/58 (86) 06/07/17 04:00 75 06/07/17 02:00 75 06/07/17 00:00 98.1 71 14 111/55 (73) 100 150/57 (88) 06/07/17 00:00 71 06/06/17 22:00 67 06/06/17 20:00 71 06/06/17 20:00 98.1 71 20 133/60 (84) 100 141/52 (81) 06/06/17 19:37 100 Nasal Cannula 2.00 06/06/17 19:00 100 Nasal Cannula 2.00 06/06/17 18:00 70 06/06/17 16:00 98.8 71 12 119/48 (71) 100 06/06/17 16:00 71 06/06/17 14:00 75 -: 06/07/17 0401 06/07/17 0401 Microbiology 06/06/17 Gram Stain - Final, Resulted 06/06/17 Sputum Culture, Resulted Pending Tubes & Lines Comment COREY drain anterior neck Drip Comment neosynepherine Physical Exam General Appearance: Well Nourished, No Acute Distress, Comfortable Eyes Eye Exam: Pupils Equal Throat Throat Exam: Oral Mucosa [place] & Moist Neck Neck Exam: Trachea Midline Pulmonary Resp Exam: Clear Bilaterally, Breath Sounds Equal, No Distress Cardiology CV Exam: Regular, Normal Sinus Rhythm, Good Perfusion Gastrointestinal/Abdomen GI Exam: Soft, Non-Tender, Bowel Sounds Present Musculoskeletal MS Exam: Joints Intact, Normal Gait, Normal Tone Integumentary Skin Exam: Clear, Warm, Dry, Intact Extremeties Extremities Exam: Trace Edema Neurologic Neuro Exam: Alert, Awake, Oriented Assessment/Plan Discussed Condition With: Patient, Spouse Assessment Summary: Anemia of CKD, Hypertension, End Stage Renal Disease Problem List: (1) ESRD (end stage renal disease) on dialysis ICD Codes: N18.6 - End stage renal disease; Z99.2 - Dependence on renal dialysis Status: Acute Plan: Continue HD support on MWF . Currently on blood pressure support , ween as tolerated She has access in right arm that functions well ; however some bleeding after dialysis Wed. Heparin was held, monitor for recurrence Avoid IVF, gadolinium is contraindicated She is anuric at baseline, stop Lasix Obtain intermittent renal panel Continue HD, MWF. BP is stable. (2) Left leg weakness ICD Codes: R29.898 - Other symptoms and signs involving the musculoskeletal system Status: Acute Plan: Progressive, neurosurgery is following s/p C-Spine fusion 06/02 monitor neurological and neurovascular status postoperatively possibly to have COREY drain removed today (3) HTN (hypertension) ICD Codes: I10 - HTN (hypertension) Status: Chronic Plan: labile BP today currently on phenylephrine, ween as tolerated follow blood pressure (4) Metabolic bone disease ICD Codes: E88.9 - Metabolic disorder, unspecified; M90.80 - Osteopathy in diseases classified elsewhere, unspecified site Plan: resume Calcium Acetate when oral intake is resumed continue Sensipar Phosphorus level is mildly elevated (5) Anemia ICD Codes: D64.9 - Anemia, unspecified Status: Acute Plan: Epogen with HD Due for transfusion today with dialysis follow Hb Problem Qualifiers (1) HTN (hypertension): Qualified Codes: I10 - Essential (primary) hypertension Irineo Florian MD Jun 07, 2017 12:42
--- NOTE | 2017-06-07 13:12 | HHI.NSPN ---
History Chief Complaint: difficult swallowing Interval History 06/07/17: Awake and alert. He remains nothing by mouth per speech therapy. NG tube feedings. She is off of pressors. Exam Results Vital Signs Date Time Temp Pulse Resp B/P (MAP) Pulse Ox O2 Delivery O2 Flow Rate FiO2 06/07/17 12:00 98.3 75 23 156/69 (98) 99 139/58 (85) 06/07/17 07:36 Nasal Cannula 2.00 06/06/17 07:00 21 Intake and Output 06/07/17 06/07/17 06/08/17 08:00 16:00 00:00 Intake Total 482 ml Balance 482 ml Physical Examination GENERAL: Awake, no apparent distress SKIN: Warm, dry & intact, intact dressing to left anterior neck surgical incision, no evident rashes, ulcerations or other lesions. HEENT: Normocephalic, atraumatic. PERRLA 3 mm brisk, EOMI. NECK: Faulkner J cervical collar is in place, midline cervical spine NTTP, dressing intact to left anterior neck surgical site NTTP, no JVD, trachea midline. CARDIOVASCULAR: S1S2 w/RRR w/grade III/ systolic murmur, radial & pedal pulses 2+ bilaterally, cap refill < 2 sec. Monitor shows atrial spikes w/P wave noted. RESPIRATORY: Clear to auscultation. Breath sounds somewhat shallow. Moderate increased secretions. GASTROINTESTINAL: Abdomen obese, soft, nontender, positive bowel sounds. MUSCULOSKELETAL: No evident deformity or clubbing. NEUROLOGICAL: Awake and relatively alert Moderate hoarseness of voice Follows simple commands w/o difficulty. Motor function mostly 3/5 upper extremities, 2-3 left and right lower extremity , seems improved versus 06/06/17 Decreased sensation to left lower extremity. Lab, Micro, Other Results Laboratory Tests Test 06/07/17 04:01 White Blood Count 13.3 TH/MM3 Red Blood Count 2.93 MIL/MM3 Hemoglobin 9.3 GM/DL Hematocrit 27.1 % Mean Corpuscular Volume 92.2 FL Mean Corpuscular Hemoglobin 31.8 PG Mean Corpuscular Hemoglobin Concent 34.5 % Red Cell Distribution Width 14.4 % Platelet Count 187 TH/MM3 Mean Platelet Volume 8.5 FL Blood Urea Nitrogen 51 MG/DL Creatinine 7.07 MG/DL Random Glucose 121 MG/DL Calcium Level 8.3 MG/DL Sodium Level 137 MEQ/L Potassium Level 4.5 MEQ/L Chloride Level 97 MEQ/L Carbon Dioxide Level 30.5 MEQ/L Anion Gap 10 MEQ/L Estimat Glomerular Filtration Rate 7 ML/MIN Medical Decision Making Impression and Plan Impression: 1. Severe cervical stenosis, C3 4, C4 5 levels. 2. Cervical myelopathy. Examination today reveals upper and lower extremity sensory motor function stable compared to her preoperative exam Plan: 1. Cervical myelopathy. Status post C3 4, C4 5 ACDF. Stable postoperative upper and lower extremity sensorimotor exam 2. History of hypertension. Labile blood pressure. Continuing Evan-Synephrine drip as needed in the intensive surgical care unit. 3. Pneumonia. Continue respiratory treatments as needed. Off antibiotics 4. End-stage renal failure. Continuing dialysis. Nephrology following 5. Postoperative dysphagia. Now on tube feedings. Speech therapy following 6. Improved lower extremity spasms on examination today. Baclofen started . Doug Quinteros MD Jun 07, 2017 13:12
[2017-06-07] MEDS: GABAPENTIN 100 MG CAP PO PRN (17:06)
[2017-06-07] MEDS ORDERED: ETOMIDATE 40 MG/20 ML VIAL ONE (20:56)
[2017-06-07] MEDS ORDERED: SUCCINYLCHOLINE CHLORIDE 200 MG/10 ML VIAL ONE (20:57)
[2017-06-07] MEDS ORDERED: SUCCINYLCHOLINE CHLORIDE 100 MG/5 ML SYRINGE IV PUSH ONE (21:00)
[2017-06-07] MEDS ORDERED: ETOMIDATE 20 MG/10 ML VIAL IV PUSH ONE (21:00)
[2017-06-07] MEDS: PHENYLEPHRINE INJ 80 MG in DEXTROSE 5% IN WATE 500 ML INJ 492 ML IV PRN ×2 (21:18)
--- NOTE | 2017-06-07 21:20 | HHI.FPPN ---
Addendum to progress note ADDENDUM Reason for addendum: Additonal documentation Additional information Paged regarding change in patient's status. Nurse states that patient had a change in mental status. Per her report on shift change, there were no neurological abnormalities. Now, when nurse evaluated, she states that pt is not alert and difficult to arouse. Pt's blood pressures have also been trending down, to 70s systolic. Upon evaluation, pt does not arouse to speech or nail- bed pressure. Pt does open eyes with sternal rub, but doesn't answer questions or respond to commands. Of note, pt was previously intubated several days ago and recently was removed from pressors for blood pressure support. Vitals: BP 70s-120s systolic, pulse 70s, 99% O2 sat Gen: Lying in bed, NAD Heart: RRR Lungs: diminished breath sounds auscultated anteriorly Neuro: Pt opens eyes to sternal rub, then falls back asleep. 77 y/o female with history of ESRD admitted for cervical spinal stenosis and surgery. Now with altered mental status and hypotension. Dr. Quinteros was made aware by nursing, who wanted hand roller consult for likely intubation -Dining Room Host consulted -Phenylephrine for hypotension -Stat brain CT Lamberto Tong MD, R2 Jun 07, 2017 21:20
--- NOTE | 2017-06-07 21:54 | HHI.CCPN ---
Subjective Remarks/Hospital Course 77 y/o woman with disabling symptoms from C3-4, C 4-5 level cord compression discovered after a recent fall. Underwent open cervical repair and reconstruction today. Discussed in detail with Dr. Roca. We will leave intubated overnight for airway protection and assess for extubation in a.m. following CXR and vent parameters, cuff leak, strength. Care complicated by ESRD. 06/03: Labile BP continues. Unable to wean vent due to residual sedation. Will get dialysis completed early today, then work to extubate. 06/04: Extubated this morning and breathing comfortably. Protects airway well. Will get swallow eval before pulling out NG tube. Elevated white count and infiltrate behind heart - will give one dose abx pending cultures. 06/07: Called by RN for the patient being obtunded unresponsive. On my exam patient is arousable to painful stimuli opens her eyes and withdraws to pain. GCS 9 considering she is able to protect her airways. Objective Vital Signs Date Time Temp Pulse Resp B/P (MAP) Pulse Ox O2 Delivery O2 Flow Rate FiO2 06/07/17 21:18 68 70/31 06/07/17 20:07 99 Nasal Cannula 1.00 06/07/17 16:00 98.7 12 06/06/17 07:00 21 Intake and Output 06/07/17 06/07/17 06/08/17 08:00 16:00 00:00 Intake Total 482 ml 471 ml Balance 482 ml 471 ml Result Diagram: 06/07/17 0401 06/07/17 0401 Objective Remarks Gen: Lethargic, opens eyes to painful stimuli, localizes pain Head: Normal. Neck: Hard cervical collar. Lungs: Clear, no adventitious sounds. Strong cough, no stridor. Heart: NL S1S2, no JVD. Abdomen: Benign, soft. BS active. Extremities: Warm, well perfused. Neuro: Lethargic, opens eyes to painful stimuli, localizes pain A/P Problem List: (1) Cervical myelopathy with cervical radiculopathy ICD Code: M47.12 - Other spondylosis with myelopathy, cervical region Status: Acute (2) END STAGE RENAL DISEASE Status: Chronic (3) Morbid obesity Status: Chronic (4) History of cardiac pacemaker ICD Code: Z95.0 - Presence of cardiac pacemaker Status: Chronic (5) History of tobacco abuse ICD Code: Z87.891 - History of tobacco use Status: Acute (6) HTN (hypertension) ICD Code: I10 - HTN (hypertension) Status: Chronic Assessment and Plan Respiratory failure - CO2 retention - BiPAP overnight - Repeat ABG a.m. - DuoNeb's when necessary Spondylosis with myelopathy - Status post anterior fusion - Management per neurosurgery Altered mental status - Hypercarbic respiratory acidosis - BiPAP - Repeat ABG a.m. 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 Time to perform other separately billable procedures was not included in the critical care time. Problem Qualifiers (1) HTN (hypertension): Qualified Codes: I10 - Essential (primary) hypertension Sammy Brown MD Jun 07, 2017 21:54
[2017-06-07] MEDS ORDERED: SODIUM CHLOR 0.9% 1000 ML INJ 1,000 ML IV ONE (22:00)
[2017-06-07 22:05] LABS: BLOOD GAS BASE EXCESS 6.5 mmol/L (-2-2); BLOOD GAS CARBOXYHEMOGLOBIN 1.4 % (0-4); BLOOD GAS HCO3 32 mmol/L (22-26); BLOOD GAS METHEMOGLOBIN 0.8 % (0-2); BLOOD GAS O2 HGB SATURATION 97 % (90-100); BLOOD GAS OXYGEN CONTENT 12.4 Vol % (12.0-20.0); BLOOD GAS PCO2 65 mmHg (38-42); BLOOD GAS PO2 233 mmHg (61-120); BLOOD GAS TOTAL HGB 8.7 G/DL (12.0-16.0); CRITICAL VALUE YES; DRAW SITE ALINE; LITER FLOW 4 L/M; OXYGEN DEVICE NASAL CANNULA; STAT NO; TEMP CORR TO 98.6
--- NOTE | 2017-06-07 23:17 | RADRPT ---
EXAM DATE/TIME: 06/07/2017 23:01 [facility] COMPARISON: ANKLE LEFT COMPLETE ([id number]), May 27, 2017, 11:09. INDICATIONS : Altered mental status. RADIATION DOSE: 33.17 CTDIvol (mGy) MEDICAL HISTORY : Stroke. Hypertension. Stomach tumor. Dialysis. SURGICAL HISTORY : Appendectomy. Hysterectomy.AV shunt. ENCOUNTER: Initial ACUITY: 1 day PAIN SCALE: Non-responsive LOCATION: cranial TECHNIQUE: Multiple contiguous axial images were obtained of the head. Using automated exposure control and adj ustment of the mA and/or kV according to patient size, radiation dose was kept as low as reasonably a chievable to obtain optimal diagnostic quality images. DICOM format image data is available electro nically for review and comparison. 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 The ventricles are normal for age. No evidence of midline shift, mass lesion, hemorrhage or acute infarction. No extra-axial fluid collections are seen. POSTERIOR FOSSA: The cerebellum and brainstem are intact. The 4th ventricle is midline. The cerebellopontine angle i s unremarkable. EXTRACRANIAL: The visualized portion of the orbits is intact. Ethmoid and sphenoid sinus disease. SKULL: The calvaria is intact. No evidence of skull fracture. CONCLUSION: 1. Remote left parieto-occipital infarct. 2. No acute intracranial abnormality. Andrea Guerra MD on June 07, 2017 at 23:14 Board Certified Radiologist. This report was verified electronically.
[2017-06-08] VITALS (16 sets, daily range): BP systolic 107–165; BP diastolic 57–73; PULSE 61–86; RESP 10–21; TEMP 97.6–99.6; O2SAT 97–100
[2017-06-08 05:39] LABS: MEAN CELL VOLUME 92.7 FL (80.0-100.0); MEAN CORPUSCULAR HEMOGLOBIN 31.6 PG (27.0-34.0); MEAN CORPUSCULAR HGB CONC 34.1 % (32.0-36.0); PLATELET COUNT 206 TH/MM3 (150-450); RED BLOOD COUNT 2.92 MIL/MM3 (4.00-5.30); RED CELL DISTRIBUTION WIDTH 14.5 % (11.6-17.2); REVIEW FLAG FINAL; WHITE BLOOD COUNT 11.8 TH/MM3 (4.0-11.0)
[2017-06-08] MEDS: BACLOFEN 10 MG TAB NG SCH ×3 (05:44→21:06)
[2017-06-08] MEDS: HEPARIN SODIUM - SQ 10,000 UNITS/ML VIAL SQ SCH ×3 (05:44→21:07)
[2017-06-08 05:45] LABS: BLOOD GAS CARBOXYHEMOGLOBIN 1.3 % (0-4); BLOOD GAS HCO3 30 mmol/L (22-26); BLOOD GAS O2 HGB SATURATION 95 % (90-100); BLOOD GAS OXYGEN CONTENT 14.5 Vol % (12.0-20.0); BLOOD GAS PCO2 64 mmHg (38-42); BLOOD GAS PO2 99 mmHg (61-120); BLOOD GAS TOTAL HGB 10.8 G/DL (12.0-16.0); TEMP CORR TO 98.6
[2017-06-08 05:47] LABS: CRITICAL VALUE YES; OXYGEN DEVICE BIPAP
[2017-06-08 05:48] LABS: DRAW SITE RT FEMORAL; FIO2 30 %; NUMBER OF ARTERIAL PUNCTURES 1; STAT NO; VENT SETTINGS IPAP12/EPAP5
[2017-06-08] MEDS ORDERED: ETOMIDATE 40 MG/20 ML VIAL ONE (05:56)
[2017-06-08] MEDS ORDERED: SUCCINYLCHOLINE CHLORIDE 200 MG/10 ML VIAL ONE (05:57)
[2017-06-08 06:29] LABS: POTASSIUM 4.3 MEQ/L (3.5-5.1)
[2017-06-08] MEDS: PROPOFOL 1000 MG/100 ML INJ 100 ML IV PRN ×3 (06:36→18:20)
--- NOTE | 2017-06-08 06:43 | HHI.CCPN ---
Subjective Remarks/Hospital Course 77 y/o woman with disabling symptoms from C3-4, C 4-5 level cord compression discovered after a recent fall. Underwent open cervical repair and reconstruction today. Discussed in detail with Dr. Roca. We will leave intubated overnight for airway protection and assess for extubation in a.m. following CXR and vent parameters, cuff leak, strength. Care complicated by ESRD. 06/03: Labile BP continues. Unable to wean vent due to residual sedation. Will get dialysis completed early today, then work to extubate. 06/04: Extubated this morning and breathing comfortably. Protects airway well. Will get swallow eval before pulling out NG tube. Elevated white count and infiltrate behind heart - will give one dose abx pending cultures. 06/07: Called by RN for the patient being obtunded unresponsive. On my exam patient is arousable to painful stimuli opens her eyes and withdraws to pain. GCS 9 considering she is able to protect her airways. 06/08: Worsening CO2 retention despite BiPAP NIV. Required re-intubation early today. Objective Vital Signs Date Time Temp Pulse Resp B/P (MAP) Pulse Ox O2 Delivery O2 Flow Rate FiO2 06/08/17 04:00 98.4 68 10 148/66 (93) 100 06/08/17 03:40 30 06/07/17 20:07 Nasal Cannula 1.00 Result Diagram: 06/08/17 0530 06/08/17 0530 Other Results Laboratory Tests Test 06/07/17 21:49 06/08/17 05:30 Blood Gas Puncture Site VIVIANA RT FEMORAL Blood Gas Patient Temperature 98.6 98.6 Blood Gas HCO3 32 mmol/L (22-26) 30 mmol/L (22-26) Blood Gas Base Excess 6.5 mmol/L (-2-2) 4.0 mmol/L (-2-2) Blood Gas Oxygen Saturation 97 % (90-100) 95 % (90-100) Arterial Blood pH 7.32 (7.380-7.420) 7.29 (7.380-7.420) Arterial Blood Partial Pressure CO2 65 mmHg (38-42) 64 mmHg (38-42) Arterial Blood Partial Pressure O2 233 mmHg (61-120) 99 mmHg (61-120) Arterial Blood Oxygen Content 12.4 Vol % (12.0-20.0) 14.5 Vol % (12.0-20.0) Arterial Blood Carboxyhemoglobin 1.4 % (0-4) 1.3 % (0-4) Arterial Blood Methemoglobin 0.8 % (0-2) 1.0 % (0-2) Blood Gas Hemoglobin 8.7 G/DL (12.0-16.0) 10.8 G/DL (12.0-16.0) Oxygen Delivery Device NASAL CANNULA BIPAP Blood Gas Liter Flow 4 L/M Blood Gas Ventilator Setting [id number] Blood Gas Inspired Oxygen 30 % Objective Remarks Gen: Lethargic, opens eyes to stimuli, localizes pain Head: Normal. Neck: Hard cervical collar. Airway widely patent. Lungs: Clear, no adventitious sounds. Strong cough, no stridor. Heart: NL S1S2, no JVD. Abdomen: Benign, soft. BS active. Extremities: Warm, well perfused. Neuro: Lethargic, opens eyes to noxious stimuli, localizes pain. Shallow breaths. A/P Problem List: (1) Cervical myelopathy with cervical radiculopathy ICD Code: M47.12 - Other spondylosis with myelopathy, cervical region Status: Acute (2) END STAGE RENAL DISEASE Status: Chronic (3) Morbid obesity Status: Chronic (4) History of cardiac pacemaker ICD Code: Z95.0 - Presence of cardiac pacemaker Status: Chronic (5) History of tobacco abuse ICD Code: Z87.891 - History of tobacco use Status: Acute (6) HTN (hypertension) ICD Code: I10 - HTN (hypertension) Status: Chronic Assessment and Plan Respiratory failure - CO2 retention - BiPAP overnight - Repeat ABG a.m. - DuoNeb's when necessary - Re-intubated 06/08 for CO2 retention. Spondylosis with myelopathy - Status post anterior fusion - Management per neurosurgery Altered mental status - Hypercarbic respiratory acidosis - BiPAP - Repeat ABG a.m. 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 Critical Care 38 mins aside from procedures. Problem Qualifiers (1) HTN (hypertension): Qualified Codes: I10 - Essential (primary) hypertension Ermias Iqbal MD Jun 08, 2017 06:43
[2017-06-08] MEDS ORDERED: fentaNYL DRIP 250 ML IV PRN (06:45)
--- NOTE | 2017-06-08 06:49 | PD.PROCEDR ---
Procedure Note Procedure Endotracheal Intubation A time-out was completed verifying correct patient, procedure, site, positioning , and special equipment if applicable. The patient was placed in a flat position. Sedation was obtained using Etomidate 20mg. The patient was easily ventilated using an ambu bag. The [employer]/ MAC 4 BLADE was used and inserted into the oropharynx at which time there was a Grade 1 view of the vocal cords. A 8-khmer endotracheal tube was inserted and visualized going through the vocal cords. The stylette was removed. Colorimetric change was visualized on the CO2 meter. Breath sounds were heard in both lung gomez equally. The endotracheal tube was placed at 23 cm, measured at the teeth. A chest x-ray was ordered to assess for pneumothorax and verify endotrachealtube placement. Estimated Blood Loss: 0 The patient tolerated the procedure well and there were no complications. Sammy Brown MD Jun 08, 2017 6:49 am
--- NOTE | 2017-06-08 07:00 | RADRPT ---
EXAM DATE/TIME: 06/08/2017 07:29 [place] COMPARISON: CHEST SINGLE AP, June 04, 2017, 10:38. INDICATIONS : E-T tube manipulation. MEDICAL HISTORY : Carcinoma, gastric. Cerebrovascular disease. Hypertension. SURGICAL HISTORY : Appendectomy. Hysterectomy. ENCOUNTER: Subsequent ACUITY: 2 weeks PAIN SCORE: Non-responsive. LOCATION: Bilateral chest FINDINGS: A single view of the chest demonstrates the lungs to be symmetrically aerated without evidence of mas s, infiltrate or effusion. Endotracheal tube 4 cm above the eusebio. Nasogastric tube with tip in stom ach. Heart enlarged. Increase in pulmonary vascularity. Right-sided pacemaker unchanged. The cardiom ediastinal contours are unremarkable. Osseous structures are intact. CONCLUSION: 1. Endotracheal tube in good position. 2. Cardiomegaly and increased pulmonary vascularity. Andrea Guerra MD on June 08, 2017 at 6:58 Board Certified Radiologist. This report was verified electronically.
[2017-06-08] MEDS: CHLORHEXIDINE 0.12% (ORAL KIT) 15 ML CUP MT SCH ×4 (08:00→19:29)
[2017-06-08] MEDS: VITAMIN B CMPLX/VITC/FOLIC AC CAP PO SCH (08:13)
[2017-06-08] MEDS: SODIUM CHLORIDE 0.9% FLUSH 10 ML FLUSH IV FLUSH SCH ×2 (08:14→20:11)
[2017-06-08] MEDS: CALCIUM ACETATE 667 MG CAP PO SCH ×3 (08:14→18:01)
[2017-06-08] MEDS: DOCUSATE SODIUM 50 MG/SENNA 8.6 MG TAB PO SCH ×2 (08:14→20:10)
[2017-06-08] MEDS: guaiFENesin E.R. 600 MG TAB PO SCH ×2 (08:15→20:10)
[2017-06-08] MEDS: PANTOPRAZOLE SOD 40 MG DELAYED RELEASE TAB PO SCH (08:16)
[2017-06-08] MEDS: CINACALCET HYDROCHLORIDE 30 MG TAB PO SCH (08:17)
[2017-06-08] MEDS: amLODIPine BESYLATE 5 MG TAB PO SCH (09:00)
[2017-06-08] MEDS ORDERED: ETOMIDATE 40 MG/20 ML VIAL IV PUSH ONE (09:00)
[2017-06-08] MEDS ORDERED: SUCCINYLCHOLINE CHLORIDE 200 MG/10 ML VIAL IV ONE (09:00)
[2017-06-08] MEDS: CARVEDILOL 3.125 MG TAB PO SCH ×2 (09:00→20:14)
[2017-06-08] MEDS: MIDODRINE 5 MG TAB NG SCH ×3 (09:11→18:00)
--- NOTE | 2017-06-08 09:49 | HHI.NSPN ---
(Kolby Green) History Chief Complaint: Unable to obtain due to patient's clinical condition. (PeterKolby) Interval History 05/28: This is a 77-year-old -[place] female who has an extensive medical history. She presented to the emergency department at [facility] on following a fall due to worsening numbness and weakness to the left lower extremity as well as both hands and the right toes. When she fell she did strike her head but denies any loss of consciousness. She states that the weakness became evident approximately two weeks ago when she was not able to get up and stand or turn herself in bed. She also is not able to hold things with her hands. She does endorse that she had the weakness prior to that but it only affected her ability to do things at that time. She is uncertain of how long she has had the numbness and weakness. She does not report any precipitating event two weeks ago when the numbness and weakness changed. She does report a history of falls that started in January of this year and she is falling more frequently. Prior to that the patient states she was able to ambulate without any difficulty. The numbness is to the digits of the right hand , from the left wrist to the fingertips, from just above the left knee down and to the toes of the right foot. She denies any saddle anaesthesia. She does endorse a history of chronic neck pain and chronic low back pain. 05/29: This morning the patient is seen in rounds with Dr. Quinteros. She is awake when seen and says she is doing fine. She states that the sensation is slightly better to the hands and feet. 05/30: Pt complains of neck pain. Pain radiates into the right anterior arm, forearm and then numbness in bilateral hands with incoordination. Denies pain radiating into the LUE but has numbness in the left hand and weakness bilateral UEs. 05/31: Pt states symptoms unchanged of neck pain radiating into the RUE with numbness in the hands bilaterally. She has weakness in the UEs and incoordination in her hands. 06/02: The patient went for a C3-4 and C4-5 ACDF. Post-operatively she remained intubated and was transferred to [facility] for further monitoring and management. 06/03: The patient has her eyes open this morning. She remains intubated and Nursing reports that her blood pressure has been labile during the night. She is scheduled to have dialysis today and the Human Resources Trainer is hoping to extubate her at some point. She is on propofol for sedation. Nursing did report that the patient followed commands prior to the propofol being increased. 06/04: When seen this morning the patient is awake and Physical Therapy is at the bedside working with the patient. She points to her mid chest and when asked a series of questions nods yes that the endotracheal tube is bothering her. She is on CPAP when seen. 06/05: The patient is awake this morning. She was extubated yesterday. She does have a sore throat and cough secondary to the endotracheal tube. She denies any pain to the back of the neck or the surgical site. 06/06: Remains on Evan-Synephrine as needed for labile blood pressure. 06/07/17: Awake and alert. He remains nothing by mouth per speech therapy. NG tube feedings. She is off of pressors. 06/08: When seen this morning the patient is obtunded but sedated with propofol. She is orally intubated and mechanically ventilated. Nursing reports that during the night the patient was essentially obtunded and that BiPAP was initiated. She was eventually intubated around 0630 this morning due to continued respiratory distress and hypercapnia. She at one point was on phenylephrine at 20 mcg/min for blood pressure support per Nursing. (Kolby Green) System Review Comments Unable to obtain due to patient's clinical condition. (Kolby Green) Exam Results 06/06/17 06/06/17 06/07/17 06/07/17 06/08/17 06/08/17 06:00 18:00 06:00 18:00 06:00 18:00 Intake Total 538 ml 596.7 ml 482 ml 471 ml 1356 ml 69 ml Output Total 0 ml 0 ml Balance 538 ml 596.7 ml 482 ml 471 ml 1356 ml 69 ml IV Total 106 ml 11.7 ml 0 ml 1000 ml 69 ml Tube Feeding 312 ml 325 ml 332 ml 211 ml 356 ml Other 120 ml 260 ml 150 ml 260 ml Output Urine Total 0 ml 0 ml # Voids 0 0 1 # Bowel Movements 0 0 0 2 0 Vital Signs Date Time Temp Pulse Resp B/P (MAP) Pulse Ox O2 Delivery O2 Flow Rate FiO2 06/08/17 07:41 100 50 06/08/17 06:30 50 06/08/17 06:00 68 06/08/17 04:00 98.4 68 10 148/66 (93) 100 06/08/17 04:00 71 06/08/17 03:40 100 30 06/08/17 02:00 61 06/08/17 00:00 71 06/08/17 00:00 98.3 71 14 100 107/60 (76) 06/07/17 23:40 100 30 06/07/17 22:00 66 06/07/17 21:18 68 70/31 06/07/17 20:07 99 Nasal Cannula 1.00 06/07/17 20:00 98.1 66 9 95 136/54 (81) 06/07/17 20:00 66 06/07/17 19:00 100 Nasal Cannula 2.00 06/07/17 18:00 67 06/07/17 16:00 98.7 64 12 139/65 (89) 99 136/54 (81) 06/07/17 16:00 64 06/07/17 14:00 74 06/07/17 12:00 98.3 75 23 156/69 (98) 99 139/58 (85) 06/07/17 12:00 75 06/07/17 10:00 75 06/07/17 09:47 12 06/07/17 08:00 99.6 73 15 135/60 (85) 100 128/50 (76) 06/07/17 08:00 75 06/07/17 07:36 96 Nasal Cannula 2.00 06/07/17 07:00 99 Nasal Cannula 2.00 06/07/17 06:00 75 06/07/17 04:00 98.2 75 14 116/57 (76) 100 142/58 (86) 06/07/17 04:00 75 06/07/17 02:00 75 06/07/17 00:00 98.1 71 14 111/55 (73) 100 150/57 (88) 06/07/17 00:00 71 06/06/17 22:00 67 06/06/17 20:00 71 06/06/17 20:00 98.1 71 20 133/60 (84) 100 141/52 (81) 06/06/17 19:37 100 Nasal Cannula 2.00 06/06/17 19:00 100 Nasal Cannula 2.00 06/06/17 18:00 70 06/06/17 16:00 98.8 71 12 119/48 (71) 100 06/06/17 16:00 71 06/06/17 14:00 75 06/06/17 12:00 71 06/06/17 12:00 99.1 71 14 132/53 (79) 100 06/06/17 10:00 70 06/06/17 08:30 75 134/56 06/06/17 08:00 78 06/06/17 08:00 99.0 75 13 122/46 (71) 100 06/06/17 07:37 100 Nasal Cannula 2.00 06/06/17 07:00 100 Nasal Cannula 2.00 21 06/06/17 06:00 74 06/06/17 05:25 142/58 06/06/17 04:00 98.5 68 8 92/45 (61) 100 104/40 (61) 06/06/17 04:00 68 06/06/17 02:00 72 06/06/17 01:50 130/58 06/06/17 00:50 74 84/36 06/06/17 00:00 76 06/06/17 00:00 98.3 76 13 91/63 (72) 90/36 (54) 06/05/17 22:00 87 06/05/17 20:40 100 Nasal Cannula 2.00 06/05/17 20:00 86 06/05/17 20:00 98.4 86 14 125/59 (81) 100 126/42 (70) 06/05/17 19:00 100 Nasal Cannula 2.00 06/05/17 18:00 82 06/05/17 16:00 97.6 82 12 117/65 100 06/05/17 16:00 97.6 75 15 117/64 (81) 100 06/05/17 16:00 79 06/05/17 15:01 93 21 06/05/17 14:36 97.7 76 12 140/47 100 06/05/17 13:53 74 89/37 06/05/17 12:22 98.6 75 16 151/65 (93) 100 06/05/17 12:00 75 06/05/17 10:29 12 06/05/17 10:00 77 (Kolby Green) Physical Examination GENERAL: Obtunded, intubated and mechanically ventilated, on propofol at 23 mcg/ kg/min for sedation. SKIN: Warm, dry & intact, intact dressing to left anterior neck surgical incision, no evident rashes, ulcerations or other lesions. HEENT: Normocephalic, atraumatic. PERRLA 2 mm sluggish. Orally intubated. NGT right nare. NECK: Snyder J cervical collar is in place, dressing intact to left anterior neck surgical site, no JVD, trachea midline. CARDIOVASCULAR: S1S2 w/RRR w/grade III/ systolic murmur, radial & pedal pulses 2+ bilaterally, cap refill < 2 sec. Monitor shows atrial spikes w/P wave noted. RESPIRATORY: CTAB w/o W/R/R but diminished, equal excursion, nonlaboured, intubated and mechanically ventilated. GASTROINTESTINAL: Abdomen obese, soft, nontender, bowel sounds not appreciated, enteral feeds via NGT. MUSCULOSKELETAL: No evident deformity or clubbing. NEUROLOGICAL: Intubated & sedated, GCS 6T (E1 V1T M4). PERRLA 2 mm sluggish. Does not follow commands. Unable to assess sensation. Minimal movement with left foot to noxious stimulation. (Kolby Green) Lab, Micro, Other Results Recent Impressions Chest X-Ray 06/08/17 0000 Signed Impressions: Service Date/Time: Thursday, June 08, 2017 07:29 - CONCLUSION: 1. Endotracheal tube in good position. 2. Cardiomegaly and increased pulmonary vascularity. Andrea Guerra MD Head CT 06/07/17 0000 Signed Impressions: Service Date/Time: Wednesday, June 07, 2017 23:01 - CONCLUSION: 1. Remote left parieto-occipital infarct. 2. No acute intracranial abnormality. Andrea Guerra MD Laboratory Tests Test 06/05/17 18:45 06/06/17 05:53 06/07/17 04:01 06/07/17 21:49 Hemoglobin 8.9 GM/DL 8.9 GM/DL 9.3 GM/DL Hematocrit 26.5 % 25.6 % 27.1 % White Blood Count 12.7 TH/MM3 13.3 TH/MM3 Red Blood Count 2.80 MIL/MM3 2.93 MIL/MM3 Mean Corpuscular Volume 91.6 FL 92.2 FL Mean Corpuscular Hemoglobin 32.0 PG 31.8 PG Mean Corpuscular Hemoglobin Concent 34.9 % 34.5 % Red Cell Distribution Width 14.6 % 14.4 % Platelet Count 155 TH/MM3 187 TH/MM3 Mean Platelet Volume 8.8 FL 8.5 FL Blood Urea Nitrogen 36 MG/DL 51 MG/DL Creatinine 5.60 MG/DL 7.07 MG/DL Random Glucose 97 MG/DL 121 MG/DL Calcium Level 8.4 MG/DL 8.3 MG/DL Sodium Level 137 MEQ/L 137 MEQ/L Potassium Level 4.5 MEQ/L 4.5 MEQ/L Chloride Level 97 MEQ/L 97 MEQ/L Carbon Dioxide Level 33.0 MEQ/L 30.5 MEQ/L Anion Gap 7 MEQ/L 10 MEQ/L Estimat Glomerular Filtration Rate 9 ML/MIN 7 ML/MIN Blood Gas Puncture Site VIVIANA Blood Gas Patient Temperature 98.6 Blood Gas HCO3 32 mmol/L Blood Gas Base Excess 6.5 mmol/L Blood Gas Oxygen Saturation 97 % Arterial Blood pH 7.32 Arterial Blood Partial Pressure CO2 65 mmHg Arterial Blood Partial Pressure O2 233 mmHg Arterial Blood Oxygen Content 12.4 Vol % Arterial Blood Carboxyhemoglobin 1.4 % Arterial Blood Methemoglobin 0.8 % Blood Gas Hemoglobin 8.7 G/DL Oxygen Delivery Device NASAL CANNULA Blood Gas Liter Flow 4 L/M Test 06/08/17 05:30 White Blood Count 11.8 TH/MM3 Red Blood Count 2.92 MIL/MM3 Hemoglobin 9.2 GM/DL Hematocrit 27.0 % Mean Corpuscular Volume 92.7 FL Mean Corpuscular Hemoglobin 31.6 PG Mean Corpuscular Hemoglobin Concent 34.1 % Red Cell Distribution Width 14.5 % Platelet Count 206 TH/MM3 Mean Platelet Volume 7.9 FL Blood Gas Puncture Site RT FEMORAL Blood Gas Patient Temperature 98.6 Blood Gas HCO3 30 mmol/L Blood Gas Base Excess 4.0 mmol/L Blood Gas Oxygen Saturation 95 % Arterial Blood pH 7.29 Arterial Blood Partial Pressure CO2 64 mmHg Arterial Blood Partial Pressure O2 99 mmHg Arterial Blood Oxygen Content 14.5 Vol % Arterial Blood Carboxyhemoglobin 1.3 % Arterial Blood Methemoglobin 1.0 % Blood Gas Hemoglobin 10.8 G/DL Oxygen Delivery Device BIPAP Blood Gas Ventilator Setting [id number] Blood Gas Inspired Oxygen 30 % Blood Urea Nitrogen 61 MG/DL Creatinine 8.26 MG/DL Random Glucose 113 MG/DL Calcium Level 8.5 MG/DL Sodium Level 136 MEQ/L Potassium Level 4.3 MEQ/L Chloride Level 97 MEQ/L Carbon Dioxide Level 32.0 MEQ/L Anion Gap 7 MEQ/L Estimat Glomerular Filtration Rate 6 ML/MIN (Kolby Green) Medical Decision Making Impression and Plan Impression: Significant cervical canal stenosis C3-4 & C4-5 Numbness & weakness/loss of coordination to both hands Numbness & weakness to left lower extremity History of chronic neck pain History of chronic back pain Post-operative diagnoses: (1) Cervical spinal stenosis (2) Cervical myelopathy with cervical radiculopathy Severe cervical stenosis C3-4-5 Cervical myelopathy The patient is obtunded but sedated. Minimal response with left foot to noxious stimulation. Respiratory distress. Continued improvement in leukocytosis. Right perihilar infiltrate not evident on today's CXR. Hyponatremia resolved POD #6 () s/p: C3-4 and C4-5 anterior cervical discectomy, interbody fusion, allograft bone C3-5 anterior cervical instrumentation Plan: Critical care management per Human Resources Trainer. Dialysis per Nephrology. Frequent neuro checks & vital signs. (Kolby Green) Attending Statement I have personally seen and examined the patient on the date of this note. Pertinent documentation and study results have been reviewed by the undersigned. I have personally developed the treatment plan and performed medical decision making. Agree with findings, exam, and treatment plan as noted above. Patient remains intubated and sedated following episode of hypercapnia, respiratory distress last evening initiating intubation and transferred to the surgical intensive care unit. Maintaining ventilatory support per human resource advisor. Unable to fully perform neurologic exam due to mental status with IV sedation. (Doug Quinteros MD) Kolby Green Jun 08, 2017 09:49 Doug Quinteros MD Jun 09, 2017 20:50
--- NOTE | 2017-06-08 10:31 | HHI.NPPN ---
Subjective General Problems: Anemia Renal Failure: Chronic, End Stage Renal Disease Interval History She was reintubated this morning for altered mental status and CO2 retention. On phenylephrine. Seen during bedside dialysis. (Theresa Gustafson) Review of Systems General General Remarks unable to evaluate (Theresa Gustafson) Objective Data Data Vital Signs Date Time Temp Pulse Resp B/P (MAP) Pulse Ox O2 Delivery O2 Flow Rate FiO2 06/08/17 10:00 68 06/08/17 08:00 97.6 68 17 165/57 (93) 100 06/08/17 08:00 50 06/08/17 08:00 68 06/08/17 07:41 100 50 06/08/17 07:00 100 Mechanical Ventilator 50 06/08/17 06:30 50 06/08/17 06:00 68 06/08/17 04:00 98.4 68 10 148/66 (93) 100 06/08/17 04:00 71 06/08/17 03:40 100 30 06/08/17 02:00 61 06/08/17 00:00 71 06/08/17 00:00 98.3 71 14 100 107/60 (76) 06/07/17 23:40 100 30 06/07/17 22:00 66 06/07/17 21:18 68 70/31 06/07/17 20:07 99 Nasal Cannula 1.00 06/07/17 20:00 98.1 66 9 95 136/54 (81) 06/07/17 20:00 66 06/07/17 19:00 100 Nasal Cannula 2.00 06/07/17 18:00 67 06/07/17 16:00 98.7 64 12 139/65 (89) 99 136/54 (81) 06/07/17 16:00 64 06/07/17 14:00 74 06/07/17 12:00 98.3 75 23 156/69 (98) 99 139/58 (85) 06/07/17 12:00 75 (Theresa Gustafson) -: 06/08/17 0530 06/08/17 0530 Microbiology 06/08/17 Gram Stain, Received Pending 06/08/17 Sputum Culture, Received Pending Imaging Last 72 hours Impressions Chest X-Ray 06/08/17 0000 Signed Impressions: Service Date/Time: Thursday, June 08, 2017 07:29 - CONCLUSION: 1. Endotracheal tube in good position. 2. Cardiomegaly and increased pulmonary vascularity. Andrea Guerra MD Head CT 06/07/17 0000 Signed Impressions: Service Date/Time: Wednesday, June 07, 2017 23:01 - CONCLUSION: 1. Remote left parieto-occipital infarct. 2. No acute intracranial abnormality. Andrea Guerra MD Tubes & Lines Comment COREY drain anterior neck Drip Comment phenylephrine, propofol (Theresa Gustafson B. CHEMIST) Physical Exam General Appearance: Well Nourished, No Acute Distress, Comfortable Appearance Remarks intubated, unresponsive (Theresa Gustafson CHEMIST) Eyes Eye Exam: Pupils Equal (Theresa Gustafson BIsabel CHEMIST) Ears & Nose Ears & Nose Remarks NG tube right nare (Theresa Gustafson B. CHEMIST) Throat Throat Exam: Oral Mucosa [place] & Moist (Theresa Gustafson BIsabel CHEMIST) Neck Neck Exam: Trachea Midline Neck Remarks Mower J collar in place (Theresa Gustafson BIsabel CHEMIST) Pulmonary Resp Exam: Clear Bilaterally, Breath Sounds Equal, No Distress (Theersa Gustafson B. CHEMIST) Cardiology CV Exam: Regular, Normal Sinus Rhythm, Good Perfusion (Theresa Gustafson B. CHEMIST) Gastrointestinal/Abdomen GI Exam: Soft, Non-Tender, Bowel Sounds Present (Theresa Gustafson B. CHEMIST) Musculoskeletal MS Exam: Joints Intact, Normal Tone, Unable to Ambulate (Theresa Gustafson CHEMIST) Integumentary Skin Exam: Clear, Warm, Dry, Intact Skin Remarks right arm AV access, + thrill, bruit , accessed during HD (Theresa Gustafson B. CHEMIST) Extremeties Extremities Exam: Trace Edema Extremeties Remarks left leg and right arm weakness (Theresa Gustafson BIsabel CHEMIST) Neurologic Neuro Exam: Unresponsive, Sedated (Theresa Gustafson B. CHEMIST) VTE Prophylaxis Device: SCDs (Theresa Gustafson B. CHEMIST) Assessment/Plan Assessment Summary: Anemia of CKD, Hypertension, End Stage Renal Disease Problem List: (1) ESRD (end stage renal disease) on dialysis ICD Codes: N18.6 - End stage renal disease; Z99.2 - Dependence on renal dialysis Status: Acute Plan: Seen during dialysis today on a 3K, 320 BFR, goal 2.5L Continue HD support on MWF . Currently on phenylephrine, ween as tolerated Given IVF bolus, monitor fluid status, adjust UF as needed/tolerated, avoid excessive IVF administration She has access in right arm that functions well Gadolinium is contraindicated She is anuric at baseline Obtain intermittent renal panel (2) Left leg weakness ICD Codes: R29.898 - Other symptoms and signs involving the musculoskeletal system Status: Acute Plan: Progressive, neurosurgery is following s/p C-Spine fusion 06/02 monitor neurological and neurovascular status postoperatively she had to be reintubated for CO 2 retention (3) HTN (hypertension) ICD Codes: I10 - HTN (hypertension) Status: Chronic Plan: Hypotensive today currently on phenylephrine, ween as tolerated follow blood pressure (4) Metabolic bone disease ICD Codes: E88.9 - Metabolic disorder, unspecified; M90.80 - Osteopathy in diseases classified elsewhere, unspecified site Plan: On Calcium Acetate with tube feedings continue Sensipar intermittently evaluate Phosphorus level (5) Anemia ICD Codes: D64.9 - Anemia, unspecified Status: Acute Plan: Epogen with HD Transfused 06/05 follow Hb (Theresa Gustafson) Problem List: (1) ESRD (end stage renal disease) on dialysis ICD Codes: N18.6 - End stage renal disease; Z99.2 - Dependence on renal dialysis Status: Acute Plan: Seen during dialysis today on a 3K, 320 BFR, goal 2.5L Continue HD support on MWF . Currently on phenylephrine, ween as tolerated Given IVF bolus, monitor fluid status, adjust UF as needed/tolerated, avoid excessive IVF administration She has access in right arm that functions well Gadolinium is contraindicated She is anuric at baseline Obtain intermittent renal panel (2) Left leg weakness ICD Codes: R29.898 - Other symptoms and signs involving the musculoskeletal system Status: Acute Plan: Progressive, neurosurgery is following s/p C-Spine fusion 06/02 monitor neurological and neurovascular status postoperatively she had to be reintubated for CO 2 retention (3) HTN (hypertension) ICD Codes: I10 - HTN (hypertension) Status: Chronic Plan: Hypotensive today currently on phenylephrine, ween as tolerated follow blood pressure (4) Metabolic bone disease ICD Codes: E88.9 - Metabolic disorder, unspecified; M90.80 - Osteopathy in diseases classified elsewhere, unspecified site Plan: On Calcium Acetate with tube feedings continue Sensipar intermittently evaluate Phosphorus level (5) Anemia ICD Codes: D64.9 - Anemia, unspecified Status: Acute Plan: Epogen with HD Transfused 06/05 follow Hb Plan patient was seen and examined. Seen during dialysis. BFR increased to 350 ml/ min. She is intubated, on the ventilator. (Deshawn Baez MD) Problem Qualifiers (1) HTN (hypertension): Qualified Codes: I10 - Essential (primary) hypertension Theresa Gustafson Jun 08, 2017 10:31 Deshawn Baez MD Jun 08, 2017 11:40
[2017-06-08] MEDS: EPOETIN ALFA 10,000 UNITS/ML VIAL IV PUSH PRN (11:43)
[2017-06-08] MEDS: GELATIN 12 MM/7 MM FOAM TOP PRN (11:43)
[2017-06-08] MEDS: ALBUMIN 25% INJ 100 ML IV PRN (11:44)
[2017-06-08] MEDS: hydrALAZINE HCL 20 MG/ML VIAL IV PUSH PRN ×2 (13:36→16:19)
--- NOTE | 2017-06-08 15:08 | HHI.FPPN ---
Subjective Remarks Overnight, patient became obtunded and was placed on BiPAP. Unfortunately with a lot of CO2 retention and respiratory acidosis, intubated early this morning. Currently being mechanically ventilated. Propofol infused, sedated currently. Requiring pressors for BP support. When seen this morning the patient is obtunded but sedated with propofol. She is orally intubated and mechanically ventilated. Nursing reports that during the night the patient was essentially obtunded and that BiPAP was initiated. She was eventually intubated around 0630 this morning due to continued respiratory distress and hypercapnia. She at one point was on phenylephrine at 20 mcg/min for blood pressure support per Nursing. (Casey Bermudez MD R3) Objective Vitals Vital Signs Date Time Temp Pulse Resp B/P (MAP) Pulse Ox O2 Delivery O2 Flow Rate FiO2 06/08/17 14:00 86 06/08/17 12:00 50 06/08/17 12:00 80 06/08/17 12:00 97.7 80 21 145/73 (97) 100 06/08/17 11:21 100 50 06/08/17 10:00 68 06/08/17 08:00 97.6 68 17 165/57 (93) 100 06/08/17 08:00 50 06/08/17 08:00 68 06/08/17 07:41 100 50 06/08/17 07:00 100 Mechanical Ventilator 50 06/08/17 06:30 50 06/08/17 06:00 68 06/08/17 04:00 98.4 68 10 148/66 (93) 100 06/08/17 04:00 71 06/08/17 03:40 100 30 06/08/17 02:00 61 06/08/17 00:00 71 06/08/17 00:00 98.3 71 14 100 107/60 (76) 06/07/17 23:40 100 30 06/07/17 22:00 66 06/07/17 21:18 68 70/31 06/07/17 20:07 99 Nasal Cannula 1.00 06/07/17 20:00 98.1 66 9 95 136/54 (81) 06/07/17 20:00 66 06/07/17 19:00 100 Nasal Cannula 2.00 06/07/17 18:00 67 06/07/17 16:00 98.7 64 12 139/65 (89) 99 136/54 (81) 06/07/17 16:00 64 I/O 06/07/17 06/07/17 06/07/17 06/08/17 06/08/17 06/08/17 07:00 15:00 23:00 07:00 15:00 23:00 Intake Total 482 ml 471 ml 1425 ml 73 ml Output Total 0 ml 2000 ml Balance 482 ml 471 ml 1425 ml -1927 ml IV Total 0 ml 1069 ml 73 ml Tube Feeding 332 ml 211 ml 356 ml Other 150 ml 260 ml Output Urine Total 0 ml Hemodialysis 2000 ml # Voids 0 1 # Bowel Movements 0 2 0 (Casey Bermudez MD R3) Result Diagram: 06/08/1752906/08/17529 Objective Remarks GENERAL: Intubated, mechanically ventilated, sedated. COREY drain out. Requiring norsynephrine. NG tube in place. SKIN: No rashes or lesions, visible part of incision on neck clear dry and intact HEAD: Normocephalic. EYES: No scleral icterus. No injection or drainage. NECK: Has on neck collar CARDIOVASCULAR: Regular rate and rhythm with 3/6 murmur heard best over mitral valve, requiring pressors RESPIRATORY: Mechanical ventilation with PCV-VG FiO2 50, TV 450, rate 16, PEEP 5. GASTROINTESTINAL: Abdomen soft, non-tender, nondistended. Bowel sounds present. Has NG tube with tube feedings. MUSCULOSKELETAL: Extremities without edema. No calf tenderness. Has on SCD's. NEURO: Sedated, propofol infused Procedures anterior cervical discectomy with interbody fusion on 06/02/17. (Casey Bermudez MD R3) A/P Assessment and Plan 77-year-old -[place]ian female with end-stage renal disease on dialysis, hypertension, pacemaker dependent, coronary artery disease, chronic back pain, and stomach cancer in remission. Admitted for generalized weakness and paresthesias and relatively sudden loss of sensation in hands and left leg, found to have severe cervical stenosis. Underwent anterior cervical discectomy with interbody fusion on 06/02/17. Currently in ICU, reintubated for acute hypercapneic respiratory failure, sedated. . Requiring tube feedings, failed swallow study. Discharge Planning Received anterior cervical discectomy with interbody fusion on 06/02/17, anticipate discharge to a senior living facility or inpatient rehab. (Casey Bermudez MD R3) Attending Attestation A detailed discussion with Dr Bermudez about patients admission and hospital course was held this morning,EMR reviewed patient was then seen and examined, Agree with Asssessment and Plan, See new Orders. (Cedrick Robb MD) Problem List: (1) Hypercapnemia ICD Codes: R06.89 - Other abnormalities of breathing Status: Acute Plan: Required intubation and mechanical ventilation after becoming obtunded, ABG showing respiratory acidosis. X-ray showing cardiomegaly and increased pulmonary vascularity. - Wean ventilator as tolerated. - EEG to assess for seizure activity. - Suction oral secretions as needed. - Critical care on board, helping to manage. (2) Cervical spinal stenosis ICD Codes: M48.02 - Spinal stenosis, cervical region Status: Acute Plan: Multi-level degenerative changes including areas of significant canal stenosis at C3-C5. She has significant upper and lower extremity weakness and numbness/paresthesias. Anterior cervical discectomy with interbody fusion performed on 06/02/17. * Neurosurgery on board. * [place] 10/325 every 4 hours when necessary pain, morphine 4 mg for breakthrough pain * NSAIDs contraindicated given renal disease * Gabapentin 100 mg tid for paresthesias, low dose as she is in renal failure * Physical therapy and occupational therapy, will require rehab. * Failed swallow evaluation, requiring tube feeds * Labile blood pressures, likely due to manipulation of sympathetic outflow tract * Baclofen started by neurosurgery for lower extremity spasms (3) End stage renal failure on dialysis ICD Codes: N18.6 - End stage renal failure on dialysis; Z99.2 - Dependence on renal dialysis Status: Chronic Plan: Patient has end-stage renal disease secondary to hypertension, on dialysis MWF. She is anuric. 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 Norsynephrine currently while in ICU. * Continue carvedilol 3.125 mg q12hrs, hold for low pressures * Continue home medication of amlodipine 5 mg by mouth daily, hold for low pressures * Clonidine 0.1 mg by mouth when necessary per protocol * Requiring norsynephrine currently for low blood pressures, hold antihypertensives until stable (6) Nutrition, metabolism, and development symptoms ICD Codes: R63.8 - Other symptoms and signs concerning food and fluid intake Status: Acute Plan: Fluids: Getting tube feedings, failed swallow evaluation, currently sedated Diet: Renal diet Defer to neurosurgery regarding activity, work with PT/OT DD prophylaxis: Heparin 5000 units tid, bilateral SCD's CODE STATUS: Full code (Casey Bermudez MD R3) Problem Qualifiers (1) HLD (hyperlipidemia): Qualified Codes: E78.2 - Mixed hyperlipidemia (2) HTN (hypertension): Qualified Codes: I10 - Essential (primary) hypertension Casey Bermudez MD R3 Jun 08, 2017 15:08 Cedrick Robb MD Jun 09, 2017 15:00
[2017-06-08 17:46] LABS: BLOOD GAS VENOUS BASE EXCESS 9.6 mmol/L (-2-2); BLOOD GAS VENOUS HCO3 33 mmol/L (22-26); BLOOD GAS VENOUS O2 CONTENT 8.7 Vol % (9.0-17.0); BLOOD GAS VENOUS O2 HGB SAT 65 % (70-76); BLOOD GAS VENOUS PCO2 35 mmHg (44-48); BLOOD GAS VENOUS PO2 32 mmHg (35-40); BLOOD GAS VENOUS pH 7.58 (7.360-7.400); CRITICAL VALUE YES; FIO2 40 %; OXYGEN DEVICE VENTILATOR; TEMP CORR TO 98.6; VENT SETTINGS PRVC/14/450/0.9/+5
[2017-06-08 17:47] LABS: DRAW SITE CENTRAL LINE; STAT NO
--- NOTE | 2017-06-08 18:07 | RADRPT ---
EXAM DATE/TIME: 06/08/2017 18:37 [facility] COMPARISON: CHEST SINGLE AP, June 08, 2017, 7:29. INDICATIONS : Right sided central line placement. MEDICAL HISTORY : Carcinoma, gastric. Cerebrovascular disease. Hypertension. SURGICAL HISTORY : Appendectomy. Hysterectomy. ENCOUNTER: Subsequent ACUITY: 2 weeks PAIN SCORE: Non-responsive. LOCATION: Bilateral chest FINDINGS: Right subclavian catheter is in place with the tip projected within the right atrium. No evidence of pneumothorax. Right-sided cardiac pacer leads with tips projected in the right atrium and right tierra tricle. Gastric tube tip and side-port project within the stomach. Endotracheal tube tip above the eusebio. Moderate tortuosity of the descending thoracic aorta. The heart is stable in configuration. No focal infiltrates seen. Right subclavian and left proximal arm vascular stents. CONCLUSION: Right subclavian catheter in good position. No evidence of pneumothorax. Tyler Contreras MD on June 08, 2017 at 18:04 Board Certified Radiologist. This report was verified electronically.
[2017-06-09] VITALS (18 sets, daily range): BP systolic 102–127; BP diastolic 51–61; PULSE 61–75; RESP 12–14; TEMP 99–100.2; O2SAT 100
[2017-06-09] MEDS: PROPOFOL 1000 MG/100 ML INJ 100 ML IV PRN ×4 (00:15→19:04)
[2017-06-09 04:55] LABS: BLOOD GAS HCO3 31 mmol/L (22-26); BLOOD GAS METHEMOGLOBIN 0.9 % (0-2); BLOOD GAS O2 HGB SATURATION 98 % (90-100); BLOOD GAS OXYGEN CONTENT 13.4 Vol % (12.0-20.0); BLOOD GAS PCO2 39 mmHg (38-42); BLOOD GAS PO2 170 mmHg (61-120); BLOOD GAS TOTAL HGB 9.5 G/DL (12.0-16.0); TEMP CORR TO 98.6
[2017-06-09 04:57] LABS: CRITICAL VALUE YES; OXYGEN DEVICE VENTILATOR
[2017-06-09 04:58] LABS: FIO2 40 %
[2017-06-09 04:59] LABS: DRAW SITE RT FEMORAL; NUMBER OF ARTERIAL PUNCTURES 1; STAT NO
[2017-06-09] MEDS: BACLOFEN 10 MG TAB NG SCH ×3 (05:33→22:00)
[2017-06-09] MEDS: HEPARIN SODIUM - SQ 10,000 UNITS/ML VIAL SQ SCH ×3 (05:33→22:00)
[2017-06-09 06:15] LABS: HEMATOCRIT 26.9 % (35.0-46.0); MEAN CELL VOLUME 92.2 FL (80.0-100.0); MEAN CORPUSCULAR HEMOGLOBIN 32.1 PG (27.0-34.0); MEAN CORPUSCULAR HGB CONC 34.8 % (32.0-36.0); PLATELET COUNT 225 TH/MM3 (150-450); RED BLOOD COUNT 2.92 MIL/MM3 (4.00-5.30); RED CELL DISTRIBUTION WIDTH 14.3 % (11.6-17.2); REVIEW FLAG FINAL; WHITE BLOOD COUNT 14.3 TH/MM3 (4.0-11.0)
[2017-06-09 06:45] LABS: BICARBONATE 32.1 MEQ/L (21.0-32.0); POTASSIUM 3.8 MEQ/L (3.5-5.1)
[2017-06-09] MEDS: SODIUM CHLORIDE 0.9% FLUSH 10 ML FLUSH IV FLUSH SCH ×2 (07:55→20:49)
[2017-06-09] MEDS: CALCIUM ACETATE 667 MG CAP PO SCH (07:55)
[2017-06-09] MEDS: CHLORHEXIDINE 0.12% (ORAL KIT) 15 ML CUP MT SCH ×4 (07:55→20:49)
[2017-06-09] MEDS: amLODIPine BESYLATE 5 MG TAB PO SCH (07:56)
[2017-06-09] MEDS: CARVEDILOL 3.125 MG TAB PO SCH ×2 (07:56→20:50)
[2017-06-09] MEDS: MIDODRINE 5 MG TAB NG SCH ×3 (07:56→17:31)
[2017-06-09] MEDS: CINACALCET HYDROCHLORIDE 30 MG TAB PO SCH (07:56)
[2017-06-09] MEDS: VITAMIN B CMPLX/VITC/FOLIC AC CAP PO SCH (07:56)
[2017-06-09] MEDS: DOCUSATE SODIUM 50 MG/SENNA 8.6 MG TAB PO SCH ×2 (07:56→20:50)
[2017-06-09] MEDS: guaiFENesin E.R. 600 MG TAB PO SCH ×2 (07:57→20:50)
[2017-06-09] MEDS: PANTOPRAZOLE SOD 40 MG DELAYED RELEASE TAB PO SCH (07:57)
--- NOTE | 2017-06-09 09:15 | HHI.CCPN ---
Subjective Remarks/Hospital Course 77 y/o woman with disabling symptoms from C3-4, C 4-5 level cord compression discovered after a recent fall. Underwent open cervical repair and reconstruction today. Discussed in detail with Dr. Roca. We will leave intubated overnight for airway protection and assess for extubation in a.m. following CXR and vent parameters, cuff leak, strength. Care complicated by ESRD. 06/03: Labile BP continues. Unable to wean vent due to residual sedation. Will get dialysis completed early today, then work to extubate. 06/04: Extubated this morning and breathing comfortably. Protects airway well. Will get swallow eval before pulling out NG tube. Elevated white count and infiltrate behind heart - will give one dose abx pending cultures. 06/07: Called by RN for the patient being obtunded unresponsive. On my exam patient is arousable to painful stimuli opens her eyes and withdraws to pain. GCS 9 considering she is able to protect her airways. 06/08: Worsening CO2 retention despite BiPAP NIV. Required re-intubation early today. 06/09: Acceptable gas exchange on ventilator. Unable to wean vent due to general fatigue. Objective Vital Signs Date Time Temp Pulse Resp B/P (MAP) Pulse Ox O2 Delivery O2 Flow Rate FiO2 06/09/17 08:17 100 40 06/09/17 08:00 65 06/09/17 08:00 100.2 14 102/58 (73) 06/09/17 07:00 Mechanical Ventilator 06/07/17 20:07 1.00 Intake and Output 06/09/17 06/09/17 06/10/17 08:00 16:00 00:00 Intake Total 768.6 ml Output Total 0 ml Balance 768.6 ml Result Diagram: 06/09/17 0546 06/09/17 0546 Other Results Laboratory Tests Test 06/08/17 17:30 06/09/17 04:39 Blood Gas Puncture Site CENTRAL LINE RT FEMORAL Blood Gas Patient Temperature 98.6 98.6 Venous Blood pH 7.58 (7.360-7.400) Venous Blood Partial Pressure CO2 35 mmHg (44-48) Venous Blood Partial Pressure O2 32 mmHg (35-40) Venous Blood HCO3 33 mmol/L (22-26) Venous Blood Oxygen Saturation 65 % (70-76) Venous Blood Oxygen Content 8.7 Vol % (9.0-17.0) Venous Blood Base Excess 9.6 mmol/L (-2-2) Oxygen Delivery Device VENTILATOR VENTILATOR Blood Gas Ventilator Setting [facility]/14/450/0.9/+5 SEE COMMENT Blood Gas Inspired Oxygen 40 % 40 % Blood Gas HCO3 31 mmol/L (22-26) Blood Gas Base Excess 8.0 mmol/L (-2-2) Blood Gas Oxygen Saturation 98 % (90-100) Arterial Blood pH 7.52 (7.380-7.420) Arterial Blood Partial Pressure CO2 39 mmHg (38-42) Arterial Blood Partial Pressure O2 170 mmHg (61-120) Arterial Blood Oxygen Content 13.4 Vol % (12.0-20.0) Arterial Blood Carboxyhemoglobin 1.0 % (0-4) Arterial Blood Methemoglobin 0.9 % (0-2) Blood Gas Hemoglobin 9.5 G/DL (12.0-16.0) Objective Remarks Gen: Lethargic, opens eyes to stimuli, localizes pain Head: Normal. Neck: Hard cervical collar. Orally intubated. Lungs: Clear, no adventitious sounds. Good kamini entry. Heart: NL S1S2, no JVD. Abdomen: Benign, soft. BS active. No guarding. Extremities: Warm, well perfused. Neuro: Lethargic, opens eyes to noxious stimuli, localizes pain. A/P Problem List: (1) Cervical myelopathy with cervical radiculopathy ICD Code: M47.12 - Other spondylosis with myelopathy, cervical region Status: Acute (2) Acute respiratory failure ICD Code: J96.00 - Acute respiratory failure, unspecified whether with hypoxia or hypercapnia Status: Acute (3) END STAGE RENAL DISEASE Status: Chronic (4) Morbid obesity Status: Chronic (5) History of cardiac pacemaker ICD Code: Z95.0 - Presence of cardiac pacemaker Status: Chronic (6) History of tobacco abuse ICD Code: Z87.891 - History of tobacco use Status: Acute (7) HTN (hypertension) ICD Code: I10 - HTN (hypertension) Status: Chronic Assessment and Plan Respiratory failure - CO2 retention - BiPAP overnight - Repeat ABG a.m. - DuoNeb's when necessary - Re-intubated 06/08 for CO2 retention. Spondylosis with myelopathy - Status post anterior fusion - Management per neurosurgery Respiratory Failure - Mechanical ventilation for CO2 retention, hypoventilation - Avoid narcotics. Altered mental status - Hypercarbic respiratory acidosis - BiPAP - Repeat ABG a.m. 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 Unable to wean vent today due to fatigue. Critical Care 36 mins aside from procedures. Problem Qualifiers (1) HTN (hypertension): Qualified Codes: I10 - Essential (primary) hypertension Ermias Iqbal MD Jun 09, 2017 09:15
[2017-06-09] MEDS: POTASSIUM PHOSPHATE/SODIUM PHOSPHATE 250 MG TAB NG SCH ×2 (10:01→20:50)
--- NOTE | 2017-06-09 10:05 | HHI.NSPN ---
(Kolby Green) History Chief Complaint: Unable to obtain due to patient's clinical condition. (PeterKolby) Interval History 05/28: This is a 77-year-old -[place] female who has an extensive medical history. She presented to the emergency department at [facility] on following a fall due to worsening numbness and weakness to the left lower extremity as well as both hands and the right toes. When she fell she did strike her head but denies any loss of consciousness. She states that the weakness became evident approximately two weeks ago when she was not able to get up and stand or turn herself in bed. She also is not able to hold things with her hands. She does endorse that she had the weakness prior to that but it only affected her ability to do things at that time. She is uncertain of how long she has had the numbness and weakness. She does not report any precipitating event two weeks ago when the numbness and weakness changed. She does report a history of falls that started in January of this year and she is falling more frequently. Prior to that the patient states she was able to ambulate without any difficulty. The numbness is to the digits of the right hand , from the left wrist to the fingertips, from just above the left knee down and to the toes of the right foot. She denies any saddle anaesthesia. She does endorse a history of chronic neck pain and chronic low back pain. 05/29: This morning the patient is seen in rounds with Dr. Quinteros. She is awake when seen and says she is doing fine. She states that the sensation is slightly better to the hands and feet. 05/30: Pt complains of neck pain. Pain radiates into the right anterior arm, forearm and then numbness in bilateral hands with incoordination. Denies pain radiating into the LUE but has numbness in the left hand and weakness bilateral UEs. 05/31: Pt states symptoms unchanged of neck pain radiating into the RUE with numbness in the hands bilaterally. She has weakness in the UEs and incoordination in her hands. 06/02: The patient went for a C3-4 and C4-5 ACDF. Post-operatively she remained intubated and was transferred to [facility] for further monitoring and management. 06/03: The patient has her eyes open this morning. She remains intubated and Nursing reports that her blood pressure has been labile during the night. She is scheduled to have dialysis today and the Resident Care Supervisor is hoping to extubate her at some point. She is on propofol for sedation. Nursing did report that the patient followed commands prior to the propofol being increased. 06/04: When seen this morning the patient is awake and Physical Therapy is at the bedside working with the patient. She points to her mid chest and when asked a series of questions nods yes that the endotracheal tube is bothering her. She is on CPAP when seen. 06/05: The patient is awake this morning. She was extubated yesterday. She does have a sore throat and cough secondary to the endotracheal tube. She denies any pain to the back of the neck or the surgical site. 06/06: Remains on Evan-Synephrine as needed for labile blood pressure. 06/07/17: Awake and alert. He remains nothing by mouth per speech therapy. NG tube feedings. She is off of pressors. 06/08: When seen this morning the patient is obtunded but sedated with propofol. She is orally intubated and mechanically ventilated. Nursing reports that during the night the patient was essentially obtunded and that BiPAP was initiated. She was eventually intubated around 0630 this morning due to continued respiratory distress and hypercapnia. She at one point was on phenylephrine at 20 mcg/min for blood pressure support per Nursing. 06/09: The patient remains obtunded this morning. She continues to be on propofol for sedation. Nursing did report that he decreased her propofol from 30 to 25 this morning. He also reported that her respiratory rate on the vent was increased from 12 to 14 due to an increase in her pH. (Kolby Green) System Review Comments Unable to obtain due to patient's clinical condition. (Kolby Green) Exam Results 06/07/17 06/07/17 06/08/17 06/08/17 06/09/17 06/09/17 06:00 18:00 06:00 18:00 06:00 18:00 Intake Total 482 ml 471 ml 1356 ml 497 ml 781 ml 78.6 ml Output Total 0 ml 2000 ml 0 ml 0 ml Balance 482 ml 471 ml 1356 ml -1503 ml 781 ml 78.6 ml IV Total 0 ml 1000 ml 142 ml 261 ml 78.6 ml Tube Feeding 332 ml 211 ml 356 ml 325 ml 400 ml Other 150 ml 260 ml 30 ml 120 ml Output Urine Total 0 ml Tube Feeding Residual Discard 0 ml 0 ml Hemodialysis 2000 ml # Voids 0 1 # Bowel Movements 0 2 0 Vital Signs Date Time Temp Pulse Resp B/P (MAP) Pulse Ox O2 Delivery O2 Flow Rate FiO2 06/09/17 08:17 100 40 06/09/17 08:00 40 06/09/17 08:00 65 06/09/17 08:00 100.2 65 14 102/58 (73) 100 06/09/17 07:00 100 Mechanical Ventilator 40 06/09/17 06:00 69 06/09/17 04:40 100 40 06/09/17 04:00 40 06/09/17 04:00 75 06/09/17 04:00 99.6 61 12 127/61 (83) 100 06/09/17 02:00 68 06/09/17 01:06 100 40 06/09/17 00:00 40 06/09/17 00:00 99.0 64 12 115/51 (72) 100 06/09/17 00:00 64 06/08/17 22:00 65 06/08/17 20:00 40 06/08/17 20:00 66 06/08/17 20:00 99.6 66 12 143/67 (92) 100 Arterial Line 06/08/17 19:37 100 40 06/08/17 19:00 100 Mechanical Ventilator 40 06/08/17 18:00 74 06/08/17 16:00 50 06/08/17 16:00 72 06/08/17 16:00 100 40 06/08/17 16:00 97.8 70 13 131/71 (91) 97 06/08/17 14:00 86 06/08/17 12:00 50 06/08/17 12:00 80 06/08/17 12:00 97.7 80 21 145/73 (97) 100 06/08/17 11:21 100 50 06/08/17 10:00 68 06/08/17 08:00 97.6 68 17 165/57 (93) 100 06/08/17 08:00 50 06/08/17 08:00 68 06/08/17 07:41 100 50 06/08/17 07:00 100 Mechanical Ventilator 50 06/08/17 06:30 50 06/08/17 06:00 68 06/08/17 04:00 98.4 68 10 148/66 (93) 100 06/08/17 04:00 71 06/08/17 03:40 100 30 06/08/17 02:00 61 06/08/17 00:00 71 06/08/17 00:00 98.3 71 14 100 107/60 (76) 06/07/17 23:40 100 30 06/07/17 22:00 66 06/07/17 21:18 68 70/31 06/07/17 20:07 99 Nasal Cannula 1.00 06/07/17 20:00 98.1 66 9 95 136/54 (81) 06/07/17 20:00 66 06/07/17 19:00 100 Nasal Cannula 2.00 06/07/17 18:00 67 06/07/17 16:00 98.7 64 12 139/65 (89) 99 136/54 (81) 06/07/17 16:00 64 06/07/17 14:00 74 06/07/17 12:00 98.3 75 23 156/69 (98) 99 139/58 (85) 06/07/17 12:00 75 06/07/17 10:00 75 06/07/17 09:47 12 06/07/17 08:00 99.6 73 15 135/60 (85) 100 128/50 (76) 06/07/17 08:00 75 06/07/17 07:36 96 Nasal Cannula 2.00 06/07/17 07:00 99 Nasal Cannula 2.00 06/07/17 06:00 75 06/07/17 04:00 98.2 75 14 116/57 (76) 100 142/58 (86) 06/07/17 04:00 75 06/07/17 02:00 75 06/07/17 00:00 98.1 71 14 111/55 (73) 100 150/57 (88) 06/07/17 00:00 71 06/06/17 22:00 67 06/06/17 20:00 71 06/06/17 20:00 98.1 71 20 133/60 (84) 100 141/52 (81) 06/06/17 19:37 100 Nasal Cannula 2.00 06/06/17 19:00 100 Nasal Cannula 2.00 06/06/17 18:00 70 06/06/17 16:00 98.8 71 12 119/48 (71) 100 06/06/17 16:00 71 06/06/17 14:00 75 06/06/17 12:00 71 06/06/17 12:00 99.1 71 14 132/53 (79) 100 06/06/17 10:00 70 (Kolby Green) Physical Examination GENERAL: Obtunded, intubated and mechanically ventilated, on propofol at 25 mcg/ kg/min for sedation. SKIN: Warm, dry & intact, intact dressing to left anterior neck surgical incision, no evident rashes, ulcerations or other lesions. HEENT: Normocephalic, atraumatic. PERRLA 2 mm sluggish. Orally intubated. NGT right nare. NECK: Dressing intact to left anterior neck surgical site, no JVD, trachea midline. CARDIOVASCULAR: S1S2 w/RRR w/grade III/ systolic murmur, radial & pedal pulses 2+ bilaterally, cap refill < 2 sec. Monitor shows atrial spikes w/P wave noted. RESPIRATORY: CTAB w/o W/R/R but diminished, equal excursion, nonlaboured, intubated and mechanically ventilated. GASTROINTESTINAL: Abdomen obese, soft, nontender, bowel sounds not appreciated, enteral feeds via NGT. MUSCULOSKELETAL: No evident deformity or clubbing. NEUROLOGICAL: Intubated & sedated, GCS 6T (E1 V1T M4). PERRLA 2 mm sluggish. Does not follow commands. Unable to assess sensation. Slight movement w/left foot & trace w/right foot to noxious stimulation. (Kolby Green) Lab, Micro, Other Results Recent Impressions Chest X-Ray 06/08/17 0000 Signed Impressions: Service Date/Time: Thursday, June 08, 2017 18:37 - CONCLUSION: Right subclavian catheter in good position. No evidence of pneumothorax. Tyler Contreras MD Chest X-Ray 06/08/17 0000 Signed Impressions: Service Date/Time: Thursday, June 08, 2017 07:29 - CONCLUSION: 1. Endotracheal tube in good position. 2. Cardiomegaly and increased pulmonary vascularity. Andrea Guerra MD Head CT 06/07/17 0000 Signed Impressions: Service Date/Time: Wednesday, June 07, 2017 23:01 - CONCLUSION: 1. Remote left parieto-occipital infarct. 2. No acute intracranial abnormality. Andrea Guerra MD Laboratory Tests Test 06/07/17 04:01 06/07/17 21:49 06/08/17 05:30 06/08/17 10:48 White Blood Count 13.3 TH/MM3 11.8 TH/MM3 Red Blood Count 2.93 MIL/MM3 2.92 MIL/MM3 Hemoglobin 9.3 GM/DL 9.2 GM/DL Hematocrit 27.1 % 27.0 % Mean Corpuscular Volume 92.2 FL 92.7 FL Mean Corpuscular Hemoglobin 31.8 PG 31.6 PG Mean Corpuscular Hemoglobin Concent 34.5 % 34.1 % Red Cell Distribution Width 14.4 % 14.5 % Platelet Count 187 TH/MM3 206 TH/MM3 Mean Platelet Volume 8.5 FL 7.9 FL Blood Urea Nitrogen 51 MG/DL 61 MG/DL Creatinine 7.07 MG/DL 8.26 MG/DL Random Glucose 121 MG/DL 113 MG/DL Calcium Level 8.3 MG/DL 8.5 MG/DL Sodium Level 137 MEQ/L 136 MEQ/L Potassium Level 4.5 MEQ/L 4.3 MEQ/L Chloride Level 97 MEQ/L 97 MEQ/L Carbon Dioxide Level 30.5 MEQ/L 32.0 MEQ/L Anion Gap 10 MEQ/L 7 MEQ/L Estimat Glomerular Filtration Rate 7 ML/MIN 6 ML/MIN Blood Gas Puncture Site VIVIANA RT FEMORAL Blood Gas Patient Temperature 98.6 98.6 Blood Gas HCO3 32 mmol/L 30 mmol/L Blood Gas Base Excess 6.5 mmol/L 4.0 mmol/L Blood Gas Oxygen Saturation 97 % 95 % Arterial Blood pH 7.32 7.29 Arterial Blood Partial Pressure CO2 65 mmHg 64 mmHg Arterial Blood Partial Pressure O2 233 mmHg 99 mmHg Arterial Blood Oxygen Content 12.4 Vol % 14.5 Vol % Arterial Blood Carboxyhemoglobin 1.4 % 1.3 % Arterial Blood Methemoglobin 0.8 % 1.0 % Blood Gas Hemoglobin 8.7 G/DL 10.8 G/DL Oxygen Delivery Device NASAL CANNULA BIPAP Blood Gas Liter Flow 4 L/M Blood Gas Ventilator Setting [id number]/[id number] Blood Gas Inspired Oxygen 30 % Troponin I LESS THAN 0.02 NG/ML Test 06/08/17 17:30 06/09/17 04:39 06/09/17 05:46 Blood Gas Puncture Site CENTRAL LINE RT FEMORAL Blood Gas Patient Temperature 98.6 98.6 Venous Blood pH 7.58 Venous Blood Partial Pressure CO2 35 mmHg Venous Blood Partial Pressure O2 32 mmHg Venous Blood HCO3 33 mmol/L Venous Blood Oxygen Saturation 65 % Venous Blood Oxygen Content 8.7 Vol % Venous Blood Base Excess 9.6 mmol/L Oxygen Delivery Device VENTILATOR VENTILATOR Blood Gas Ventilator Setting PRVC/14/450/0.9/+5 SEE COMMENT Blood Gas Inspired Oxygen 40 % 40 % Blood Gas HCO3 31 mmol/L Blood Gas Base Excess 8.0 mmol/L Blood Gas Oxygen Saturation 98 % Arterial Blood pH 7.52 Arterial Blood Partial Pressure CO2 39 mmHg Arterial Blood Partial Pressure O2 170 mmHg Arterial Blood Oxygen Content 13.4 Vol % Arterial Blood Carboxyhemoglobin 1.0 % Arterial Blood Methemoglobin 0.9 % Blood Gas Hemoglobin 9.5 G/DL White Blood Count 14.3 TH/MM3 Red Blood Count 2.92 MIL/MM3 Hemoglobin 9.3 GM/DL Hematocrit 26.9 % Mean Corpuscular Volume 92.2 FL Mean Corpuscular Hemoglobin 32.1 PG Mean Corpuscular Hemoglobin Concent 34.8 % Red Cell Distribution Width 14.3 % Platelet Count 225 TH/MM3 Mean Platelet Volume 8.7 FL Blood Urea Nitrogen 42 MG/DL Creatinine 5.88 MG/DL Random Glucose 149 MG/DL Albumin 3.5 GM/DL Calcium Level 9.4 MG/DL Phosphorus Level 1.3 MG/DL Sodium Level 137 MEQ/L Potassium Level 3.8 MEQ/L Chloride Level 95 MEQ/L Carbon Dioxide Level 32.1 MEQ/L Anion Gap 10 MEQ/L Estimat Glomerular Filtration Rate 8 ML/MIN (Kolby Green) Medical Decision Making Impression and Plan Impression: Significant cervical canal stenosis C3-4 & C4-5 Numbness & weakness/loss of coordination to both hands Numbness & weakness to left lower extremity History of chronic neck pain History of chronic back pain Post-operative diagnoses: (1) Cervical spinal stenosis (2) Cervical myelopathy with cervical radiculopathy Severe cervical stenosis C3-4-5 Cervical myelopathy The patient remains obtunded but sedated. Responds with movement of both feet to noxious stimulation. Respiratory distress. Still with leukocytosis, cultures negative to date. Right perihilar infiltrate not evident on CXR of . POD #7 () s/p: C3-4 and C4-5 anterior cervical discectomy, interbody fusion, allograft bone C3-5 anterior cervical instrumentation Plan: Critical care management per Resident Care Supervisor. Dialysis per Nephrology. Frequent neuro checks & vital signs. (Kolby Green) Attending Statement I have personally seen and examined the patient on the date of this note. Pertinent documentation and study results have been reviewed by the undersigned. I have personally developed the treatment plan and performed medical decision making. Agree with findings, exam, and treatment plan as noted above. In terms of his notes reviewed. Patient may require longer term ventilator weaning with therapy at LTAC. She is stable for discharge to facility from neurosurgical standpoint. (Doug Quinteros MD) Kolby Green Jun 09, 2017 10:05 Doug Quinteros MD Jun 09, 2017 20:52
--- NOTE | 2017-06-09 10:06 | PD.PROCEDR ---
Procedure Note Procedure Procedure date 06/08/2017 DX: CKD OP: Insertion Right Subclavian Central Venous Line (99459) Procedure: Time out performed. Ultrasound inspection of upper body reveals no patent left subclavian or internal jugular veins. The right subclavian is collateralized, small lumen. Neck and chest prepped and draped. Attempts to cannulate collaterals of the right internal jugular were successful but wire would not pass. Micropuncture needle used for attempt. Right subclavian vein access attempted under the clavicle and good return obtained. Wire passed with no resistance. Dilators passed and new wire inserted. Catheter passed over 2nd wire to 18 cm. Lumens aspirated and flushed. Dressing applied. CXR ordered, will review. Ermias Iqbal MD Jun 09, 2017 10:06
--- NOTE | 2017-06-09 10:15 | HHI.NPPN ---
Subjective General Problems: Anemia Renal Failure: Chronic, End Stage Renal Disease Interval History Remains intubated, unresponsive. Febrile today. (Theresa Gustafson) Review of Systems General General Remarks unable to evaluate (Theresa Gustafson) Objective Data Data 06/09/17 06/10/17 19:00 07:00 Output Total 0 ml Balance 0 ml Tube Feeding Residual Discard 0 ml Vital Signs Date Time Temp Pulse Resp B/P (MAP) Pulse Ox O2 Delivery O2 Flow Rate FiO2 06/09/17 08:17 100 40 06/09/17 08:00 40 06/09/17 08:00 65 06/09/17 08:00 100.2 65 14 102/58 (73) 100 06/09/17 07:00 100 Mechanical Ventilator 40 06/09/17 06:00 69 06/09/17 04:40 100 40 06/09/17 04:00 40 06/09/17 04:00 75 06/09/17 04:00 99.6 61 12 127/61 (83) 100 06/09/17 02:00 68 06/09/17 01:06 100 40 06/09/17 00:00 40 06/09/17 00:00 99.0 64 12 115/51 (72) 100 06/09/17 00:00 64 06/08/17 22:00 65 06/08/17 20:00 40 06/08/17 20:00 66 06/08/17 20:00 99.6 66 12 143/67 (92) 100 Arterial Line 06/08/17 19:37 100 40 06/08/17 19:00 100 Mechanical Ventilator 40 06/08/17 18:00 74 06/08/17 16:00 50 06/08/17 16:00 72 06/08/17 16:00 100 40 06/08/17 16:00 97.8 70 13 131/71 (91) 97 06/08/17 14:00 86 06/08/17 12:00 50 06/08/17 12:00 80 06/08/17 12:00 97.7 80 21 145/73 (97) 100 06/08/17 11:21 100 50 (Theresa Gustafson) -: 06/09/17 0546 06/09/17 0546 Imaging Last 72 hours Impressions Chest X-Ray 06/08/17 0000 Signed Impressions: Service Date/Time: Thursday, June 08, 2017 18:37 - CONCLUSION: Right subclavian catheter in good position. No evidence of pneumothorax. Tyler Contreras MD Chest X-Ray 06/08/17 0000 Signed Impressions: Service Date/Time: Thursday, June 08, 2017 07:29 - CONCLUSION: 1. Endotracheal tube in good position. 2. Cardiomegaly and increased pulmonary vascularity. Andrea Guerra MD Head CT 06/07/17 0000 Signed Impressions: Service Date/Time: Wednesday, June 07, 2017 23:01 - CONCLUSION: 1. Remote left parieto-occipital infarct. 2. No acute intracranial abnormality. Andrea Guerra MD Drip Comment propofol (Theresa Gustafson) Physical Exam General Appearance: Well Nourished, No Acute Distress, Comfortable Appearance Remarks intubated, unresponsive (Theresa Gustafson ROTARY SAW OPERATOR) Eyes Eye Exam: Pupils Equal (Theresa Gustafson) Ears & Nose Ears & Nose Remarks NG tube right nare (Theresa Gustafson BIsabel ROTARY SAW OPERATOR) Throat Throat Exam: Oral Mucosa Sinai & Moist (Theresa Gustafson) Neck Neck Exam: Trachea Midline Neck Remarks Tinnie J collar in place (Theresa Gustafson) Pulmonary Resp Exam: Clear Bilaterally, Breath Sounds Equal, No Distress (Theresa Gustafson ROTARY SAW OPERATOR) Cardiology CV Exam: Regular, Normal Sinus Rhythm, Good Perfusion (Theresa Gustafson ROTARY SAW OPERATOR) Gastrointestinal/Abdomen GI Exam: Soft, Non-Tender, Bowel Sounds Present (Theresa Gustafson ROTARY SAW OPERATOR) Musculoskeletal MS Exam: Joints Intact, Normal Tone, Unable to Ambulate (Theresa Gustafson) Integumentary Skin Exam: Clear, Warm, Dry, Intact Skin Remarks right arm AV access, + thrill, bruit , accessed during HD (Theresa Gustafson) Extremeties Extremities Exam: Trace Edema Extremeties Remarks left leg and right arm weakness (Theresa GustafsonP) Neurologic Neuro Exam: Unresponsive, Sedated (Theresa Gustafson) VTE Prophylaxis Device: SCDs (Theresa Gustafson) Assessment/Plan Assessment Summary: Anemia of CKD, Hypertension, End Stage Renal Disease Problem List: (1) ESRD (end stage renal disease) on dialysis ICD Codes: N18.6 - End stage renal disease; Z99.2 - Dependence on renal dialysis Status: Acute Plan: 2L fluid removal yesterday Continue HD support on MWF . Off blood pressure support She has access in right arm that functions well Gadolinium is contraindicated She is anuric at baseline Obtain intermittent renal panel (2) Left leg weakness ICD Codes: R29.898 - Other symptoms and signs involving the musculoskeletal system Status: Acute Plan: Progressive, neurosurgery is following s/p C-Spine fusion 06/02 monitor neurological and neurovascular status postoperatively she had to be reintubated for CO 2 retention now with fevers (3) HTN (hypertension) ICD Codes: I10 - HTN (hypertension) Status: Chronic Plan: Blood pressure has improved continue to monitor (4) Metabolic bone disease ICD Codes: E88.9 - Metabolic disorder, unspecified; M90.80 - Osteopathy in diseases classified elsewhere, unspecified site Plan: Phosphorus is low today, Stop Calcium Acetate Replacement has been ordered continue Sensipar intermittently evaluate Phosphorus level (5) Anemia ICD Codes: D64.9 - Anemia, unspecified Status: Acute Plan: Epogen with HD Transfused 06/05 follow Hb (Theresa Gustafson) Problem List: (1) ESRD (end stage renal disease) on dialysis ICD Codes: N18.6 - End stage renal disease; Z99.2 - Dependence on renal dialysis Status: Acute Plan: 2L fluid removal yesterday Continue HD support on MWF . Off blood pressure support She has access in right arm that functions well Gadolinium is contraindicated She is anuric at baseline Obtain intermittent renal panel (2) Left leg weakness ICD Codes: R29.898 - Other symptoms and signs involving the musculoskeletal system Status: Acute Plan: Progressive, neurosurgery is following s/p C-Spine fusion 06/02 monitor neurological and neurovascular status postoperatively she had to be reintubated for CO 2 retention now with fevers (3) HTN (hypertension) ICD Codes: I10 - HTN (hypertension) Status: Chronic Plan: Blood pressure has improved continue to monitor (4) Metabolic bone disease ICD Codes: E88.9 - Metabolic disorder, unspecified; M90.80 - Osteopathy in diseases classified elsewhere, unspecified site Plan: Phosphorus is low today, Stop Calcium Acetate Replacement has been ordered continue Sensipar intermittently evaluate Phosphorus level (5) Anemia ICD Codes: D64.9 - Anemia, unspecified Status: Acute Plan: Epogen with HD Transfused 06/05 follow Hb Plan patient was seen and examined. Agree with above assessment and plan. (Deshawn Baez MD) Problem Qualifiers (1) HTN (hypertension): Qualified Codes: I10 - Essential (primary) hypertension Theresa Gustafson Jun 09, 2017 10:15 Deshawn Baez MD Jun 09, 2017 20:42
--- NOTE | 2017-06-09 11:37 | HHI.FPPN ---
Subjective Remarks No acute events overnight. She remains intubated and mechanically ventilated. She is currently sedated with Propofol. NG tube remains in place. Neck brace is now off. Will likely start CPAP trials today or tomorrow. (Casey Bermudez MD R3) Objective Vitals Vital Signs Date Time Temp Pulse Resp B/P (MAP) Pulse Ox O2 Delivery O2 Flow Rate FiO2 06/09/17 10:00 74 06/09/17 08:17 100 40 06/09/17 08:00 40 06/09/17 08:00 65 06/09/17 08:00 100.2 65 14 102/58 (73) 100 06/09/17 07:00 100 Mechanical Ventilator 40 06/09/17 06:00 69 06/09/17 04:40 100 40 06/09/17 04:00 40 06/09/17 04:00 75 06/09/17 04:00 99.6 61 12 127/61 (83) 100 06/09/17 02:00 68 06/09/17 01:06 100 40 06/09/17 00:00 40 06/09/17 00:00 99.0 64 12 115/51 (72) 100 06/09/17 00:00 64 06/08/17 22:00 65 06/08/17 20:00 40 06/08/17 20:00 66 06/08/17 20:00 99.6 66 12 143/67 (92) 100 Arterial Line 06/08/17 19:37 100 40 06/08/17 19:00 100 Mechanical Ventilator 40 06/08/17 18:00 74 06/08/17 16:00 50 06/08/17 16:00 72 06/08/17 16:00 100 40 06/08/17 16:00 97.8 70 13 131/71 (91) 97 06/08/17 14:00 86 06/08/17 12:00 50 06/08/17 12:00 80 06/08/17 12:00 97.7 80 21 145/73 (97) 100 I/O 06/08/17 06/08/17 06/08/17 06/09/17 06/09/17 06/09/17 07:00 15:00 23:00 07:00 15:00 23:00 Intake Total 1425 ml 73 ml 446 ml 768.6 ml Output Total 0 ml 2000 ml 0 ml 0 ml 0 ml Balance 1425 ml -1927 ml 446 ml 768.6 ml 0 ml IV Total 1069 ml 73 ml 91 ml 248.6 ml Tube Feeding 356 ml 325 ml 400 ml Other 30 ml 120 ml Output Urine Total 0 ml Tube Feeding Residual Discard 0 ml 0 ml 0 ml Hemodialysis 2000 ml # Bowel Movements 0 (Casey Bermudez MD R3) Result Diagram: 06/09/1754506/09/17545 Objective Remarks GENERAL: Intubated, mechanically ventilated, sedated. COREY drain out. Now off pressors, blood pressures fairly stable. NG tube in place. SKIN: No rashes or lesions, visible part of incision on neck clear dry and intact HEAD: Normocephalic. EYES: No scleral icterus. No injection or drainage. NECK: Neck collar off CARDIOVASCULAR: Regular rate and rhythm with 3/6 murmur heard best over mitral valve, requiring pressors RESPIRATORY: Mechanical ventilation with FiO2 50, TV 450, rate 14, PEEP 5. GASTROINTESTINAL: Abdomen soft, non-tender, nondistended. Bowel sounds present. Has NG tube with tube feedings. MUSCULOSKELETAL: Extremities without edema. No calf tenderness. Has on SCD's. NEURO: Sedated, propofol infused Procedures anterior cervical discectomy with interbody fusion on 06/02/17. (Casey Bermudez MD R3) A/P Assessment and Plan 77-year-old -[place] female with end-stage renal disease on dialysis, hypertension, pacemaker dependent, coronary artery disease, chronic back pain, and stomach cancer in remission. Admitted for generalized weakness and paresthesias and relatively sudden loss of sensation in hands and left leg, found to have severe cervical stenosis. Underwent anterior cervical discectomy with interbody fusion on 06/02/17. Currently in ICU, reintubated for acute hypercapneic respiratory failure, sedated. Requiring tube feedings, failed swallow study. Discharge Planning Received anterior cervical discectomy with interbody fusion on 06/02/17, anticipate discharge to a nursing home facility or inpatient rehab. (Casey Bermudez MD R3) Attending Attestation A detailed discussion with Dr Bermudez about patients admission and complicated hospital course was held this morning, patient was then examined, Agree with Asssessment and Plan, See new Orders. (Cedrick Robb MD) Problem List: (1) Hypercapnemia ICD Codes: R06.89 - Other abnormalities of breathing Status: Acute Plan: Required intubation and mechanical ventilation after becoming obtunded, ABG showing respiratory acidosis. X-ray showing cardiomegaly and increased pulmonary vascularity. - Wean ventilator as tolerated, CPAP trials today or tomorrow, defer to critical care - EEG to assess for seizure activity. - Suction oral secretions as needed. - Critical care on board, helping to manage. (2) Cervical spinal stenosis ICD Codes: M48.02 - Spinal stenosis, cervical region Status: Acute Plan: Multi-level degenerative changes including areas of significant canal stenosis at C3-C5. She has significant upper and lower extremity weakness and numbness/paresthesias. Anterior cervical discectomy with interbody fusion performed on 06/02/17. * Neurosurgery on board. * [place] 10/325 every 4 hours when necessary pain, morphine 4 mg for breakthrough pain * NSAIDs contraindicated given renal disease * Gabapentin 100 mg tid for paresthesias, low dose as she is in renal failure * Physical therapy and occupational therapy, will require rehab. * Failed swallow evaluation, requiring tube feeds * Labile blood pressures, likely due to manipulation of sympathetic outflow tract * Baclofen for lower extremity spasms (3) End stage renal failure on dialysis ICD Codes: N18.6 - End stage renal failure on dialysis; Z99.2 - Dependence on renal dialysis Status: Chronic Plan: Patient has end-stage renal disease secondary to hypertension, on dialysis MWF. She is anuric. 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 Off pressors currently. * Continue carvedilol 3.125 mg q12hrs, hold for low pressures * Continue home medication of amlodipine 5 mg by mouth daily, hold for low pressures * Clonidine 0.1 mg by mouth when necessary per protocol (6) Nutrition, metabolism, and development symptoms ICD Codes: R63.8 - Other symptoms and signs concerning food and fluid intake Status: Acute Plan: Fluids: Getting tube feedings, failed swallow evaluation, currently sedated Diet: Nepro through NG tube at 35 mls/hr Defer to neurosurgery regarding activity, work with PT/OT DD prophylaxis: Heparin 5000 units tid, bilateral SCD's CODE STATUS: Full code (Casey Bermudez MD R3) Problem Qualifiers (1) HLD (hyperlipidemia): Qualified Codes: E78.2 - Mixed hyperlipidemia (2) HTN (hypertension): Qualified Codes: I10 - Essential (primary) hypertension Casey Bermudez MD R3 Jun 09, 2017 11:37 Cedrick Robb MD Jun 09, 2017 15:06
[2017-06-09] MEDS: RESP: ALBUTEROL 2.5 MG/IPRATROPIUM 0.5 MG NEB (PRN) NEB (20:12)
[2017-06-10] VITALS (10 sets, daily range): BP systolic 111–164; BP diastolic 49–63; PULSE 60–69; RESP 12; TEMP 97.9–99.3; O2SAT 100
[2017-06-10] MEDS: RESP: ALBUTEROL 2.5 MG/IPRATROPIUM 0.5 MG NEB (PRN) NEB (00:18)
[2017-06-10 05:39] LABS: BICARBONATE 30.4 MEQ/L (21.0-32.0); POTASSIUM 3.7 MEQ/L (3.5-5.1)
[2017-06-10] MEDS: PROPOFOL 1000 MG/100 ML INJ 100 ML IV PRN (05:49)
[2017-06-10] MEDS: BACLOFEN 10 MG TAB NG SCH (05:49)
[2017-06-10] MEDS: HEPARIN SODIUM - SQ 10,000 UNITS/ML VIAL SQ SCH (05:49)
--- NOTE | 2017-06-10 07:36 | HHI.CCPN ---
Subjective Remarks/Hospital Course 77 y/o woman with disabling symptoms from C3-4, C 4-5 level cord compression discovered after a recent fall. Underwent open cervical repair and reconstruction today. Discussed in detail with Dr. Roca. We will leave intubated overnight for airway protection and assess for extubation in a.m. following CXR and vent parameters, cuff leak, strength. Care complicated by ESRD. 06/03: Labile BP continues. Unable to wean vent due to residual sedation. Will get dialysis completed early today, then work to extubate. 06/04: Extubated this morning and breathing comfortably. Protects airway well. Will get swallow eval before pulling out NG tube. Elevated white count and infiltrate behind heart - will give one dose abx pending cultures. 06/07: Called by RN for the patient being obtunded unresponsive. On my exam patient is arousable to painful stimuli opens her eyes and withdraws to pain. GCS 9 considering she is able to protect her airways. 06/08: Worsening CO2 retention despite BiPAP NIV. Required re-intubation early today. 06/09: Acceptable gas exchange on ventilator. Unable to wean vent due to general fatigue. 06/10: Unable to wean ventilator due to fatigue. Anticipate 2-3 week long-term weaning trial. [facility] has accepted patient. Transfer after dialysis today. Objective Vital Signs Date Time Temp Pulse Resp B/P (MAP) Pulse Ox O2 Delivery O2 Flow Rate FiO2 06/10/17 06:00 69 06/10/17 04:00 98.4 12 164/63 (96) 100 06/10/17 04:00 35 06/09/17 19:00 Mechanical Ventilator 06/07/17 20:07 1.00 Intake and Output 06/10/17 06/10/17 06/11/17 08:00 16:00 00:00 Intake Total 574 ml Output Total 0 ml Balance 574 ml Result Diagram: 06/09/17 0546 06/10/17 0400 Objective Remarks Gen: Lethargic, opens eyes to stimuli, localizes pain Head: Normal. Neck: Hard cervical collar. Orally intubated. Lungs: Clear, no adventitious sounds. Good kamini entry. Heart: NL S1S2, no JVD. Abdomen: Benign, soft. BS active. No guarding. Extremities: Warm, well perfused. Trace edema. Neuro: Lethargic, opens eyes to noxious stimuli, localizes pain. A/P Problem List: (1) Cervical myelopathy with cervical radiculopathy ICD Code: M47.12 - Other spondylosis with myelopathy, cervical region Status: Acute (2) Acute respiratory failure ICD Code: J96.00 - Acute respiratory failure, unspecified whether with hypoxia or hypercapnia Status: Acute (3) END STAGE RENAL DISEASE Status: Chronic (4) Morbid obesity Status: Chronic (5) History of cardiac pacemaker ICD Code: Z95.0 - Presence of cardiac pacemaker Status: Chronic (6) History of tobacco abuse ICD Code: Z87.891 - History of tobacco use Status: Acute (7) HTN (hypertension) ICD Code: I10 - HTN (hypertension) Status: Chronic Assessment and Plan Respiratory failure - CO2 retention - BiPAP overnight - Repeat ABG a.m. - DuoNeb's when necessary - Re-intubated 06/08 for CO2 retention. Spondylosis with myelopathy - Status post anterior fusion - Management per neurosurgery Respiratory Failure - Mechanical ventilation for CO2 retention, hypoventilation - Avoid narcotics. Altered mental status - Hypercarbic respiratory acidosis - BiPAP - Repeat ABG a.m. 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 Unable to wean vent today due to fatigue. Plan for transfer to LTAC - expect 2-3 week weaning process. Neurosurgery Service approves of transfer. Problem Qualifiers (1) HTN (hypertension): Qualified Codes: I10 - Essential (primary) hypertension Ermias Iqbal MD Jun 10, 2017 07:36
--- NOTE | 2017-06-10 07:42 | HHI.DS ---
Discharge Summary Admission Date May 28, 2017 at 09:45 Discharge Date: Jun 10, 2017 Admitting Diagnosis general weakness/chest pain (1) Acute respiratory failure ICD Code: J96.00 - Acute respiratory failure, unspecified whether with hypoxia or hypercapnia Status: Acute (2) Hypercapnemia ICD Code: R06.89 - Other abnormalities of breathing Status: Acute (3) Cervical radiculopathy at C6 ICD Code: M54.12 - Radiculopathy, cervical region Status: Acute (4) Cervical radiculopathy at C5 ICD Code: M54.12 - Radiculopathy, cervical region Status: Acute (5) Cervical myelopathy with cervical radiculopathy ICD Code: M47.12 - Other spondylosis with myelopathy, cervical region Status: Acute (6) ESRD (end stage renal disease) on dialysis ICD Code: N18.6 - End stage renal disease; Z99.2 - Dependence on renal dialysis Status: Chronic (7) BMI 36.0-36.9,adult ICD Code: Z68.36 - Body mass index (BMI) 36.0-36.9, adult Status: Chronic Procedures Decompression and ORIF cervical spine. Intubation and mechanical ventilation. Brief History Patient fell, exacerbating cervical level spinal stenosis and radiculopathy. Underwent reconstruction cervical spine 06/03/17. Course complicated by hypercapneic respiratory failure requiring long-term ventilator weaning. CBC/BMP: 06/09/17 0546 06/10/17 0400 Significant Findings Laboratory Tests Test 06/07/17 21:49 06/08/17 05:30 06/08/17 10:48 06/08/17 17:30 Blood Gas HCO3 32 mmol/L (22-26) 30 mmol/L (22-26) Blood Gas Base Excess 6.5 mmol/L (-2-2) 4.0 mmol/L (-2-2) Arterial Blood pH 7.32 (7.380-7.420) 7.29 (7.380-7.420) Arterial Blood Partial Pressure CO2 65 mmHg (38-42) 64 mmHg (38-42) Arterial Blood Partial Pressure O2 233 mmHg (61-120) Blood Gas Hemoglobin 8.7 G/DL (12.0-16.0) 10.8 G/DL (12.0-16.0) White Blood Count 11.8 TH/MM3 (4.0-11.0) Red Blood Count 2.92 MIL/MM3 (4.00-5.30) Hemoglobin 9.2 GM/DL (11.6-15.3) Hematocrit 27.0 % (35.0-46.0) Blood Urea Nitrogen 61 MG/DL (7-18) Creatinine 8.26 MG/DL (0.50-1.00) Random Glucose 113 MG/DL (74-106) Chloride Level 97 MEQ/L (98-107) Estimat Glomerular Filtration Rate 6 ML/MIN (>89) Troponin I LESS THAN 0.02 NG/ML Venous Blood pH 7.58 (7.360-7.400) Venous Blood Partial Pressure CO2 35 mmHg (44-48) Venous Blood Partial Pressure O2 32 mmHg (35-40) Venous Blood HCO3 33 mmol/L (22-26) Venous Blood Oxygen Saturation 65 % (70-76) Venous Blood Oxygen Content 8.7 Vol % (9.0-17.0) Venous Blood Base Excess 9.6 mmol/L (-2-2) Test 06/09/17 04:39 06/09/17 05:46 06/10/17 04:00 Blood Gas HCO3 31 mmol/L (22-26) Blood Gas Base Excess 8.0 mmol/L (-2-2) Arterial Blood pH 7.52 (7.380-7.420) Arterial Blood Partial Pressure O2 170 mmHg (61-120) Blood Gas Hemoglobin 9.5 G/DL (12.0-16.0) White Blood Count 14.3 TH/MM3 (4.0-11.0) Red Blood Count 2.92 MIL/MM3 (4.00-5.30) Hemoglobin 9.3 GM/DL (11.6-15.3) Hematocrit 26.9 % (35.0-46.0) Blood Urea Nitrogen 42 MG/DL (7-18) 57 MG/DL (7-18) Creatinine 5.88 MG/DL (0.50-1.00) 7.05 MG/DL (0.50-1.00) Random Glucose 149 MG/DL (74-106) 123 MG/DL (74-106) Phosphorus Level 1.3 MG/DL (2.5-4.9) 1.2 MG/DL (2.5-4.9) Chloride Level 95 MEQ/L (98-107) 97 MEQ/L (98-107) Carbon Dioxide Level 32.1 MEQ/L (21.0-32.0) Estimat Glomerular Filtration Rate 8 ML/MIN (>89) 7 ML/MIN (>89) Albumin 2.9 GM/DL (3.4-5.0) PE at Discharge Lungs: Clear. Heart: Paced. No JVD. Neuro: Wiggles fingers and toes to stimulation. Breathes over vent weakly. Hospital Course 77 y/o woman with disabling symptoms from C3-4, C 4-5 level cord compression discovered after a recent fall. Underwent open cervical repair and reconstruction today. Discussed in detail with Dr. Roca. We will leave intubated overnight for airway protection and assess for extubation in a.m. following CXR and vent parameters, cuff leak, strength. Care complicated by ESRD. 06/03: Labile BP continues. Unable to wean vent due to residual sedation. Will get dialysis completed early today, then work to extubate. 06/04: Extubated this morning and breathing comfortably. Protects airway well. Will get swallow eval before pulling out NG tube. Elevated white count and infiltrate behind heart - will give one dose abx pending cultures. 06/07: Called by RN for the patient being obtunded unresponsive. On my exam patient is arousable to painful stimuli opens her eyes and withdraws to pain. GCS 9 considering she is able to protect her airways. 06/08: Worsening CO2 retention despite BiPAP NIV. Required re-intubation early today. 06/09: Acceptable gas exchange on ventilator. Unable to wean vent due to general fatigue. 06/10: Unable to wean ventilator due to fatigue. Anticipate 2-3 week long-term weaning trial. [facility] has accepted patient. Transfer after dialysis today. Pt Condition on Discharge: Stable Ermias Iqbal MD Jun 10, 2017 07:42
[2017-06-10] MEDS: CHLORHEXIDINE 0.12% (ORAL KIT) 15 ML CUP MT SCH ×2 (08:00→08:32)
[2017-06-10] MEDS: amLODIPine BESYLATE 5 MG TAB PO SCH (08:32)
[2017-06-10] MEDS: CARVEDILOL 3.125 MG TAB PO SCH (08:32)
[2017-06-10] MEDS: SODIUM CHLORIDE 0.9% FLUSH 10 ML FLUSH IV FLUSH SCH (08:32)
[2017-06-10] MEDS: CINACALCET HYDROCHLORIDE 30 MG TAB PO SCH (08:32)
[2017-06-10] MEDS: VITAMIN B CMPLX/VITC/FOLIC AC CAP PO SCH (08:33)
[2017-06-10] MEDS: DOCUSATE SODIUM 50 MG/SENNA 8.6 MG TAB PO SCH (08:33)
[2017-06-10] MEDS: MIDODRINE 5 MG TAB NG SCH ×2 (08:33→13:00)
[2017-06-10] MEDS: POTASSIUM PHOSPHATE/SODIUM PHOSPHATE 250 MG TAB NG SCH (08:33)
[2017-06-10] MEDS: guaiFENesin E.R. 600 MG TAB PO SCH (08:33)
[2017-06-10] MEDS: PANTOPRAZOLE SOD 40 MG DELAYED RELEASE TAB PO SCH (08:34)
[2017-06-10] MEDS: EPOETIN ALFA 10,000 UNITS/ML VIAL IV PUSH PRN (08:53)
--- NOTE | 2017-06-10 09:58 | HHI.FPPN ---
Subjective Remarks Patient remains intubated and mechanically ventilated. She is currently sedated with Propofol. The plan this morning is to get her to [facility], a long-term count includes the [facility] rehab facility. Will coordinate with intensive care on getting her transferred today. She has significant amounts of oral and nasal secretions, requiring suctioning. NG tube remains in place. She has central line on the right. Neck brace is off. (Casey Bermudez MD R3) Objective Vitals Vital Signs Date Time Temp Pulse Resp B/P (MAP) Pulse Ox O2 Delivery O2 Flow Rate FiO2 06/10/17 08:00 35 06/10/17 08:00 68 06/10/17 08:00 97.9 68 12 155/63 (93) 100 06/10/17 07:00 100 Mechanical Ventilator 35 06/10/17 06:00 69 06/10/17 05:47 100 35 06/10/17 04:00 60 06/10/17 04:00 98.4 60 12 164/63 (96) 100 06/10/17 04:00 35 06/10/17 02:00 62 06/10/17 00:20 100 35 06/10/17 00:00 35 06/10/17 00:00 99.3 64 12 149/59 (89) 100 06/10/17 00:00 65 06/09/17 22:00 70 06/09/17 20:13 100 35 06/09/17 20:00 35 06/09/17 20:00 99.8 69 12 117/52 (73) 100 06/09/17 20:00 69 06/09/17 19:00 100 Mechanical Ventilator 35 06/09/17 18:00 68 06/09/17 17:12 100 35 06/09/17 16:00 35 06/09/17 16:00 99.6 74 12 118/58 (78) 100 06/09/17 16:00 74 06/09/17 14:00 68 06/09/17 13:04 100 35 06/09/17 12:00 35 06/09/17 12:00 68 06/09/17 12:00 99.1 68 12 104/51 (68) 100 06/09/17 10:00 74 I/O 06/09/17 06/09/17 06/09/17 06/10/17 06/10/17 06/10/17 07:00 15:00 23:00 07:00 15:00 23:00 Intake Total 768.6 ml 100 ml 681 ml 574 ml Output Total 0 ml 0 ml 0 ml 0 ml 2500 ml Balance 768.6 ml 100 ml 681 ml 574 ml -2500 ml IV Total 248.6 ml 100 ml 100 ml 92 ml Tube Feeding 400 ml 381 ml 362 ml Other 120 ml 200 ml 120 ml Tube Feeding Residual Discard 0 ml 0 ml 0 ml 0 ml 0 ml Hemodialysis 2500 ml (Casey Bermudez MD R3) Result Diagram: 06/09/17 0546 06/10/17 0400 Objective Remarks GENERAL: Intubated, mechanically ventilated, sedated. Off pressors, blood pressures fairly stable. NG tube in place. Central line inserted on right. SKIN: No rashes or lesions, visible part of incision on neck clear dry and intact HEAD: Normocephalic. EYES: No scleral icterus. No injection or drainage. NECK: Neck collar off CARDIOVASCULAR: Regular rate and rhythm with 3/6 murmur heard best over mitral valve, requiring pressors RESPIRATORY: Mechanical ventilation with PCV-VG, FiO2 35, TV 450, rate 12, PEEP 5, 1:3:2. GASTROINTESTINAL: Abdomen soft, non-tender, nondistended. Bowel sounds present. Has NG tube with tube feedings. MUSCULOSKELETAL: Extremities without edema. No calf tenderness. Has on SCD's. NEURO: Sedated, propofol infused Procedures anterior cervical discectomy with interbody fusion on 06/02/17. (Casey Bermudez MD R3) Vascular Central Line Catheter: Yes Assessment to: Continue Location: [place] (Casey Bermudez MD R3) A/P Assessment and Plan 77-year-old -[place] female with end-stage renal disease on dialysis, hypertension, pacemaker dependent, coronary artery disease, chronic back pain, and stomach cancer in remission. Admitted for generalized weakness and paresthesias and relatively sudden loss of sensation in hands and left leg, found to have severe cervical stenosis. Underwent anterior cervical discectomy with interbody fusion on 06/02/17. Currently in ICU, reintubated for acute respiratory acidosis, sedated. Requiring tube feedings, failed swallow study. Discharge Planning Received anterior cervical discectomy with interbody fusion on 06/02/17. Plan to transfer to a long-term ventilator rehab facility at [facility] today. (Casey Bermudez MD R3) Attending Attestation A detailed discussion regarding patients diagnosis was held with Dr Bermudez, EMR reviewed,Seen and examined Agree with contents of note and dianosis, See Orders. (Cedrick Robb MD) Problem List: (1) Hypercapnemia ICD Codes: R06.89 - Other abnormalities of breathing Status: Acute Plan: Required intubation and mechanical ventilation after becoming obtunded, ABG showing respiratory acidosis. X-ray showing cardiomegaly and increased pulmonary vascularity. Possibility include sequelae of neck surgery, hyper- responsiveness to sedative medications with poor respiratory drive, mass PE ( unlikely), cardiac event, acute CVA. - Wean ventilator as tolerated, will be transferred to [facility] ventilator rehab today. - Would benefit from intensive physical and occupational therapy after weaning off vent. - Suction oral secretions as needed. - Critical care on board, helping to manage. (2) Cervical spinal stenosis ICD Codes: M48.02 - Spinal stenosis, cervical region Status: Acute Plan: Multi-level degenerative changes including areas of significant canal stenosis at C3-C5. She has significant upper and lower extremity weakness and numbness/paresthesias. Anterior cervical discectomy with interbody fusion performed on 06/02/17. * Neurosurgery on board. * Currently sedated with Propofol. * [place] 10/325 every 4 hours when necessary pain, morphine 4 mg for breakthrough pain * NSAIDs contraindicated given renal disease * Gabapentin 100 mg tid for paresthesias, low dose as she is in renal failure * Physical therapy and occupational therapy, will require rehab. * Failed swallow evaluation, requiring tube feeds * Labile blood pressures, likely due to manipulation of sympathetic outflow tract * Baclofen for lower extremity spasms (3) End stage renal failure on dialysis ICD Codes: N18.6 - End stage renal failure on dialysis; Z99.2 - Dependence on renal dialysis Status: Chronic Plan: Patient has end-stage renal disease secondary to hypertension, on dialysis MWF. She is anuric. 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 Off pressors currently. * Continue carvedilol 3.125 mg q12hrs, hold for low pressures * Continue home medication of amlodipine 5 mg by mouth daily, hold for low pressures * Clonidine 0.1 mg by mouth when necessary per protocol (6) Nutrition, metabolism, and development symptoms ICD Codes: R63.8 - Other symptoms and signs concerning food and fluid intake Status: Acute Plan: Fluids: Getting tube feedings, failed swallow evaluation, currently sedated Diet: Nepro through NG tube at 35 mls/hr Defer to neurosurgery regarding activity, work with PT/OT DD prophylaxis: Heparin 5000 units tid, bilateral SCD's CODE STATUS: Full code (Casey Bermudez MD R3) Problem Qualifiers (1) HLD (hyperlipidemia): Qualified Codes: E78.2 - Mixed hyperlipidemia (2) HTN (hypertension): Qualified Codes: I10 - Essential (primary) hypertension Casey Bermudez MD R3 Jun 10, 2017 09:58 Cedrick Robb MD Jun 12, 2017 15:08
--- NOTE | 2017-06-10 11:02 | HHI.NPPN ---
Subjective General Problems: Anemia Renal Failure: Chronic, End Stage Renal Disease Interval History She remains intubated, on Propofol. The plan is to transfer to [facility] for vent weening. (Theresa Gustafson) Review of Systems General General Remarks unable to evaluate (Theresa Gustafson) Objective Data Data 06/10/17 06/11/17 19:00 07:00 Output Total 2500 ml Balance -2500 ml Tube Feeding Residual Discard 0 ml Hemodialysis 2500 ml Vital Signs Date Time Temp Pulse Resp B/P (MAP) Pulse Ox O2 Delivery O2 Flow Rate FiO2 06/10/17 10:17 100 35 06/10/17 08:00 35 06/10/17 08:00 68 06/10/17 08:00 97.9 68 12 155/63 (93) 100 06/10/17 07:00 100 Mechanical Ventilator 35 06/10/17 06:00 69 06/10/17 05:47 100 35 06/10/17 04:00 60 06/10/17 04:00 98.4 60 12 164/63 (96) 100 06/10/17 04:00 35 06/10/17 02:00 62 06/10/17 00:20 100 35 06/10/17 00:00 35 06/10/17 00:00 99.3 64 12 149/59 (89) 100 06/10/17 00:00 65 06/09/17 22:00 70 06/09/17 20:13 100 35 06/09/17 20:00 35 06/09/17 20:00 99.8 69 12 117/52 (73) 100 06/09/17 20:00 69 06/09/17 19:00 100 Mechanical Ventilator 35 06/09/17 18:00 68 06/09/17 17:12 100 35 06/09/17 16:00 35 06/09/17 16:00 99.6 74 12 118/58 (78) 100 06/09/17 16:00 74 06/09/17 14:00 68 06/09/17 13:04 100 35 06/09/17 12:00 35 06/09/17 12:00 68 06/09/17 12:00 99.1 68 12 104/51 (68) 100 (Theresa Gustafson) -: 06/09/17 0546 06/10/17 0400 Imaging Last 72 hours Impressions Chest X-Ray 06/08/17 0000 Signed Impressions: Service Date/Time: Thursday, June 08, 2017 18:37 - CONCLUSION: Right subclavian catheter in good position. No evidence of pneumothorax. Tyler Contreras MD Chest X-Ray 06/08/17 0000 Signed Impressions: Service Date/Time: Thursday, June 08, 2017 07:29 - CONCLUSION: 1. Endotracheal tube in good position. 2. Cardiomegaly and increased pulmonary vascularity. Andrea Guerra MD Drip Comment propofol (Theresa Gustafson) Physical Exam General Appearance: Well Nourished, No Acute Distress, Comfortable Appearance Remarks intubated, unresponsive (Theresa Gustafson BIsabel [employer]) Eyes Eye Exam: Pupils Equal (Theresa Gustafson BIsabel [employer]) Ears & Nose Ears & Nose Exam: Nasal Drainage Ears & Nose Remarks NG tube right nare (Theresa Gustafson BIsabel [employer]) Throat Throat Exam: Oral Mucosa [place] & Moist (Theresa Gustafson BIsabel [employer]) Neck Neck Exam: Trachea Midline Neck Remarks Platinum J collar in place (Theresa GustafsonP) Pulmonary Resp Exam: Clear Bilaterally, Breath Sounds Equal, No Distress (Theresa Gustafson B. [employer]) Cardiology CV Exam: Regular, Normal Sinus Rhythm, Good Perfusion (Theresa Gustafson B. [employer]) Gastrointestinal/Abdomen GI Exam: Soft, Non-Tender, Bowel Sounds Present (Theresa Gustafson BIsbael KEATINGP) Musculoskeletal MS Exam: Joints Intact, Normal Tone, Unable to Ambulate (Theresa Gustafson [employer]) Integumentary Skin Exam: Clear, Warm, Dry, Intact Skin Remarks right arm AV access, + thrill, bruit (Theresa GustafsonP) Extremeties Extremities Exam: Trace Edema Extremeties Remarks left leg and right arm weakness (Theresa Gustafson [employer]) Neurologic Neuro Exam: Unresponsive, Sedated (Theresa Gustafson BIsabel KEATINGP) VTE Prophylaxis Device: SCDs (Theresa Gustafson BIsabel CALHOUN) Assessment/Plan Assessment Summary: Anemia of CKD, Hypertension, End Stage Renal Disease Problem List: (1) ESRD (end stage renal disease) on dialysis ICD Codes: N18.6 - End stage renal disease; Z99.2 - Dependence on renal dialysis Status: Chronic Plan: Continue HD support on MWF . She is due today Off blood pressure support She has access in right arm that functions well Gadolinium is contraindicated ; IVF not required She is anuric at baseline Obtain intermittent renal panel We will continue to follow her at [facility] when transferred (2) Left leg weakness ICD Codes: R29.898 - Other symptoms and signs involving the musculoskeletal system Status: Acute Plan: Progressive, neurosurgery is following s/p C-Spine fusion 06/02 she had to be reintubated for CO 2 retention; will need vent weening (3) HTN (hypertension) ICD Codes: I10 - HTN (hypertension) Status: Chronic Plan: Blood pressure has improved continue to monitor (4) Metabolic bone disease ICD Codes: E88.9 - Metabolic disorder, unspecified; M90.80 - Osteopathy in diseases classified elsewhere, unspecified site Plan: Phosphorus is low , off Calcium Acetate Replacement has been ordered BID continue Sensipar intermittently evaluate Phosphorus level (5) Anemia ICD Codes: D64.9 - Anemia, unspecified Status: Acute Plan: Epogen with HD Transfused 06/05 follow Hb (Theresa Gustafson) Plan patient was seen and examined. Remains intubated. Off phosphorus binders, replacement ordered. Prognosis is guarded. (Deshawn Baez MD) Problem Qualifiers (1) HTN (hypertension): Qualified Codes: I10 - Essential (primary) hypertension Theresa Gustafson Jun 10, 2017 11:02 Deshawn Baez MD Jun 11, 2017 16:28
== END 2017-06-10 13:51 | DRG 471 ==
LOC: NEPC 07:06 → NEDA 09:52 → NEPHCDU 12:30 → OBSVTOIN 05-28 09:45 → N06B 05-28 18:03 → N03B 06-02 15:43
PROVIDERS: ADMIT Family Medicine; ATTEND Family Medicine
PROC: 5A1D70Z Performance of Urinary Filtration, Intermittent, Less than 6 Hours Per Day (ICD-10-PCS; 2017-05-27)
PROC: 0RG20A0 Fusion of 2 or more Cervical Vertebral Joints with Interbody Fusion Device, Anterior Approach, Anterior Column, Open Approach (ICD-10-PCS; principal; 2017-06-03)
PROC: 0RT30ZZ Resection of Cervical Vertebral Disc, Open Approach (ICD-10-PCS; 2017-06-03)
PROC: 5A1945Z Respiratory Ventilation, 24-96 Consecutive Hours (ICD-10-PCS; 2017-06-03)
PROC: 30233N1 Transfusion of Nonautologous Red Blood Cells into Peripheral Vein, Percutaneous Approach (ICD-10-PCS; 2017-06-05)
PROC: 5A09357 Assistance with Respiratory Ventilation, Less than 24 Consecutive Hours, Continuous Positive Airway Pressure (ICD-10-PCS; 2017-06-07)
PROC: 5A1945Z Respiratory Ventilation, 24-96 Consecutive Hours (ICD-10-PCS; 2017-06-08)
PROC: 0BH17EZ Insertion of Endotracheal Airway into Trachea, Via Natural or Artificial Opening (ICD-10-PCS; 2017-06-08)
PROC: 05H533Z Insertion of Infusion Device into Right Subclavian Vein, Percutaneous Approach (ICD-10-PCS; 2017-06-09)
DX: M47.12 Other spondylosis with myelopathy, cervical region (principal); N18.6 End stage renal disease; J96.02 Acute respiratory failure with hypercapnia; Z99.11 Dependence on respirator [ventilator] status; E87.2 Acidosis; E88.89 Other specified metabolic disorders; I12.0 Hypertensive chronic kidney disease with stage 5 chronic kidney disease or end stage renal disease; D62 Acute posthemorrhagic anemia; I95.3 Hypotension of hemodialysis; N25.81 Secondary hyperparathyroidism of renal origin; I27.20 Pulmonary hypertension, unspecified; M48.02 Spinal stenosis, cervical region; M25.78 Osteophyte, vertebrae; M19.90 Unspecified osteoarthritis, unspecified site; F32.9 Major depressive disorder, single episode, unspecified; K21.9 Gastro-esophageal reflux disease without esophagitis; G47.30 Sleep apnea, unspecified; Z96.651 Presence of right artificial knee joint; Z87.19 Personal history of other diseases of the digestive system; Z95.0 Presence of cardiac pacemaker; Z85.028 Personal history of other malignant neoplasm of stomach; Z68.36 Body mass index [BMI] 36.0-36.9, adult; Z87.891 Personal history of nicotine dependence; Z86.73 Personal history of transient ischemic attack (TIA), and cerebral infarction without residual deficits; Z99.2 Dependence on renal dialysis; Z79.01 Long term (current) use of anticoagulants; I25.10 Atherosclerotic heart disease of native coronary artery without angina pectoris; R29.6 Repeated falls; G89.29 Other chronic pain; Z80.3 Family history of malignant neoplasm of breast; Z81.1 Family history of alcohol abuse and dependence; Z83.3 Family history of diabetes mellitus; Z84.1 Family history of disorders of kidney and ureter; E78.2 Mixed hyperlipidemia; Z90.710 Acquired absence of both cervix and uterus; E66.9 Obesity, unspecified; F41.9 Anxiety disorder, unspecified; I08.0 Rheumatic disorders of both mitral and aortic valves; K59.00 Constipation, unspecified; I44.4 Left anterior fascicular block; M54.12 Radiculopathy, cervical region; D63.1 Anemia in chronic kidney disease; R13.10 Dysphagia, unspecified; M25.552 Pain in left hip; R53.1 Weakness
CPT/HCPCS: 36430; 36556; 36600; 70450; 71010; 72020; 72125; 72128; 72131; 73564; 73610; 76000; 80048; 80053; 80069; 80202; 82550; 82552; 82607; 82805; 83735; 83880; 84100; 84484; 85007; 85014; 85018; 85025; 85027; 85610; 85730; 86850; 86900; 86901; 86920; 87040; 87070; 87205; 90935; 93005; 93306; 94002; 94003; 94150; 94640; 94664; 96374; 96375; C1713; G0378; J0131; J0330; J0360; J0696; J1580; J1644; J1940; J2250; J2270; J2370; J2710; J3010; J3370; J7030; J7040; J7050; J7060; L0150; L0172; P9016; P9047; Q4081